=== PATIENT | female | born 1945 | race Caucasian/White ===

== ENCOUNTER 2017-01-10 16:55 | Inpatient (IN) | payer MEDICARE, MEDICAID ==
[2017-01-10 17:34] LABS: #Eosinphils 0.1 thou/uL (0.0-0.7); #Monocytes 1.1 thou/uL (0.11-0.59); #Neutrophils 8.2 thou/uL (1.40-6.50); %Basophils 0.5 % (0.0-1.0); %Eosinophils 0.5 % (0.0-10.0); %Lymphocytes 9.8 % (21.0-51.0); %Monocytes 10.5 % (0.0-10.0); Hematocrit 33.6 % (36.0-47.0); Mean Platelet Volume 6.6 fL (7.4-10.4); Red Blood Cell (RBC) Count 3.62 mill/uL (4.20-5.40); White Blood Cell (WBC) Count 10.4 thou/uL (4.8-10.8)
--- NOTE | 2017-01-10 18:09 | RAD ---
TWO VIEWS OF THE LET HIP: 01/10/17 INDICATION: Fall with left hip pain. FINDINGS: Right total hip prosthesis is unchanged in position when compared to a prior dated 10/05/13. Heteroto pic ossification overlying the left greater trochanter is stable. No acute fracture or subluxation i s evident. IMPRESSION: No acute abnormality. POS: [facility]
--- NOTE | 2017-01-10 18:10 | RAD ---
AP VIEW OF THE CHEST: 01/10/17 INDICATION: History of fall with tenderness in the lumbar spine. COMPARISON: Prior exam dated 06/19/16. FINDINGS: There is stable cardiomegaly. The lungs are clear. No definite acute osseous abnormality is evident. IMPRESSION: No acute cardiopulmonary abnormality. POS: [facility]
--- NOTE | 2017-01-10 18:12 | RAD ---
THREE VIEWS OF THE LUMBAR SPINE: 01/10/17 INDICATION: Fall with back pain. FINDINGS: There are stable laminectomy changes at L5 with pedicle screws at L5-S1 with interconnecting rods. G rade II anterolisthesis with intervertebral cage at L5-S1 stable. Anterolisthesis of L4 on L5 is sim ilar. There is now some slight retrolisthesis of L3 on L4 likely related to supine positioning and d isc degenerative facet osteoarthritic change at this level. There is some slight retrolisthesis also seen at L2 on L3. No acute fracture or subluxation is evident. IMPRESSION: 1. Stable postoperative lumbar spine with degenerative listhesis as above. 2. No acute fracture or subluxation is demonstrated. POS: [facility]
[2017-01-10 18:20] LABS: Troponin I Less than 0.010 ng/mL (< 0.028)
--- NOTE | 2017-01-10 18:27 | CT ---
NONCONTRAST CT CERVICAL SPINE 01/10/17 INDICATION: Fall with neck pain. COMPARISON: None. FINDINGS: There is moderate multilevel spondylosis of the cervical spine. no acute fracture or subluxation is evident. Prevertebral soft tissues appear within normal limits. Lung apices are clear. IMPRESSION: No acute fracture or subluxation. POS: [facility]
--- NOTE | 2017-01-10 18:43 | CT ---
CT OF THE BRAIN WITHOUT CONTRAST: 01/10/17 INDICATION: Fall. COMPARISON: None. FINDINGS: No acute infarct, hemorrhage, or hydrocephalus is present. No midline shift is evident. Skull is int act. IMPRESSION: No acute intracranial abnormality. POS: [facility]
[2017-01-10 18:58] LABS: Bilirubin Negative (Negative); Blood, Urine Trace (Negative); Glucose, Urine (Dipstick) Negative (Negative); Ketone, Urine Negative (Negative); Nitrite Negative (Negative); Protein, Urine (Dipstick) Negative (Neg-Trace)
[2017-01-10 19:00] LABS: Bacteria/HPF 4+ HPF (None Seen); Hyaline Casts/LPF 0-3 HYALINE CAST LPF (0-3 Hyaline); RBC/HPF 0-3 HPF (0-3); Squamous Epithelial 0-3 HPF (0-3); WBC/HPF 21-50 HPF (0-3)
[2017-01-10 19:03] LABS: ALT (SGPT) 19 U/L (8-55); AST (SGOT) 33 U/L (5-34); Alkaline Phosphatase 81 U/L (40-150); Anion Gap 17 mmol/L (10-20); BUN (Urea Nitrogen) 17 mg/dL (9.8-20.1); Bilirubin, Total 0.9 mg/dL (0.2-1.2); Calc. Creatinine Clearance 0 mL/min (70-130); Calcium 9.3 mg/dL (7.8-10.44); Carbon Dioxide 23 mmol/L (23-31); Chloride 89 mmol/L (98-107); Estimated GFR-MDRD 61; Globulin 2.9 g/dL (2.4-3.5); Protein, Total 7.3 g/dL (6.0-8.3)
[2017-01-10] MEDS ORDERED: cefTRIAXone\\ROCEPHIN 1 GM VIAL ONE (19:31)
--- NOTE | 2017-01-10 20:10 | PDOC.EVN ---
Event Note - Event Note Event Note: [id number] H&P Dictated 1. ROXIE 2. Hypotension 3. DM type 2 4. fALL PLAN: See orders
[2017-01-10] MEDS ORDERED: Acetaminophen 325 MG TAB PO PRN (20:12)
[2017-01-10] MEDS ORDERED: Ondansetron HCl/PF 4 MG/2 ML Vial IVP PRN (20:12)
[2017-01-10] MEDS ORDERED: Albuterol Sulfate 2.5 mg/3 ml Neb NEB PRN (20:14)
[2017-01-10] MEDS: Sodium Chloride 0.9% 1,000 ML IV SCH (21:45)
[2017-01-11] MEDS: Famotidine 20 MG TAB PO SCH ×3 (02:37→20:54)
[2017-01-11] MEDS: Gabapentin 300 MG CAP PO SCH ×6 (02:37→20:54)
[2017-01-11 02:42] VITALS: BMI 33.7
[2017-01-11] MEDS: tiZANidine HCl 4 MG TAB PO PRN ×2 (04:13→11:21)
[2017-01-11 05:03] LABS: Anion Gap 13 mmol/L (10-20); BUN (Urea Nitrogen) 13 mg/dL (9.8-20.1); Calc. Creatinine Clearance 100 mL/min (70-130); Calcium 8.9 mg/dL (7.8-10.44); Carbon Dioxide 23 mmol/L (23-31); Chloride 95 mmol/L (98-107); Estimated GFR-MDRD 68
[2017-01-11 05:04] LABS: #Eosinphils 0.1 thou/uL (0.0-0.7); #Lymphocytes 1.1 thou/uL (1.20-3.40); #Monocytes 1.1 thou/uL (0.11-0.59); #Neutrophils 6.4 thou/uL (1.40-6.50); %Basophils 0.5 % (0.0-1.0); %Eosinophils 1.5 % (0.0-10.0); %Lymphocytes 12.8 % (21.0-51.0); %Monocytes 11.9 % (0.0-10.0); Hematocrit 29.9 % (36.0-47.0); Mean Platelet Volume 6.8 fL (7.4-10.4); Red Blood Cell (RBC) Count 3.18 mill/uL (4.20-5.40); White Blood Cell (WBC) Count 8.8 thou/uL (4.8-10.8)
--- NOTE | 2017-01-11 07:13 | HP ---
DATE OF ADMISSION: 01/10/2017 CHIEF COMPLAINT: Fall. HISTORY OF PRESENT ILLNESS: The patient is a 71 years old female with past medical history of hypertension, hyperlipidemia, diabetes mellitus type 2, and _ ____ because of all. Patient states she is having falls intermittently in last few weeks, had a fall yesterday and she was on the floor. She could not able to get up, so paramedics were called today and patient was brought to the ER. The patient said she did fall because of loss of balance, but denies any head injury. She denies any syncopal episode. Denies any nausea. Denies any vomiting. She complains of generalized weakness. The patient denies any dysuria. Denies any increased frequency of micturition. PAST MEDICAL HISTORY: As per HPI. PAST SURGICAL HISTORY: Total knee replacement, hip surgery, back surgery, C- section. SOCIAL HISTORY: Denies smoking, denies alcohol use and drugs. FAMILY HISTORY: Denies any heart problems. MEDICATIONS: Reviewed. REVIEW OF SYSTEMS: Constitutional: Denies any fever, denies any chills. Eyes : Vision problems. Denies any hearing loss. Denies any neck pain. Cardiovascular system: Denies any chest pain. Respiratory system: Denies any palpations. Denies any dyspnea. Cranial nerve system: Denies syncope. Musculoskeletal: Positive for generalized weakness. Integumentary: Denies any rash. All other review of systems are reviewed and are negative PHYSICAL EXAMINATION: VITAL SIGNS: At the time of H and P performed, blood pressure is 196/101, heart rate of 101, respiration rate 18, pulse ox 97% on room air. GENERAL: The patient appears comfortable. HEENT: Pupils are equal, round, and reactive. Anterior naris patent. Nose normal. Ears normal. Teeth intact. Tongue is moist. NECK: Supple, no JVD. CARDIOVASCULAR: S1, S2 present. Regular rate and rhythm, no murmurs, no rubs, no gallops. RESPIRATORY SYSTEM: No wheezing, no rhonchi. Breath sounds bilaterally. GASTROINTESTINAL: Abdomen is soft, distended, no guarding, no organomegaly, no masses felt. MUSCULOSKELETAL: Bilateral knees old scar present. CRANIAL NERVE SYSTEM: Denies syncope. Cranial nerves intact. Follows commands. Speech clear. PSYCHIATRIC: Mood is appropriate at this time. GENITOURINARY: No suprapubic tenderness. INTEGUMENTARY: No obvious rashes seen. LABORATORY DATA: At the time of H and P performed, white count 10.4, hemoglobin 9.5, platelet count is 248. BMP showed sodium 124, potassium 4.7, chloride 89, CO2 23, BUN of 17, creatinine 0.91, CK-MB 10.8, CK 557, troponin is than 0.010. Serum total protein 7.3. ASSESSMENT AND PLAN: The patient is a 71-year-old female: 1. Fall. Plan to consult PT, OT, speech therapy evaluation. Plan to monitor the patient closely. 2. Hyponatremia. appears hypovolemia. Plan to start IV fluids. Repeat BMP in a.m. 3. Abnormal cardiac enzymes and mild rhabdomyolysis we will monitor. EKG, no acute ST changes. We will place patient on telemetry. We will check cardiac enzymes. 4. Urinary tract infection. Plan to start patient on IV Rocephin 1 gram q.24 hours and urine culture and sensitivity. 5. History of hypertension. Continue home blood pressure medications. We will do p.r.n. clonidine and hydralazine. 6. History of diabetes type 2, monitor blood sugars. We will do insulin sliding scale. The case was discussed in detail with the patient. Patient is FULL CODE. MTDD
[2017-01-11] MEDS: Sodium Chloride 0.9% 1,000 ML IV SCH ×2 (08:49→20:53)
[2017-01-11] MEDS: HYDROcodone/Acetaminophen 5/325 mg Tablet PO PRN ×2 (08:50→20:59)
[2017-01-11] MEDS: methylPREDNISolone 4 mg Tablet PO SCH (08:50)
[2017-01-11] MEDS: Aspirin 81 mg Enteric Coated Tablet PO SCH (08:50)
[2017-01-11] MEDS: Carvedilol 6.25 MG TAB PO SCH ×2 (08:51→17:11)
[2017-01-11] MEDS: Enoxaparin Sodium 40 MG/0.4 ML SYRINGE SC SCH (08:51)
--- NOTE | 2017-01-11 11:39 | PDOC.PN ---
- Subjective Encounter Start Date: 01/11/17 Encounter Start Time: 11:37 Patient states that she has significnat low back pain and is asking for pain medications. No other issues or concerns in the last 24 hours. - Objective Vital Signs & Weight: Vital Signs (12 hours) Temp Pulse Resp BP Pulse Ox 01/11/17 08:10 97.9 F 73 16 136/60 94 L Weight Weight 222 lb Result Diagrams: 01/11/17 04:39 01/11/17 04:39 Phys Exam - Physical Examination sitting up in bed, appears to be in mild pain obese HEENT: PERRLA, moist MMs Neck: no nodes, no JVD Respiratory: no wheezing, no rales Cardiovascular: RRR, no significant murmur Gastrointestinal: soft, non-tender, no distention Musculoskeletal: pulses present, edema present (trace) Neurological: normal sensation, moves all 4 limbs Psychiatric: normal affect, A&O x 3 Skin: no rash, normal turgor Dx/Plan (1) Hyponatremia Code(s): E87.1 - HYPO-OSMOLALITY AND HYPONATREMIA Status: Acute (2) Chronic pain Code(s): G89.29 - OTHER CHRONIC PAIN Status: Acute (3) Chest pain Code(s): R07.9 - CHEST PAIN, UNSPECIFIED Status: Acute (4) Chronic low back pain Code(s): M54.5 - LOW BACK PAIN; G89.29 - OTHER CHRONIC PAIN Status: Chronic (5) Hypertension Code(s): I10 - ESSENTIAL (PRIMARY) HYPERTENSION Status: Chronic (6) Obesity (BMI 30-39.9) Code(s): E66.9 - OBESITY, UNSPECIFIED Status: Chronic - Plan * Na levels improving, patient likely has pain induced hyponatremia, patient's volume status is euvolemic * Patient also having significant chronic back pain which she was told would require surgery, will consult spinal surgery at this point in time for further recommendations * 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
[2017-01-11 12:42] LABS: Hemoglobin A1c 5.2 % (4.0-6.0)
[2017-01-11] MEDS ORDERED: cefTRIAXone\\ROCEPHIN 1 GM in Sodium Chloride 0.9% 100 ML IVPB SCH (20:00)
[2017-01-12] MEDS: HYDROcodone/Acetaminophen 5/325 mg Tablet PO PRN ×2 (03:49→09:10)
[2017-01-12] MEDS: Sodium Chloride 0.9% 1,000 ML IV SCH (05:39)
--- NOTE | 2017-01-12 06:18 | CON ---
DATE OF CONSULTATION: 01/11/2017 DATE OF ADMISSION: 01/10/2017 CHIEF COMPLAINT: Fall, low back pain. HISTORY OF PRESENT ILLNESS: Patient is a 71-year-old female who presented with having increasing nu mber of falls. She feels like when she is standing and walking, her legs get weak and give out from under her. She has diffuse tenderness to the low back and midline lumbar spine on palpation. She denies any head injury whenever she fell or any syncopal injuries. Denies any nausea or vomiting, a nd complains of generalized weakness. The patient also denies any bowel or bladder incontinence. S he is a patient of Dr. Rashid as he has seen her in 04/2016. At that time, he offered an extensi on of her L5-S1 fusion, which she had in 12/[address] Rashid to the L4-L5 vertebrae and also laminectomy at L2-L5. She is also being treated for a UTI that is growing E. coli. She has hyponat remia, sodium 127 and rhabdomyolysis. X-ray of the lumbar spine was completed and it shows stable p ostoperative lumbar spine with degenerative listhesis at the L4 and L5 vertebrae. Grade 2 anterolis thesis. There is also some slight retrolisthesis on L3 and L4 likely related to a supine positionin g and disk degenerative facet arthritic changes. There is a small amount of retrolisthesis at L2 an d L3. There is no acute fracture or subluxation is demonstrated. Neurosurgery was consulted for th e findings on x-ray. PAST MEDICAL HISTORY: Hypertension, hyperlipidemia, diabetes mellitus type 2. PAST SURGICAL HISTORY: Total knee replacement, hip surgery, L5-S1 laminectomy and fusion [place] [address] Rashid and a . SOCIAL HISTORY: Denies any smoking. Denies alcohol or drug use. FAMILY HISTORY: Denies any heart problems. MEDICATIONS: Have been reviewed. REVIEW OF SYSTEMS: A 12-point review of systems has been completed and is otherwise negative unless stated in the above HPI. PHYSICAL EXAMINATION: VITAL SIGNS: Reviewed and she is hemodynamically stable. GENERAL: The patient is alert and oriented x4, in no acute distress. HEENT: Head is normocephalic and atraumatic. Hearing is intact. Moist mucous membranes. Eyes, pu pils are equal and reactive to light. Extraocular muscles are intact. Sclerae is white, nonicteric . CARDIOVASCULAR: The patient has regular rate and rhythm, normal S1, S2 heart sounds. No distal cya nosis or clubbing noted. MUSCULOSKELETAL: Lower extremity, 5/5 strength in the lower extremity bilaterally. No dermatomal s ensory loss in the lower extremities bilaterally. Pulses are +2, equal and symmetric in the lower e xtremity. Upper extremity, the patient has 5/5 strength in the upper extremity. No dermatomal sens ory loss in the upper extremities bilaterally, +2 pulses in the brachial and radial pulses bilateral ly in upper extremity. RESPIRATORY: The patient has bilateral symmetric chest rise and appears to be in no shortness of br eath. BACK: The patient has diffuse tenderness to the midline lumbar spine. NEUROLOGIC: Cranial nerves II through XII are grossly intact. Her speech is fluent and she answers my questions appropriately. LABORATORY DATA: Shows CK-MB at 10.8, CK at 557, troponin at 0.01, serum total protein is 7.3, BUN of 17, potassium of 4.7, sodium is 124. Platelet count of 248, hemoglobin is 9.5 and white blood ce ll count is 10.4. ASSESSMENT: Ms. Arroyo is a 71-year-old female who I saw in her room this morning with low back pain , rhabdomyolysis, hyponatremia, is being treated for urinary tract infection. PLAN: From a neurosurgical standpoint, this is not an emergency. We will speak to her tomorrow sanam prince about outpatient imaging and follow up. Dr. Rashid previously offered extension of her L5-S 1 fusion to the L4-L5 vertebrae and a repeat laminectomy of L2 through L5. If there are any further questions, please feel free to contact Neurosurgery.
[2017-01-12 08:32] LABS: Anion Gap 12 mmol/L (10-20); BUN (Urea Nitrogen) 13 mg/dL (9.8-20.1); Calc. Creatinine Clearance 91 mL/min (70-130); Calcium 9.3 mg/dL (7.8-10.44); Carbon Dioxide 25 mmol/L (23-31); Chloride 100 mmol/L (98-107); Estimated GFR-MDRD 61; Magnesium 1.6 mg/dL (1.6-2.6)
--- NOTE | 2017-01-12 08:32 | PRG ---
DATE OF SERVICE: 01/12/2017 I personally interviewed and examined the patient and agree with documentation of Obed Quezada PA-C, dated 01/11/2017. Briefly, Manuelito Arroyo is a patient in our neurosurgery clinic for whom we have offered revision s urgery including extension of fusion and further decompression in the lumbar spine. She comes in wi th rhabdomyolysis, urinary tract infection, hyponatremia and falls at home. On neurological examination Ms. Arroyo is stable from our visit in April. I offered, once again for Ms. Arroyo to undergo spine surgery. Her operation would require about 6-8 hours of operative time. There would be a significant recovery, including inpatient rehabilitation . We will have to clear our schedule in the future to make this happen. However, Ms. Arroyo is not sure she wants surgery right now. Her is in the last stages of ca ncer treatment. She wants to be there for her and does not want to take the time to focus o n herself in her recovery. She does not have hospice care because he continues chemotherapy to figh t his cancer. She does not have a home health aide and she is trying to manage both her degenerativ e spine condition and her 's cancer on her own. When the time comes and Ms. Arroyo is ready to undergo this surgical intervention and the recovery th at is appropriate for it, we will make room on the operative schedule. We will need about 3 weeks' notice to clear our schedule appropriately for her. She will need medical tune-up prior to surgery to ensure that her cardiopulmonary risk is as low as we can make it. We will need her off all blood thinners and antiplatelet agents for a week prior to the surgery. I recommending to her that she visit with our high school social studies teacher to see if she can get any help with the management of her house and care of her .
[2017-01-12] MEDS: Carvedilol 6.25 MG TAB PO SCH ×2 (09:06→16:28)
[2017-01-12] MEDS: Aspirin 81 mg Enteric Coated Tablet PO SCH (09:07)
[2017-01-12] MEDS: Enoxaparin Sodium 40 MG/0.4 ML SYRINGE SC SCH (09:08)
[2017-01-12] MEDS: Gabapentin 300 MG CAP PO SCH ×2 (09:09→14:48)
[2017-01-12] MEDS: Famotidine 20 MG TAB PO SCH (09:09)
[2017-01-12] MEDS: methylPREDNISolone 4 mg Tablet PO SCH (09:09)
[2017-01-12] MEDS ORDERED: HYDROcodone/Acetaminophen 10/325 mg Tablet PO PRN (10:02)
[2017-01-12] MEDS ORDERED: HYDROcodone/Acetaminophen 5/325 mg Tablet PO PRN (10:04)
[2017-01-12] MEDS ORDERED: Ciprofloxacin 500 MG TAB PO SCH ×2 (10:15→20:00)
[2017-01-12] MEDS ORDERED: Cyclobenzaprine 10 MG TAB PO PRN (10:17)
--- NOTE | 2017-01-12 13:02 | DIS ---
PRIMARY CARE PHYSICIAN: Dr. Mckeon DATE OF ADMISSION: 01/10/2017 DATE OF DISCHARGE: 01/12/2017 DISCHARGE DIAGNOSES: 1. Hyponatremia with hypoosmolality. 2. Diabetes mellitus type 2. 3. Hypertension. 4. Hyperlipidemia. 5. Chronic low back pain, acute on chronic, after a fall. CONSULTATIONS: Dr. Rashid on 01/11/2017. HISTORY AND PHYSICAL: Ms. Arroyo is a 71-year-old female with history of chronic back pain who was a dmitted after having intermittent falls in the last few weeks due to intractable back pain. She fel l the day prior to admission and was on the floor and was unable to get up, so paramedics were goodman d. She was brought to the emergency department for evaluation. She had no history of syncope or na usea. She did have intractable back pain and was noted to be hyponatremic. She was admitted to the hospital for further workup and treatment. Over 01/10/2017 she was largely unchanged. She was seen by Neurosurgery for quick evaluation, and felt this was not an acute problem. No plans were made for emergent surgery and focus was on pain medicine and muscle spasm control. On 01/11/2017 and 01/12/2017 she was still having significant discomfort, however, on review she was on less pain medicines and normal, had been unable to tolerate her muscle relaxer. I switched her over to Flexeril and increased back to her regular dose. Her pain was much more tolerable. She was seen by Dr. Rashid in evaluation. He felt that he would see her as an outpatient in 3-4 weeks a nd get her scheduled for outpatient back surgery. Otherwise, she was stable for discharge and was discharged home in stable condition. As a side note, she was very tearful this morning as her was undergoing cancer treatment was not reachable and she was concerned about his safety. The daughter was on the way out there, the p atient was ready to go home and check on him. DISCHARGE CONDITION: Stable. DISPOSITION: To be discharged home via private vehicle. DISCHARGE MEDICATIONS: 1. Cipro 500 mg p.o. b.i.d. for 7 days. 2. Flexeril 10 mg p.o. t.i.d. p.r.n. muscle spasm. 3. Albuterol sulfate 0.63 mg per 3 mL, 3 mL inhaled q.6 h. nebulized p.r.n. shortness of breath or wheezing. 4. Tylenol p.r.n. 5. Aspirin 81 mg daily. 6. Carvedilol 6.25 mg p.o. b.i.d. 7. Gabapentin 600 mg p.o. t.i.d. 8. Metaxalone 800 mg p.o. t.i.d. p.r.n. 9. Protonix 40 mg p.o. daily. 10. Quinapril 20 mg p.o. b.i.d. 11. Methylprednisolone 4 mg daily. 12. Albuterol sulfate HFA 2 puffs b.i.d. p.r.n. shortness of breath or wheezing. 13. Lipitor 10 mg p.o. at bedtime. 14. Buspirone 30 mg p.o. b.i.d. 15. Hydrocodone/acetaminophen 10/325 one p.o. q.6 hours p.r.n. pain. 16. Zoloft 150 mg p.o. daily. 17. Iron polysaccharide, Niferex 108 mg p.o. daily. 18. Metformin 1000 mg p.o. q.a.m. and 500 mg p.o. q.p.m. 19. Tramadol 50 mg p.o. q.6 hours p.r.n. mild pain. FOLLOWUP APPOINTMENTS 1. Dr. Schulte in [address] Rashid in 2-3 weeks. DISCHARGE CONDITION: Good. DISPOSITION: Again being discharged to home via private vehicle.
[2017-01-12] MEDS ORDERED: tiZANidine HCl 4 MG TAB PO SCH (14:00)
[2017-01-12 16:28] VITALS: BP 163/69
[2017-01-12 18:02] VITALS: TEMP 97.6
== END 2017-01-12 17:24 | disposition home health service (06) | DRG 641 ==
LOC: ERS 16:55 → ERHOLD 20:10 → 2NO 21:52
PROVIDERS: ADMIT Internal Medicine; ATTEND Internal Medicine
DX: E87.1 Hypo-osmolality and hyponatremia (principal); M62.82 Rhabdomyolysis; N39.0 Urinary tract infection, site not specified; E11.9 Type 2 diabetes mellitus without complications; G89.29 Other chronic pain; M62.830 Muscle spasm of back; W01.0XXA Fall on same level from slipping, tripping and stumbling without subsequent striking against object, initial encounter; R29.6 Repeated falls; M51.36 Other intervertebral disc degeneration, lumbar region; M43.16 Spondylolisthesis, lumbar region; E78.5 Hyperlipidemia, unspecified; Z98.1 Arthrodesis status; I10 Essential (primary) hypertension; E66.9 Obesity, unspecified; Z68.33 Body mass index [BMI] 33.0-33.9, adult
CPT/HCPCS: 36415; 51701; 70450; 71010; 72100; 72125; 80048; 80053; 81003; 81015; 82550; 82553; 83036; 83735; 84484; 85025; 87077; 87086; 87186; 93005; 96361; 96365; 96375; A4216; A4353; G8978-GP-CK; G8979-GP-CJ; J0360; J0696; J1650; J7050; J7611

== ENCOUNTER 2017-01-27 18:44 | Observation (INO) | payer MEDICARE, MEDICAID ==
[2017-01-27 19:15] LABS: Hematocrit 30.8 % (36.0-47.0); Mean Platelet Volume 6.5 fL (7.4-10.4); Red Blood Cell (RBC) Count 3.24 mill/uL (4.20-5.40)
[2017-01-27 19:28] LABS: Band 8 % (5-11); Neutrophil 73 % (42-75); Polychromasia SLIGHT = 2-3 cells (100X) (0-2/hpf); Reactive Lymphocytes 2 % (0-10)
[2017-01-27 19:29] LABS: Bilirubin Negative (Negative); Blood, Urine Small (Negative); Glucose, Urine (Dipstick) Negative (Negative); Ketone, Urine Negative (Negative); Nitrite Positive (Negative); Protein, Urine (Dipstick) Negative (Neg-Trace)
[2017-01-27 19:31] LABS: Bacteria/HPF 4+ HPF (None Seen); Hyaline Casts/LPF 0-3 HYALINE CAST LPF (0-3 Hyaline); RBC/HPF None Seen HPF (0-3); Squamous Epithelial 0-3 HPF (0-3); WBC/HPF 0-3 HPF (0-3)
[2017-01-27 19:39] LABS: ALT (SGPT) 25 U/L (8-55); AST (SGOT) 42 U/L (5-34); Alkaline Phosphatase 59 U/L (40-150); Anion Gap 14 mmol/L (10-20); BUN (Urea Nitrogen) 29 mg/dL (9.8-20.1); Bilirubin, Total 0.7 mg/dL (0.2-1.2); Calc. Creatinine Clearance 0 mL/min (70-130); Calcium 9.1 mg/dL (7.8-10.44); Carbon Dioxide 26 mmol/L (23-31); Chloride 98 mmol/L (98-107); Estimated GFR-MDRD 37; Globulin 2.8 g/dL (2.4-3.5); Protein, Total 6.8 g/dL (6.0-8.3)
[2017-01-27 19:41] LABS: Troponin I Less than 0.010 ng/mL (< 0.028)
[2017-01-27] MEDS ORDERED: Ondansetron HCl/PF 4 MG/2 ML Vial ONE (21:16)
[2017-01-27] MEDS ORDERED: Morphine Sulfate 2 MG/ML SYRINGE ONE (21:16)
[2017-01-27] MEDS ORDERED: cefTRIAXone\\ROCEPHIN 1 GM VIAL ONE (21:54)
--- NOTE | 2017-01-27 22:20 | CT ---
CT HEAD WITHOUT IV CONTRAST: 01/27/17 HISTORY: Patient found on ground at home three hours ago. Patient has fallen six times in the past few weeks. Patient has loss of bowel control. Back and hip pain. COMPARISON: 01/10/17. FINDINGS: Again noted are mild chronic small vessel ischemic changes and cerebral volume loss. There is no josh dence of an acute cortical infarction, hemorrhage, mass effect or midline shift. There is mild cereb ellar volume loss again present. Ventricular system dilated and out of proportion to the degree of s ulcal atrophy, but this is a stable finding and likely related to greater central cerebral atrophy. There is no calvarial fracture seen. There has been no interval change compared to the prior exam. IMPRESSION: No acute intracranial abnormality is demonstrated. POS: [facility]
--- NOTE | 2017-01-27 22:23 | CT ---
CT CERVICAL SPINE WITHOUT IV CONTRAST: 01/27/17 HISTORY: Patient found on ground at home after a fall. Patient found three hours ago. Back and hip pain. Loss of bowel control. TECHNIQUE: Contiguous axial CT images are obtained through the cervical spine from the skull base to the T2-3 l evel. Sagittal and coronal reformat images are provided. COMPARISON: 01/10/17. Multilevel degenerative changes are again seen stable from the prior exam. There is no evidence of a n acute fracture or subluxation involving the cervical spine. Prevertebral soft tissues are within n ormal limits. There has been no interval change from prior exam. IMPRESSION: Multilevel degenerative changes without evidence of fracture or subluxation involving the cervical s pine. POS: [facility]
[2017-01-27] MEDS ORDERED: Dextrose 50% Abboject 50 ML SYRINGE SLOW IVP PRN (23:45)
[2017-01-27] MEDS ORDERED: Senokot 8.6 MG TAB PO PRN (23:45)
[2017-01-27] MEDS ORDERED: HumaLOG 300 UNITS/3 ML VIAL SC PRN ×2 (23:45)
[2017-01-27] MEDS ORDERED: Dextrose 5% in Water 1,000 ML IV PRN (23:45)
[2017-01-27] MEDS ORDERED: Milk Of Magnesia 30 ML UDCUP PO PRN (23:45)
[2017-01-27] MEDS ORDERED: Sodium Chloride 0.9% 1,000 ML IV SCH (23:45)
--- NOTE | 2017-01-28 00:53 | HP ---
PRIMARY CARE PHYSICIAN: None. CHIEF COMPLAINT: Unable to get up. HISTORY OF PRESENT ILLNESS: Ms. Arroyo is a pleasant 71-year-old female who has a history of hyperte nsion and diabetes as well as severe lumbar spondylolisthesis. She actually was recently discharged from the hospital for similar complaints that she has on this presentation. She had been admitted on 01/10 for a fall where she had difficulty getting up. She was also found to have a urinary tract infection at that time. She was admitted and evaluated by Neurosurgery and a lumbar surgery was of fered; however, the patient wanted to wait on any surgery due to her 's chronic illness. It was felt that there was no neurological emergency at that time and she was discharged home. She say s that since she has been home, she has been having trouble with ambulating. She says that she slee ps in a room with her granddaughter and the 2 beds were very close together and she says that she tony s been falling off and on in the bedroom, so she made the decision to try to sleep in the living brody m and she says she was sleeping in a reclining chair and says that she was watching TV and fell asle ep and then got startled, awoke, and when this happened, she kind of slid to the floor and was unabl e to get up. She was on the floor for about 3-4 hours before her was able to call and get h elp and she was brought to the emergency room for evaluation. In the ER, she is once again found to have a urinary tract infection. She was also found to have acute renal failure as well and she is once again being admitted. REVIEW OF SYSTEMS: Constitutional: There have been no fevers, chills, no night sweats, no weight l oss. HEENT: No headache, no dizziness, no visual changes, no sore throat, no rhinorrhea, no neck p ain, no adenopathy. Pulmonary: No hemoptysis, no cough, no wheezing. Cardiovascular: The patient says she has an occasional chest pain off and on as well as some dyspnea off and on. However, it i s noted that she did have a negative stress test in 06/2016. Gastrointestinal: She has some occasi onal abdominal pain. She says she has had some constipation as well. No nausea, no vomiting, no ch karina in bowels. Genitourinary: No urinary frequency, hematuria, hesitancy. Neurologic: No focal weakness, numbness, no seizures except for the leg weakness. Psychiatric: No symptoms of anxiety o r depression. Skin and Integument: No skin changes. No rash. PAST MEDICAL HISTORY: Significant for spondylolisthesis and spinal stenosis at L4-L5 and severe spi nal stenosis, hypertension, hyperlipidemia, diabetes mellitus type 2. PAST SURGICAL HISTORY: She has had a total knee replacement and L5-S1 fusion and . ALLERGIES: CHLORDIAZEPOXIDE, DIAZEPAM, DICLOFENAC, CELEBREX, VALPROIC ACID, PHENERGAN, MISOPROSTOL, LODINE, DIAZEPAM. SOCIAL HISTORY: She denies any alcohol use. She also denies smoking. She is and lives at home with her family. FAMILY HISTORY: No history of any heritable diseases. MEDICATIONS: Her medications that the patient was discharged home on about 2 weeks ago included Fle xeril 10 mg t.i.d., albuterol nebs, aspirin 81 mg daily, carvedilol 6.25 mg twice a day, gabapentin 600 mg t.i.d., metolazone 800 mg t.i.d. as needed, Protonix 40 mg daily, quinapril 20 mg twice a day , methylprednisolone 4 mg daily, Lipitor 10 mg at bedtime, buspirone 30 mg twice a day, Freeman 10/325 q.6 hours as needed, Zoloft 150 mg daily, iron polysaccharide 108 mg daily, metformin 1000 mg in th e a.m. and 500 mg in the p.m., and Tramadol 50 mg q.6 hours as needed. PHYSICAL EXAMINATION: GENERAL: She is alert and oriented. She appears to be in no acute distress. VITAL SIGNS: Her blood pressure was 149/66, heart rate 75, respiratory rate of 18, temperature is 9 8.7. HEENT: Pupils are equal, round, and reactive. Extraocular muscles are intact. Sclerae are anicter ic. Throat; no erythema, no exudates. NECK: No adenopathy, no bruits. LUNGS: Clear to auscultation. There is no wheezing, no rales. CARDIOVASCULAR: She has a normal S1 and S2. No S3 or S4. No murmurs, clicks or rubs. ABDOMEN: Obese, it is soft. She has got some diffuse tenderness. There is no rebound or guarding. EXTREMITIES: She has got some mild petechial like lesions on the feet, but there is no significant edema. NEUROLOGICALLY: She had difficulty lifting her right leg against gravity and the left leg was weak, but she was able to lift it against gravity, but it was very weak against resistance. She was able to dorsiflex both feet and plantar flex both feet and her upper extremity strength was intact. LABORATORY RESULTS: White blood cell count was 8.0, hemoglobin 10.7, hematocrit is 30.8, platelet c ount is 185. Sodium was 133, potassium 4.6, chloride is 98, CO2 is 26, BUN of 29, creatinine 1.4, a nd glucose is 94. ASSESSMENT AND PLAN: This is a 71-year-old female that has significant lumbar spondylolisthesis and lumbar spinal canal stenosis, who presents with lower extremity weakness. The weakness is likely a s a result of the lumbar disk disease. She also has a urinary tract infection. She is likely at [facility] for recurrent urinary tract infections due to her lumbar disk disease. She may have some degree of urinary retention, which we will observe for while she is in the hospital. In the meantime, the patient will be placed in observation. We will consult Neurosurgery as she may require surgery soon er than anticipated. 1. For the urinary tract infection, we will start her on Cipro once again. Based on urine cultures from her previous admission, cultures will once again be drawn and antibiotics tailored. We will a lso need to check a postvoid residual to see if she has any urinary retention and if she does, mackenzie santana on the degree, she may need either in and out self-catheterization or possibly a urology consul tation. We will also place her on aggressive bowel program for constipation. 2. For diabetes mellitus, we will continue her usual medications for diabetes with the exception of metformin and also place her on a sliding scale insulin.
[2017-01-28] MEDS: Acetaminophen 325 MG TAB PO PRN ×2 (04:14→09:00)
[2017-01-28 04:24] LABS: Anion Gap 12 mmol/L (10-20); BUN (Urea Nitrogen) 21 mg/dL (9.8-20.1); Calc. Creatinine Clearance 79 mL/min (70-130); Calcium 9.3 mg/dL (7.8-10.44); Carbon Dioxide 26 mmol/L (23-31); Chloride 99 mmol/L (98-107); Estimated GFR-MDRD 54
[2017-01-28 05:00] LABS: Band 6 % (5-11); Hematocrit 32.5 % (36.0-47.0); Neutrophil 65 % (42-75); Nucleated RBC 1 % (0); Reactive Lymphocytes 1 % (0-10); Red Blood Cell (RBC) Count 3.38 mill/uL (4.20-5.40); White Blood Cell (WBC) Count 7.8 thou/uL (4.8-10.8)
[2017-01-28] MEDS: Cipro 250 MG TAB PO SCH ×2 (06:55→22:11)
[2017-01-28] MEDS: Enoxaparin Sodium 30 MG/0.3 ML SYRINGE SC SCH (09:01)
[2017-01-28] MEDS: Saccharomyces boulardii 250 MG CAP PO SCH (09:01)
[2017-01-28] MEDS: Docusate 100 MG CAP PO SCH ×2 (09:02→22:10)
[2017-01-28] MEDS ORDERED: Cyclobenzaprine 10 MG TAB PO PRN (09:16)
--- NOTE | 2017-01-28 09:17 | PDOC.PN ---
- Subjective Encounter Start Date: 01/28/17 Encounter Start Time: 09:15 Patient seen at bedside. No overnight events, complains of back pain, anxious about her 's health. - Objective Resuscitation Status: Resuscitation Status FULL:Full Resuscitation Vital Signs & Weight: Vital Signs (12 hours) Temp Pulse Resp BP BP BP Pulse Ox 01/28/17 07:49 98.2 F 73 20 141/62 H 01/28/17 06:00 80 16 133/62 01/28/17 04:14 79 173/73 H 01/28/17 04:00 98.0 F 84 16 198/87 H 193/87 H 98 01/28/17 00:00 98.2 F 79 20 173/73 H 96 01/27/17 23:45 98.2 F 79 20 173/73 H 96 Weight Admit Weight 212 lb Weight 212 lb I&O: 01/27/17 01/28/17 01/29/17 06:59 06:59 06:59 Intake Total 405 Output Total 2 Balance 403 Result Diagrams: 01/28/17 03:44 01/28/17 03:44 Additional Labs: Accuchecks 01/28/17 05:58 POC Glucose 109 Phys Exam - Physical Examination Constitutional: NAD HEENT: moist MMs Neck: no JVD Respiratory: no rales Cardiovascular: no significant murmur Gastrointestinal: no distention Musculoskeletal: pulses present Bilateral LE weakness, R>L sensation intact, able to dorsiflex both feet Psychiatric: normal affect, A&O x 3 Dx/Plan (1) Pyuria Code(s): N39.0 - URINARY TRACT INFECTION, SITE NOT SPECIFIED Status: Acute (2) Chronic low back pain Code(s): M54.5 - LOW BACK PAIN; G89.29 - OTHER CHRONIC PAIN Status: Chronic Qualifiers: Back pain laterality: unspecified Comment: Spondylolisthesis (3) Diabetes type 2, controlled Code(s): E11.9 - TYPE 2 DIABETES MELLITUS WITHOUT COMPLICATIONS Status: Chronic (4) Dyslipidemia Code(s): E78.5 - HYPERLIPIDEMIA, UNSPECIFIED Status: Chronic - Plan cont current plan of care, continue antibiotics, PT/OT, manager social work, DVT proph w/SCDs * Will need evaluation by neurosurgery for decision on whether the patient will require surgery. In the past the patient declined due to extrinsic social factors. * Continue Ciprofloxacin * D/C IV Fluids * PT/OT * Rehab screen * Consult CM for assistance in disposition * Restart select home medications
[2017-01-28] MEDS: HYDROcodone/Acetaminophen 10/325 mg Tablet PO PRN ×2 (16:44→22:10)
[2017-01-28] MEDS: Carvedilol 6.25 MG TAB PO SCH (16:45)
[2017-01-28] MEDS ORDERED: Ketorolac Tromethamine 30 MG/ML VIAL IVP SCH (22:00)
[2017-01-29] MEDS: HYDROcodone/Acetaminophen 10/325 mg Tablet PO PRN ×2 (03:52→12:02)
[2017-01-29] MEDS: Cipro 250 MG TAB PO SCH ×2 (07:31→23:09)
--- NOTE | 2017-01-29 07:32 | PRG ---
DATE OF SERVICE: 01/29/2017 I came to see Ms. Arroyo who is back in the hospital. I saw her quite recently when she was admitted . During her last hospitalization we offered her surgical intervention and asked her to make some a rrangements for care for her (who is undergoing therapy for cancer) so that she could have a dequate time to recover from that surgical intervention. We have an office appointment to talk to [facility] and help make arrangements, but she came back to the hospital. She still has the same symptoms, physical examination and history that she did before. Mrs. Crzu gallegos benefit from a decompression and extension of her fusion in the lumbar spine. I have offered [facility] this surgery in the past. However, she will need to be off antiplatelet agents, she will need a full cardiac evaluation before being put under anesthesia, the surgical intervention will take 6-8 h ours, she require inpatient rehabilitation for 1-2 weeks following surgery, and should be in recover y for 2-3 months during which time she cannot be doing bending and lifting needed to get her in and out of bed. The largest obstacle between now and surgery is a social work intervention so that her family can tony ve the care they need so that she can recover adequately from the surgery. I do not see any reason to martinez to surgery and then be left in a situation where she remains in the hospital during her enti re 2-3 months of recovery or if she is in a rehabilitation facility while no one is caring for her thad hwang. The social issues will need to be worked out. We will need to get her on the schedule for surgical intervention. I will let my office know that this is coming in the future. What I do not know is the date and time in which arrangements will have been made.
[2017-01-29] MEDS: Carvedilol 6.25 MG TAB PO SCH ×2 (07:39→16:45)
[2017-01-29] MEDS: Docusate 100 MG CAP PO SCH ×2 (07:41→23:13)
[2017-01-29] MEDS: Enoxaparin Sodium 30 MG/0.3 ML SYRINGE SC SCH (07:44)
[2017-01-29] MEDS: Saccharomyces boulardii 250 MG CAP PO SCH (07:44)
[2017-01-29] MEDS ORDERED: FLU VACC TS2017-18 (>65YR) 0.5 ML SYRINGE IM ONE ×2 (09:00)
--- NOTE | 2017-01-29 11:36 | PRG ---
DATE OF SERVICE: 01/29/2017 SUBJECTIVE: The patient is seen and examined at bedside. She is crying and worrying about 2 puppie s and her sick . She complains about back pain as before. It gets to the point that it is u nbearable. Her appetite is poor. OBJECTIVE: VITAL SIGNS: Blood pressure is 163/72, pulse is 64, temperature is 97.6, respiratory rate is 20, O2 saturations 97% on room air. HEENT: Head is atraumatic, normocephalic. Eyes; PERRLA. Conjunctivae palish. Oral mucosa is somew hat dry. NECK: Supple, no lymphadenopathy. LUNGS: Clear. HEART: S1, S2 normal, no S3, no S4, no murmur. ABDOMEN: Soft, nontender, slightly distended. Bowel sounds are present. No organomegaly. EXTREMITIES: No clubbing, cyanosis or edema. NEUROLOGIC: She is alert and oriented x4. There is not any sensory deficits. There is some weakne ss in the lower extremities bilaterally which is mild to moderate. SKIN: No rash or erythema. LABORATORY DATA: Showed glucose of 156 and the range is from 136 to 256. Microbiology showed most likely E. coli more than 100,000 colonies growing in urine. Blood cultures are negative x2 so far. IMPRESSION: 1. Low back pain, intractable, recurrent hospitalization, acute on chronic. The patient was seen b mercedes Rashid, neurosurgeon, who knows her case and he offered her surgical intervention during th e previous hospitalization recently, but the patient denied it because of her sick . She fee ls like she needs to take care of him first before she is going to take care of herself. Dr. Silverman int would like to do the surgery, but he is concerned about her social situation and not having good time to recover after surgery. The major case detective is involved in her evaluation and care. At this p oint, I am going to start her on morphine 4 mg IV push x1 and then q.6-8 h. p.r.n. as needed. I am starting her on Solu-Medrol 40 mg IV push q.24 h., also I am going to restart her on her home medica tions except for metformin and Skelaxin. 2. Urinary tract infection, most likely caused by E. coli. The patient is on ciprofloxacin. Will continue that. We should have final report on her urine culture tomorrow. 3. Diabetes mellitus. Her metformin is stopped. She is getting her regular schedule plus a slidi ng scale. 4. Hypertension. Her blood pressure is running slightly on the higher side, but she is in lot of p ain and this is probably the main reason why her systolic is up to 160s. 5. Hyperlipidemia. We will start her on her statin. PLAN: She is going to have MRI done today. Her major case detective is going to work on her social issues and the patient was seen by Dr. Rashid who is willing to operate on her after her social situatio n is improved. We will continue her ciprofloxacin for her UTI and will continue her DVT prophylaxis with Lovenox. I will continue PT.
--- NOTE | 2017-01-29 13:57 | MRI ---
CERVICAL SPINE MRI WITHOUT CONTRAST: Date: 01/29/17 COMPARISON: 10/03/14. HISTORY: Spondylosis, myelopathy. TECHNIQUE: Multiplanar, multisequence MR imaging of cervical spine provided without contrast. FINDINGS: There is mild degenerative change at the atlantoaxial interspace. Craniocervical and cervicothoracic junctions are intact. The sagittal STIR imaging demonstrates no focal area of osseous marrow edema. No significant anterolisthesis or retrolisthesis noted. Straightening of normal cervical lordosis p resent. C2-3: Stable disc desiccation. Mild facet and uncovertebral osteophyte formation noted on the left. No significant central canal or neural foraminal stenosis. C3-4: There is disc space narrowing and disc desiccation with disc bulge and a superimposed left paracentr al disc herniation effacing the ventral thecal sac and abutting the ventral aspect of the cervical c ord with mild cord flattening. The disc herniation with associated ventral thecal sac effacement and mild cord flattening has worsened since the prior exam. There is mild bilateral facet hypertrophy w ith mild bilateral neural foraminal stenosis, grossly unchanged. C4-5: There is disc space narrowing and disc desiccation with mild disc bulge and partial effacement of th e ventral thecal sac, stable. Facet and uncovertebral osteophyte formation noted bilaterally, left g reater than right, with mild right and moderate left neural foraminal stenosis, grossly unchanged. C5-6: Disc space narrowing, disc desiccation, and mild disc bulge with partial effacement of the ventral t hecal sac noted, stable. Bilateral facet and uncovertebral osteophyte formation noted, left greater than right. Moderate bilateral neural foraminal stenosis, left greater than right. C6-7: There is disc space narrowing and disc desiccation with mild disc bulge partially effacing the ventr al thecal sac, stable. Mild associated central canal stenosis. Bilateral facet and uncovertebral ost eophyte formation noted, left greater than right, with mild right and moderate/severe left neural fo raminal stenosis. C7-T1: Bilateral uncovertebral osteophyte formation noted, left greater than right. There is disc space santos rowing, disc desiccation, and mild disc bulge with no significant central canal stenosis. Mild right and moderate/severe left neural foraminal stenosis noted. There is no focal area of abnormal signal intensity identified within the cervical cord. There is no focal area of abnormal signal intensity identified within the osseous structures. Incidental note i s made of volume loss involving the cerebellum. IMPRESSION: Multilevel degenerative change within the cervical spine, including C3-4 through C6-7 levels. Since the prior examination, there has been worsening of central canal stenosis at C3-4 left of midline wi th partial effacement of the ventral thecal sac and mild flattening of the left aspect of the cord a t C3-4. POS: [facility]
--- NOTE | 2017-01-29 14:06 | MRI ---
MRI OF THE LUMBAR SPINE WITHOUT CONTRAST: Date: 01/29/17 COMPARISON: 08/03/15. HISTORY: Lumbar stenosis. TECHNIQUE: Multiplanar, multisequence MR imaging of the lumbar spine is obtained without contrast. FINDINGS: Pedicle screws are present at L5 and S1 bilaterally, not well characterized via MRI. STIR imaging demonstrates prominent edematous change involving the posterior and inferior aspects of the L4 vertebral body, as well as the majority of the L5 vertebral body with slight sparing of the inferior end plate. These edematous changes are new when compared to the 08/03/15 exam. There is no obvious increased T2 signal identified within the intervertebral disc at this level. Assuming five l umbar-type vertebral bodies, the conus medullaris terminates at the T11-L1 level. There is anterolisthesis of L4 on L5 measuring approximately 1.0 cm, new when compared to the examination. There is anterolisthesis of L5 on S1 measuring approximately 1.3 cm, similar when co mpared to the prior exam. T12-L1: There is disc space narrowing and disc desiccation with mild disc bulge and moderate bilateral facet hypertrophy. No significant central canal stenosis or right neural foraminal stenosis. There is mil d left neural foraminal stenosis. Findings are similar when compared to the prior exam. L1-2: There is moderate bilateral facet hypertrophy. There is disc space narrowing and disc desiccation wi th associated disc bulge. There is moderate central canal stenosis, worsened. There is mild bilatera l neural foraminal stenosis, not significantly changed. L2-3: Moderate bilateral facet hypertrophy. There is disc space narrowing and disc desiccation with disc b ulge causing a mild/moderate degree of stable central canal stenosis. Mild bilateral neural foramina l stenosis noted, left greater than right. L3-4: Bilateral laminectomy changes are present. No central canal stenosis is seen. There is disc space na rrowing and disc desiccation with mild disc bulge and no central canal stenosis. There is mild bilat eral neural foraminal stenosis, unchanged. L4-5: There is severe central canal stenosis, worsened since the prior exam. There is severe bilateral fac et hypertrophy with severe bilateral neural foraminal stenosis, worsened since the prior exam. L5-S1: No significant central canal stenosis. Evaluation for neural foraminal stenosis is limited secondary to hardware artifact. At least moderate bilateral neural foraminal stenosis is suspected, stable. The imaged retroperitoneal structures appear grossly unremarkable. IMPRESSION: Multilevel degenerative and postoperative change as detailed above. Severe areas of degenerative hima nge are present at L4-5 and L5-S1. Since the prior examination, there has been interval development of anterolisthesis of L4 on L5 measuring at least 1.0 cm. There is also new marked edematous end aynet te changes centered at the L4-5 level. This probably spares the intervertebral disc. There is no def inite abnormal signal intensity seen ventral to the L4-5 level. Given the new anterolisthesis, the n ew prominent edematous change may be on the basis of abnormal motion and associated degenerative adria ma. However, given the degree of edematous change, diskitis/osteomyelitis cannot be exclude. Clinica l correlation is essential. CODE T. ADDENDUM: Results were called to Dr. Rachid Padilla'S physician assistant controller, at 1340 hours on 01/29/17. CODE CR. POS: [facility]
[2017-01-29] MEDS: Gabapentin 300 MG CAP PO SCH ×2 (15:06→23:07)
[2017-01-29] MEDS ORDERED: Atorvastatin Calcium 10 MG TAB PO SCH (21:00)
[2017-01-29] MEDS: busPIRone HCl 10 MG TAB PO SCH (23:08)
[2017-01-29 23:26] VITALS: BMI 32.5
[2017-01-30] MEDS: Cipro 250 MG TAB PO SCH (05:44)
--- NOTE | 2017-01-30 06:09 | CON ---
DATE OF CONSULTATION: 01/29/2017 HISTORY OF PRESENT ILLNESS: Ms. Arroyo is a 71-year-old female who is admitted on 01/27/2017. She w as recently discharged from the hospital as she was admitted on 01/10 for fall which she had difficu lty getting up and she was found also having urinary tract infection at that time. Neurosurgery had seen her at that time and Dr. Rashid offered a lumbar surgery. However, the patient wanted to w ait on surgery because of her 's chronic illness and inability to care for him if she had the surgery with the amount of recovery that it would take in rehabilitation. She recently had a lumba r spine MRI this afternoon that showed multilevel degenerative and postoperative changes. Severe ar eas of degenerative changes are at L4-L5 and L5-S1. Since prior examination, there has been interva l development of anterior listhesis on L4 and L5, measuring at least 1 cm. There is also new marked edematous and endplate changes at L4-L5 level. This probably spares the intervertebral disk; howev er, there is no definitive abnormal signal intensity seen eventually to the L4-L5 level. Given the new anterior listhesis and the new prominent edematous changes, may be on the basis of abnormal jose angel on associated degenerative edema. Dr. Rashid has seen the patient as well today. Her social sit uation at home is not set up to where surgery would be ideal at this time. She does have an office appointment with our office to follow up to discuss surgery. Dr. Rashid went over the details wi th her about recovery and restrictions after having a lumbar spinal surgery. On exam, she is weak i n the lower extremities and has severe low back pain. Dr. Saunders in Radiology called me this aftern oon about her MRI of the lumbar spine. PAST MEDICAL HISTORY: Significant for spondylolisthesis and spinal stenosis at L4-L5 and severe spi nal stenosis, hypertension, hyperlipidemia, diabetes mellitus, type 2. PAST SURGICAL HISTORY: Include total knee replacement and L5-S1 fusion and . ALLERGIES: CHLORDIAZEPOXIDE, DIAZEPAM, DICLOFENAC, CELEBREX, VALPROIC ACID, PHENERGAN, MISOPROSTOL, LODINE. SOCIAL HISTORY: Denies any alcohol use. She also denies smoking. and lives at home. Husb and has a stage IV cancer. FAMILY HISTORY: There is no history of heritable disease. MEDICATIONS: Medications taken at home are Flexeril 10 mg p.o. t.i.d., albuterol nebs, aspirin 81 m g daily, carvedilol 6.25 mg twice a day, gabapentin 600 mg p.o. t.i.d., Metaxalone 800 mg t.i.d. as needed, Protonix 40 mg daily, quinapril 20 mg twice a day, methylprednisolone 4 mg daily, Lipitor 10 mg at bedtime, buspirone 30 mg twice a day, [place] 10/325 every 6 hours as needed, Zoloft 150 mg talya ly, iron polysaccharide 100 mg daily, metformin 1000 mg in the a.m. and 500 mg in the p.m., and tram adol 50 mg every 6 hours as needed. PHYSICAL EXAMINATION: VITAL SIGNS: Stable. GENERAL: She is alert and oriented x3. GCS of 15. Appears to be in no acute distress. HEENT: Normocephalic, atraumatic. Hearing intact. Moist mucous membranes. Trachea midline. Eyes : Pupils are equal and reactive to light. Extraocular muscles are intact. Sclerae are white, tom cteric. LUNGS: Clear to auscultation, patient has bilateral symmetric chest rise. Appears to be in no shor tness breath. CARDIOVASCULAR: Normal S1 and S2 heart sounds. Regular rate and rhythm, no murmurs, clicks, or rub s. EXTREMITIES: Appears to have no distal cyanosis or clubbing. She has some mild petechial-like lesi ons on the feet. There is no significant edema. NEUROLOGIC: Cranial nerves II through XII are grossly intact. Speech is fluent. She answers my qu estions appropriately. She has difficulty lifting her right leg against gravity, 2/5 strength in th e left leg that is weak, but she is able to lift it against gravity, which gives 3/5 strength. She is weak against resistance when I press against her leg. She is able to dorsiflex both feet and yanet ntarflex both feet. In her upper extremities, strength is intact. LABORATORY DATA: Show hematology: Red blood cell count of 3.38, hemoglobin of 10.8, hematocrit of 32.5, MCH of 32. On chemistry exam: Her glucose is 248. On urine exam 2 days ago showed a small a mount of blood in the urine, positive for nitrites, trace leukocyte esterase, and urine bacteria +4. Microbiology showed Escherichia coli in the urine culture 2 days ago. ASSESSMENT: Ms. Arroyo is a 71-year-old female that has significant lumbar spondylolisthesis and lum bar spinal stenosis. She has been presented with the opportunity for surgery; however, her social s ituation right now is not ideal for the surgery considering the amount of rehab and that it would pe rtain. She also has a urinary tract infection that she is taking Cipro for. She also has diabetes mellitus in which she is taking metformin and her home medications. PLAN: We will have Ms. Arroyo to follow up in the office to discuss further plans of surgery. There is no neurosurgical emergency at this time. Her social issues and caring for her who has s tage IV cancer needs to be worked out before her surgical intervention can take place and she needs to have her family on board with help during recovery. She also needs to be off of any blood thinne rs for at least 10 days before surgery and needs a full cardiac workup before being put under anesth esia as the operation will take anywhere from 6 to 8 hours. If there are any further questions, ple ase feel free to contact Neurosurgery.
[2017-01-30] MEDS: HYDROcodone/Acetaminophen 10/325 mg Tablet PO PRN (07:27)
[2017-01-30] MEDS: Carvedilol 6.25 MG TAB PO SCH (07:28)
[2017-01-30] MEDS ORDERED: Aspirin 81 mg Enteric Coated Tablet PO SCH (09:00)
[2017-01-30] MEDS: busPIRone HCl 10 MG TAB PO SCH (09:45)
[2017-01-30] MEDS: Docusate 100 MG CAP PO SCH (09:45)
[2017-01-30] MEDS: Enoxaparin Sodium 30 MG/0.3 ML SYRINGE SC SCH (09:45)
[2017-01-30] MEDS: Gabapentin 300 MG CAP PO SCH ×2 (09:46→15:34)
[2017-01-30] MEDS: Saccharomyces boulardii 250 MG CAP PO SCH (09:47)
[2017-01-30] MEDS ORDERED: Nitrofurantoin Monohyd/M-Cryst 100 MG CAP PO SCH (10:30)
[2017-01-30 12:51] VITALS: BP 136/62
[2017-01-30 12:53] VITALS: TEMP 98.1
[2017-01-30] MEDS: Acetaminophen 325 MG TAB PO PRN (12:53)
--- NOTE | 2017-01-30 13:50 | PDOC.PN ---
- Subjective Encounter Start Date: 01/30/17 Encounter Start Time: 13:46 Ms. Arroyo says she feels better than she has in several days. - Objective Resuscitation Status: Resuscitation Status FULL:Full Resuscitation MAR Reviewed: Yes Vital Signs & Weight: Vital Signs (12 hours) Temp Pulse Resp BP BP Pulse Ox 01/30/17 12:51 98.1 F 66 18 136/62 97 01/30/17 12:50 136/62 01/30/17 08:00 97.7 F 64 20 98 01/30/17 07:30 97.7 F 64 20 117/60 98 01/30/17 07:28 117/60 01/30/17 03:56 98.4 F 79 16 128/65 97 Weight Admit Weight 212 lb Weight 213 lb 14.4 oz I&O: 01/29/17 01/30/17 01/31/17 06:59 06:59 06:59 Intake Total 2490 1870 Balance 2490 1870 Result Diagrams: 01/28/17 03:44 01/28/17 03:44 Additional Labs: Accuchecks 01/30/17 01/30/17 01/29/17 11:13 05:07 19:30 POC Glucose 108 260 H 202 H 01/29/17 17:10 POC Glucose 248 H Phys Exam - Physical Examination HEENT: PERRLA Respiratory: no wheezing, no rales, no rhonchi, clear to auscultation bilateral Cardiovascular: RRR, no significant murmur Gastrointestinal: soft, non-tender, positive bowel sounds Musculoskeletal: no edema Dx/Plan (1) Pyuria Code(s): N39.0 - URINARY TRACT INFECTION, SITE NOT SPECIFIED Status: Acute (2) Chronic pain Code(s): G89.29 - OTHER CHRONIC PAIN Status: Acute (3) Hyponatremia Code(s): E87.1 - HYPO-OSMOLALITY AND HYPONATREMIA Status: Acute (4) Chronic low back pain Code(s): M54.5 - LOW BACK PAIN; G89.29 - OTHER CHRONIC PAIN Status: Chronic Qualifiers: Back pain laterality: unspecified Comment: Spondylolisthesis (5) Hypertension Code(s): I10 - ESSENTIAL (PRIMARY) HYPERTENSION Status: Chronic (6) Obesity (BMI 30-39.9) Code(s): E66.9 - OBESITY, UNSPECIFIED Status: Chronic - Plan * Lumbar Spondylolithesis, with lower extremity weakness- She is overall improved * She has refused to go to Rehab, due to concerns about her sick * UTI? - Urine finding are most probable due to asymptomatic bactiuria- She did not have signs of invasive infection on admission- willt reat with Nitrofurantoin * Stable for discharge home.
--- NOTE | 2017-01-31 07:57 | DIS ---
DATE OF ADMISSION: 01/27/2017 DATE OF DISCHARGE: 01/30/2017 DISCHARGE DISPOSITION: Home with home health. DISCHARGE DIAGNOSES: 1. Cervical spondylolisthesis and severe spinal stenosis at L4 and L5. 2. Asymptomatic bacteriuria. 3. Hypertension. 4. Hyperlipidemia. 5. Diabetes mellitus, type 2. DISCHARGE MEDICATIONS: Include nitrofurantoin mg twice a day for 5 days, Tramadol 50 mg q.6 h . as needed, methylprednisolone 4 mg daily, metformin 1000 mg in the a.m. and 500 in the evening, Zo loft 150 mg daily, Accupril 20 mg twice a day, Protonix 40 mg daily, Skelaxin 800 mg t.i.d., Niferex 150 mg daily, Motrin 800 mg t.i.d., [place] 10/325 q.6 h. p.r.n. as needed, gabapentin 600 mg t.i.d., Flexeril 10 mg t.i.d. as needed, carvedilol 6.25 mg twice a day, BuSpar 30 mg twice daily, atorvast atin 10 mg at bedtime, aspirin 81 mg daily, and DuoNeb q.6 hours as needed. PROCEDURES DONE DURING ADMISSION: The patient had a CT scan of the cervical spine showing multileve l degenerative changes without any evidence of fracture or subluxation involving the cervical spine. The patient also had MRI for cervical spine showing multilevel degenerative change including C3-C4 through C6-C7 levels. Since the prior exam there had been some worsening of the spinal canal steno sis at the C3, C4 level on the left with partial effacement of the vertebral thecal sac and flatteni ng of the left aspect of the cord. The patient also had an MRI of the lumbar spine and the impressi on was multi-degenerative and postoperative changes. There were some severe areas of degenerative c hange at L4-L5, L5-S1. There was also a new marked edematous endplate changes at the L4-L5 level. CODE STATUS: FULL CODE. ALLERGIES: CHLORDIAZEPOXIDE, DIAZEPAM, DICLOFENAC, CELEBREX, LODINE, VALPROIC ACID, VALIUM, MISOPRO STOL, PROMETHAZINE. HOSPITAL COURSE: Ms. Arroyo is a pleasant 71-year-old female that presented to the emergency room wi th low back pain as well as difficulty with ambulation. She apparently had tried to lift herself fr om a chair, but was unable to and then slipped to the floor and was unable to get up for several ebony rs. The patient has a known history of cervical as well as lumbar spondylolisthesis and had been of fered surgery prior to this admission. The patient has a at home with failing health and tony cristiana refused to have any type of surgical procedure done due to concerns for her . She was eval uated once again on this admission by Neurosurgery and was once again offered surgery, but denise garrett refused. She also refused to stay in inpatient rehabilitation for the same reason as she was co ncerned about the general wellbeing of her , who she says has stage IV lung cancer and she sa ys that he does not have long to live and did not want to be away if something were to happen to him . She also had refused some of the additional assistance such as hospice that was offered to her by case management. Therefore without many other options, we were essentially left with the only opti on of discharging the patient home with the existing home health aide that she has. It was noted th at she had a urinary tract infection; however, it was noted on admission, the patient had essentiall y no urinary symptoms other than having to urinate larger volumes, but this has been chronic for elias e time, but there was no dysuria or burning and a postvoid residual was checked during her hospital stay with only 80 mL postvoid. Therefore, it is suspected that the changes seen on the urine was du e to asymptomatic bacteriuria. She also had no fever, no elevation in the white count and no active sediment and she therefore just will be sent home on a short course of nitrofurantoin. Once the madhav cox's situation stabilizes at home with regards to some of the social issues, then Neurosurgery wi ll consider a surgical intervention at that time.
== END 2017-01-30 15:04 | disposition home or self-care (01) ==
LOC: ERS 18:44 → ONC 21:41
PROVIDERS: ADMIT Internal Medicine; ATTEND Internal Medicine
DX: M48.02 Spinal stenosis, cervical region (principal); M43.12 Spondylolisthesis, cervical region; R82.71 Bacteriuria; I10 Essential (primary) hypertension; E78.5 Hyperlipidemia, unspecified; Z88.5 Allergy status to narcotic agent; Z88.1 Allergy status to other antibiotic agents; Z88.8 Allergy status to other drugs, medicaments and biological substances; Z79.82 Long term (current) use of aspirin; Z79.84 Long term (current) use of oral hypoglycemic drugs; Z79.899 Other long term (current) drug therapy; Z96.659 Presence of unspecified artificial knee joint; Z98.1 Arthrodesis status
CPT/HCPCS: 51701; 70450; 72125; 72141; 72148; 80048; 80053; 82550; 82553; 82962 ×3; 84484; 85025 ×2; 87040; 87077; 87086; 87186; 93005; 96361 ×3; 96365; 96372 ×3; 96374; 96375 ×3; 96376 ×2; 97110 ×2; 97116 ×2; 97139; 97530; 97535; 99285; G0008; G0378 ×2; G8978; G8979; G8987; G8988; Q2036; 36415; 36416; 81003; 81015; 90471; 90682; A4216; J0360; J0696; J1650; J2270; J2405; J2920

== ENCOUNTER 2017-06-07 22:28 | Observation (INO) | payer MEDICARE, MEDICAID, OTHER ==
[2017-06-07] MEDS ORDERED: Adacel (T-DAP) 0.5 ML VIAL ONE (23:12)
[2017-06-07 23:18] LABS: #Eosinphils 0.1 thou/uL (0.0-0.7); #Lymphocytes 0.8 thou/uL (1.20-3.40); #Neutrophils 9.5 thou/uL (1.40-6.50); %Basophils 0.1 % (0.0-1.0); %Lymphocytes 6.9 % (21.0-51.0); %Monocytes 8.9 % (0.0-10.0); %Neutrophils 83.2 % (42.0-75.0); Hemoglobin 9.8 g/dL (12.0-16.0); Mean Corpuscular HGB CONC 32.8 g/dL (32.0-36.0); Mean Corpuscular Volume 91.5 fl (81.0-99.0); Mean Platelet Volume 7.3 fL (7.4-10.4); Platelet Count 221 thou/uL (130-400); RBC Distribution Width 13.6 % (11.5-14.5); Red Blood Cell (RBC) Count 3.27 mill/uL (4.20-5.40); White Blood Cell (WBC) Count 11.4 thou/uL (4.8-10.8)
[2017-06-07 23:30] LABS: ALT (SGPT) 13 U/L (8-55); AST (SGOT) 17 U/L (5-34); Albumin 4.4 g/dL (3.4-4.8); Alkaline Phosphatase 76 U/L (40-150); Anion Gap 16 mmol/L (10-20); BUN (Urea Nitrogen) 29 mg/dL (9.8-20.1); Bilirubin, Total 0.4 mg/dL (0.2-1.2); CK (CPK) 157 U/L (29-168); Calc. Creatinine Clearance 0 mL/min (70-130); Calcium 9.3 mg/dL (7.8-10.44); Carbon Dioxide 26 mmol/L (23-31); Chloride 99 mmol/L (98-107); Estimated GFR-MDRD 33; Globulin 3.3 g/dL (2.4-3.5); Glucose 137 mg/dL (80-115); Potassium 4.1 mmol/L (3.5-5.1); Protein, Total 7.7 g/dL (6.0-8.3); Sodium 137 mmol/L (136-145)
[2017-06-07 23:45] LABS: CKMB 3.5 ng/mL (0-6.6); Troponin I Less than 0.010 ng/mL (< 0.028)
--- NOTE | 2017-06-07 23:54 | RAD ---
FRONTAL VIEW CHEST: Indication: Pain, fall. FINDINGS: Cardiac silhouette is stable to prior exam. No consolidation, effusion, or pneumothorax identified. A dded density along the left heart border favors pericardial fat pad. IMPRESSION: No definite acute process. POS: C
--- NOTE | 2017-06-07 23:55 | RAD ---
RIGHT HUMERUS TWO VIEWS: Indication: Pain. Comparison: None. FINDINGS: Moderate osteoarthrosis of the right AC joint is present. No displaced fracture of the right humerus. IMPRESSION: No acute humeral fracture. POS: C
--- NOTE | 2017-06-07 23:57 | RAD ---
RIGHT FOREARM TWO VIEWS: History: Fall with injury and pain. FINDINGS: Subtle heterotopic density is present at the radial aspect of the radial head. Underlying sclerosis i s seen. This may be related to a chronic process. There is scattered degenerative change. IMPRESSION: Small heterotopic density about the radial aspect of the radial head which may be related to sequella e of prior avulsion injury. Correlate clinically. POS: C
[2017-06-08 00:24] LABS: Prothrombin Time 13.4 SEC (12.0-14.7)
[2017-06-08 00:26] LABS: Magnesium 1.8 mg/dL (1.6-2.6)
[2017-06-08 01:10] LABS: Bilirubin Negative (Negative); Blood, Urine Negative (Negative); Clarity CLEAR (Clear); Glucose, Urine (Dipstick) Negative (Negative); Leukocyte Trace (Negative); Nitrite Negative (Negative); Protein, Urine (Dipstick) Negative (Neg-Trace); Specific Gravity, Urine 1.009 (1.002-1.036); pH, Urine 7.5 (5.0-9.0)
[2017-06-08 01:13] LABS: Bacteria/HPF 4+ HPF (None Seen); Hyaline Casts/LPF 0-3 HYALINE CAST LPF (0-3 Hyaline); Pathc Cast-AUWi Flag 0.13 (0-2.49); RBC/HPF 0-3 HPF (0-3); Squamous Epithelial 0-3 HPF (0-3)
[2017-06-08] MEDS ORDERED: Bacitracin Zinc 1 Packet ONE (01:26)
[2017-06-08] MEDS ORDERED: Fentanyl 100 MCG/2 ML VIAL ONE (01:26)
[2017-06-08] MEDS ORDERED: traMADol HCl 50 MG TAB PO PRN (02:29)
[2017-06-08] MEDS ORDERED: PROVENTIL INHALER 6.7 G (200 INHALATIONS) INH PRN (02:29)
[2017-06-08] MEDS ORDERED: Dextrose 50% Abboject 50 ML SYRINGE SLOW IVP PRN (02:31)
[2017-06-08] MEDS ORDERED: Dextrose 5% in Water 1,000 ML IV PRN (02:31)
[2017-06-08] MEDS ORDERED: HumaLOG 300 UNITS/3 ML VIAL SC PRN (02:31)
[2017-06-08] MEDS ORDERED: Acetaminophen 325 MG TAB PO PRN (02:31)
[2017-06-08] MEDS ORDERED: Acetaminophen 325 MG TAB ONE (03:56)
--- NOTE | 2017-06-08 04:48 | HP ---
CHIEF COMPLAINT: Falls. HISTORY OF PRESENT ILLNESS: The patient is a 71-year-old female, who had several falls today due to weakness. She has had more falls recently. She had been in the hospital and had workup with some sp inal stenosis seen, but everything else was negative. She does relate that she had some chest pain t lizeth as well; however, she told me that her chest pain occurred after her fall. She had no loss of c onsciousness during these fall episodes. PAST MEDICAL HISTORY: Patient is significant for hyperlipidemia, hypertension, type 2 diabetes, anxi ety and depression, coronary artery disease, chronic back pain. PAST SURGICAL HISTORY: The patient has had x3, hysterectomy, both knee surgeries, tubal li gation and a right hip replacement. SOCIAL HISTORY: Negative tobacco or alcohol use. ALLERGIES: The patient allergic to CHLORDIAZEPOXIDE, DIAZEPAM, and DICLOFENAC as well as VALPROIC AC ID, LODINE, and PHENERGAN. REVIEW OF SYSTEMS: A 14-point review of system is negative. FAMILY HISTORY: Reviewed and noncontributory. LABORATORY AND X-RAY DATA: CBC, white count 11.4, H and H 9 and 30 with platelet of 221. PT was 13, INR is 1.0. Sodium is 137, potassium 4.1, chloride 99, bicarbonate 26, BUN 29, creatinine 1.5 with a troponin less than 0.010. Patient's chest x-ray was unremarkable. PHYSICAL EXAMINATION: VITAL SIGNS: Blood pressure 134/54, pulse 85, respirations 24. Patient's T-max 99.1. Patient satti ng 97% on 2 liters. GENERAL: Patient is awake, alert, and oriented x3, in no acute distress. HEENT: Pupils equal, round, react to light and accommodation. Extraocular muscles intact. TMs antionette r. No erythema in throat. NECK: No JVD, no lymphadenopathy. CARDIOVASCULAR: Regular rate and rhythm. Most auscultation bilaterally. Positive bowel sounds. ABDOMEN: Soft, nontender, nondistended. EXTREMITIES: No clubbing, cyanosis, or edema. NEUROLOGIC: Cranial nerves II through XII are grossly intact. PSYCHIATRIC: Patient is cooperative and answering questions appropriately. ASSESSMENT AND PLAN: 1. Frequent falls, most likely multifactorial. Continue to monitor with admission. Patient will be ruled out with serial EKGs and enzymes; however, as stated her chest pain occurred after her fall no t prior, so to this most likely not the cause. If the enzymes are negative, she most likely would be nefit from reviewing her multiple medications, which may be a factoring into her fall. 2. Chest pain. Continuous EKGs and enzymes. 3. Type 2 diabetes. Continue on outpatient regimen and insulin sliding scale. 4. Hypertension. Continue outpatient regimen, monitor blood pressure to ensure that she is not havi ng hypotensive episodes, which may be causing her fall. 5. CODE STATUS: Patient is a FULL CODE.
--- NOTE | 2017-06-08 06:21 | CT ---
ABDOMEN AND PELVIS CT WITH CONTRAST: CLINICAL INDICATIONS: Abdominal pain. History of recent fall. COMPARISON: 02/08/2011 FINDINGS: There is moderate distention of the gallbladder with hyperdensity at the gallbladder neck, indicating cholelithiasis. A borderline sized spleen is present with punctate granulomas and calcification. N o focal hepatic lesion, peripancreatic inflammation or evidence of adrenal mass. No hydronephrosis i nvolving either kidney. The bowel is not reliably assessed without enteric contrast. There is promi nent streak artifact from bilateral hip hardware, which precludes assessment of the pelvis. Scattere d vascular disease is present. The imaged lung bases reveal no evidence of consolidation or effusion . There is scattered degenerative change of the skeletal structures. Postoperative fusion is seen a t the lumbosacral spine. IMPRESSION: Cholelithiasis, with gallbladder distention. POS: C
[2017-06-08] MEDS: Carvedilol 6.25 MG TAB PO SCH ×2 (08:07→16:16)
[2017-06-08] MEDS: busPIRone HCl 10 MG TAB PO SCH ×2 (08:07→20:54)
[2017-06-08] MEDS: Gabapentin 300 MG CAP PO SCH ×3 (08:07→20:54)
[2017-06-08] MEDS: Aspirin 81 mg Enteric Coated Tablet PO SCH (08:08)
[2017-06-08] MEDS: metFORMIN 500 MG TAB PO SCH ×2 (08:08→16:15)
[2017-06-08] MEDS: Enoxaparin Sodium 30 MG/0.3 ML SYRINGE SC SCH (08:08)
[2017-06-08] MEDS: Nitrofurantoin Monohyd/M-Cryst 100 MG CAP PO SCH ×2 (09:28→20:55)
[2017-06-08] MEDS ORDERED: ISOVUE-370 76%-LOCM 1 ML ONE (13:19)
[2017-06-08] MEDS: HYDROcodone/Acetaminophen 5/325 mg Tablet PO PRN (13:56)
[2017-06-08] MEDS ORDERED: metFORMIN 500 MG TAB PO SCH (17:00)
--- NOTE | 2017-06-08 20:21 | PDOC.EVN ---
Event Note - Event Note Event Note: Chart reviewed. Patient seen. Will follow. Await stress test, PT eval.
[2017-06-08] MEDS: HYDROcodone/Acetaminophen 7.5/325 mg Tablet PO PRN (20:53)
[2017-06-08] MEDS: Atorvastatin Calcium 10 MG TAB PO SCH (20:54)
[2017-06-09] MEDS: HYDROcodone/Acetaminophen 7.5/325 mg Tablet PO PRN ×4 (00:59→20:50)
[2017-06-09] MEDS: Nitrofurantoin Monohyd/M-Cryst 100 MG CAP PO SCH ×2 (10:31→20:48)
[2017-06-09] MEDS: Carvedilol 6.25 MG TAB PO SCH ×2 (10:31→17:11)
[2017-06-09] MEDS: Aspirin 81 mg Enteric Coated Tablet PO SCH (10:32)
[2017-06-09] MEDS: Enoxaparin Sodium 30 MG/0.3 ML SYRINGE SC SCH (10:33)
[2017-06-09] MEDS: busPIRone HCl 10 MG TAB PO SCH ×2 (10:37→20:51)
[2017-06-09] MEDS: Gabapentin 300 MG CAP PO SCH ×3 (10:38→20:48)
[2017-06-09] MEDS: metFORMIN 500 MG TAB PO SCH ×2 (10:50→17:12)
[2017-06-09 11:54] LABS: #Eosinphils 0.1 thou/uL (0.0-0.7); #Lymphocytes 0.7 thou/uL (1.20-3.40); #Monocytes 0.7 thou/uL (0.11-0.59); #Neutrophils 4.5 thou/uL (1.40-6.50); %Basophils 0.1 % (0.0-1.0); %Eosinophils 1.2 % (0.0-10.0); %Lymphocytes 11.1 % (21.0-51.0); %Neutrophils 75.7 % (42.0-75.0); Mean Corpuscular HGB CONC 32.1 g/dL (32.0-36.0); Mean Corpuscular Hemoglobin 29.6 pg (27.0-31.0); Mean Corpuscular Volume 92.2 fl (81.0-99.0); Mean Platelet Volume 7.3 fL (7.4-10.4); Platelet Count 172 thou/uL (130-400); RBC Distribution Width 13.5 % (11.5-14.5); Red Blood Cell (RBC) Count 3.04 mill/uL (4.20-5.40)
[2017-06-09 12:05] LABS: Anion Gap 11 mmol/L (10-20); BUN (Urea Nitrogen) 16 mg/dL (9.8-20.1); Calc. Creatinine Clearance 74 mL/min (70-130); Calcium 9.1 mg/dL (7.8-10.44); Carbon Dioxide 24 mmol/L (23-31); Chloride 101 mmol/L (98-107); Estimated GFR-MDRD 51; Glucose 135 mg/dL (80-115); Potassium 4.3 mmol/L (3.5-5.1); Sodium 132 mmol/L (136-145)
--- NOTE | 2017-06-09 12:08 | NM ---
NUCLEAR MEDICINE CARDIAC PERFUSION EXAMINATION WITH EJECTION FRACTION: HISTORY: 71-year-old female with chest pain and history of coronary artery disease. COMPARISON: 06/20/16. TECHNIQUE: A 2 day nuclear medicine cardiac perfusion examination was performed. Rest images were obtained using 33 mCi of technetium-99m sestamibi. Stress images were obtained using 30.5 mCi of technetium-99m ses tamibi and Adenosine. FINDINGS: Tomographic images show no fixed or reversible perfusion defects. Gated images show normal wall motio n with an ejection fraction of 65%. EDV: 118 mL LHR: 0.4 TID: 1.1 IMPRESSION: No evidence of ischemia. POS: MARYSOL
[2017-06-09] MEDS ORDERED: Regadenoson 0.4 MG/5 ML SYRINGE ONE (12:53)
--- NOTE | 2017-06-09 15:58 | PDOC.PN ---
- Subjective Encounter Start Date: 06/09/17 Encounter Start Time: 09:40 Pt seen for followup re: chest pain. Reports chest pain is better. No nausea or vomiting. - Objective Resuscitation Status: Resuscitation Status FULL:Full Resuscitation Vital Signs & Weight: Vital Signs (12 hours) Temp Pulse Pulse Pulse Resp BP BP 06/09/17 12:05 97.4 F L 55 L 16 115/54 L 06/09/17 10:31 131/60 06/09/17 10:25 65 65 131/60 06/09/17 10:17 98.1 F 65 16 131/60 06/09/17 07:31 98.2 F 64 16 132/63 06/09/17 04:00 98.5 F 68 15 BP BP Pulse Ox Pulse Ox 06/09/17 12:05 94 L 06/09/17 10:31 06/09/17 10:25 144/65 H 94 L 06/09/17 10:17 95 06/09/17 07:31 96 06/09/17 04:00 121/57 L 94 L Weight Weight 209 lb I&O: 06/08/17 06/09/17 06/10/17 06:59 06:59 06:59 Intake Total 220 820 Output Total 300 2100 Balance -80 -1280 Result Diagrams: 06/09/17 11:35 06/09/17 11:35 Additional Labs: Accuchecks 06/09/17 06/09/17 06/08/17 12:02 06:09 19:59 POC Glucose 124 H 104 73 06/08/17 16:47 POC Glucose 97 Phys Exam - Physical Examination Constitutional: NAD HEENT: moist MMs Neck: supple Respiratory: clear to auscultation bilateral Cardiovascular: RRR Gastrointestinal: soft Neurological: moves all 4 limbs Psychiatric: normal affect Dx/Plan (1) Chest pain Code(s): R07.9 - CHEST PAIN, UNSPECIFIED Status: Acute (2) Frequent falls Code(s): R29.6 - REPEATED FALLS Status: Acute (3) Anxiety and depression Code(s): F41.9 - ANXIETY DISORDER, UNSPECIFIED; F32.9 - MAJOR DEPRESSIVE DISORDER, SINGLE EPISODE, UNSPECIFIED Status: Chronic (4) Asthma Code(s): J45.909 - UNSPECIFIED ASTHMA, UNCOMPLICATED Status: Chronic (5) Chronic low back pain Code(s): M54.5 - LOW BACK PAIN; G89.29 - OTHER CHRONIC PAIN Status: Chronic Qualifiers: Back pain laterality: unspecified (6) Diabetes type 2, controlled Code(s): E11.9 - TYPE 2 DIABETES MELLITUS WITHOUT COMPLICATIONS Status: Chronic (7) Dyslipidemia Code(s): E78.5 - HYPERLIPIDEMIA, UNSPECIFIED Status: Chronic (8) GERD (gastroesophageal reflux disease) Code(s): K21.9 - GASTRO-ESOPHAGEAL REFLUX DISEASE WITHOUT ESOPHAGITIS Status: Chronic (9) Hypertension Code(s): I10 - ESSENTIAL (PRIMARY) HYPERTENSION Status: Chronic - Plan PT/OT, out of bed/ambulate * . Stress test normal. Pt will likely need Rehab at the time of discharge. Continue accuchecks, insulin sliding scale. Monitor vital signs, titrate antihypertensives as needed. Review of Systems - Review of Systems Cardiovascular: negative: chest pain, palpitations, orthopnea, paroxysmal nocturnal dyspnea, edema, light headedness Gastrointestinal: negative: Nausea, Vomiting, Abdominal Pain, Diarrhea, Constipation, Melena, Hematochezia - Medications/Allergies Allergies/Adverse Reactions: Allergies Allergy/AdvReac Type Severity Reaction Status Date / Time chlordiazepoxide Allergy Verified 06/08/17 05:19 chlordiazepoxide HCl Allergy rash Verified 06/08/17 05:19 [From Librium] ,throat swelling codeine Allergy Verified 06/08/17 05:19 diazepam [From Valium] Allergy rash, Verified 06/08/17 05:19 difficulty breathing diclofenac Allergy Verified 06/08/17 05:19 diclofenac sodium Allergy swelling,ra Verified 06/08/17 05:19 [From Arthrotec] sh etodolac [From Lodine] Allergy heart stops Verified 06/08/17 05:19 misoprostol Allergy Verified 06/08/17 05:19 promethazine HCl Allergy Anaphylaxis Verified 06/08/17 05:19 [From Phenergan] rofecoxib Allergy Verified 06/08/17 05:19 valproic acid Allergy Verified 06/08/17 05:19 Medications: Current Medications Acetaminophen (Tylenol) 650 mg PO Q4H PRN PRN Reason: Headache/Fever or Pain Hydrocodone Bitart/Acetaminophen (Modena 5/325) 1 tab PO Q4H PRN PRN Reason: Moderate Pain (4-5) Last Admin: 06/08/17 13:56 Dose: 1 tab Hydrocodone Bitart/Acetaminophen (Modena 7.5/325) 1 tab PO Q4H PRN PRN Reason: Moderate to Severe Pain (6-10) Last Admin: 06/09/17 10:32 Dose: 1 tab Albuterol Sulfate (Proventil Hfa) 2 puff INH BIDPRN PRN PRN Reason: SOB &/or Wheezing Aspirin (Ecotrin) 81 mg PO DAILY [facility] Last Admin: 06/09/17 10:32 Dose: 81 mg Atorvastatin Calcium (Lipitor) 10 mg PO HS [facility] Last Admin: 06/08/17 20:54 Dose: 10 mg Buspirone HCl (Buspar) 30 mg PO BID [facility] Last Admin: 06/09/17 10:37 Dose: 30 mg Carvedilol (Coreg) 6.25 mg PO BID-[facility] Last Admin: 06/09/17 10:31 Dose: 6.25 mg Dextrose/Water (Dextrose 50%) 25 gm SLOW IVP PRN PRN PRN Reason: Hypoglycemia Enoxaparin Sodium (Lovenox) 30 mg SC 0900 [facility] Last Admin: 06/09/17 10:33 Dose: 30 mg Gabapentin (Neurontin) 600 mg PO TID [facility] Last Admin: 06/09/17 14:42 Dose: 600 mg Glucagon (Glucagon) 1 mg IM PRN PRN PRN Reason: Hypoglycemia Dextrose/Water (D5w) 1,000 mls @ 0 mls/hr IV .Q0M PRN; As Directed PRN Reason: Hypoglycemia Insulin Human Lispro (Humalog) 0 units SC .MILD SLIDING SCALE PRN PRN Reason: Mild Correctional Scale Metformin HCl (Glucophage) 1,000 mg PO QAM-[facility] Last Admin: 06/09/17 10:50 Dose: 1,000 mg Metformin HCl (Glucophage) 500 mg PO QPM-[facility] Last Admin: 06/08/17 16:15 Dose: 500 mg Nitrofurantoin Macrocrystals (Macrobid) 100 mg PO BID [facility] Last Admin: 06/09/17 10:31 Dose: 100 mg Pantoprazole Sodium (Protonix) 40 mg PO DAILY [facility] Last Admin: 06/09/17 10:32 Dose: 40 mg Quinapril HCl (Accupril) 20 mg PO BID [facility] Last Admin: 06/09/17 10:31 Dose: 20 mg Sertraline HCl (Zoloft) 150 mg PO DAILY [facility] Last Admin: 06/09/17 10:36 Dose: 150 mg Tramadol HCl (Ultram) 50 mg PO Q6H PRN PRN Reason: Pain Last Admin: 06/08/17 09:28 Dose: 50 mg
[2017-06-09] MEDS: HYDROcodone/Acetaminophen 5/325 mg Tablet PO PRN (17:12)
[2017-06-09] MEDS: Atorvastatin Calcium 10 MG TAB PO SCH (20:47)
[2017-06-10 04:34] VITALS: BMI 30.7
[2017-06-10 06:15] LABS: Anion Gap 8 mmol/L (10-20); BUN (Urea Nitrogen) 16 mg/dL (9.8-20.1); Calc. Creatinine Clearance 64 mL/min (70-130); Calcium 9.2 mg/dL (7.8-10.44); Carbon Dioxide 30 mmol/L (23-31); Chloride 102 mmol/L (98-107); Estimated GFR-MDRD 45; Glucose 98 mg/dL (80-115); Potassium 4.1 mmol/L (3.5-5.1); Sodium 136 mmol/L (136-145)
[2017-06-10] MEDS: HYDROcodone/Acetaminophen 7.5/325 mg Tablet PO PRN ×2 (06:23→15:52)
[2017-06-10 07:18] LABS: Hemoglobin 8.4 g/dL (12.0-16.0); Mean Corpuscular HGB CONC 31.3 g/dL (32.0-36.0); Mean Corpuscular Volume 92.6 fl (81.0-99.0); Mean Platelet Volume 7.7 fL (7.4-10.4); Platelet Count 157 thou/uL (130-400); RBC Distribution Width 13.5 % (11.5-14.5); Red Blood Cell (RBC) Count 2.89 mill/uL (4.20-5.40); White Blood Cell (WBC) Count 5.2 thou/uL (4.8-10.8)
[2017-06-10 07:27] LABS: Band 5 % (5-11); Eosinophils 5 % (0-10); Hypochromia SLIGHT = 6-15 cells (100X) (0-5/hpf); Lymphocytes 24 % (21-51); MDiff Complete? YES; Monocytes 7 % (0-10); Neutrophil 55 % (42-75); Polychromasia SLIGHT = 2-3 cells (100X) (0-2/hpf); Reactive Lymphocytes 4 % (0-10)
[2017-06-10] MEDS: Aspirin 81 mg Enteric Coated Tablet PO SCH (08:23)
[2017-06-10] MEDS: Gabapentin 300 MG CAP PO SCH ×2 (08:24→14:35)
[2017-06-10] MEDS: busPIRone HCl 10 MG TAB PO SCH (08:24)
[2017-06-10] MEDS: Nitrofurantoin Monohyd/M-Cryst 100 MG CAP PO SCH (08:25)
[2017-06-10] MEDS: metFORMIN 500 MG TAB PO SCH (08:25)
[2017-06-10] MEDS: Enoxaparin Sodium 30 MG/0.3 ML SYRINGE SC SCH (08:25)
[2017-06-10] MEDS: Carvedilol 6.25 MG TAB PO SCH (08:25)
[2017-06-10 12:38] VITALS: TEMP 97.9
[2017-06-10 15:51] VITALS: BP 141/64
--- NOTE | 2017-06-10 20:32 | DIS ---
DISCHARGE DIAGNOSES: 1. Chest pain, non-cardiac. 2. Frequent falls. 3. Anxiety/depression. 4. Chronic low back pain. 5. Diabetes mellitus type 2, controlled. 6. Dyslipidemia. 7. Hypertension. CONSULTATIONS: None. PERTINENT LABORATORY AND X-RAY FINDINGS: Creatinine ranged between 1.06-1.54 with estimated GFR rang ing between 33-51. BNP 42, troponin I negative x3. CBC showed a white blood cell count ranging betw een 5.2-11.4, hemoglobin ranged between 8.4-9.8. Portable chest x-ray dated 06/07/2017 showed no acu te cardiopulmonary process. Two views of the right arm dated 06/07/2017 showed no acute process. CT of the abdomen and pelvis dated 06/08/2017 showed gallbladder distention with cholelithiasis. Adeno sine Cardiolite stress test dated 06/08/2017, showed no evidence for reversible or fixed ischemia wit h calculated ejection fraction of 65%. HOSPITAL COURSE: The patient was placed on observation status on the telemetry unit after initially presenting with multiple falls and associated chest pain. The patient underwent significant workup i ncluding multiple radiographs as well as cardiac rule out including adenosine Cardiolite stress testi ng showing no evidence of reversible or fixed ischemia with overall calculated ejection fraction of 6 5%. The patient was given general supportive measures with telemetry monitoring showing sinus mechan ism with bradycardia. The patient was also noted with multiple falls and deconditioning with current recommendations to pursue inpatient rehabilitation in the hopes of transitioning to home to live ind ependently. Overall, the patient did remain clinically stable throughout the hospital course, tolera ting regular p.o. intake with stable vital signs at the time of discharge. The patient overall stabl e and ready for discharge 06/10/2017. DISCHARGE MEDICATIONS: 1. Albuterol sulfate 3 mL nebulized q.6 hours p.r.n. 2. Enteric coated aspirin 81 mg 1 tab p.o. daily. 3. Lipitor 10 mg p.o. at bedtime. 4. Bupropion XL 150 mg p.o. q.a.m. 5. BuSpar 30 mg p.o. b.i.d. 6. Coreg 6.25 mg p.o. b.i.d. 7. Flexeril 10 mg p.o. t.i.d. p.r.n. 8. Gabapentin 600 mg p.o. t.i.d. 9. [place] 10/325 mg 1 tab p.o. q.6 hours p.r.n. pain. 10. Ibuprofen 800 mg p.o. t.i.d. p.r.n. 11. Niferex 150 mg p.o. daily. 12. Metformin 1000 mg p.o. q.a.m. and 500 mg p.o. at bedtime. 13. Protonix 40 mg 1 tab p.o. daily. 14. Accupril 20 mg p.o. b.i.d. 15. Zoloft 150 mg p.o. daily. 16. Torsemide 10 mg p.o. daily. 17. Tramadol 50 mg p.o. every 6 hours p.r.n. pain. FOLLOWUP: The patient may follow up with her primary care provider, Dr. Mckeon, after discharge [facility] CONDITION ON DISCHARGE: Stable. ACTIVITY: ad deana. Rolling walker with standby/contact guard assistance. DIET: ADA and heart healthy. CODE STATUS: FULL. DISPOSITION: Discharged to [facility] on 06/10/2017.
--- NOTE | 2017-06-13 17:46 | EKG ---
Test Reason : Blood Pressure : / mmHG Vent. Rate : 093 BPM Atrial Rate : 093 BPM P-R Int : 194 ms QRS Dur : 078 ms QT Int : 372 ms P-R-T Axes : 000 -29 019 degrees QTc Int : 462 ms Sinus rhythm with Fusion complexes and Premature atrial complexes Minimal voltage criteria for LVH, may be normal variant Nonspecific ST abnormality Abnormal ECG Confirmed by NICOLE FAROOQ, JUAN ([id number]), mapping editor ADELE CUMMINS ([id number]) on 06/13/2017 5:46:06 PM Referred By: Confirmed By:JUAN RIVERA MD
== END 2017-06-10 16:34 ==
LOC: ERS 22:28 → 2NO 06-08 02:15
PROVIDERS: ADMIT Hospitalist; ATTEND Hospitalist
DX: R07.9 Chest pain, unspecified (principal); G89.29 Other chronic pain; M54.5 Low back pain; E11.9 Type 2 diabetes mellitus without complications; E78.5 Hyperlipidemia, unspecified; I10 Essential (primary) hypertension; F41.8 Other specified anxiety disorders; I25.10 Atherosclerotic heart disease of native coronary artery without angina pectoris; J45.909 Unspecified asthma, uncomplicated; K21.9 Gastro-esophageal reflux disease without esophagitis; K80.20 Calculus of gallbladder without cholecystitis without obstruction; I25.2 Old myocardial infarction; E66.01 Morbid (severe) obesity due to excess calories; E66.9 Obesity, unspecified; Z68.30 Body mass index [BMI] 30.0-30.9, adult; Z91.81 History of falling; Z79.82 Long term (current) use of aspirin; Z79.899 Other long term (current) drug therapy; Z79.84 Long term (current) use of oral hypoglycemic drugs; Z88.6 Allergy status to analgesic agent; Z88.8 Allergy status to other drugs, medicaments and biological substances; Z88.5 Allergy status to narcotic agent; Z98.51 Tubal ligation status; Z98.1 Arthrodesis status; Z96.641 Presence of right artificial hip joint; Z90.710 Acquired absence of both cervix and uterus; Z98.890 Other specified postprocedural states; W19.XXXA Unspecified fall, initial encounter
CPT/HCPCS: 71045; 73060; 73090; 74177; 78452; 80048 ×2; 80053; 82533; 82550; 82553; 82962 ×3; 83605; 83690; 83735; 83880; 84484 ×3; 85025 ×3; 85610; 90471; 90715; 93005; 93017; 96372 ×3; 96374; 96375; 97116; 99285; A9500; G0378 ×2; G8978; G8979; 36415; 36416; 81003; 81015; J1650; J2270; J2785; J3010

== ENCOUNTER 2017-06-17 04:00 | Inpatient (IN) | payer MEDICAID, MEDICARE, OTHER ==
[2017-06-17 05:09] LABS: #Eosinphils 0.1 thou/uL (0.0-0.7); #Lymphocytes 0.7 thou/uL (1.20-3.40); #Monocytes 0.5 thou/uL (0.11-0.59); #Neutrophils 8.4 thou/uL (1.40-6.50); %Basophils 0.2 % (0.0-1.0); %Eosinophils 0.9 % (0.0-10.0); %Lymphocytes 6.7 % (21.0-51.0); %Monocytes 4.9 % (0.0-10.0); %Neutrophils 87.4 % (42.0-75.0); Hemoglobin 9.9 g/dL (12.0-16.0); Mean Corpuscular HGB CONC 33.6 g/dL (32.0-36.0); Mean Corpuscular Hemoglobin 29.4 pg (27.0-31.0); Mean Corpuscular Volume 87.5 fl (81.0-99.0); Mean Platelet Volume 7.5 fL (7.4-10.4); Platelet Count 128 thou/uL (130-400); RBC Distribution Width 13.3 % (11.5-14.5); Red Blood Cell (RBC) Count 3.38 mill/uL (4.20-5.40); White Blood Cell (WBC) Count 9.7 thou/uL (4.8-10.8)
[2017-06-17] MEDS ORDERED: Piperacillin/Tazobactam 3.375 GM in Sodium Chloride 0.9% 100 ML IVPB SCH (05:30)
[2017-06-17 05:31] LABS: ALT (SGPT) 14 U/L (8-55); AST (SGOT) 15 U/L (5-34); Albumin 3.9 g/dL (3.4-4.8); Alkaline Phosphatase 76 U/L (40-150); Anion Gap 13 mmol/L (10-20); BUN (Urea Nitrogen) 37 mg/dL (9.8-20.1); Bilirubin, Total 0.6 mg/dL (0.2-1.2); Calc. Creatinine Clearance 0 mL/min (70-130); Calcium 9.2 mg/dL (7.8-10.44); Carbon Dioxide 24 mmol/L (23-31); Chloride 98 mmol/L (98-107); Estimated GFR-MDRD 39; Globulin 3.1 g/dL (2.4-3.5); Glucose 112 mg/dL (80-115); Potassium 4.7 mmol/L (3.5-5.1); Sodium 130 mmol/L (136-145)
[2017-06-17 06:31] LABS: Bilirubin Negative (Negative); Blood, Urine Negative (Negative); Clarity CLOUDY (Clear); Glucose, Urine (Dipstick) Negative (Negative); Leukocyte Trace (Negative); Nitrite Positive (Negative); Protein, Urine (Dipstick) Negative (Neg-Trace); Specific Gravity, Urine 1.014 (1.002-1.036); Urobilinogen 0.2 mg/dL (0.2-1.0); pH, Urine 5.5 (5.0-9.0)
[2017-06-17 06:34] LABS: Bacteria/HPF 4+ HPF (None Seen); Hyaline Casts/LPF 0-3 HYALINE CAST LPF (0-3 Hyaline); Pathc Cast-AUWi Flag 0.13 (0-2.49); RBC/HPF None Seen HPF (0-3); Squamous Epithelial 0-3 HPF (0-3)
[2017-06-17] MEDS ORDERED: Ondansetron ODT 4 MG TAB SL PRN (08:14)
[2017-06-17] MEDS ORDERED: Ondansetron PF 4 MG/2 ML Vial IVP PRN (08:14)
[2017-06-17] MEDS ORDERED: Acetaminophen 325 MG TAB PO PRN ×2 (08:14→10:12)
[2017-06-17] MEDS ORDERED: Sodium Chloride 0.9% 1,000 ML IV SCH (08:14)
--- NOTE | 2017-06-17 08:43 | ULT ---
PRELIMINARY REPORT/[facility]/EMERGENCY AFTER HOURS PROCEDURE: EXAM: US Duplex Left Lower Extremity Veins EXAM DATE/TIME: Exam ordered 06/17/2017 5:53 AM CLINICAL HISTORY: 71 years old, female; Pain and signs and symptoms; Edema, localized and other: Redness of left lower leg; Lower extremity, left; Leg, upper and leg, lower; Patient HX: Recent fall TECHNIQUE: Real-time ultrasound scan of the veins of the left lower extremity with color Doppler flow, spectral waveform analysis and compression. COMPARISON: No relevant prior studies available. FINDINGS: Deep veins: Normal. No DVT in the visualized common femoral, femoral, proximal deep femoral, poplitea l or calf veins. The veins demonstrate normal color flow, are normally compressible, with normal phas ic flow and/or augmentation response. Superficial veins: Normal. No thrombus in the visualized great saphenous vein. Soft tissues: No acute findings. No popliteal cyst. IMPRESSION: Normal left lower extremity duplex venous ultrasound. Thank you for allowing us to participate in the care of your patient. Dictated and Authenticated by: Ollie Benson MD 06/17/2017 6:24 AM Central Time ([place] & [place]) FINAL REPORT FINDINGSS/IMPRESSION: I agree with the preliminary interpretation provided above. No evidence of DVT on the imaged left lower extremity. POS: [facility]
[2017-06-17] MEDS ORDERED: Meropenem 1 GM in Sodium Chloride 0.9% 100 ML IVPB SCH (09:00)
[2017-06-17 09:15] VITALS: BMI 37.6
--- NOTE | 2017-06-17 09:19 | RAD ---
CHEST ONE VIEW: History: Emergency exam. Comparison: 06-07-17 FINDINGS: Lungs are without focal airspace consolidation, pneumothorax, or effusion. Cardiac silhouette and med iastinal contours are similar. IMPRESSION: No acute intrathoracic abnormality. POS: [facility]
--- NOTE | 2017-06-17 09:46 | CT ---
PRELIMINARY REPORT/[facility]/EMERGENCY AFTER HOURS PROCEDURE: EXAM: CT Abdomen and Pelvis With Intravenous Contrast EXAM DATE/TIME: Exam ordered 06/17/2017 5:26 AM CLINICAL HISTORY: 71 years old, female; Pain; Abdominal pain; Generalized; Patient HX: F70 presented from [facility] by [facility] for AMS and fever. Last seen normal around midnight. Nh reports patient temp of 103. Ems repo rts giving patient 1 g of tylenol. Ems notes no known fever. Room rn notes that patient is a&o x 2 cu rrently. Pt denies chest pain. Pt reports diffuse abdominal pain. Pt also complaining of l lower leg pain. TECHNIQUE: Axial computed tomography images of the abdomen and pelvis with intravenous contrast. Coronal reformatted images were created and reviewed. COMPARISON: No relevant prior studies available. FINDINGS: Lower thorax: There is subpleural atelectasis of the dependent portions of the lungs. ABDOMEN: Liver: There are no focal liver lesions identified. Gallbladder and bile ducts: Multiple calcified gallstones are present. No ductal dilation. Pancreas: The pancreas appears normal. No ductal dilation. Spleen: The spleen demonstrates punctate calcifications, consistent with remote granulomatous organis m exposure. Adrenals: Normal. No mass. Kidneys and ureters: There is mild LEFT hydroureteronephrosis and perinephric stranding. The distal L EFT ureter is not well-visualized and obstructing stone cannot be excluded. The right kidney is chase l. Stomach and bowel: The stomach is normal. The duodenum is unremarkable. The colon is normal. No obst ruction. No mucosal thickening. Appendix: No findings to suggest acute appendicitis. PELVIS: Bladder: Urinary bladder is not well visualized do to artifact. Reproductive: The uterus is not well-visualized due to artifact. ABDOMEN and PELVIS: Intraperitoneal space: Normal. No free air. No significant fluid collection. Bones/joints: There are bilateral hip arthroplasties resulting in beam hardening artifact in the pelv is. There is surgical fusion of L5 and S1. No acute fracture. No dislocation. Soft tissues: Normal. Vasculature: Normal. No abdominal aortic aneurysm. Lymph nodes: Normal. No enlarged lymph nodes. IMPRESSION: There is mild LEFT hydroureteronephrosis and perinephric stranding. The distal LEFT ureter is not wel l-visualized and obstructing stone cannot be excluded. Thank you for allowing us to participate in the care of your patient. Dictated and Authenticated by: Ollie Benson MD 06/17/2017 5:57 AM Central Time ([place] & [place]) FINAL REPORT CT ABDOMEN AND PELVIS WITH CONTRAST: HISTORY: Altered mental status. Fever. COMPARISON: CT abdomen and pelvis 06/08/17. FINDINGS: Findings and impression are concordant with the preliminary report. 1. The findings may be sequelae of left-sided pyelonephritis. 2. Cholelithiasis without evidence of cholecystitis. POS: [facility]
[2017-06-17] MEDS ORDERED: Bisacodyl 5 MG TAB PO PRN (10:12)
[2017-06-17] MEDS ORDERED: Bisacodyl 10 MG SUPP PR PRN (10:12)
[2017-06-17] MEDS ORDERED: Acetaminophen 650 MG Suppository PR PRN (10:12)
[2017-06-17] MEDS ORDERED: Dextrose 5% in Water 1,000 ML IV PRN (10:15)
[2017-06-17] MEDS ORDERED: Dextrose 50% Abboject 50 ML SYRINGE SLOW IVP PRN (10:15)
[2017-06-17] MEDS ORDERED: HumaLOG 300 UNITS/3 ML VIAL SC PRN (10:15)
[2017-06-17] MEDS: Meropenem 1 GM, Admixture Fee 1 EACH in Sterile Water 20 ML SLOW IVP SCH ×2 (11:19→16:57)
[2017-06-17] MEDS: Sodium Chloride 0.9% 1,000 ML IV SCH (11:20)
[2017-06-17] MEDS ORDERED: ISOVUE-370 76%-LOCM 1 ML ONE (13:08)
--- NOTE | 2017-06-17 15:12 | CT ---
HEAD CT WITHOUT CONTRAST: Date: 06-17-17 Comparison: 01-27-17 History: Altered mental status. Technique: Serial axial CT imaging at 5 mm intervals from vertex through the skull base without contr ast. FINDINGS: The imaged paranasal sinuses/mastoid air cells are well aerated. There is no displaced calvarial frac ture. No intracranial hemorrhage, midline shift, or mass effect. Stable prominence of the ventricular system. IMPRESSION: Stable head CT - no acute findings. No intracranial hemorrhage. The ventricular system is mildly prom inent which in the proper clinical setting could signify normal pressure hydrocephalus. Clinical jabari elation required. POS: [facility]
--- NOTE | 2017-06-17 15:24 | HP ---
PRIMARY CARE PHYSICIAN: Dr. Mckeon. CHIEF COMPLAINT: Altered mental status. HISTORY OF PRESENT ILLNESS: Ms. Arroyo is a 71-year-old lady, who was seen at [facility] on 06/17/2017. She was hospitalized at this facility from 06/08/2017-06/10/2017 for chest pain, frequent falls, chronic low back pain, and hypertension. While there, she was found to have m ental status changes, fever, and left lower extremity pain. I assessed Ms. Arroyo various times during the day. She was initially obtunded, unable to provide any history. She was subsequently awake enough to provide some history. She knows that she is in the h ospital. She denies having any chest pain. She denies having any fevers. She denies having any dys uria. She denies any nausea or vomiting. She reports abdominal pain, but is unable to characterize it further. When asked about pain in the back, she reports that she has chronic back pain that has n ot changed recently. She also denies any leg pain. The patient also reports pain in her right shoul karen, but is unable to characterize it further. REVIEW OF SYSTEMS: The following complete review of systems was negative, unless otherwise mentioned in the HPI or below: Constitutional: Weight loss or gain, ability to conduct usual activities. Sk in: Rash, itching. Eyes: Double vision, pain. ENT/Mouth: Nose bleeding, neck stiffness, pain, te nderness. Cardiovascular: Palpitations, dyspnea on exertion, orthopnea. Respiratory: Shortness of breath, wheezing, cough, hemoptysis, fever, or night sweats. Gastrointestinal: Poor appetite, abdo shefali pain, heartburn, nausea, vomiting, constipation, or diarrhea. Genitourinary: Urgency, frequen cy, dysuria, nocturia. Musculoskeletal: Pain, swelling. Neurologic/Psychiatric: Anxiety, depressi on. Allergy/Immunologic: Skin rash, bleeding tendency. PAST MEDICAL HISTORY: Significant for dyslipidemia; coronary artery disease; myocardial infarction; diabetes mellitus, type 2; hypertension; obesity; asthma; chronic back pain; left hip pain and left l eg pain. PAST SURGICAL HISTORY: Significant for section x3, hysterectomy, left knee surgery, right h ip replacement, tubal ligation, and right knee surgery. PSYCHIATRIC HISTORY: Anxiety and depression. SOCIAL HISTORY: Patient stopped alcohol use 4 weeks ago. She denies tobacco use or recreational amy g use. FAMILY HISTORY: She denies any family history of premature coronary artery disease. ALLERGIES: ARTHROTEC 50, CHLORDIAZEPOXIDE, CODEINE, DIAZEPAM, DICLOFENAC, ETODOLAC, LIBRIUM, LODINE, MISOPROSTOL, PHENERGAN, PROMETHAZINE, ROFECOXIB, VALIUM, VALPROIC ACID, and VIOXX. CODE STATUS: I could not discuss her code status due to her altered mental status. During her previ ous admission, she was FULL CODE. CURRENT MEDICATIONS: Include aspirin 81 mg daily, atorvastatin 10 mg daily, buspirone 30 mg 2 times a day, carvedilol 6.25 mg 2 times a day, gabapentin 600 mg 3 times a day, Humulin R insulin, lisinopr il 20 mg daily, metformin 1000 mg daily in the morning and 500 mg at bedtime, pantoprazole 40 mg norris y, sertraline 150 mg daily, torsemide 20 mg daily, Tylenol 500 mg every 4 hours as needed, albuterol as needed, calcium carbonate 1000 mg daily, ibuprofen 800 mg 3 times a day, magnesium hydroxide powde r as needed, simethicone 80 mg 3 times a day, tramadol 50 mg every 6 hours as needed, trazodone 50 mg at bedtime. PHYSICAL EXAMINATION: GENERAL: On examination, Ms. Arroyo is sleepy, but arousable, not in acute distress. VITAL SIGNS: Blood pressure is 140/65 and pulse is 84. She is breathing at a rate of 16 and saturat ing 98% on room air. She is obese, with a BMI of 37. EYES: No scleral icterus. No conjunctival pallor. ENT: Moist mucosal membranes, no oropharyngeal erythema or exudates. NECK: Supple, nontender, normal range of movement. Trachea is midline. RESPIRATORY: Accessory muscles of breathing are not active. Chest wall movements are symmetric bila terally. LUNGS: Clear to auscultation without wheeze, rhonchi, or crepitations. CARDIOVASCULAR: S1 and S2 are heard, regular. LUNGS: Peripheral pulses palpable. No carotid bruit, no pericardial rub. ABDOMEN: Soft, distended, nontender, bowel sounds are heard, no hepatomegaly, no splenomegaly. NEUROLOGIC: Cranial nerves II-XII intact. Deep tendon reflexes 2+. MUSCULOSKELETAL: Normal range of movement at the right shoulder passively. Power is 5/5 in all 4 ex tremities. SKIN: No rashes or subcutaneous nodules. LYMPHATIC: No cervical lymphadenopathy. PSYCHIATRIC: Sleepy, but arousable; normal mood; oriented to person and place, not to time. DATABASE: Ms. Arroyo labs and investigations were reviewed. I reviewed her electrocardiogram, which shows normal sinus rhythm. No ST changes to suggest acute coronary syndrome. I also reviewed her est x-ray, which does not show any pulmonary infiltrates. She had a CT scan of the abdomen and pelvi s, which showed mild left hydroureteronephrosis and perinephric stranding. She had a Doppler examina tion of the left lower extremity, which did not show any DVT. She has a normal white count, normocyt ic anemia with hemoglobin 9.9, decreased platelet count of 128,000, decreased sodium of 130, elevated blood urea nitrogen of 37, elevated creatinine of 1.33, normal liver profile, and urinalysis positiv e for nitrite and leukocyte esterase. ASSESSMENT AND PLAN: Ms. Arroyo is a pleasant 71-year-old lady, who was seen at [facility] on 06/17/2017. Her problem list includes: 1. Acute encephalopathy: Differential diagnosis is wide. We will admit patient to the hospital for further management. We will check troponin to rule out cardiac causes. It appears that she may hav e urinary tract infection. We will treat her for the same. 2. Urinary tract infection: She had infections in the urinary tract with ESBL positive organisms in the past. We will start her on carbapenem. 3. Diabetes mellitus: Start Accu-Cheks, insulin sliding scale. 4. Hypertension: Monitor vital signs, titrate antihypertensives as needed. 5. Dyslipidemia: Continue home medications. 6. Chronic back pain: P.r.n. pain medications, cautiously given that she has acute encephalopathy. Many thanks for allowing me to participate in your patient's care. Please feel free to contact me wi th any questions or concerns. LEVEL OF RISK: High. LEVEL OF COMPLEXITY: High.
[2017-06-17 16:33] LABS: CKMB 1.9 ng/mL (0-6.6)
--- NOTE | 2017-06-17 16:52 | RAD ---
RIGHT SHOULDER THREE VIEW 06/17/17 HISTORY: Shoulder pain. COMPARISON: None. FINDINGS: Moderate to severe degenerative disease acromioclavicular joint. No acute fracture. No malalignment. Mild narrowing of the subacromial space. IMPRESSION: No acute abnormality. Chronic findings POS: [facility]
[2017-06-17 20:36] LABS: CKMB 1.5 ng/mL (0-6.6); Troponin I 0.255 ng/mL (< 0.028)
[2017-06-17] MEDS ORDERED: FLU VACC TS2017-18 (>65YR) 0.5 ML SYRINGE IM ONE (21:00)
[2017-06-18] MEDS: Meropenem 1 GM, Admixture Fee 1 EACH in Sterile Water 20 ML SLOW IVP SCH ×3 (00:59→16:50)
[2017-06-18] MEDS: Sodium Chloride 0.9% 1,000 ML IV SCH ×2 (01:00→16:49)
[2017-06-18 05:16] LABS: #Eosinphils 0.1 thou/uL (0.0-0.7); #Lymphocytes 1.7 thou/uL (1.20-3.40); #Monocytes 1.4 thou/uL (0.11-0.59); #Neutrophils 7.5 thou/uL (1.40-6.50); %Basophils 0.2 % (0.0-1.0); %Eosinophils 0.6 % (0.0-10.0); %Monocytes 13.1 % (0.0-10.0); %Neutrophils 70.1 % (42.0-75.0); Mean Corpuscular HGB CONC 32.7 g/dL (32.0-36.0); Mean Corpuscular Hemoglobin 29.4 pg (27.0-31.0); Mean Corpuscular Volume 89.9 fl (81.0-99.0); Mean Platelet Volume 7.3 fL (7.4-10.4); Platelet Count 154 thou/uL (130-400); RBC Distribution Width 13.4 % (11.5-14.5); Red Blood Cell (RBC) Count 2.74 mill/uL (4.20-5.40); White Blood Cell (WBC) Count 10.7 thou/uL (4.8-10.8)
[2017-06-18 05:40] LABS: Anion Gap 9 mmol/L (10-20); BUN (Urea Nitrogen) 21 mg/dL (9.8-20.1); Calc. Creatinine Clearance 101 mL/min (70-130); Calcium 8.7 mg/dL (7.8-10.44); Carbon Dioxide 24 mmol/L (23-31); Chloride 106 mmol/L (98-107); Estimated GFR-MDRD 63; Glucose 107 mg/dL (80-115); Potassium 4.1 mmol/L (3.5-5.1); Sodium 135 mmol/L (136-145)
[2017-06-18] MEDS ORDERED: PROVENTIL INHALER 6.7 G (200 INHALATIONS) INH PRN (08:53)
[2017-06-18] MEDS ORDERED: Cyclobenzaprine 10 MG TAB PO PRN (08:53)
[2017-06-18] MEDS ORDERED: Ibuprofen 800 MG TAB PO PRN (08:53)
[2017-06-18] MEDS ORDERED: Aspirin 81 mg Enteric Coated Tablet PO SCH (09:00)
[2017-06-18] MEDS ORDERED: busPIRone HCl 10 MG TAB PO SCH (09:00)
[2017-06-18] MEDS ORDERED: Enoxaparin Sodium 40 MG/0.4 ML SYRINGE SC SCH (09:00)
[2017-06-18] MEDS ORDERED: Iron Polysaccharides Complex 150 MG CAP PO SCH (09:00)
[2017-06-18] MEDS ORDERED: Torsemide 10 MG TAB PO SCH (09:00)
[2017-06-18] MEDS ORDERED: Albuterol Sulfate 1.25 MG/3 ML NEB INH PRN (09:45)
[2017-06-18] MEDS: Gabapentin 300 MG CAP PO SCH ×2 (10:35→15:23)
[2017-06-18 15:46] VITALS: BP 150/80; TEMP 98.1
[2017-06-18] MEDS ORDERED: Carvedilol 6.25 MG TAB PO SCH (17:00)
[2017-06-18] MEDS ORDERED: metFORMIN 500 MG TAB PO SCH (17:00)
[2017-06-18] MEDS ORDERED: Atorvastatin Calcium 10 MG TAB PO SCH (21:00)
--- NOTE | 2017-06-18 22:03 | DIS ---
DATE OF ADMISSION: 06/17/2017 DATE OF DISCHARGE: 06/18/2017 PRIMARY CARE PHYSICIAN: Dinh Schulte M.D. DISCHARGE DIAGNOSES: 1. Acute encephalopathy. 2. Urinary tract infection, suspect extended-spectrum dryj-rtyvtetdmf-dcamudlm organisms. CONDITION OF PATIENT AT THE TIME OF DISCHARGE: Stable. I assessed Ms. Arroyo on the day of discharge . She denies any chest pain or shortness of breath. She is awake, alert, oriented x3, not in acute distress. Vital signs are stable. S1 and S2 are heard, regular. Lungs are clear to auscultation bi laterally. HOSPITAL COURSE: Ms. Arroyo is a pleasant 71-year-old lady who was admitted to [facility] on 06/17/2017 for acute encephalopathy, most likely secondary to urinary tract infection. She has a history of ESBL positive Escherichia coli urinary tract infection in the past. She was t herefore started on meropenem. She improved significantly. At the time of this dictation, urine and blood cultures are pending, although preliminary result danii cates that urine culture is growing a gram negative organism. [facility] Rehabilitation physician is requested to foll ow up on the cultures and modify the antibiotic as needed. DISCHARGE MEDICATIONS: Include albuterol sulfate p.r.n., aspirin 81 mg daily, atorvastatin 10 mg at bedtime, buspirone 30 mg 2 times a day, Coreg 6.25 mg 2 times a day, Flexeril 10 mg 3 times a day, ga bapentin 600 mg 3 times a day, Motrin 800 mg 3 times a day, iron polysaccharide complex 150 mg daily, meropenem 1 gram intravenously every 8 hours for 6 more days, and then to be reassessed, metformin 5 00 mg every evening and 1000 mg in the morning, Protonix 40 mg daily, Accupril 20 mg 2 times a day, Z oloft 150 mg daily, Torsemide 10 mg daily. [place] and tramadol were discontinued during this hospital ization due to acute encephalopathy. Their use will need to be reassessed. On the day of discharge, she has a normal white count, normocytic anemia with hemoglobin of 8.0, norm al platelet count, decreased sodium of 135, normal potassium, normal creatinine and elevated blood ur ea nitrogen of 21. Many thanks for allowing me to participate in your patient's care. Please feel free to contact me wi th any questions or concerns. DISCHARGE DESTINATION: [facility], from where she was admitted. TOTAL AMOUNT OF TIME SPENT COORDINATING THIS DISCHARGE: 33 minutes.
[2017-06-19] MEDS ORDERED: metFORMIN 500 MG TAB PO SCH (08:00)
--- NOTE | 2017-06-20 15:45 | EKG ---
Test Reason : Blood Pressure : / mmHG Vent. Rate : 085 BPM Atrial Rate : 085 BPM P-R Int : 156 ms QRS Dur : 076 ms QT Int : 356 ms P-R-T Axes : -14 -31 042 degrees QTc Int : 423 ms Normal sinus rhythm Left axis deviation Minimal voltage criteria for LVH, may be normal variant Nonspecific ST abnormality Abnormal ECG Confirmed by KATH PETERS D.O. ([id number]), offline editor GEM COLLAZO ([id number]) on 06/20/2017 3:45:35 PM Referred By: Confirmed By:KATH PETERS D.O.
== END 2017-06-18 20:05 | disposition home or self-care (01) | DRG 71 ==
LOC: ERS 04:00 → T4-B 07:18
PROVIDERS: ADMIT Family Medicine; ATTEND Family Medicine
DX: G93.40 Encephalopathy, unspecified (principal); N39.0 Urinary tract infection, site not specified; E11.9 Type 2 diabetes mellitus without complications; E78.5 Hyperlipidemia, unspecified; I10 Essential (primary) hypertension; M54.9 Dorsalgia, unspecified; I25.10 Atherosclerotic heart disease of native coronary artery without angina pectoris; I25.2 Old myocardial infarction; F41.9 Anxiety disorder, unspecified; F32.9 Major depressive disorder, single episode, unspecified; Z16.12 Extended spectrum beta lactamase (ESBL) resistance; Z79.82 Long term (current) use of aspirin; Z79.84 Long term (current) use of oral hypoglycemic drugs
CPT/HCPCS: 36415; 36416; 51701; 70450; 71045; 74177; 80048; 80053; 81003; 81015; 82553; 83605; 84484; 85025; 87040; 87077; 87086; 87149; 87186; 87804; 90471; 90682; 93005; 96361; 96365; A4216; A4353; G0008; J1650; J2185; J2543; J3370; J7050; Q2036

== ENCOUNTER 2019-02-08 12:46 | Observation (INO) | payer MEDICAID, MEDICARE ==
[2019-02-08 13:22] LABS: #Eosinphils 0.2 thou/uL (0.0-0.7); #Monocytes 0.5 thou/uL (0.11-0.59); #Neutrophils 4.1 thou/uL (1.40-6.50); %Basophils 0.7 % (0.0-1.0); %Eosinophils 2.6 % (0.0-10.0); %Lymphocytes 29.4 % (21.0-51.0); %Monocytes 6.9 % (0.0-10.0); %Neutrophils 60.3 % (42.0-75.0); Hemoglobin 10.4 g/dL (12.0-16.0); Mean Corpuscular Hemoglobin 30.4 pg (27.0-31.0); Mean Corpuscular Volume 89.5 fL (78.0-98.0); Mean Platelet Volume 7.1 fL (7.4-10.4); Platelet Count 221 thou/uL (130-400); RBC Distribution Width 13.6 % (11.5-14.5); Red Blood Cell (RBC) Count 3.43 mill/uL (4.20-5.40); White Blood Cell (WBC) Count 6.8 thou/uL (4.8-10.8)
--- NOTE | 2019-02-08 13:29 | RAD ---
EXAM: Single view of the chest HISTORY: Chest pain COMPARISON: 06/17/2017 FINDINGS: Single view of the chest shows a normal sized cardiomediastinal silhouette. There is no josh dence of consolidation, mass, or pleural effusion. Degenerative changes are seen in the spine. IMPRESSION: No evidence of acute cardiopulmonary disease
[2019-02-08 13:48] LABS: ALT (SGPT) 12 U/L (8-55); AST (SGOT) 16 U/L (5-34); Alkaline Phosphatase 98 U/L (40-110); Anion Gap 11 mmol/L (10-20); BUN (Urea Nitrogen) 22 mg/dL (9.8-20.1); Bilirubin, Total 0.5 mg/dL (0.2-1.2); CK (CPK) 91 U/L (29-168); Calc. Creatinine Clearance 0 mL/min (70-130); Calcium 8.9 mg/dL (7.8-10.44); Carbon Dioxide 28 mmol/L (23-31); Chloride 101 mmol/L (98-107); Estimated GFR-MDRD 37; Globulin 2.8 g/dL (2.4-3.5); Glucose 201 mg/dL (83-110); Lipase 58 U/L (8-78); Potassium 3.3 mmol/L (3.5-5.1); Protein, Total 6.8 g/dL (6.0-8.3); Sodium 137 mmol/L (136-145)
[2019-02-08] MEDS ORDERED: Aspirin Chewable 81 MG TAB ONE ×2 (14:31→14:38)
[2019-02-08 16:54] LABS: Troponin I 0.014 ng/mL (< 0.028)
[2019-02-08 17:06] VITALS: BMI 35.7
[2019-02-08] MEDS ORDERED: HYDROcodone/Acetaminophen 7.5/325 mg Tablet PO PRN ×2 (17:13)
[2019-02-08] MEDS ORDERED: Acetaminophen 325 MG TAB PO PRN (17:13)
[2019-02-08] MEDS ORDERED: Senokot S 8.6-50 MG TAB PO PRN (17:13)
[2019-02-08] MEDS ORDERED: HYDROcodone/Acetaminophen 5/325 mg Tablet PO PRN (17:27)
[2019-02-08] MEDS ORDERED: Sodium Chloride 0.9% 500 ML IV SCH (17:45)
[2019-02-08] MEDS: HYDROcodone/Acetaminophen 5/325 mg Tablet PO PRN (18:42)
--- NOTE | 2019-02-08 18:43 | HP ---
PRIMARY CARE PHYSICIAN: Dr. Schulte. CHIEF COMPLAINT: Chest pain and hypertension. HISTORY OF PRESENT ILLNESS: Cruz is a 73-year-old female, who presented to the emergency room today after her home health nurse noted that she was hypertensive, home health nurse noted that she had an irregular heartbeat and sent her to [facility] for further evaluation. The patient complaining of chest pain, substernal, which she reports that she has had intermittently for about a month. Reports that she has some right shoulder thoracic spinal pain, which she reports also that is chronic. She denied any nausea, diaphoresis. The patient's condition exacerbated by movement. The patient's past medical history pertinent for hyperlipidemia, coronary artery disease, myocardial infarction, diabetes type 2, hypertension, obesity, asthma, chronic back pain, chronic joint pain. Troponin in the emergency room was undetectable. EKG shows sinus bradycardia, beats per minute 56, nonspecific ST abnormality, axis left, the patient's heart score of five and subsequently admitted to the observation unit for further management and risk stratification. REVIEW OF SYSTEMS: The patient reports chest pain. Reports her blood pressure was elevated. Reports acute on chronic right shoulder, back pain. Denies any nausea, diaphoresis, abdominal pain, dysuria, syncope. All other systems are reviewed and are negative unless mentioned in the HPI. PAST MEDICAL HISTORY: Pertinent for dyslipidemia, coronary artery disease, myocardial infarction, diabetes type 2, hypertension, obesity, asthma, chronic back pain, chronic joint pain. PAST SURGICAL HISTORY: section x3, hysterectomy, tubal ligation, bilateral knee and hip replacement. PSYCHIATRIC HISTORY: Anxiety and depression. SOCIAL HISTORY: Lives at home with her brother. She is a former alcohol drinker. Denies any tobacco use or recreational drug use. FAMILY HISTORY: She denies any family history of coronary artery disease. ALLERGIES: LIBRIUM, DIAZEPAM, DICLOFENAC, LODINE, MISOPROSTOL, PHENERGAN, ROFECOXIB, VALPROIC ACID. HOME MEDICATIONS: 1. Aspirin 81 mg p.o. daily. 2. Atorvastatin 10 mg p.o. at bedtime. 3. Wellbutrin XL 150 mg p.o. daily. 4. BuSpar 30 mg p.o. b.i.d. 5. Coreg 3.125 mg p.o. b.i.d. 6. Gabapentin 300 mg p.o. t.i.d. 7. Hydrocodone 5/325 p.o. q.6 hours as needed for pain. 8. Multivitamin one tablet p.o. daily. 9. Isosorbide 30 mg p.o. daily. 10. Protonix 40 mg p.o. daily. 11. Zoloft 100 mg p.o. daily. 12. Torsemide 20 mg p.o. b.i.d. p.r.n.. PHYSICAL EXAMINATION: VITAL SIGNS: Temperature 97.5, pulse is 85, respiratory rate is 15, pO2 sats are 98% on room air, blood pressure is 141/65. CONSTITUTIONAL: The patient appears nontoxic. She is alert and oriented to person, place, and time. HEENT: Head is atraumatic and normocephalic. Eyes; eyelids are normal to inspection. Pupils are equal, round, and reactive to light. ENT: Mouth exam is normal. Mucous membranes are moist. NECK: Trachea is midline. RESPIRATORY: Breath sounds are clear. Chest expansion is equal. CARDIOVASCULAR: Regular rate and rhythm. Heart sounds are normal. ABDOMEN: Nontender, bowel sounds are heard. BACK: Surgical scar to lumbar area. Tender to the thoracic midline. EXTREMITIES: Upper extremity normal inspection. Normal range of motion. Motor strength is normal. Radial pulses are normal. Lower extremity normal inspection. Motor strength is normal. No pedal edema is noted. Pedal pulses are normal. NEURO: Patient is alert and oriented to person, place, and time. Speech is normal. SKIN: Warm, dry, normal in color. PSYCH: Normal affect. LABS: Potassium is 3.3, BUN is 22, creatinine is 1.39, glucose is 201. Liver enzyme unremarkable. Troponin x2 are undetectable. BNP is 187, hemoglobin 10.4, hematocrit 30.7, and platelet count is 221. PLAN/ASSESSMENT: 1. Chest pain. We will trend troponin. Order a stress test for the morning. Aspirin daily. Check lipids, TSH. 2. Acute on chronic kidney disease, gently hydrate. Recheck lab values in the morning. 3. Diabetes. Start Accu-Chek insulin sliding scale for coverage. 4. Hypertension. Monitor vital signs. Restart home medications. We will trend. 5. Dyslipidemia. Continue home medications. We will check lipids in the morning. 6. Chronic back pain, p.r.n. pain medications. The patient states that she has an appointment upcoming with her pain specialist. She has been out of her home pain medications for several weeks. 7. Deep venous thrombosis and gastrointestinal prophylaxis have been started. 8. Hypokalemia, potassium supplement has been ordered. 9. Hospital course dependant on clinical findings. Job ID: [id number]
[2019-02-08 20:05] LABS: Troponin I Less than 0.010 ng/mL (< 0.028)
[2019-02-08] MEDS: busPIRone HCl 10 MG TAB PO SCH (20:05)
[2019-02-08] MEDS: Gabapentin 300 MG CAP PO SCH (20:06)
[2019-02-08] MEDS: Atorvastatin Calcium 10 MG TAB PO SCH (20:06)
[2019-02-08] MEDS ORDERED: Famotidine 20 MG TAB PO SCH (21:00)
[2019-02-09] MEDS ORDERED: Carvedilol 3.125 MG TAB PO SCH (08:00)
[2019-02-09] MEDS: HYDROcodone/Acetaminophen 5/325 mg Tablet PO PRN (08:12)
[2019-02-09 08:51] LABS: #Basophils 0.1 thou/uL (0.0-0.2); #Eosinphils 0.2 thou/uL (0.0-0.7); #Lymphocytes 1.8 thou/uL (1.20-3.40); #Monocytes 0.6 thou/uL (0.11-0.59); #Neutrophils 4.1 thou/uL (1.40-6.50); %Basophils 0.9 % (0.0-1.0); %Eosinophils 3.2 % (0.0-10.0); %Monocytes 9.2 % (0.0-10.0); %Neutrophils 59.7 % (42.0-75.0); Hemoglobin 10.8 g/dL (12.0-16.0); Mean Corpuscular HGB CONC 32.8 g/dL (32.0-36.0); Mean Corpuscular Hemoglobin 29.8 pg (27.0-31.0); Mean Platelet Volume 7.3 fL (7.4-10.4); Platelet Count 255 thou/uL (130-400); RBC Distribution Width 13.6 % (11.5-14.5); Red Blood Cell (RBC) Count 3.62 mill/uL (4.20-5.40); White Blood Cell (WBC) Count 6.8 thou/uL (4.8-10.8)
[2019-02-09 09:12] LABS: ALT (SGPT) 11 U/L (8-55); AST (SGOT) 16 U/L (5-34); Albumin 3.9 g/dL (3.4-4.8); Alkaline Phosphatase 99 U/L (40-110); Anion Gap 13 mmol/L (10-20); BUN (Urea Nitrogen) 21 mg/dL (9.8-20.1); Bilirubin, Total 0.4 mg/dL (0.2-1.2); Calc. Creatinine Clearance 57 mL/min (70-130); Calcium 9.3 mg/dL (7.8-10.44); Carbon Dioxide 28 mmol/L (23-31); Cardiac Risk 2.6 (Less than 4.5); Chloride 105 mmol/L (98-107); Cholesterol 187 mg/dl (< 200 Desired); Estimated GFR-MDRD 40; Glucose 120 mg/dL (83-110); HDL Cholesterol 71 mg/dL (>60 Neg Risk); LDL Cholesterol, Calculated 86 mg/dL; Potassium 3.9 mmol/L (3.5-5.1); Protein, Total 6.9 g/dL (6.0-8.3); Sodium 142 mmol/L (136-145); Triglycerides 152 mg/dL (Less than 150)
[2019-02-09] MEDS: Isosorbide Mononitrate (ER) 30 MG TAB PO SCH (11:25)
[2019-02-09] MEDS: Bupropion 150 MG XL TAB PO SCH (11:31)
[2019-02-09] MEDS: Gabapentin 300 MG CAP PO SCH ×3 (11:32→21:05)
[2019-02-09] MEDS: busPIRone HCl 10 MG TAB PO SCH ×2 (11:32→21:04)
[2019-02-09] MEDS: Aspirin 81 mg Enteric Coated Tablet PO SCH (11:32)
--- NOTE | 2019-02-09 17:16 | CON ---
DATE OF CONSULTATION: REASON FOR CONSULTATION: Atypical chest pain and dizziness. PRIMARY BUSINESS RULES DEVELOPER: None. HISTORY OF PRESENT ILLNESS: Ms. Manuelito Arroyo is a very pleasant 73-year-old woman, who has not been seen by Cardiology in the past. She re-presented with dizziness and atypical chest pain. She states she had her home health nurse come by as a welfare check. She complained of chest pain and was given nitroglycerin without relief. She was instructed by the nurse to proceed to the emergency room. She states she has 1 to 2 episodes of chest pain lasting less than 2 minutes per week. They are short-lived. They have been occurring for several years with no changes in duration or severity. She was scheduled by Madeleine for a noninvasive stress study and was felt to be significantly bradycardic with heart rate in the 40s. This was discontinued due to adenosine Lexiscan causing further bradycardia. PAST MEDICAL HISTORY: Hyperlipidemia, hypertension, diabetes mellitus, asthma, chronic back pain. HOME MEDICATIONS: 1. Aspirin. 2. Atorvastatin. 3. Wellbutrin. 4. BuSpar. 5. Coreg. 6. Gabapentin. 7. Hydrocodone. 8. Multivitamin. 9. Isosorbide. 10. Protonix. 11. Zoloft. REVIEW OF SYSTEMS: A 10-point review of systems is reviewed as above, otherwise negative. PHYSICAL EXAMINATION: GENERAL: Patient is a pleasant 73-year-old who is in no acute distress. The patient appears their stated age. VITAL SIGNS: Blood pressure 130/61, pulse 44, respirations 20. NEUROLOGIC: The patient is alert and oriented x3 with no focal neurologic deficits. HEENT: Sclerae without icterus. Mouth has moist mucous membranes with normal pallor. NECK: No JVD. Carotid upstroke brisk. No bruits bilaterally. LUNGS: Clear to auscultation with unlabored respirations. BACK: No scoliosis or kyphosis. CARDIAC: Regular rate and rhythm with normal S1 and S2. No S3 or S4 noted. No significant rubs, murmurs, thrills, or gallops noted throughout the precordium. PMI is not displaced. There is no parasternal heave. ABDOMEN: Soft, nontender, nondistended. No peritoneal signs present. No hepatosplenomegaly. No abnormal striae. EXTREMITIES: 2+ femoral and 2+ dorsalis pedis pulses. No cyanosis, clubbing, or edema. SKIN: No gross abnormalities. PERTINENT LABORATORY DATA: Hemoglobin 10.8. Creatinine 1.3. BNP of 187. IMPRESSION: 1. Dizziness and lightheadedness. 2. Atypical chest pain. RECOMMENDATIONS: 1. Discontinue Coreg. 2. Symptoms likely related to bradycardia. 3. Chest pain, not felt to be consistent with angina. Her EKG is normal. Her enzymes are within normal limits. Her chest pain has been unchanged in duration, frequency, and intensity over the last several years. 4. Would recommend 24-hour observation on telemetry monitoring. If stable, we will recommend 3-week event recorder to assess for any further dysrhythmias. Job ID: [id number]
--- NOTE | 2019-02-09 17:58 | PDOC.HOSPP ---
- Subjective Encounter Date: 02/09/19 Encounter Time: 17:56 Subjective: Pt seen for followup re: symptomatic bradycardia. Says she feels slightly better. - Objective Vital Signs & Weight: Vital Signs (12 hours) Temp Pulse Resp BP Pulse Ox 02/09/19 16:06 98.3 F 68 16 164/71 H 95 02/09/19 11:32 97.6 F 44 L 12 131/61 96 02/09/19 07:45 97.6 F 60 18 135/65 96 Weight Weight 202 lb I&O: 02/08/19 02/09/19 02/10/19 06:59 06:59 06:59 Intake Total 1100 Output Total 600 1000 Balance 500 -1000 Result Diagrams: 02/09/19 08:31 02/09/19 08:31 Additional Labs: Labs and MARs reviewed by me EKG Reviewed by me: Yes (Tele: sinus bradycardia with PACs) Hospitalist ROS - Review of Systems Respiratory: denies: cough, shortness of breath, SOB with excertion, pleuritic pain, wheezing Cardiovascular: reports: chest pain, light headedness. denies: palpitations, orthopnea, paroxysmal noc. dyspnea, edema Musculoskeletal: reports: back pain - Medication Medications: Active Medications Generic Name Dose Route Start Last Admin Trade Name Freq PRN Reason Stop Dose Admin Hydrocodone Bitart/Acetaminophen 2 tab 02/08/19 17:27 02/09/19 08:12 Roper 5/325 PO 2 tab Q4H PRN Administration Severe Pain (7-10) Aspirin 81 mg 02/09/19 09:00 02/09/19 11:32 Ecotrin PO 81 mg DAILY VAUGHN Administration Atorvastatin Calcium 10 mg 02/08/19 21:00 02/08/19 20:06 Lipitor PO 10 mg HS VAUGHN Administration Bupropion HCl 150 mg 02/09/19 09:00 02/09/19 11:31 Wellbutrin Xl PO 150 mg DAILY VAUGHN Administration Buspirone HCl 30 mg 02/08/19 21:00 02/09/19 11:32 Buspar PO 30 mg BID VAUGHN Administration Gabapentin 300 mg 02/08/19 21:00 02/09/19 15:45 Neurontin PO 300 mg TID VAUGHN Administration Isosorbide Mononitrate 30 mg 02/09/19 09:00 02/09/19 11:25 Imdur Er PO Not Given DAILY VAUGHN Potassium Chloride 20 meq 02/09/19 08:00 02/09/19 17:44 Klor-Con PO 20 meq BID-WM VAUGHN Administration Sertraline HCl 100 mg 02/09/19 09:00 02/09/19 11:31 Zoloft PO 100 mg DAILY VAUGHN Administration - Exam General - other findings: Obese Eye: anicteric sclera ENT: no oropharyngeal lesions Neck: supple Heart - other findings: S1, S2, irreg, nakia Respiratory: CTAB Gastrointestinal: soft, non-tender Extremities: no clubbing Musculoskeletal: normal strength Psychiatric: normal affect, normal behavior Hosp A/P (1) Symptomatic bradycardia Code(s): R00.1 - BRADYCARDIA, UNSPECIFIED Status: Acute (2) Chronic low back pain Code(s): M54.5 - LOW BACK PAIN; G89.29 - OTHER CHRONIC PAIN Status: Chronic Qualifiers: Back pain laterality: unspecified (3) Dyslipidemia Code(s): E78.5 - HYPERLIPIDEMIA, UNSPECIFIED Status: Chronic (4) GERD (gastroesophageal reflux disease) Code(s): K21.9 - GASTRO-ESOPHAGEAL REFLUX DISEASE WITHOUT ESOPHAGITIS Status: Chronic (5) Hypertension Code(s): I10 - ESSENTIAL (PRIMARY) HYPERTENSION Status: Chronic (6) Obesity (BMI 30-39.9) Code(s): E66.9 - OBESITY, UNSPECIFIED Status: Chronic - Plan DVT proph w/SCDs Coreg stopped. Chest pain noncardiac, appreciate cardiology service input. Continue atorvastatin. Monitor vital signs, titrate antihypertensives as needed.
[2019-02-09] MEDS ORDERED: Famotidine 20 MG TAB PO SCH (21:00)
[2019-02-09] MEDS: Atorvastatin Calcium 10 MG TAB PO SCH (21:04)
[2019-02-09] MEDS: traMADol HCl 50 MG TAB PO PRN (22:34)
[2019-02-10 05:38] LABS: #Eosinphils 0.2 thou/uL (0.0-0.7); #Lymphocytes 2.2 thou/uL (1.20-3.40); #Monocytes 0.7 thou/uL (0.11-0.59); #Neutrophils 4.4 thou/uL (1.40-6.50); %Basophils 0.6 % (0.0-1.0); %Eosinophils 3.1 % (0.0-10.0); %Lymphocytes 29.1 % (21.0-51.0); %Monocytes 9.1 % (0.0-10.0); %Neutrophils 58.1 % (42.0-75.0); Hemoglobin 10.7 g/dL (12.0-16.0); Mean Corpuscular HGB CONC 32.4 g/dL (32.0-36.0); Mean Corpuscular Hemoglobin 29.6 pg (27.0-31.0); Mean Corpuscular Volume 91.3 fL (78.0-98.0); Mean Platelet Volume 7.2 fL (7.4-10.4); Platelet Count 238 thou/uL (130-400); RBC Distribution Width 13.6 % (11.5-14.5); Red Blood Cell (RBC) Count 3.62 mill/uL (4.20-5.40); White Blood Cell (WBC) Count 7.5 thou/uL (4.8-10.8)
[2019-02-10 05:57] LABS: Anion Gap 12 mmol/L (10-20); BUN (Urea Nitrogen) 21 mg/dL (9.8-20.1); Calc. Creatinine Clearance 58 mL/min (70-130); Calcium 9.6 mg/dL (7.8-10.44); Carbon Dioxide 28 mmol/L (23-31); Chloride 106 mmol/L (98-107); Estimated GFR-MDRD 41; Glucose 111 mg/dL (83-110); Potassium 4.5 mmol/L (3.5-5.1); Sodium 141 mmol/L (136-145)
[2019-02-10] MEDS: traMADol HCl 50 MG TAB PO PRN (08:54)
[2019-02-10] MEDS: busPIRone HCl 10 MG TAB PO SCH (08:55)
[2019-02-10] MEDS: Gabapentin 300 MG CAP PO SCH (08:55)
[2019-02-10] MEDS: Isosorbide Mononitrate (ER) 30 MG TAB PO SCH (08:55)
[2019-02-10] MEDS: Aspirin 81 mg Enteric Coated Tablet PO SCH (08:55)
[2019-02-10] MEDS: Bupropion 150 MG XL TAB PO SCH (08:55)
--- NOTE | 2019-02-10 09:38 | CON ---
DATE OF CONSULTATION: 02/09/2019 SUBJECTIVE: Ms. Arroyo is doing well. No current complaints. Blood pressure 160/69, pulse 64, temperature is afebrile. LABORATORY DATA: CK troponin negative. BNP 187. IMPRESSION: 1. Dizziness, lightheadedness. 2. Atypical chest pain. RECOMMENDATIONS: After stopping her Coreg, her heart rate appears to have improved. Heart rate is now in the 50s. During my arrival, she is eating breakfast including coffee. At this point, we would recommend a 3-week event recorder to assess for any significant dysrhythmias. My suspicion is her dizziness is related to Coreg. Her chest pain has been ongoing over the last several years without significant changes. May need an outpatient stress study. Otherwise, from my standpoint would be okay for discharge once she has an event recorder. We will follow up in 2-3 weeks. Job ID: [id number]
[2019-02-10 12:04] VITALS: BP 119/64; TEMP 97.8
--- NOTE | 2019-02-10 13:08 | DIS ---
DATE OF ADMISSION: 02/08/2019 DATE OF DISCHARGE: 02/10/2019 PRIMARY CARE PROVIDER: Dr. Mckeon. DISCHARGE DIAGNOSES: 1. Symptomatic bradycardia. 2. Chronic kidney disease, stage 3. 3. Dyslipidemia. CONDITION OF PATIENT ON THE DAY OF DISCHARGE: Stable. I assessed Ms. Arroyo on the day of discharge. She denies any chest pain or shortness of breath. Vital signs are stable. S1 and S2 are heard, regular. Lungs are clear to auscultation bilaterally. DISCHARGE MEDICATIONS: Carvedilol has been discontinued during this hospitalization. Otherwise, no change was made to her pre-admission home medications as dictated by Ms. Hope in her history and physical note dated February 08, 2019. CONSULTATIONS DURING THIS HOSPITALIZATION: Cardiology, Dr. Parekh. POST DISCHARGE FOLLOWUPS: The patient is advised to follow up with her primary care provider in 3 to [address] Parekh in 3 to 4 weeks time. HOSPITAL COURSE: Ms. Arroyo is a pleasant 73-year-old lady, who was admitted to [facility] for atypical chest pain. She was admitted on observation status. When she went for the stress test, she was found to have symptomatic bradycardia. She was seen by Cardiology Service. Carvedilol has been discontinued, with improvement in her heart rate. She has been fitted with an event recorder and is being discharged home in a stable condition. On February 10, she has sodium 141, potassium 4.5, blood urea nitrogen 21, and creatinine 1.28. White count 7500, hemoglobin 10.7, and platelet count 238,000. Many thanks for allowing me to participate in your patient's care. Please feel free to contact me with any questions or concerns. DISCHARGE DESTINATION: Home. Job ID: [id number]
== END 2019-02-10 15:40 | disposition home or self-care (01) ==
LOC: ERS 12:46 → 2SW 16:55
PROVIDERS: ADMIT Family Medicine; ATTEND Family Medicine
DX: R07.89 Other chest pain (principal); R42 Dizziness and giddiness; I12.9 Hypertensive chronic kidney disease with stage 1 through stage 4 chronic kidney disease, or unspecified chronic kidney disease; E11.22 Type 2 diabetes mellitus with diabetic chronic kidney disease; N18.3 Chronic kidney disease, stage 3 (moderate); N17.9 Acute kidney failure, unspecified; E78.5 Hyperlipidemia, unspecified; I25.10 Atherosclerotic heart disease of native coronary artery without angina pectoris; I25.2 Old myocardial infarction; J45.909 Unspecified asthma, uncomplicated; G89.29 Other chronic pain; M54.5 Low back pain; F41.9 Anxiety disorder, unspecified; F32.9 Major depressive disorder, single episode, unspecified; E87.6 Hypokalemia; K21.9 Gastro-esophageal reflux disease without esophagitis; E66.9 Obesity, unspecified; Z68.36 Body mass index [BMI] 36.0-36.9, adult; Z79.82 Long term (current) use of aspirin; Z79.899 Other long term (current) drug therapy; Z88.6 Allergy status to analgesic agent; Z88.8 Allergy status to other drugs, medicaments and biological substances
CPT/HCPCS: 71045; 80048; 80053; 80061; 82550; 83690; 83880; 84484 ×2; 85025 ×2; 93005; 94760; 96360; 99285; G0378 ×4; 36415; 84443; 93017

== ENCOUNTER 2019-02-18 15:12 | Emergency (ER) | payer MEDICARE | END 2019-02-18 16:10 | disposition home or self-care (01) | LOC: ERS 15:12 | DX: G89.29 Other chronic pain (principal); M54.6 Pain in thoracic spine; M25.511 Pain in right shoulder; E78.5 Hyperlipidemia, unspecified; I25.10 Atherosclerotic heart disease of native coronary artery without angina pectoris; I25.2 Old myocardial infarction; E11.9 Type 2 diabetes mellitus without complications; I10 Essential (primary) hypertension; E66.9 Obesity, unspecified; F41.9 Anxiety disorder, unspecified; F32.9 Major depressive disorder, single episode, unspecified; Z79.82 Long term (current) use of aspirin; Z79.899 Other long term (current) drug therapy | CPT/HCPCS: 99281 ==

== ENCOUNTER 2019-03-14 18:27 | Emergency (ER) | payer MEDICARE | END 2019-03-14 20:43 | disposition home or self-care (01) | LOC: ERS 18:27 | DX: G89.4 Chronic pain syndrome (principal); M54.5 Low back pain; M25.511 Pain in right shoulder; M25.561 Pain in right knee; E78.5 Hyperlipidemia, unspecified; I25.2 Old myocardial infarction; E11.9 Type 2 diabetes mellitus without complications; I10 Essential (primary) hypertension; Z79.899 Other long term (current) drug therapy | CPT/HCPCS: 99281 ==

== ENCOUNTER 2019-03-31 17:43 | Inpatient (IN) | payer MEDICARE ==
[2019-03-31 18:33] LABS: #Monocytes 1.3 thou/uL (0.11-0.59); #Neutrophils 9.2 thou/uL (1.40-6.50); %Basophils 0.4 % (0.0-1.0); %Eosinophils 0.4 % (0.0-10.0); %Lymphocytes 8.9 % (21.0-51.0); %Monocytes 11.1 % (0.0-10.0); %Neutrophils 79.3 % (42.0-75.0); Hemoglobin 11.6 g/dL (12.0-16.0); Mean Corpuscular HGB CONC 34.2 g/dL (32.0-36.0); Mean Corpuscular Hemoglobin 30.5 pg (27.0-31.0); Mean Corpuscular Volume 89.3 fL (78.0-98.0); Mean Platelet Volume 7.5 fL (7.4-10.4); Platelet Count 242 thou/uL (130-400); RBC Distribution Width 13.2 % (11.5-14.5); White Blood Cell (WBC) Count 11.5 thou/uL (4.8-10.8)
[2019-03-31 18:56] LABS: ALT (SGPT) 19 U/L (8-55); AST (SGOT) 31 U/L (5-34); Albumin 4.4 g/dL (3.4-4.8); Alkaline Phosphatase 106 U/L (40-110); Anion Gap 16 mmol/L (10-20); BUN (Urea Nitrogen) 32 mg/dL (9.8-20.1); Bilirubin, Total 0.8 mg/dL (0.2-1.2); CK (CPK) 469 U/L (29-168); Calc. Creatinine Clearance 0 mL/min (70-130); Calcium 9.5 mg/dL (7.8-10.44); Carbon Dioxide 25 mmol/L (23-31); Chloride 103 mmol/L (98-107); Estimated GFR-MDRD 32; Globulin 3.3 g/dL (2.4-3.5); Glucose 133 mg/dL (83-110); Magnesium 1.9 mg/dL (1.6-2.6); Protein, Total 7.7 g/dL (6.0-8.3); Sodium 141 mmol/L (136-145)
[2019-03-31 18:59] LABS: Potassium 2.6 mmol/L (3.5-5.1)
[2019-03-31] MEDS ORDERED: Morphine 4 MG/ML VIAL ONE (19:05)
[2019-03-31] MEDS ORDERED: Potassium Chloride 20 MEQ/100 ML PREMIX BAG ONE ×2 (19:05→19:07)
[2019-03-31] MEDS ORDERED: Magnesium 2 GM/50 ML BAG (IN WATER) ONE (19:05)
--- NOTE | 2019-03-31 19:11 | RAD ---
EXAM: Portable chest PROVIDED CLINICAL HISTORY: Chest pain COMPARISON: 02/08/2019 FINDINGS: Cardiac and mediastinal silhouette is within normal limits. No focal consolidation evident. No pleura l fluid or pneumothorax evident with limitations due to the supine nature of the study. Metallic density overlying the left neck is presumably external to the patient. IMPRESSION: No evidence for an acute cardiopulmonary process with limitations as above.
--- NOTE | 2019-03-31 19:45 | RAD ---
EXAM: XR Shoulder Rt 3 View STANDARD PROVIDED CLINICAL HISTORY: Pain FINDINGS: There is no evidence for fracture or other acute osseous abnormality. Alignment appears anatomic. Allyn nt spaces appear preserved. Metallic density noted overlying the left neck, presumably external to the patient. IMPRESSION: No evidence for an acute osseous abnormality. If there is persistent clinical concern, conservative m anagement and follow-up imaging advised.
--- NOTE | 2019-03-31 20:06 | RAD ---
EXAM: XR Knee Rt 4 View STANDARD PROVIDED CLINICAL HISTORY: Pain FINDINGS: There is no evidence for fracture or other acute osseous abnormality. Alignment appears anatomic. Pos toperative changes of right total knee arthroplasty demonstrated without evidence for hardware complication. IMPRESSION: No evidence for an acute osseous abnormality. If there is persistent clinical concern, conservative m anagement and follow-up imaging advised.
--- NOTE | 2019-03-31 20:06 | RAD ---
EXAM: XR Knee Lt 4 View STANDARD PROVIDED CLINICAL HISTORY: Pain FINDINGS: There is no evidence for fracture or other acute osseous abnormality. Alignment appears anatomic. Pos toperative changes of left total knee arthroplasty are noted without evidence for hardware complication. IMPRESSION: No evidence for an acute osseous abnormality. If there is persistent clinical concern, conservative m anagement and follow-up imaging advised.
--- NOTE | 2019-03-31 20:08 | RAD ---
EXAM: XR Hip Rt 2-3 View PROVIDED CLINICAL HISTORY: Pain FINDINGS: There is no evidence for fracture or other acute osseous abnormality. Alignment appears anatomic. Allyn nt postoperative changes of right total hip arthroplasty are noted without evidence for hardware complication. IMPRESSION: No evidence for an acute osseous abnormality. If there is persistent clinical concern, conservative m anagement and follow-up imaging advised.
[2019-03-31 20:48] LABS: Bacteria/HPF 4+ HPF (None Seen); Bilirubin Negative (Negative); Blood, Urine Negative (Negative); Clarity Turbid (Clear); Glucose, Urine (Dipstick) Normal (Negative); Leukocyte 250 Leu/uL (Negative); Nitrite Negative (Negative); Protein, Urine (Dipstick) Negative (Neg-Trace); RBC/HPF 0-3 HPF (0-3); Squamous Epithelial 0-3 HPF (0-3); Urobilinogen Normal mg/dL (Less than 2); WBC/HPF 0-3 HPF (0-3)
[2019-03-31] MEDS ORDERED: Potassium Chloride 20 MEQ TAB ONE (20:50)
[2019-03-31] MEDS ORDERED: Ondansetron ODT 4 MG TAB PO PRN (21:21)
--- NOTE | 2019-03-31 22:05 | PDOC.EVN ---
Event Note - Event Note Event Note: [id number]
[2019-03-31] MEDS ORDERED: Potassium Chloride 10 MEQ in Premix Bag 1 BAG IVPB SCH (22:15)
[2019-03-31 23:06] VITALS: BMI 30.7
--- NOTE | 2019-04-01 01:58 | HP ---
CHIEF COMPLAINT: Weakness and fall. HISTORY OF PRESENT ILLNESS: Ms. Arroyo is a 73-year-old female who lives alone, presented to the emergency room by EMS post fall. No loss of consciousness with the fall. The patient has been feeling weak lately. Able to get up on her own. The patient neighbors found her today and then called 911. The patient has been complaining of generalized body aches, bilateral low back pain, neck pain, bilateral hip pain, laceration to the right upper extremity. IMAGING STUDIES: No acute findings. LABORATORY DATA: The patient was found to be hypokalemic with a potassium of 2.6, elevated BUN and creatinine, appeared dehydrated. BUN is 32, creatinine 1.5. Urinalysis is still pending at the time of this dictation. The patient is being admitted to hospital for further management. PAST MEDICAL HISTORY: 1. Hyperlipidemia. 2. Coronary artery disease. 3. Myocardial infarction. 4. Diabetes mellitus type 2. 5. Hypertension. 6. Obesity. 7. Asthma. 8. Chronic back pain. 9. Left hip, right shoulder, and left leg pain. PAST SURGICAL HISTORY: 1. section x3. 2. Hysterectomy. 3. Left knee surgery x2. 4. Right hip replacement. 5. Tubal ligation. 6. Right knee surgery. PAST PSYCHIATRIC HISTORY: Anxiety and depression. SOCIAL HISTORY: The patient drinks socially. Lives at home. No smoking history. FAMILY HISTORY: Reviewed and noncontributory. HOME MEDICATIONS: Please see home medication reconciliation form for updated medication. ALLERGIES: ALLERGIC TO ARTHROTEC, CHLORDIAZEPOXIDE, DIAZEPAM, DICLOFENAC, ETODOLAC, LIBRIUM, LODINE, MISOPROSTOL, PHENERGAN, ROFECOXIB, VALIUM, VALPROIC ACID. REVIEW OF SYSTEMS: Review of 14 systems negative except what is mentioned in history of present illness. PHYSICAL EXAMINATION: GENERAL: The patient is awake, alert, does not appear to be in acute distress. VITAL SIGNS: Blood pressure is 145/65, pulse is 68, respiratory rate is 18, temperature is 97.8, oxygen saturation 100% on room air. HEAD: Normocephalic, atraumatic. NECK: Supple. No JVD. CHEST: Fair bilateral air entry. HEART: S1, S2. Regular. ABDOMEN: Soft, nontender. Bowel sounds present. NEUROLOGIC: Awake, alert, and oriented x3. No focal deficits. PSYCHIATRIC: Normal mood. EXTREMITIES: No clubbing or cyanosis. LABORATORY DATA: X-ray of the hip, no acute finding. X-ray of the knee, no acute findings. Shoulder x-ray showed no acute finding. Potassium is low at 2.6, BUN is 1.59, creatinine is 32, magnesium 1.9. Urinalysis is pending. ASSESSMENT: 1. Fall, initial encounter. 2. Weakness. 3. Hypokalemia. 4. Coronary artery disease, history of myocardial infarction. 5. Diabetes mellitus type 2. 6. Hypertension. PLAN: 1. Admit. 2. Telemetry monitoring. 3. Replace potassium. 4. IV fluid hydration. 5. PT/OT eval and treat. 6. Reconcile home medications. 7. DVT prophylaxis as appropriate. 8. Expected length of stay, 2 midnights. Job ID: [id number]
[2019-04-01 04:50] LABS: Eosinophils 2 % (0-10); Hemoglobin 10.3 g/dL (12.0-16.0); Lymphocytes 22 % (21-51); MDiff Complete? YES; Mean Corpuscular HGB CONC 33.3 g/dL (32.0-36.0); Mean Corpuscular Hemoglobin 30.1 pg (27.0-31.0); Mean Corpuscular Volume 90.2 fL (78.0-98.0); Mean Platelet Volume 6.8 fL (7.4-10.4); Monocytes 4 % (0-10); Neutrophil 72 % (42-75); Platelet Count 227 thou/uL (130-400); Platelet Morphology Comment Appears Adequate; RBC Distribution Width 13.4 % (11.5-14.5); Red Blood Cell (RBC) Count 3.41 mill/uL (4.20-5.40); White Blood Cell (WBC) Count 9.1 thou/uL (4.8-10.8)
[2019-04-01] MEDS ORDERED: Carvedilol 3.125 MG TAB PO SCH (09:00)
[2019-04-01] MEDS: Aspirin 81 mg Enteric Coated Tablet PO SCH (09:49)
[2019-04-01] MEDS: busPIRone HCl 10 MG TAB PO SCH ×2 (09:49→20:03)
[2019-04-01] MEDS: Bupropion 150 MG XL TAB PO SCH (09:49)
[2019-04-01 11:03] LABS: Troponin I Less than 0.010 ng/mL (< 0.028)
[2019-04-01 11:11] LABS: Vitamin D, 25 Hydroxy 15.8 ng/ml (> 30.0)
[2019-04-01 11:24] LABS: Anion Gap 12 mmol/L (10-20); BUN (Urea Nitrogen) 28 mg/dL (9.8-20.1); CK (CPK) 453 U/L (29-168); Calc. Creatinine Clearance 56 mL/min (70-130); Calcium 8.9 mg/dL (7.8-10.44); Carbon Dioxide 24 mmol/L (23-31); Chloride 110 mmol/L (98-107); Estimated GFR-MDRD 40; Glucose 99 mg/dL (83-110); Magnesium 2.5 mg/dL (1.6-2.6); Sodium 143 mmol/L (136-145)
[2019-04-01 11:33] LABS: Potassium 2.8 mmol/L (3.5-5.1)
[2019-04-01] MEDS ORDERED: Potassium Chloride 20 MEQ TAB PO SCH (12:00)
[2019-04-01] MEDS ORDERED: Potassium Chloride 10 MEQ in Premix Bag 1 BAG IVPB SCH (12:00)
[2019-04-01] MEDS ORDERED: Ergocalciferol 1.25 MG(50,000 UNITS) CAP PO SCH (12:15)
[2019-04-01 13:36] LABS: Troponin I 0.014 ng/mL (< 0.028)
[2019-04-01] MEDS: Gabapentin 300 MG CAP PO SCH ×2 (15:44→20:02)
--- NOTE | 2019-04-01 16:09 | PDOC.HOSPP ---
- Subjective Encounter Date: 04/01/19 Encounter Time: 10:30 Subjective: pt up in bed drowsy but able to answer questions. - Objective Vital Signs & Weight: Vital Signs (12 hours) Temp Pulse Resp BP BP Pulse Ox 04/01/19 14:10 124/58 L 04/01/19 11:53 98.2 F 62 20 163/68 H 97 04/01/19 08:17 97.7 F 87 18 142/63 H 96 Weight Weight 202 lb 8 oz I&O: 03/31/19 04/01/19 04/02/19 06:59 06:59 06:59 Intake Total 880 Output Total 700 Balance 180 Result Diagrams: 04/01/19 04:31 04/01/19 09:37 Additional Labs: Accuchecks 03/31/19 22:58 POC Glucose 131 H Hospitalist ROS - Review of Systems Cardiovascular: denies: chest pain, palpitations, orthopnea, paroxysmal noc. dyspnea, edema, light headedness, other Gastrointestinal: denies: nausea, vomiting, abdominal pain, diarrhea, constipation, melena, hematochezia, other Genitourinary: denies: dysuria, frequency, incontinence, hematuria, retention, other - Medication Medications: Active Medications Generic Name Dose Route Start Last Admin Trade Name Freq PRN Reason Stop Dose Admin Aspirin 81 mg 04/01/19 09:00 04/01/19 09:49 Ecotrin PO 81 mg DAILY VAUGHN Administration Bupropion HCl 150 mg 04/01/19 09:00 04/01/19 09:49 Wellbutrin Xl PO 150 mg DAILY VAUGHN Administration Buspirone HCl 30 mg 04/01/19 09:00 04/01/19 09:49 Buspar PO 30 mg BID VAUGHN Administration Gabapentin 300 mg 04/01/19 15:00 04/01/19 15:44 Neurontin PO 300 mg TID VAUGHN Administration Pantoprazole Sodium 40 mg 04/01/19 09:00 04/01/19 09:49 Protonix PO 40 mg DAILY VAUGHN Administration Sertraline HCl 100 mg 04/01/19 09:00 04/01/19 09:49 Zoloft PO 100 mg DAILY VAUGHN Administration - Exam Heart: negative: RRR, no murmur, no gallops, no rubs, normal peripheral pulses, irregular, diminshed peripheral pulses, murmur present, II/IV, III/IV Respiratory: negative: CTAB, no wheezes, no rales, no ronchi, normal chest expansion, no tachypnea, normal percussion, rales, rhonchi, tachypneic, wheezes Gastrointestinal: negative: soft, non-tender, non-distended, normal bowel sounds , no palpable masses, no hepatomegaly, no splenomegaly, no bruit, no guarding, no rigidity, tender to palpation, distended, diminished bowl sounds, voluntary guarding Hosp A/P (1) Acute metabolic encephalopathy Code(s): G93.41 - METABOLIC ENCEPHALOPATHY Status: Acute (2) Diabetes type 2, controlled Code(s): E11.9 - TYPE 2 DIABETES MELLITUS WITHOUT COMPLICATIONS Status: Chronic (3) Dyslipidemia Code(s): E78.5 - HYPERLIPIDEMIA, UNSPECIFIED Status: Chronic (4) Hypertension Code(s): I10 - ESSENTIAL (PRIMARY) HYPERTENSION Status: Chronic (5) Obesity (BMI 30-39.9) Code(s): E66.9 - OBESITY, UNSPECIFIED Status: Chronic (6) UTI (urinary tract infection) Status: Acute (7) Hypokalemia Code(s): E87.6 - HYPOKALEMIA Status: Acute - Plan will start pt on abx for uti, PT consulted. will replace K.
[2019-04-01 18:05] LABS: Troponin I Less than 0.010 ng/mL (< 0.028)
[2019-04-01] MEDS: cefTRIAXone\\ROCEPHIN 1 GM in Sodium Chloride 0.9% 100 ML IVPB SCH (20:03)
[2019-04-01] MEDS: Atorvastatin Calcium 10 MG TAB PO SCH (20:03)
[2019-04-01] MEDS: Timolol 0.5% Ophth Soln 5 ml Bottle L EYE SCH (20:05)
[2019-04-01] MEDS: Brimonidine Tartrate 0.2% Ophth Soln 5 ml Bottle L EYE SCH (20:05)
[2019-04-01] MEDS: Acetaminophen 325 MG TAB PO PRN (21:08)
[2019-04-02] MEDS: traMADol HCl 50 MG TAB PO PRN ×3 (06:47→19:47)
[2019-04-02 08:42] LABS: Anion Gap 11 mmol/L (10-20); BUN (Urea Nitrogen) 19 mg/dL (9.8-20.1); Calc. Creatinine Clearance 65 mL/min (70-130); Calcium 8.6 mg/dL (7.8-10.44); Carbon Dioxide 23 mmol/L (23-31); Chloride 109 mmol/L (98-107); Estimated GFR-MDRD 47; Glucose 128 mg/dL (83-110); Potassium 3.6 mmol/L (3.5-5.1); Sodium 139 mmol/L (136-145)
[2019-04-02] MEDS: Aspirin 81 mg Enteric Coated Tablet PO SCH (08:45)
[2019-04-02] MEDS: Gabapentin 300 MG CAP PO SCH ×3 (08:46→19:47)
[2019-04-02] MEDS: busPIRone HCl 10 MG TAB PO SCH ×2 (08:46→19:46)
[2019-04-02] MEDS: Bupropion 150 MG XL TAB PO SCH (08:47)
[2019-04-02] MEDS: Timolol 0.5% Ophth Soln 5 ml Bottle L EYE SCH ×2 (08:47→19:49)
[2019-04-02] MEDS: Cholecalciferol (Vitamin D3) 400 UNITS TAB PO SCH (08:47)
[2019-04-02] MEDS: Brimonidine Tartrate 0.2% Ophth Soln 5 ml Bottle L EYE SCH ×2 (08:48→19:50)
[2019-04-02] MEDS: Acetaminophen 325 MG TAB PO PRN ×2 (13:56→23:19)
--- NOTE | 2019-04-02 15:31 | PDOC.HOSPP ---
- Subjective Encounter Date: 04/02/19 Encounter Time: 11:30 Subjective: pt up in bed feels better and states that she has been falling at home. - Objective Vital Signs & Weight: Vital Signs (12 hours) Temp Pulse Resp BP Pulse Ox 04/02/19 12:08 97.5 F L 51 L 18 119/57 L 97 04/02/19 08:54 97.9 F 100 20 139/63 98 04/02/19 08:47 78 04/02/19 08:00 98 04/02/19 04:00 98.2 F 78 20 116/86 93 L Weight Weight 202 lb 8 oz I&O: 04/01/19 04/02/19 04/03/19 06:59 06:59 06:59 Intake Total 880 1970 Output Total 700 2650 Balance 180 -680 Result Diagrams: 04/01/19 04:31 04/02/19 08:08 Hospitalist ROS - Review of Systems Cardiovascular: denies: chest pain, palpitations, orthopnea, paroxysmal noc. dyspnea, edema, light headedness, other Gastrointestinal: denies: nausea, vomiting, abdominal pain, diarrhea, constipation, melena, hematochezia, other Genitourinary: denies: dysuria, frequency, incontinence, hematuria, retention, other - Medication Medications: Active Medications Generic Name Dose Route Start Last Admin Trade Name Freq PRN Reason Stop Dose Admin Acetaminophen 650 mg 03/31/19 21:21 04/02/19 13:56 Tylenol PO 650 mg Q4H PRN Administration Headache/Fever/Mild Pain (1-3) Aspirin 81 mg 04/01/19 09:00 04/02/19 08:45 Ecotrin PO 81 mg DAILY VAUGHN Administration Atorvastatin Calcium 10 mg 04/01/19 21:00 04/01/19 20:03 Lipitor PO 10 mg HS VAUGHN Administration Brimonidine Tartrate 0 drop 04/01/19 21:00 04/02/19 08:48 Alphagan 0.2% Ophth Soln L EYE 1 drp BID VAUGHN Administration Bupropion HCl 150 mg 04/01/19 09:00 04/02/19 08:47 Wellbutrin Xl PO 150 mg DAILY VAUGHN Administration Buspirone HCl 30 mg 04/01/19 09:00 04/02/19 08:46 Buspar PO 30 mg BID VAUGHN Administration Cholecalciferol 400 units 04/02/19 09:00 04/02/19 08:47 Vitamin D PO 400 units DAILY VAUGHN Administration Gabapentin 300 mg 04/01/19 15:00 04/02/19 13:55 Neurontin PO 300 mg TID VAUGHN Administration Ceftriaxone Sodium 1 gm/ 100 mls @ 200 mls/hr 04/01/19 17:00 04/01/19 20:03 Sodium Chloride IVPB 100 mls 1700 VAUGHN Administration Pantoprazole Sodium 40 mg 04/01/19 09:00 04/02/19 08:46 Protonix PO 40 mg DAILY VAUGHN Administration Sertraline HCl 100 mg 04/01/19 09:00 04/02/19 08:45 Zoloft PO 100 mg DAILY VAUGHN Administration Timolol Maleate 1 drop 04/01/19 21:00 04/02/19 08:47 Timoptic 0.5% Ophth Soln L EYE 1 drp BID VAUGHN Administration Tramadol HCl 50 mg 04/01/19 08:55 04/02/19 13:55 Ultram PO 50 mg Q8H PRN Administration Pain - Exam Heart: negative: RRR, no murmur, no gallops, no rubs, normal peripheral pulses, irregular, diminshed peripheral pulses, murmur present, II/IV, III/IV Respiratory: negative: CTAB, no wheezes, no rales, no ronchi, normal chest expansion, no tachypnea, normal percussion, rales, rhonchi, tachypneic, wheezes Gastrointestinal: negative: soft, non-tender, non-distended, normal bowel sounds , no palpable masses, no hepatomegaly, no splenomegaly, no bruit, no guarding, no rigidity, tender to palpation, distended, diminished bowl sounds, voluntary guarding Hosp A/P (1) Acute metabolic encephalopathy Code(s): G93.41 - METABOLIC ENCEPHALOPATHY Status: Acute (2) Diabetes type 2, controlled Code(s): E11.9 - TYPE 2 DIABETES MELLITUS WITHOUT COMPLICATIONS Status: Chronic (3) Dyslipidemia Code(s): E78.5 - HYPERLIPIDEMIA, UNSPECIFIED Status: Chronic (4) Hypertension Code(s): I10 - ESSENTIAL (PRIMARY) HYPERTENSION Status: Chronic (5) Obesity (BMI 30-39.9) Code(s): E66.9 - OBESITY, UNSPECIFIED Status: Chronic (6) UTI (urinary tract infection) Status: Acute (7) Hypokalemia Code(s): E87.6 - HYPOKALEMIA Status: Acute - Plan will start pt on abx for uti, PT consulted. will replace K. 04/02 will continue current abx, pt stable will monitor. PT to get pt up. may need to go home with PT or rehab.
[2019-04-02] MEDS: cefTRIAXone\\ROCEPHIN 1 GM in Sodium Chloride 0.9% 100 ML IVPB SCH (16:32)
[2019-04-02] MEDS: Atorvastatin Calcium 10 MG TAB PO SCH (19:47)
[2019-04-02] MEDS ORDERED: Lidocaine Patch Removal 1 EACH TOP SCH (22:00)
[2019-04-03] MEDS: traMADol HCl 50 MG TAB PO PRN ×2 (04:29→12:15)
[2019-04-03] MEDS: Gabapentin 300 MG CAP PO SCH ×2 (08:43→14:27)
[2019-04-03] MEDS: busPIRone HCl 10 MG TAB PO SCH (08:43)
[2019-04-03] MEDS: Bupropion 150 MG XL TAB PO SCH (08:43)
[2019-04-03] MEDS: Aspirin 81 mg Enteric Coated Tablet PO SCH (08:43)
[2019-04-03] MEDS: Cholecalciferol (Vitamin D3) 400 UNITS TAB PO SCH (08:44)
[2019-04-03] MEDS: Timolol 0.5% Ophth Soln 5 ml Bottle L EYE SCH (08:44)
[2019-04-03] MEDS: Brimonidine Tartrate 0.2% Ophth Soln 5 ml Bottle L EYE SCH (08:45)
[2019-04-03] MEDS ORDERED: Lidocaine 5% Patch TD SCH (10:00)
[2019-04-03 13:15] LABS: Anion Gap 12 mmol/L (10-20); BUN (Urea Nitrogen) 16 mg/dL (9.8-20.1); Calc. Creatinine Clearance 64 mL/min (70-130); Calcium 9.1 mg/dL (7.8-10.44); Carbon Dioxide 23 mmol/L (23-31); Chloride 110 mmol/L (98-107); Estimated GFR-MDRD 46; Glucose 100 mg/dL (83-110); Potassium 3.7 mmol/L (3.5-5.1); Sodium 141 mmol/L (136-145)
[2019-04-03] MEDS: cefTRIAXone\\ROCEPHIN 1 GM in Sodium Chloride 0.9% 100 ML IVPB SCH (16:14)
[2019-04-03] MEDS ORDERED: Cefdinir 300 MG CAP PO SCH (16:45)
[2019-04-03 17:09] VITALS: BP 170/72; TEMP 97.9
--- NOTE | 2019-04-03 18:04 | DIS ---
DATE OF ADMISSION: 03/31/2019 DATE OF DISCHARGE: 04/03/2019 DISCHARGE DIAGNOSES: 1. Acute metabolic encephalopathy. 2. Fall. 3. Urinary tract infection. 4. Diabetes. 5. Obesity. 6. Hypokalemia. HOSPITAL COURSE: The patient is a very pleasant 73-year-old female, who initially presented to the hospital after sustaining a mechanical fall. She does have a right shoulder rotator issue which has been going on since past and is supposed to be scheduling surgeries sometime soon. The patient at this time had multiple x-rays and x-rays of the hip, knee, and shoulder did not show any acute abnormalities. The patient at this time was found to have an E coli UTI. The patient continued to improve. She was walked with therapy who recommended home with home PT. I did offer her inpatient rehab, however, she refused. The patient now will be discharged home today. She will follow up with her primary care doctor and I have asked her to eat a banana every day. Her potassium on discharge was stable. MEDICATIONS: Will be: 1. Cefdinir 300 mg every 12 hours. 2. Bupropion 150 mg daily. 3. Atorvastatin 10 mg daily. 4. Sertraline 100 mg daily. 5. Tramadol 50 mg q.8 hours p.r.n. 6. Pantoprazole 40 mg daily. 7. Torsemide 20 mg daily p.r.n. 8. Gabapentin 300 mg t.i.d. 9. Isosorbide 30 mg daily. 10. Aspirin 81 mg daily. 11. Carvedilol 6.25 b.i.d. PHYSICAL EXAMINATION: VITAL SIGNS: Temperature of 97.8, pulse 75, blood pressure 129/63, respirations 18, 96% on room air. GENERAL: She is awake, alert, and oriented x3. Does not appear in any distress. CV: S1 and S2 present. No murmurs, rubs, or gallops. Again, she will be discharged home. She will follow up with her primary and also with Cardiology as needed. Job ID: [id number]
--- NOTE | 2019-04-05 00:58 | PQF ---
SAP Assistant Editor Crystal Reports Winform Viewer PAU YEUNGTHERESA COSBY [id number] [facility]262 [id number] CLINICAL DOCUMENTATION CLARIFICATION FORM: POST DISCHARGE Addendum to original discharge summary date: ____ Late entry note date: __ DATE: 04/05/19 ATTN: Theresa Sun Please exercise your independent, professional judgment in responding to the clarification form. Clinical indicators are provided on the bottom of this form for your review Can you please further clarify the diagnosis of the patient based on the clinical indicators below? Please check appropriate box(es): [ ] Sepsis due to: (Pna, UTI, gangrenous gall bladder, etc.) [ ] Severe sepsis with acute organ dysfunction of: (Examples: respiratory failure, encephalopathy, acute kidney failure, other) [ ] Localized infection without sepsis [ ] Other diagnosis [ ] Unable to determine In addition, please specify: Present on Admission (POA): [ ] Yes [ ] No [ ] Unable to determine For continuity of documentation, please document condition throughout progress notes and discharge summary. Thank You. CLINICAL INDICATORS - SIGNS / SYMPTOMS / LABS ED Notes 04/02 "report weakness" DS 04/03 "Acute metabolic encephalopathy" DS 04/03 "found to have E.coli UTI" Labs WBC: 03/31=11.5 Vital Signs Pulse :04/0171=274 Vital Signs BP : 04/0293=118/57 RISK FACTORS ED Notes 04/02-73 years old female ED Notes 04/02-HLD ED Notes 04/02-CAD ED Notes 04/02-HTN ED Notes 04/02-Obesity HP 03/31-Hypokalemia DS 04/03-UTI TREATMENTS: HP 03/31-IVF HP 03/31-Electrolyte replacement Collected 03/31-Laboratory Monitoring DS 04/03-Urine culture MAR 04/01-Rocephin 1gm IV (This form is maintained as a part of the permanent medical record) 2014 [employer], [email or web address]. All Rights Reserved [email or web address] [not provided] MTDD
--- NOTE | 2019-04-05 01:01 | PQF ---
SAP Linesperson Crystal Reports Winform Viewer AURY YEUNG THERESA WEISS [id number] [facility]262 [id number] CLINICAL DOCUMENTATION CLARIFICATION FORM: POST DISCHARGE Addendum to original discharge summary date: ____ Late entry note date: __ DATE: 04/05/19 ATTN: Theresa Sun Please note I am not Dr.Bhimji Cardenas, please send it to appropriate physician. Thank you Please exercise your independent, professional judgment in responding to the clarification form. Clinical indicators are provided on the bottom of this form for your review Can you please further clarify the diagnosis of the patient based on the clinical indicators below? Please check appropriate box(s): [ ] Acute Renal Failure (ARF) / Acute Kidney Injury (ROXIE) [ ] Acute on Chronic Renal Failure please specify Stage of CKD (see below) [ ] CKD without ARF/ROXIE please specify Stage of CKD [ ] Other diagnosis [ ] Unable to determine In addition, please specify: Present on Admission (POA): [ ] Yes [ ] No [ ] Unable to determine National Kidney Foundation Guidelines for CKD Staging Stage I Kidney damage with normal or increased GFRGFR > 90 Stage IIKidney damage with mildly decreased GFRGFR 60-89 Stage III Kidney damage with moderately decreased GFRGFR 30-59 Stage IVKidney damage with severely decreased GFRGFR 16-29 Stage VKidney failureGFR<15 ESRDEnd Stage Renal DiseaseOn dialysis Acute Renal Failure/Acute Kidney Failure defined as: Increases in SCr by (>) 0.3 mg/dl within 48 hours OR- Increases in SCr by (>) 1.5 times baseline, known or presumed to have occurred within the prior 7 days OR- Urine volume < 0.5 ml/kg/hour for 6 hours (KDIGO supplement 2012 for RIFLE/PHAN criteria) For continuity of documentation, please document condition throughout progress notes and discharge summary. Thank You. CLINICAL INDICATORS - SIGNS / SYMPTOMS / LABS ED Notes 04/02 "report weakness" HP 03/31 "patient was found to be hypokalemic with a potassium of 2.6" HP 03/31 "elevated BUN and creatine" HP 03/31 "appeared dehydrated" Labs BUN: 03/31=32 04/01= 28 04/02=19 12=16 Labs Creatinine: 03/31=1.59 04/01=1.32 04/02=1.14 04/03=1.15 Labs GFR: 03/31=32 12=40 04/01=47 04/03=46 RISK FACTORS ED Notes 04/02-73 years old female ED Notes 04/02-HLD ED Notes 04/02-CAD ED Notes 04/02-HTN ED Notes 04/02-Obesity HP 03/31-Hypokalemia TREATMENTS: HP 03/31-IVF HP 03/31-Electrolyte replacement Collected 03/31-Laboratory Monitoring (This form is maintained as a part of the permanent medical record) 2014 [employer], [employer]. All Rights Reserved [email or web address] [not provided] MTDD
[2019-04-08] MEDS ORDERED: Ergocalciferol 1.25 MG(50,000 UNITS) CAP PO SCH (09:00)
== END 2019-04-03 18:20 | disposition home health service (06) | DRG 640 ==
LOC: ERS 17:43 → 2NO 21:00
PROVIDERS: ADMIT Internal Medicine; ATTEND Internal Medicine
DX: E87.6 Hypokalemia (principal); G93.41 Metabolic encephalopathy; N39.0 Urinary tract infection, site not specified; E78.5 Hyperlipidemia, unspecified; I25.10 Atherosclerotic heart disease of native coronary artery without angina pectoris; E11.9 Type 2 diabetes mellitus without complications; I10 Essential (primary) hypertension; E66.9 Obesity, unspecified; J45.909 Unspecified asthma, uncomplicated; G89.29 Other chronic pain; Z96.641 Presence of right artificial hip joint; F41.9 Anxiety disorder, unspecified; F32.9 Major depressive disorder, single episode, unspecified; E86.0 Dehydration; B96.20 Unspecified Escherichia coli [E. coli] as the cause of diseases classified elsewhere; Z91.81 History of falling; I25.2 Old myocardial infarction; Z68.30 Body mass index [BMI] 30.0-30.9, adult; Z98.51 Tubal ligation status; Z88.8 Allergy status to other drugs, medicaments and biological substances; Z79.82 Long term (current) use of aspirin; Z79.899 Other long term (current) drug therapy
CPT/HCPCS: 36415; 36416; 71045; 80048; 80053; 81003; 81015; 82306; 82550; 82607; 83605; 83735; 83880; 84443; 84484; 85007; 85025; 85027; 87040; 87077; 87086; 87186; 93005; 96361; 96365; 96375; J0696; J2270; J3475; J3480; J3490

== ENCOUNTER 2019-10-17 13:43 | Observation (INO) | payer MEDICARE, MEDICAID ==
[2019-10-17 14:43] LABS: #Basophils 0.1 thou/uL (0.0-0.2); #Eosinphils 0.1 thou/uL (0.0-0.7); #Lymphocytes 1.7 thou/uL (1.20-3.40); #Monocytes 0.5 thou/uL (0.11-0.59); #Neutrophils 3.9 thou/uL (1.40-6.50); %Basophils 0.9 % (0.0-1.0); %Eosinophils 2.3 % (0.0-10.0); %Lymphocytes 26.5 % (21.0-51.0); %Monocytes 8.5 % (0.0-10.0); %Neutrophils 61.7 % (42.0-75.0); Hemoglobin 10.9 g/dL (12.0-16.0); Mean Corpuscular HGB CONC 33.7 g/dL (32.0-36.0); Mean Corpuscular Hemoglobin 31.2 pg (27.0-31.0); Mean Corpuscular Volume 92.5 fL (78.0-98.0); Mean Platelet Volume 7.9 fL (7.4-10.4); Platelet Count 202 thou/uL (130-400); RBC Distribution Width 12.9 % (11.5-14.5); Red Blood Cell (RBC) Count 3.49 mill/uL (4.20-5.40); White Blood Cell (WBC) Count 6.2 thou/uL (4.8-10.8)
--- NOTE | 2019-10-17 14:50 | RAD ---
EXAM: Single view of the chest HISTORY: Chest pain COMPARISON: 03/31/2019 FINDINGS: Single view of the chest shows an enlarged but stable cardiomediastinal silhouette. There i s no evidence of consolidation, mass, or pleural effusion. Degenerative changes are seen in the spine. IMPRESSION: No evidence of acute cardiopulmonary disease
[2019-10-17 15:06] LABS: Digoxin Less than 0.15 ng/mL (0.8-2.0)
[2019-10-17 15:09] LABS: ALT (SGPT) 15 U/L (8-55); AST (SGOT) 18 U/L (5-34); Albumin 4.2 g/dL (3.4-4.8); Alkaline Phosphatase 78 U/L (40-110); Anion Gap 14 mmol/L (10-20); BUN (Urea Nitrogen) 36 mg/dL (9.8-20.1); Bilirubin, Total 0.4 mg/dL (0.2-1.2); CK (CPK) 62 U/L (29-168); Calc. Creatinine Clearance 0 mL/min (70-130); Carbon Dioxide 28 mmol/L (23-31); Chloride 101 mmol/L (98-107); Estimated GFR-MDRD 30; Globulin 2.9 g/dL (2.4-3.5); Glucose 98 mg/dL (83-110); Lipase 39 U/L (8-78); Potassium 3.7 mmol/L (3.5-5.1); Protein, Total 7.1 g/dL (6.0-8.3); Sodium 139 mmol/L (136-145)
[2019-10-17 15:17] LABS: Bacteria/HPF 4+ HPF (None Seen); Bilirubin Negative (Negative); Blood, Urine Negative (Negative); Clarity Clear (Clear); Glucose, Urine (Dipstick) Normal (Negative); Leukocyte 500 Leu/uL (Negative); Nitrite Negative (Negative); Protein, Urine (Dipstick) Negative (Neg-Trace); RBC/HPF 0-3 HPF (0-3); Squamous Epithelial 0-3 HPF (0-3); Urobilinogen Normal mg/dL (Less than 2)
[2019-10-17] MEDS ORDERED: Aspirin 325 MG TAB ONE (15:41)
--- NOTE | 2019-10-17 17:59 | HP ---
PRIMARY CARE PHYSICIAN: Dr. Schulte at [facility]. CHIEF COMPLAINT: Chest pain. 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 She reports that she has intermittently had some chest pains in the past, but not very frequent, and for the last 2 days, she has had repeated chest pains, left-sided, sharp, alternating with pressure sensation. This will usually get better if she takes nitroglycerin and sits down to rest, gets worse if she moves around. She had an hour long episode last night and a short episode this morning and so eventually came into the emergency room. She denies any other symptoms with this except for a little bit of upset stomach since she has not had any food yet today and is asking to eat. The patient does report that she had a negative stress test about a year ago and had an echocardiogram done at her doctor's office, but she does not have the results. REVIEW OF SYSTEMS: CONSTITUTIONAL: No fevers. No chills. EYES: She has chronic vision problems, but nothing acute. ENT: She reports some recurrent nasal congestion from allergies from whenever the grass is cut around her house. She had a little minimal sore throat sometime earlier this week, but none now. CARDIOVASCULAR: See HPI. No palpitations or racing heart. PULMONARY: No coughing, wheezing, or shortness of breath. GASTROINTESTINAL: A little bit of nausea right now and asking to eat. No vomiting. No abdominal pain. No diarrhea or constipation. GENITOURINARY: No dysuria or hematuria. MUSCULOSKELETAL: She has chronic joint pains and chronic significant back pain, but nothing that is worse than normal. SKIN: No rashes or lesions. NEUROLOGIC: She had a little bit of right arm numbness and tingling yesterday that spontaneously resolved. No other neurologic complaints. PAST MEDICAL HISTORY: 1. Diabetes mellitus type 2. 2. Hypertension. 3. Possible previous OR seen on an EKG back in the . 4. Chronic low back pain. 5. Mild intermittent asthma. 6. Hyperlipidemia. PAST PSYCHIATRIC HISTORY: Anxiety and depression. PAST SURGICAL HISTORY: 1. Hysterectomy. 2. x3. 3. Left knee surgery. 4. Right knee surgery. 5. Bilateral hip replacements. 6. Tubal ligation. SOCIAL HISTORY: The patient lives at [facility]. She has never smoked, used to drink alcohol, but has not drunk alcohol in quite some time. No illicit drug use. She is . One of her sons lives in [place] and then her other son and daughter live out of [facility]. She is a full code. She was not able to identify who would be her medical decision maker. She did not want to burden her children with this decision. FAMILY HISTORY: Negative for early heart disease. ALLERGIES: 1. CHLORDIAZEPOXIDE. 2. VALIUM. 3. DICLOFENAC. 4. ETODOLAC. 5. MISOPROSTOL. 6. PHENERGAN. 7. ROFECOXIB. 8. VALPROIC ACID. SHE IS ABLE TO TAKE ASPIRIN. CURRENT MEDICATIONS: 1. Aspirin 81 mg daily. 2. Atorvastatin 10 mg at night. 3. Buspirone 30 mg twice a day. 4. Bupropion extended release 150 mg daily. 5. Ferrex 150 Forte Plus one capsule daily. 6. Gabapentin 300 mg 3 times a day. 7. Isosorbide mononitrate 30 mg daily. 8. Torsemide 20 mg twice a day. 9. Sertraline 100 mg daily. 10. Protonix 40 mg daily. PHYSICAL EXAMINATION: VITAL SIGNS: Blood pressure 133/73, pulse 52, respirations 18, temperature 98.2, O2 saturation 99% on room air. GENERAL: This is a well-developed obese white female, in no acute distress. HEENT: Her right pupil is slightly larger than her left. They are both reactive to light. She thinks this may be chronic for her. Oropharynx is clear without lesions, erythema, or exudate. NECK: Supple. No lymphadenopathy. No thyroid nodules or enlargement. No JVD. She did have a little bit of mild tenderness to palpation in the left lower neck and throat around the area of the thyroid, though no masses or thyromegaly was palpated. HEART: Irregularly irregular rhythm with a mildly bradycardic rate in the 50s during my exam. No murmurs, rubs, or gallops. LUNGS: Clear to auscultation bilaterally. No wheezes, crackles, or rhonchi. She did have minimal tenderness to palpation of the left anterior chest wall at the site of her previous chest pain, but this did not reproduce the actual pain. ABDOMEN: Soft, nontender to palpation. Normoactive bowel sounds. No hepatosplenomegaly or other masses. EXTREMITIES: No clubbing, cyanosis, or edema. SKIN: No rashes or lesions noted. NEUROLOGIC: She is able to move all extremities equally. No facial droop. PSYCHIATRIC: Alert and oriented x3. Normal mood and affect. LABORATORY DATA: CBC with a hemoglobin of 10.9, hematocrit of 32.3. These are chronic. The rest of the CBC is normal. Complete metabolic panel is notable for a BUN of 36 and a creatinine of 1.69, which is on the upper limit of normal for her. Urinalysis shows 500 leukocyte esterase, 7 to 10 white blood cells, and 4+ bacteria. Digoxin was negative. DIAGNOSTIC DATA: EKG; I did evaluate it in the emergency room. It shows atrial fibrillation with a slow ventricular rate of 47 beats per minute with some left axis deviation and left ventricular hypertrophy and some nonspecific ST changes including some T-wave flattening in the anterior lateral leads. No ST depression or ST-segment elevation, though. Chest x-ray; I did review the chest x-ray done in the emergency room along with the radiologist's report. It does show an enlarged but stable cardiomediastinal silhouette without any evidence of acute cardiopulmonary disease. ASSESSMENT: 1. Chest pain in the setting of a history of possible coronary artery disease. We will trend the patient's troponins. The first was negative. We will get two more, and we will watch the patient on telemetry monitoring overnight. Should the troponins bump, we will get cardiology consult. Otherwise, we will do a stress test in the morning. 2. Bradycardia, likely secondary to her carvedilol, not currently symptomatic. We will hold carvedilol for now. 3. Atrial fibrillation with control, now actually slightly bradycardic rate. 4. Diabetes mellitus type 2. We will put the patient on fingerstick blood sugars q.a.c. and at bedtime with a low insulin to sliding scale. 5. Depression and anxiety. Resume the patient's buspirone and Wellbutrin. 6. Deep venous thrombosis prophylaxis. Put the patient on subcu Lovenox. 7. Gastrointestinal prophylaxis. We will continue the patient's PPI. 8. Code status: The patient is a full code. We will have Palliative Care discuss with her who her medical decision maker would be. Job ID: [id number]
[2019-10-17] MEDS ORDERED: Dextrose 5% in Water 1,000 ML IV PRN (19:31)
[2019-10-17] MEDS ORDERED: HumaLOG 300 UNITS/3 ML VIAL SC PRN ×2 (19:31)
[2019-10-17] MEDS ORDERED: Dextrose 50% Abboject 50 ML SYRINGE SLOW IVP PRN (19:31)
[2019-10-17] MEDS ORDERED: Atorvastatin Calcium 10 MG TAB PO SCH (21:00)
[2019-10-17] MEDS: busPIRone HCl 10 MG TAB PO SCH (21:21)
[2019-10-17] MEDS: Gabapentin 300 MG CAP PO SCH (21:21)
[2019-10-17] MEDS: Nitroglycerin 0.4 MG TAB (25 Tab Bottle) PO PRN ×2 (23:41→23:48)
--- NOTE | 2019-10-18 00:25 | PDOC.EVN ---
Event Note - Event Note Event Note: Notified by RN, patient with chest pain 08/27. Will repeat EKG and obtain trop x 2. BP 140s systolic. Patient will get nitro as ordered by Dr. Garcia.
[2019-10-18] MEDS: Acetaminophen 325 MG TAB PO PRN ×2 (00:34→12:48)
[2019-10-18 04:44] LABS: Cardiac Risk 2.1 (Less than 4.5)
--- NOTE | 2019-10-18 08:12 | PDOC.HOSPP ---
- Subjective Encounter Date: 10/18/19 Encounter Time: 11:30 Subjective: Patient without further chest pain. Couldn't complete the stress test due to bradycardia down to the 40s, asymptomatic. - Objective Vital Signs & Weight: Vital Signs (12 hours) Temp Pulse Resp BP BP Pulse Ox 10/18/19 07:42 97.6 F 54 L 12 150/67 H 96 10/18/19 03:03 98.1 F 84 18 124/58 L 98 10/18/19 00:30 52 L 16 123/54 L Weight Weight 197 lb 14.4 oz I&O: 10/17/19 10/18/19 10/19/19 06:59 06:59 06:59 Intake Total 400 Output Total 600 Balance -200 Result Diagrams: 10/17/19 14:22 10/17/19 14:22 Additional Labs: Accuchecks 10/18/19 10/17/19 05:50 20:22 POC Glucose 90 185 H Hospitalist ROS - Review of Systems Constitutional: denies: fever, chills Respiratory: denies: cough, shortness of breath Cardiovascular: denies: chest pain, palpitations Gastrointestinal: denies: nausea, vomiting, abdominal pain - Medication Medications: Active Medications Generic Name Dose Route Start Last Admin Trade Name Freq PRN Reason Stop Dose Admin Acetaminophen 650 mg 10/18/19 00:23 10/18/19 00:34 Tylenol PO 650 mg Q4H PRN Administration Headache/Fever or Pain Atorvastatin Calcium 10 mg 10/17/19 21:00 10/17/19 21:21 Lipitor PO 10 mg HS VAUGHN Administration Buspirone HCl 30 mg 10/17/19 21:00 10/17/19 21:21 Buspar PO 30 mg BID VAUGHN Administration Gabapentin 300 mg 10/17/19 21:00 10/17/19 21:21 Neurontin PO 300 mg TID VAUGHN Administration Nitroglycerin 0.4 mg 10/17/19 19:31 10/17/19 23:48 Nitrostat PO 1 tab Q5MIN PRN Administration Chest Pain - Exam General Appearance: NAD, awake alert ENT: moist mucosa Heart: RRR, no murmur, no gallops, no rubs Respiratory: CTAB, no wheezes, no rales, no ronchi Gastrointestinal: soft, non-tender, non-distended, normal bowel sounds Psychiatric: normal affect, normal behavior, A&O x 3 Hosp A/P (1) Chest pain, rule out acute myocardial infarction Code(s): R07.9 - CHEST PAIN, UNSPECIFIED Status: Resolved (2) Bradycardia Code(s): R00.1 - BRADYCARDIA, UNSPECIFIED Status: Acute (3) Diabetes type 2, controlled Code(s): E11.9 - TYPE 2 DIABETES MELLITUS WITHOUT COMPLICATIONS Status: Chronic (4) Dyslipidemia Code(s): E78.5 - HYPERLIPIDEMIA, UNSPECIFIED Status: Chronic (5) GERD (gastroesophageal reflux disease) Code(s): K21.9 - GASTRO-ESOPHAGEAL REFLUX DISEASE WITHOUT ESOPHAGITIS Status: Chronic (6) Hypertension Code(s): I10 - ESSENTIAL (PRIMARY) HYPERTENSION Status: Chronic (7) Atrial fibrillation Code(s): I48.91 - UNSPECIFIED ATRIAL FIBRILLATION Status: Chronic (8) Anxiety and depression Code(s): F41.9 - ANXIETY DISORDER, UNSPECIFIED; F32.9 - MAJOR DEPRESSIVE DISORDER, SINGLE EPISODE, UNSPECIFIED Status: Chronic (9) Asthma Code(s): J45.909 - UNSPECIFIED ASTHMA, UNCOMPLICATED Status: Chronic Qualifiers: Asthma severity: mild Asthma persistence: intermittent (10) Chronic low back pain Code(s): M54.5 - LOW BACK PAIN; G89.29 - OTHER CHRONIC PAIN Status: Chronic Qualifiers: Back pain laterality: unspecified - Plan Patient with recurrent chest pain overnight. Repeat troponins negative. Treated with nitroglycerin. Now asymptomatic. Stress test this morning stopped due to bradycardia. 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 Last stress test one year ago was negative. Patient with chronic chest pain. Seen in January here for chest pain and had to cancel stress test at that time due to bradycardia. Patient was instructed to stop carvedilol at that time. She reports she is still taking it however. All cardiac markers negative. No evidence acute coronary syndrome. Will d/c carvedilol. Patient stable for discharge. Needs to followup with her pile driving nozzleman in 1 week. DVT Proph: Lovenox GI Proph: Protonix
[2019-10-18] MEDS: busPIRone HCl 10 MG TAB PO SCH (08:43)
[2019-10-18] MEDS: Gabapentin 300 MG CAP PO SCH ×2 (08:43→15:31)
[2019-10-18] MEDS ORDERED: Bupropion 150 MG XL TAB PO SCH (09:00)
[2019-10-18] MEDS ORDERED: Aspirin 81 mg Enteric Coated Tablet PO SCH (09:00)
[2019-10-18] MEDS ORDERED: Enoxaparin Sodium 40 MG/0.4 ML SYRINGE SC SCH (09:00)
--- NOTE | 2019-10-18 15:06 | NM ---
Radionucleotide rest only myocardial perfusion scan HISTORY: Chest pain. FINDINGS: Exam was not performed to completion. Rest only images were acquired, not stress images. Br adycardia prevented completion of the test. There is very heterogeneous uptake of radiotracer throughout the left ventricular myocardium. A small to moderate sized area of decreased uptake involves the mid to distal portion of the anteroseptal wall. This suggests the possibility of scar in the LAD distribution. Wall motion not performed. IMPRESSION : Incomplete exam. Probable scar at the anteroseptal wall.
[2019-10-18 15:36] VITALS: BP 112/55; TEMP 97.7
--- NOTE | 2019-10-18 21:15 | DIS ---
DATE OF ADMISSION: 10/17/2019 DATE OF DISCHARGE: 10/18/2019 PRIMARY CARE PHYSICIAN: Dr. Schulte at [facility]. REASON FOR ADMISSION: Chest pain. DIAGNOSES AT DISCHARGE: 1. Chest pain, resolved. 2. Bradycardia secondary to carvedilol. 3. Diabetes mellitus type 2. 4. Dyslipidemia. 5. Atrial fibrillation, rate controlled. 6. Gastroesophageal reflux disease. 7. Hypertension. 8. Anxiety and depression. PROCEDURES: Nuclear medicine stress test showing small to moderate sized area of decreased uptake involving the mid to distal portion of the anterior septal wall, likely a scar in the LAD distribution, but no stress portion was able to be performed secondary to the patient's bradycardia. CONSULTATIONS: None. SUMMARY OF HOSPITAL COURSE: This is a 73-year-old white female with a history of possible previous myocardial infarction in the , but she does not know if she has actual coronary artery disease or congestive heart failure. She is followed by word processor at [facility] and is on daily carvedilol and fluid pills. She reports that she has intermittent chest pains, does not think they are very frequent. In the last 2 days, she has had some repeated chest pains, usually resolves on her nitroglycerin from her word processor. However, last night, she did have one that lasted for about an hour. She had another short episode this morning that resolved after she took nitroglycerin and sat down to rest and she came into the hospital. The patient was observed in the hospital. She had negative cardiac markers x3. She did have another short episode of chest pain, it was similar to her previous pain that resolved with nitroglycerin. She had no further after that. She was noted to be bradycardic on admission. It was reported she was still taking carvedilol. I did request records from her doctor's office. It appears that she actually had a catheterization done a couple of years ago with 60% stenosis of one of her vessels, this being medically managed. She also had a stress test done exactly one year ago that was negative. I did try and do a stress test on the patient; however, she had a bradycardic episodes into the 40s during that test and so they abandoned the stress portion. She has not had any symptoms with bradycardia. I did review her visit from January of this past year when she came in for chest pain. At that time, they were unable to do a stress test also due to bradycardia. Cardiology was consulted and they recommended stopping her carvedilol. However, at some point, the patient started taking a carvedilol again and now is having bradycardia again as well. She was asymptomatic from the bradycardia during hospitalization, I did hold her carvedilol and she was running in the 50 beats per minute range at the time of discharge. The patient was doing well and asymptomatic at the time of discharge and she is being discharged home to follow up with her word processor next week. DISCHARGE MANAGEMENT: Discharged home. FOLLOWUP: Follow up with her word processor in one week. ACTIVITY: As tolerated. DIET: Diabetic healthy heart diet. MEDICATIONS: The patient is to stop her carvedilol. She is to continue, 1. Acetaminophen with codeine as needed. 2. Aspirin 81 mg daily. 3. Atorvastatin 10 mg at night. 4. Buspirone 30 mg twice a day. 5. Isosorbide mononitrate 30 mg daily. 6. Nitroglycerin as needed. 7. Protonix 40 mg daily. 8. Sertraline 100 mg daily. 9. Torsemide 20 mg twice daily for swelling. Job ID: [id number]
--- NOTE | 2019-10-19 18:09 | EKG ---
Test Reason : STAT Blood Pressure : / mmHG Vent. Rate : 052 BPM Atrial Rate : 052 BPM P-R Int : 000 ms QRS Dur : 084 ms QT Int : 496 ms P-R-T Axes : 002 -32 -09 degrees QTc Int : 461 ms Sinus bradycardia with 1st degree A-V block with Premature atrial complexes Left axis deviation Minimal voltage criteria for LVH, may be normal variant Nonspecific T wave abnormality Abnormal ECG When compared with ECG of 31-MAR-2019 19:37, Previous ECG has undetermined rhythm, needs review T wave inversion no longer evident in Lateral leads Confirmed by GIDEON HAYS (2) on 10/19/2019 6:09:25 PM Referred By: JUAN M WEBER Confirmed By:GIDEON HAYS
== END 2019-10-18 17:35 | disposition home or self-care (01) ==
LOC: ERS 13:43 → 2NO 15:30
PROVIDERS: ADMIT Emergency Medicine; ATTEND Emergency Medicine
DX: R07.9 Chest pain, unspecified (principal); R00.1 Bradycardia, unspecified; T44.7X5A Adverse effect of beta-adrenoreceptor antagonists, initial encounter; E11.9 Type 2 diabetes mellitus without complications; E78.5 Hyperlipidemia, unspecified; I48.20 Chronic atrial fibrillation, unspecified; K21.9 Gastro-esophageal reflux disease without esophagitis; I10 Essential (primary) hypertension; F41.9 Anxiety disorder, unspecified; F32.9 Major depressive disorder, single episode, unspecified; J45.20 Mild intermittent asthma, uncomplicated; G89.29 Other chronic pain; M54.5 Low back pain; Z79.82 Long term (current) use of aspirin; Z79.899 Other long term (current) drug therapy; Z88.6 Allergy status to analgesic agent; Z88.8 Allergy status to other drugs, medicaments and biological substances
CPT/HCPCS: 71045; 78451; 80053; 80061; 80162; 82550; 82962 ×2; 83690; 84484 ×4; 85025; 93005 ×2; 94760 ×3; 99285; A9500; 36415; 36416; 81003; 81015; 93010; 96372; G0378; J1650

== ENCOUNTER 2020-01-02 16:33 | Inpatient (IN) | payer MEDICARE, OTHER ==
--- NOTE | 2020-01-02 17:09 | RAD ---
Portable frontal chest radiograph: 01/02/2020 COMPARISON: 10/17/2019 HISTORY: Neck pain and low back pain FINDINGS: Lungs are clear. Heart and mediastinal contours appear within normal limits. There is mild atherosclerotic calcification of the aortic arch. IMPRESSION: No acute findings.
[2020-01-02 17:19] LABS: #Basophils 0.1 thou/uL (0.0-0.2); #Lymphocytes 1.3 thou/uL (1.20-3.40); #Monocytes 1.5 thou/uL (0.11-0.59); #Neutrophils 10.8 thou/uL (1.40-6.50); %Basophils 0.4 % (0.0-1.0); %Eosinophils 0.3 % (0.0-10.0); %Lymphocytes 9.8 % (21.0-51.0); %Monocytes 10.8 % (0.0-10.0); %Neutrophils 78.7 % (42.0-75.0); Hemoglobin 12.6 g/dL (12.0-16.0); Mean Corpuscular Hemoglobin 30.1 pg (27.0-31.0); Mean Corpuscular Volume 91.4 fL (78.0-98.0); Mean Platelet Volume 6.9 fL (7.4-10.4); Platelet Count 223 thou/uL (130-400); RBC Distribution Width 13.1 % (11.5-14.5); Red Blood Cell (RBC) Count 4.19 mill/uL (4.20-5.40); White Blood Cell (WBC) Count 13.7 thou/uL (4.8-10.8)
[2020-01-02 17:38] LABS: ALT (SGPT) 17 U/L (8-55); AST (SGOT) 32 U/L (5-34); Albumin 4.1 g/dL (3.4-4.8); Alkaline Phosphatase 84 U/L (40-110); Anion Gap 15 mmol/L (10-20); BUN (Urea Nitrogen) 17 mg/dL (9.8-20.1); Bilirubin, Total 0.8 mg/dL (0.2-1.2); CK (CPK) 572 U/L (29-168); Calc. Creatinine Clearance 0 mL/min (70-130); Calcium 8.7 mg/dL (7.8-10.44); Carbon Dioxide 20 mmol/L (23-31); Chloride 105 mmol/L (98-107); Estimated GFR-MDRD 54; Glucose 106 mg/dL (83-110); Potassium 3.8 mmol/L (3.5-5.1); Protein, Total 7.1 g/dL (6.0-8.3); Sodium 136 mmol/L (136-145)
--- NOTE | 2020-01-02 18:11 | CT ---
CT of thelumbar spine: 01/02/2020 COMPARISON:09/18/2010 HISTORY:Recent fall TECHNIQUE: Serial axial CT imaging at2.5 mm intervals from thelower thoracic spine through the lower sacrum without contrast. Coronal and sagittal reformatted imaging obtained Findings:Evaluation for central canal and/or neural foraminal stenosis is limited on routine CT. Ther e is multifocal atherosclerotic calcification of the abdominal aorta. Postoperative posterior fusion hardware is noted at the L5-S1 level with bilateral pedicle screws and vertically oriented int erlocking rods. Intervertebral disc device noted as well. There is anterolisthesis at L5-S1 measuring approximately 1.3 cm, increased from 8 mm on the prior exam. There is anterolisthesis at L4 -5 measuring approximately 1.1 cm, new when compared to the prior examination. T12-L1: There is disc space narrowing with posterior osteophyte causing significant central canal vicki nosis/right lateral recess stenosis. Anterior osteophyte formation noted. Bilateral facet hypertrophy with probable mild/moderate bilateral neural foraminal stenosis. L1-2: Disc space narrowing with posterior disc osteophyte complex present causing significant central canal stenosis. There is bilateral facet hypertrophy with probable moderate bilateral neural foraminal stenosis. L2-3: Vacuum disc formation noted with disc space narrowing. Bilateral facet hypertrophy. Probable mo derate/severe central canal stenosis on the basis of facet disease and a disc osteophyte complex. Moderate bilateral neural foraminal stenosis. L3-4: There is disc space narrowing and vacuum disc formation. Bilateral facet hypertrophy. Moderate bilateral neural foraminal stenosis, right greater than left. Probable mild central canal stenosis. L4-5: There is disc space narrowing and degenerative endplate change with vacuum disc formation. Bila teral facet hypertrophy present with probable bilateral L4 pars defects. Severe bilateral neural foraminal stenosis and moderate central canal stenosis suspected. L5-S1: There is disc space narrowing and vacuum disc formation with bilateral facet hypertrophy causi ng at least mild bilateral neural foraminal stenosis and mild central canal stenosis. No displaced fracture or evidence of dislocation. Impression:Prominent multilevel degenerative change within the lumbar spine as detailed above. No josh dence for an acute fracture is seen.
--- NOTE | 2020-01-02 18:12 | CT ---
CT BRAIN WITHOUT CONTRAST: History: Fall, head injury Comparison: 04-14-19 FINDINGS: Changes of cortical atrophy are seen. The ventricular size is stable but prominent. The ventricular s ize is greater in size for degree of atrophy. No evidence of acute infarct, hemorrhage, midline shift or abnormal extraaxial fluid collections are seen. The bony calvarium is intact. The visualized Paranasal sinuses and mastoid air cells are well a erated. IMPRESSION: 1. Stable exam. No CT evidence of acute intracranial process. 2. 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 POS: CORRINAA
--- NOTE | 2020-01-02 18:13 | CT ---
CT CERVICAL SPINE WITHOUT CONTRAST: History: Fall, injury, neck pain. Comparison: 04-14-19 FINDINGS: Degenerative changes are again seen. No fracture, subluxation, or facet malalignment is identified. IMPRESSION: As above. POS: ELSIE
--- NOTE | 2020-01-02 18:16 | CT ---
CT of thethoracic spine: 01/02/2020 COMPARISON:None available HISTORY:Recent fall TECHNIQUE: Serial axial CT imaging at3.75 mm intervals from thelower cervical spine through upper lum bar spine without contrast. Coronal and sagittal reformatted imaging obtained Findings:The visualized lung parenchyma demonstrates no acute findings. Prominent degenerative endplate sclerotic changes are noted at the T1-2 level. There is multilevel an terior right-sided osteophyte formation seen throughout the thoracic spine, most prominent at the T8-9 and T9-10 levels. No thoracic spine anterolisthesis or retrolisthesis is noted. No worrisome lytic or blastic bone lesion is seen. There is no osseous cause of significant central canal stenosis within the thoracic spine. No acute fracture or evidence of dislocation. Impression:Thoracic spine degenerative change. No acute fracture or dislocation is seen within the th oracic spine.
[2020-01-02 18:27] LABS: Bacteria/HPF 4+ HPF (None Seen); Bilirubin Negative (Negative); Blood, Urine 1+ (Negative); Clarity Turbid (Clear); Glucose, Urine (Dipstick) Normal (Negative); Ketone, Urine Negative (Negative); Leukocyte 75 Leu/uL (Negative); Nitrite 2+ (Negative); Protein, Urine (Dipstick) 10 mg/dL (Neg-Trace); RBC/HPF 0-3 HPF (0-3); Specific Gravity, Urine 1.008 (1.002-1.036); Squamous Epithelial 0-3 HPF (0-3); Urobilinogen Normal mg/dL (Less than 2)
[2020-01-02] MEDS ORDERED: cefTRIAXone\\ROCEPHIN 2 GM VIAL ONE (19:01)
[2020-01-02] MEDS ORDERED: Morphine 4 MG/ML VIAL ONE (19:01)
[2020-01-02] MEDS ORDERED: Ondansetron PF 4 MG/2 ML Vial ONE (19:06)
[2020-01-02] MEDS ORDERED: Ondansetron PF 4 MG/2 ML Vial IVP PRN (22:14)
[2020-01-02] MEDS ORDERED: Dextrose 5% in Water 1,000 ML IV PRN (22:20)
[2020-01-02] MEDS ORDERED: HumaLOG 300 UNITS/3 ML VIAL SC PRN (22:20)
[2020-01-02] MEDS ORDERED: Dextrose 50% Abboject 50 ML SYRINGE SLOW IVP PRN (22:20)
[2020-01-03] MEDS: Sodium Chloride 0.9% 1,000 ML IV SCH ×2 (00:10→12:16)
[2020-01-03 00:12] VITALS: BMI 31.2
[2020-01-03] MEDS: HYDROcodone/Acetaminophen 5/325 mg Tablet PO PRN ×3 (00:19→18:24)
[2020-01-03 03:34] LABS: #Eosinphils 0.1 thou/uL (0.0-0.7); #Lymphocytes 1.7 thou/uL (1.20-3.40); #Monocytes 1.2 thou/uL (0.11-0.59); #Neutrophils 7.6 thou/uL (1.40-6.50); %Basophils 0.3 % (0.0-1.0); %Eosinophils 0.8 % (0.0-10.0); %Lymphocytes 15.6 % (21.0-51.0); %Monocytes 11.3 % (0.0-10.0); Mean Corpuscular HGB CONC 33.4 g/dL (32.0-36.0); Mean Corpuscular Hemoglobin 31.1 pg (27.0-31.0); Mean Corpuscular Volume 93.2 fL (78.0-98.0); Mean Platelet Volume 7.1 fL (7.4-10.4); Platelet Count 189 thou/uL (130-400); RBC Distribution Width 13.2 % (11.5-14.5); Red Blood Cell (RBC) Count 3.54 mill/uL (4.20-5.40); White Blood Cell (WBC) Count 10.6 thou/uL (4.8-10.8)
[2020-01-03 03:53] LABS: Anion Gap 14 mmol/L (10-20); BUN (Urea Nitrogen) 15 mg/dL (9.8-20.1); Calc. Creatinine Clearance 80 mL/min (70-130); Calcium 7.9 mg/dL (7.8-10.44); Carbon Dioxide 18 mmol/L (23-31); Chloride 109 mmol/L (98-107); Estimated GFR-MDRD 60; Glucose 100 mg/dL (83-110); Potassium 3.8 mmol/L (3.5-5.1); Sodium 137 mmol/L (136-145)
--- NOTE | 2020-01-03 04:05 | HP ---
REASON FOR ADMISSION: Post fall. HISTORY OF PRESENT ILLNESS: This is a 74-year-old female patient, who yesterday was backing up and fell, but could not get up, stayed on the ground for approximately 20 hours. The next day, she was found by her neighbor, who called her nurse and subsequently the patient was transferred to our emergency room. The patient is complaining of back pain and does report three days' history of diarrhea without any fever and without any chills, also nausea, but with no vomiting, but she did have poor oral intake and felt generally weak, and today also, she did complain of burning upon urination. Reviewing her records, the patient was admitted to the hospital approximately three months ago for chest pain and did develop bradycardia. Her cardiac enzymes were negative. Cardiology was consulted and carvedilol was stopped. PAST MEDICAL HISTORY: 1. Coronary artery disease. 2. High cholesterol. 3. Diabetes, type 2. 4. High blood pressure. 5. GERD. 6. Atrial fibrillation, rate controlled. 7. Anxiety. 8. Depression. 9. Intermittent asthma. 10. Chronic back pain. 11. Hysterectomy. 12. . 13. Left knee surgery. 14. Right knee surgery. 15. Bilateral hip replacement. 16. Tubal ligation. ALLERGIES: 1. VALIUM. 2. ETODOLAC. 3. DICLOFENAC. 4. PHENERGAN. 5. MISOPROSTOL. 6. VALPROIC ACID. 7. CHLORDIAZEPOXIDE. SOCIAL HISTORY: She does not smoke. She drinks alcohol occasionally. FAMILY HISTORY: Negative for premature coronary artery disease. REVIEW OF SYSTEMS: All systems reviewed, except for the above mentioned, found to be negative. PHYSICAL EXAMINATION: GENERAL: Awake, alert, oriented, does not appear in distress. VITAL SIGNS: Blood pressure 159/94, heart rate of 94, and saturating 98% on room air. HEENT: Head is nontraumatic and normocephalic. Pupils are equal and reactive. Extraocular movements are intact. Nonicteric sclerae. Well injected conjunctivae. Oral mucosa normal. Mucosa normal. NECK: Supple. No adenopathy. No murmur. Thyroid is not palpable. Trachea is midline. No supraclavicular adenopathy. CARDIOVASCULAR: S1 and S2 regular. Systolic murmur is heard. No displacement of PMI. LUNGS: Clear to auscultation bilaterally. No wheezes, rhonchi, or crackles. ABDOMEN: Bowel sounds are positive. Slightly tender abdomen, but overall soft. 1+ pitting edema in bilateral extremities. NEUROLOGIC: Cranial nerves 2 through 12 within normal limits. Slight weakness in bilateral lower extremity. Weakness is symmetrical. Tenderness on palpation of the lower back area. LABORATORY DATA: Blood work shows WBC of 13.7, hemoglobin 12.6, platelets of 223. Sodium 136, potassium 3.8, bicarb of 20, creatinine of 1, CK of 572. Urinalysis shows 7-10 wbc's and leukocyte esterase. CT of the thoracic spine shows degenerative changes. CT of the lumbar spine shows degenerative changes. Chest x-ray shows no acute finding. CT of the brain shows no acute findings except for suggestion of normal pressure hydrocephalus. EKG did show initially atrial fibrillation, but then converted to sinus rhythm. ASSESSMENT AND PLAN: This is a 74-year-old female patient, who is presenting after a fall followed by inability to stand up, found to have mild rhabdomyolysis, suspected normal pressure hydrocephalus on the CT of the head. The patient is denying loss of consciousness. The patient does report diarrhea for the past three days with poor oral intake. Her urinalysis does show possible evidence of urinary tract infection. Neurology: The patient possibly has normal pressure hydrocephalus. We will ask Neurology to see her and give us their input. Cardiac: The patient will be monitored on telemetry. She did develop a paroxysmal atrial fibrillation in the ER, but then converted to sinus. She does have history of atrial fibrillation. I am awaiting her med rec to be done, so I could reconcile her medication. GI: The patient does have diarrhea. We will obtain stool cultures. Renal system and electrolytes: The patient does have elevated CK. We will hydrate and recheck her CK in the morning. For her urinary tract infection, she will be on IV Rocephin. Awaiting results of urine culture and sensitivity. For her back pain, we will provide her pain control. I will ask PT to evaluate her. For her diabetes, she will be on insulin sliding scale. For her gastroesophageal reflux disease, she will be on Protonix. I did discuss with her code status, she wishes to be full code. Job ID: [id number]
[2020-01-03] MEDS: Enoxaparin Sodium 40 MG/0.4 ML SYRINGE SC SCH (08:59)
[2020-01-03 13:05] LABS: SARS-CoV-2 MS2 Positive; SARS-CoV-2 N Gene Negative; SARS-CoV-2 S Gene Negative; SARS-CoV-2 by NAA Not Detected (NotDetected); SARS-CoV-2 orf1ab Negative
--- NOTE | 2020-01-03 15:58 | PDOC.HOSPP ---
- Subjective Encounter Date: 01/03/20 Subjective: Patient is doing well. She is tearful during exam this morning. States she does not remember what happened, just found herself on the floor. Denies chest pain, shortness of breath, abdominal pain - Objective Vital Signs & Weight: Vital Signs (12 hours) Temp Pulse Pulse Pulse Resp BP BP 01/03/20 12:33 92 76 115/72 141/65 H 01/03/20 11:33 98.2 F 72 18 01/03/20 07:58 98.3 F 82 18 BP Pulse Ox 01/03/20 12:33 01/03/20 11:33 143/75 H 98 01/03/20 07:58 172/79 H 97 Weight Weight 205 lb 6 oz I&O: 01/02/20 01/03/20 01/04/20 06:59 06:59 06:59 Intake Total 411 1218 Balance 411 1218 Result Diagrams: 01/03/20 03:18 01/03/20 03:18 Additional Labs: Accuchecks 01/03/20 01/03/20 11:01 05:50 POC Glucose 152 H 94 Hospitalist ROS - Review of Systems Constitutional: denies: fever, chills Respiratory: denies: cough, shortness of breath Cardiovascular: denies: chest pain, palpitations Gastrointestinal: denies: nausea, vomiting Genitourinary: denies: dysuria Neurological: reports: weakness - Medication Medications: Active Medications Generic Name Dose Route Start Last Admin Trade Name Freq PRN Reason Stop Dose Admin Hydrocodone Bitart/Acetaminophen 1 tab 01/02/20 22:14 01/03/20 08:58 [place] 5/325 PO 1 tab Q4H PRN Administration Moderate Pain (4-6) Enoxaparin Sodium 40 mg 01/03/20 09:00 01/03/20 08:59 Lovenox SC 40 mg 0900 VAUGHN Administration Sodium Chloride 1,000 mls @ 75 mls/hr 01/02/20 22:30 01/03/20 12:16 Normal Saline 0.9% IV 1,000 mls .[id number] VAUGHN Administration - Exam General Appearance: NAD, awake alert Eye: PERRL ENT: normocephalic atraumatic Heart: RRR, no murmur Respiratory: CTAB, no wheezes Gastrointestinal: soft, non-tender Extremities: no cyanosis Neurological: cranial nerve grossly intact Musculoskeletal: normal tone Psychiatric: normal affect, normal behavior, A&O x 3 Hosp A/P (1) UTI (urinary tract infection) Status: Acute (2) Anxiety and depression Code(s): F41.9 - ANXIETY DISORDER, UNSPECIFIED; F32.9 - MAJOR DEPRESSIVE DISORDER, SINGLE EPISODE, UNSPECIFIED Status: Chronic (3) Atrial fibrillation Code(s): I48.91 - UNSPECIFIED ATRIAL FIBRILLATION Status: Chronic (4) Diabetes type 2, controlled Code(s): E11.9 - TYPE 2 DIABETES MELLITUS WITHOUT COMPLICATIONS Status: Chronic (5) GERD (gastroesophageal reflux disease) Code(s): K21.9 - GASTRO-ESOPHAGEAL REFLUX DISEASE WITHOUT ESOPHAGITIS Status: Chronic (6) Hypertension Code(s): I10 - ESSENTIAL (PRIMARY) HYPERTENSION Status: Chronic (7) Normal pressure hydrocephalus Code(s): G91.2 - (IDIOPATHIC) NORMAL PRESSURE HYDROCEPHALUS Status: Suspected - Plan 74 yo female presenting after a fall and found to have mild rhabdo CT of head with suspected normal pressure hydrocephalus Neurology consulted Rocanatoliyhin for UTI Episode of paroxysmal atrial fibrillation in the ER and converted to sinus without intervention Telemetry monitoring CPK elevated, continue fluids
[2020-01-03] MEDS: cefTRIAXone\\ROCEPHIN 1 GM in Sodium Chloride 0.9% 100 ML IVPB SCH (17:33)
[2020-01-03] MEDS ORDERED: Bupropion 150 MG XL TAB PO SCH (21:00)
[2020-01-03] MEDS: busPIRone HCl 10 MG TAB PO SCH (21:31)
[2020-01-04] MEDS: Sodium Chloride 0.9% 1,000 ML IV SCH ×2 (01:32→16:36)
--- NOTE | 2020-01-04 08:37 | CON ---
NEUROLOGY CONSULTATION DATE OF CONSULTATION: 01/03/2020 REASON FOR CONSULTATION: Rule out normal-pressure hydrocephalus. HISTORY OF PRESENT ILLNESS: Ms. Arroyo is a 74-year-old female, who was admitted on 01/02/2020 because of fall. Per the patient, she fell and was on the ground for about 20 hours. She was found by her neighbor, who called her nurse, and then subsequently, the patient was transferred to the emergency room. Per the patient, she has complained of back pain and a 3-day history of diarrhea without fevers, chills, nausea, vomiting, headache, focal weakness, focal paresthesias, dizziness, loss of vision, or loss of consciousness. She does complain of burning in the urination. The patient was admitted for further evaluation. Head CT was done, which showed findings suggestive of normal-pressure hydrocephalus. Neurology was consulted. The patient's detailed history is provided by the patient. She does have history of urinary incontinence, but was scheduled for some sort of bladder surgery, and this has been ongoing for the last few years. Per the patient, this is only her 2nd fall in the last several months because of back pain, and her MRI of the lumbar spine is suggestive of prominent degenerative changes. The patient denies any progressive decline in memory. REVIEW OF SYSTEMS: All 14 systems were reviewed and were negative except the pertinent positives and negatives mentioned in the HPI. PAST MEDICAL HISTORY: Coronary artery disease, hypercholesterolemia, diabetes mellitus type 2, hypertension, GERD, rate-controlled atrial fibrillation, anxiety, depression, intermittent asthma, and chronic back pain. PAST SURGICAL HISTORY: Hysterectomy, section, left knee surgery, right knee surgery, bilateral hip replacement, and tubal ligation. ALLERGIES: 1. VALIUM. 2. ETODOLAC. 3. DICLOFENAC. 4. PHENERGAN. 5. MISOPROSTOL. 6. VALPROIC ACID. 7. CHLORDIAZEPOXIDE. SOCIAL HISTORY: The patient denies smoking. Drinks alcohol occasionally. FAMILY HISTORY: Negative for premature coronary artery disease or stroke. Vital Signs & Weight: Vital Signs (12 hours) Temp Pulse Pulse Pulse Resp BP BP 01/03/20 12:33 92 76 115/72 141/65 H 01/03/20 11:33 98.2 F 72 18 01/03/20 07:58 98.3 F 82 18 BP Pulse Ox 01/03/20 12:33 01/03/20 11:33 143/75 H 98 01/03/20 07:58 172/79 H 97 Weight Weight 205 lb 6 oz I&O: 01/02/20 01/03/20 01/04/20 06:59 06:59 06:59 Intake Total 411 1218 Balance 411 1218 Additional Labs: Accuchecks 01/03/20 01/03/20 11:01 05:50 POC Glucose 152 H 94 Active Medications Generic Name Dose Route Start Last Admin Trade Name Freq PRN Reason Stop Dose Admin Hydrocodone Bitart/Acetaminophen 1 tab 01/02/20 22:14 01/03/20 08:58 [place] 5/325 PO 1 tab Q4H PRN Administration Moderate Pain (4-6) Enoxaparin Sodium 40 mg 01/03/20 09:00 01/03/20 08:59 Lovenox SC 40 mg 0900 VAUGHN Administration Sodium Chloride 1,000 mls @ 75 mls/hr 01/02/20 22:30 01/03/20 12:16 Normal Saline 0.9% IV 1,000 mls .[id number] VAUGHN Administration PHYSICAL EXAMINATION: CVS: Regular rate and rhythm. CHEST: Clear. NECK: Supple. ABDOMEN: Soft. NEUROLOGICAL: Mental status, the patient is alert and oriented to person, place, and time. Recent and remote memory is intact. Fund of knowledge is appropriate. Speech is clear. Cranial nerves 2 through 12 intact. Motor; muscle tone and bulk are normal. The patient has generalized weakness. Sensory, intact. Cerebellar, finger-nose testing intact. Gait deferred due to the patient's safety reason. DATA REVIEWED: I reviewed the labs and the imaging. CT of the lumbar spine showed prominent degenerative changes, and a CT of the brain then did not reveal any acute intracranial pathology. However, there is some suggestion of normal-pressure hydrocephalus. ASSESSMENT AND PLAN: Ms. Arroyo is a 74-year-old female, who presented after a fall and inability to stand up and was found to be in mild rhabdomyolysis. The head CT has some suggestion of normal-pressure hydrocephalus. The patient's clinical history is not impressive for of normal-pressure hydrocephalus, which requires multiple falls, and she has only two falls in the last several months, which she attributes to her back pain, and she does have bladder issues and was scheduled for some bladder surgery, and she denies any recent progressive decline in memory. We will not pursue any workup as an inpatient for normal-pressure hydrocephalus. This can be followed up by the outpatient neurology if there is any worsening of symptoms. Neuro checks every 4 hours. Continue home medications. EEG to rule out critical irritability. Continue medical management per primary team. Plan discussed in detail with the patient. Thank you for the consult. Job ID: [id number] MTDD
[2020-01-04] MEDS ORDERED: busPIRone HCl 10 MG TAB PO SCH ×2 (09:00→10:00)
[2020-01-04] MEDS ORDERED: busPIRone HCl 5 MG TAB ONE (09:33)
[2020-01-04] MEDS: Bupropion 150 MG XL TAB PO SCH (09:37)
[2020-01-04] MEDS: Enoxaparin Sodium 40 MG/0.4 ML SYRINGE SC SCH (09:38)
[2020-01-04] MEDS: busPIRone HCl 10 MG TAB PO SCH ×2 (10:02→20:19)
[2020-01-04] MEDS: HYDROcodone/Acetaminophen 5/325 mg Tablet PO PRN ×2 (12:03→20:18)
--- NOTE | 2020-01-04 13:07 | PDOC.NEUPN ---
- Subjective Encounter Date: 01/04/20 Subjective: Patient alert and awake. EEG reviewed and was negative for seizure activity. - Objective Vital Signs & Weight: Vital Signs (12 hours) Temp Pulse Resp BP Pulse Ox 01/04/20 11:33 98 F 72 22 H 156/93 H 98 01/04/20 07:34 98.1 F 76 20 154/101 H 97 Weight Weight 205 lb 6 oz I&O: 01/03/20 01/04/20 01/05/20 06:59 06:59 06:59 Intake Total 411 3981 Output Total 2600 Balance 411 1381 Result Diagrams: 01/03/20 03:18 01/03/20 03:18 Additional Labs: Accuchecks 01/04/20 01/04/20 01/03/20 10:29 06:22 21:28 POC Glucose 177 H 97 178 H 01/03/20 17:17 POC Glucose 91 Radiology Reviewed by me: Yes EKG Reviewed by me: Yes ROS - Review of Systems Constitutional: denies: fever, chills, sweats, weakness, malaise, other Eyes: denies: pain, vision change, conjunctivae inflammation, eyelid inflammation, redness, other ENT: denies: ear pain, ear discharge, nose pain, nose discharge, nose congestion, mouth pain, mouth swelling, throat pain, throat swelling, other Respiratory: denies: cough, dry, shortness of breath, hemoptysis, SOB with excertion, pleuritic pain, sputum, wheezing, other Gastrointestinal: denies: nausea, vomiting, abdominal pain, diarrhea, constipation, melena, hematochezia, other Genitourinary: denies: dysuria, frequency, incontinence, hematuria, retention, other Musculoskeletal: reports: neck pain, back pain. denies: shoulder pain, arm pain, hand pain, leg pain, foot pain, other Skin: denies: rash, lesions, milena, bruising, other Neurological: denies: weakness, numbness, incoordination, change in speech, confusion, seizures, other - Medication Medications: Active Medications Generic Name Dose Route Start Last Admin Trade Name Freq PRN Reason Stop Dose Admin Hydrocodone Bitart/Acetaminophen 1 tab 01/02/20 22:14 01/04/20 12:03 [place] 5/325 PO 1 tab Q4H PRN Administration Moderate Pain (4-6) Bupropion HCl 150 mg 01/04/20 09:00 01/04/20 09:37 Wellbutrin Xl PO 150 mg DAILY VAUGHN Administration Enoxaparin Sodium 40 mg 01/03/20 09:00 01/04/20 09:38 Lovenox SC 40 mg 0900 VAUGHN Administration Sodium Chloride 1,000 mls @ 75 mls/hr 01/02/20 22:30 01/04/20 01:32 Normal Saline 0.9% IV 1,000 mls .[id number] VAUGHN Administration Ceftriaxone Sodium 1 gm/ 100 mls @ 200 mls/hr 01/03/20 18:00 01/03/20 17:33 Sodium Chloride IVPB 100 mls 1800 VAUGHN Administration Insulin Human Lispro 0 units 01/02/20 22:20 01/04/20 12:06 Humalog SC 2 unit .MODERATE SLIDING SC PRN Administration Moderate Correctional Scale Sertraline HCl 100 mg 01/04/20 09:00 01/04/20 09:37 Zoloft PO 100 mg DAILY VAUGHN Administration - Exam General Appearance: awake alert Eye: PERRL ENT: normocephalic atraumatic Neck: supple Respiratory: CTAB Cardiovascular: RRR Gastrointestinal: soft Extremities: no cyanosis Skin: normal turgor Neurological: CN's grossly intact, no new deficit Musculoskeletal: normal tone, normal strength, no muscle wasting PSYCH: normal affect, normal behavior, A&O x 3 Results - Labs Result Diagrams: 01/03/20 03:18 01/03/20 03:18 Lab results: WBC 10.6 thou/uL (4.8-10.8) 01/03/20 03:18 Hgb 11.0 g/dL (12.0-16.0) L 01/03/20 03:18 Hct 33.0 % (36.0-47.0) L 01/03/20 03:18 MCV 93.2 fL (78.0-98.0) 01/03/20 03:18 Plt Count 189 thou/uL (130-400) 01/03/20 03:18 Neutrophils % 72.0 % (42.0-75.0) 01/03/20 03:18 Sodium 137 mmol/L (136-145) 01/03/20 03:18 Potassium 3.8 mmol/L (3.5-5.1) 01/03/20 03:18 Chloride 109 mmol/L (98-107) H 01/03/20 03:18 Carbon Dioxide 18 mmol/L (23-31) L 01/03/20 03:18 BUN 15 mg/dL (9.8-20.1) 01/03/20 03:18 Creatinine 0.92 mg/dL (0.6-1.1) 01/03/20 03:18 Glucose 100 mg/dL (83-110) 01/03/20 03:18 Lactic Acid 0.8 mmol/L (0.5-2.2) 01/02/20 18:59 Calcium 7.9 mg/dL (7.8-10.44) 01/03/20 03:18 Total Bilirubin 0.8 mg/dL (0.2-1.2) 01/02/20 17:09 AST 32 U/L (5-34) 01/02/20 17:09 ALT 17 U/L (8-55) 01/02/20 17:09 Alkaline Phosphatase 84 U/L (40-110) 01/02/20 17:09 Creatine Kinase 317 U/L (29-168) H 01/03/20 03:18 Troponin I Less than 0.010 ng/mL (< 0.028) 01/02/20 17:09 Serum Total Protein 7.1 g/dL (6.0-8.3) 01/02/20 17:09 Albumin 4.1 g/dL (3.4-4.8) 01/02/20 17:09 Urine Ketones Negative mg/dL (Negative) 01/02/20 18:05 Urine Blood 1+ (Negative) A 01/02/20 18:05 Urine Nitrite 2+ (Negative) A 01/02/20 18:05 Ur Leukocyte Esterase 75 Jacob/uL (Negative) A 01/02/20 18:05 Urine RBC 0-3 HPF (0-3) 01/02/20 18:05 Urine WBC 7-10 HPF (0-3) A 01/02/20 18:05 Ur Squamous Epith Cells 0-3 HPF (0-3) 01/02/20 18:05 Urine Bacteria 4+ HPF (None Seen) A 01/02/20 18:05 - Radiology Interpretation CT scan - head Additional Comment: Negative for acute process. PN A/P (1) AMS (altered mental status) Code(s): R41.82 - ALTERED MENTAL STATUS, UNSPECIFIED Status: Acute (2) Normal pressure hydrocephalus Code(s): G91.2 - (IDIOPATHIC) NORMAL PRESSURE HYDROCEPHALUS Status: Suspected (3) Acute metabolic encephalopathy Code(s): G93.41 - METABOLIC ENCEPHALOPATHY Status: Acute (4) Chronic low back pain Code(s): M54.5 - LOW BACK PAIN; G89.29 - OTHER CHRONIC PAIN Status: Chronic Qualifiers: Back pain laterality: unspecified (5) Diabetes type 2, controlled Code(s): E11.9 - TYPE 2 DIABETES MELLITUS WITHOUT COMPLICATIONS Status: Chronic (6) Dyslipidemia Code(s): E78.5 - HYPERLIPIDEMIA, UNSPECIFIED Status: Chronic (7) GERD (gastroesophageal reflux disease) Code(s): K21.9 - GASTRO-ESOPHAGEAL REFLUX DISEASE WITHOUT ESOPHAGITIS Status: Chronic (8) Hypertension Code(s): I10 - ESSENTIAL (PRIMARY) HYPERTENSION Status: Chronic (9) Obesity (BMI 30-39.9) Code(s): E66.9 - OBESITY, UNSPECIFIED Status: Chronic - Plan Daily Plan: PT/OT, DVT proph w/SCDs 74 year old consulted for NPH suggestive on head CT. Detailed history is not impressive for immediate intervention. EEG is normal without any evidence of cerbral dysfunction. HCT is negative for acute process. Continue home medications. Continue medical management per primary team. PT/OT CM consult for discharge planning Patient should follow up with neurologist as outpatient once stable for evalua tion of NPH. Plan discussed with the patient and the nursing staff
[2020-01-04 13:23] LABS: Anion Gap 13 mmol/L (10-20); BUN (Urea Nitrogen) 14 mg/dL (9.8-20.1); Calc. Creatinine Clearance 84 mL/min (70-130); Calcium 8.4 mg/dL (7.8-10.44); Carbon Dioxide 20 mmol/L (23-31); Chloride 108 mmol/L (98-107); Estimated GFR-MDRD 63; Glucose 108 mg/dL (83-110); Potassium 4.3 mmol/L (3.5-5.1); Sodium 137 mmol/L (136-145)
--- NOTE | 2020-01-04 13:37 | PDOC.HOSPP ---
- Subjective Encounter Date: 01/04/20 Subjective: Patient reports feeling better this morning. Still feeling weak. She denies chest pain, difficulty breathing, abdominal pain. Reports chronic back pain. Is tearful and has many concerns regarding her daughter. - Objective Vital Signs & Weight: Vital Signs (12 hours) Temp Pulse Resp BP Pulse Ox 01/04/20 11:33 98 F 72 22 H 156/93 H 98 01/04/20 09:38 97 01/04/20 07:34 98.1 F 76 20 154/101 H 97 Weight Weight 205 lb 6 oz I&O: 01/03/20 01/04/20 01/05/20 06:59 06:59 06:59 Intake Total 411 3981 Output Total 2600 Balance 411 1381 Result Diagrams: 01/03/20 03:18 01/04/20 12:32 Additional Labs: Accuchecks 01/04/20 01/04/20 01/03/20 10:29 06:22 21:28 POC Glucose 177 H 97 178 H 01/03/20 17:17 POC Glucose 91 Hospitalist ROS - Review of Systems Constitutional: denies: fever, chills Respiratory: denies: cough, shortness of breath Cardiovascular: denies: chest pain, palpitations Gastrointestinal: denies: nausea, vomiting, abdominal pain Genitourinary: reports: dysuria Neurological: reports: weakness - Medication Medications: Active Medications Generic Name Dose Route Start Last Admin Trade Name Freq PRN Reason Stop Dose Admin Hydrocodone Bitart/Acetaminophen 1 tab 01/02/20 22:14 01/04/20 12:03 [place] 5/325 PO 1 tab Q4H PRN Administration Moderate Pain (4-6) Bupropion HCl 150 mg 01/04/20 09:00 01/04/20 09:37 Wellbutrin Xl PO 150 mg DAILY VAUGHN Administration Enoxaparin Sodium 40 mg 01/03/20 09:00 01/04/20 09:38 Lovenox SC 40 mg 0900 VAUGHN Administration Sodium Chloride 1,000 mls @ 75 mls/hr 01/02/20 22:30 01/04/20 01:32 Normal Saline 0.9% IV 1,000 mls .[id number] VAUGHN Administration Ceftriaxone Sodium 1 gm/ 100 mls @ 200 mls/hr 01/03/20 18:00 01/03/20 17:33 Sodium Chloride IVPB 100 mls 1800 VAUGHN Administration Insulin Human Lispro 0 units 01/02/20 22:20 01/04/20 12:06 Humalog SC 2 unit .MODERATE SLIDING SC PRN Administration Moderate Correctional Scale Sertraline HCl 100 mg 01/04/20 09:00 01/04/20 09:37 Zoloft PO 100 mg DAILY VAUGHN Administration - Exam General Appearance: NAD, awake alert ENT: normocephalic atraumatic Heart: RRR, no murmur Respiratory: CTAB, no wheezes Gastrointestinal: soft, non-tender, non-distended Extremities: no cyanosis Neurological: cranial nerve grossly intact Musculoskeletal: normal tone Psychiatric: A&O x 3 Hosp A/P (1) UTI (urinary tract infection) Status: Acute (2) Anxiety and depression Code(s): F41.9 - ANXIETY DISORDER, UNSPECIFIED; F32.9 - MAJOR DEPRESSIVE D ISORDER, SINGLE EPISODE, UNSPECIFIED Status: Chronic (3) Atrial fibrillation Code(s): I48.91 - UNSPECIFIED ATRIAL FIBRILLATION Status: Chronic (4) Diabetes type 2, controlled Code(s): E11.9 - TYPE 2 DIABETES MELLITUS WITHOUT COMPLICATIONS Status: Chronic (5) GERD (gastroesophageal reflux disease) Code(s): K21.9 - GASTRO-ESOPHAGEAL REFLUX DISEASE WITHOUT ESOPHAGITIS Status: Chronic (6) Hypertension Code(s): I10 - ESSENTIAL (PRIMARY) HYPERTENSION Status: Chronic (7) Normal pressure hydrocephalus Code(s): G91.2 - (IDIOPATHIC) NORMAL PRESSURE HYDROCEPHALUS Status: Ruled-out - Plan 74 yo female presenting after a fall and found to have mild rhabdo and UTI CT of head with suspected normal pressure hydrocephalus Neurology consulted- patient's hx not consistent with NPH. Will need further evaluation as an outpatient. EEG negative for seizures Rocephin day 2 for UTI Episode of paroxysmal atrial fibrillation in the ER and converted to sinus without intervention. No further episodes Restarted home buspar, buproprion, and sertraline Telemetry monitoring continued Discussed with patient concerns of able to care for herself at home. She admits to feeling weaker than her baseline and feels unable to properly care for herself. We discussed placement in rehab vs snf. She is agreeable to placement Will consult case management
[2020-01-04] MEDS: cefTRIAXone\\ROCEPHIN 1 GM in Sodium Chloride 0.9% 100 ML IVPB SCH (17:59)
[2020-01-04] MEDS: Carvedilol 6.25 MG TAB PO SCH (20:19)
[2020-01-05] MEDS: Sodium Chloride 0.9% 1,000 ML IV SCH ×3 (05:48→17:13)
[2020-01-05] MEDS: Bupropion 150 MG XL TAB PO SCH (07:41)
[2020-01-05] MEDS: Carvedilol 6.25 MG TAB PO SCH ×2 (07:41→17:14)
[2020-01-05] MEDS: busPIRone HCl 10 MG TAB PO SCH (07:42)
[2020-01-05] MEDS: HYDROcodone/Acetaminophen 5/325 mg Tablet PO PRN ×2 (07:42→17:24)
[2020-01-05] MEDS: Enoxaparin Sodium 40 MG/0.4 ML SYRINGE SC SCH (07:51)
--- NOTE | 2020-01-05 08:54 | EEG ---
DATE OF SERVICE: 01/04/2020 ATTENDING PHYSICIAN: Radha Shaw MD. This EEG was performed using 24-channel [employer] video digital EEG machine with 24-disk electrodes. This was an extended 2 hours 5 minutes of inpatient video EEG recording. Digital analysis of the EEG was done for spike and seizure detection, which revealed no abnormalities. BACKGROUND: The posterior background rhythm is 9 to 10 hertz. The background rhythm attenuates with eye opening and enhances with eye closure. HYPERVENTILATION: Not performed. PHOTIC STIMULATION: Bioccipital symmetric driving responses observed. SLEEP: Drowsiness and sleep are observed. EEG DIAGNOSIS: Normal awake, drowsy, and sleep EEG. Job ID: [id number]
[2020-01-05 16:40] VITALS: TEMP 97.7
[2020-01-05] MEDS ORDERED: Carvedilol 6.25 MG TAB PO SCH (17:00)
[2020-01-05] MEDS: cefTRIAXone\\ROCEPHIN 1 GM in Sodium Chloride 0.9% 100 ML IVPB SCH (17:07)
[2020-01-05 17:11] VITALS: BP 135/63
--- NOTE | 2020-01-06 17:56 | DIS ---
DATE OF ADMISSION: 01/03/2020 DATE OF DISCHARGE: 01/05/2020 DISCHARGE DIAGNOSES: Include urinary tract infection, type 2 diabetes, hypertension, atrial fibrillation, and rhabdomyolysis. HOSPITAL COURSE: The patient is a 74-year-old female, who presented after sustaining a fall the previous day and was found down for over 20 hours. The patient was found by her neighbor, who called her home health nurse and was subsequently transferred to our emergency department. The patient was reporting back pain and has reported having 3-day history of diarrhea without any fever or chills. Some mild nausea, but no vomiting. She did note decreased oral intake during this time and feeling generally weak. Also notes that she was having some dysuria. Head CT obtained in the emergency department showed concerns of normal-pressure hydrocephalus, and Neurology was consulted. The patient was admitted to telemetry. She also developed paroxysmal atrial fibrillation in the ER, but then converted to sinus. Stool cultures were obtained, which were negative. CPK was elevated, and the patient was started on fluids. She was also started on Rocephin for her UTI. Neurology obtained an EEG, which was normal. The patient also showed signs of physical debility, weakness. She worked with Physical Therapy. The patient usually ambulates with a walker, but has been having difficulty sustaining that. After discussion with the patient, she was open to being placed in a SNF for rehab services. PHYSICAL EXAMINATION: GENERAL: On exam, the patient was resting comfortably in bed. HEART: Regular rate and rhythm. CHEST: Clear to auscultation bilaterally. ABDOMEN: Soft, nontender, and nondistended. EXTREMITIES: No edema of bilateral lower extremities. DISCHARGE ACTIVITY: As tolerated. DIET: Diabetic, low-sodium heart-healthy diet. MEDICATIONS: The patient also received Keflex 500 mg p.o. q.12 hours to complete a 3-day course. All home medications were continued including, 1. Aspirin 81 mg daily. 2. Atorvastatin 10 mg daily. 3. Brinzolamide eye drops. 4. Bupropion 150 mg daily. 5. BuSpar 10 mg p.o. b.i.d. 6. Carvedilol 3.125 mg p.o. b.i.d. 7. Gabapentin 300 mg p.o. daily. 8. Imdur ER 30 mg p.o. daily. 9. Nitroglycerin 0.4 mg p.r.n. 10. Sertraline 100 mg daily. 11. Torsemide 20 mg daily. DISCHARGE INSTRUCTIONS: The patient was instructed to follow up with her PCP within the week and Neurology as an outpatient for evaluation of normal-pressure hydrocephalus. The patient was stable for discharge and discharged to [facility]. Return precautions were given. Time spent in discharge of this patient was greater than 30 minutes. Job ID: [id number] MTDD
--- NOTE | 2020-01-07 11:31 | EKG ---
Test Reason : Blood Pressure : / mmHG Vent. Rate : 097 BPM Atrial Rate : 097 BPM P-R Int : 194 ms QRS Dur : 080 ms QT Int : 366 ms P-R-T Axes : 107 -38 -09 degrees QTc Int : 464 ms Normal sinus rhythm Left axis deviation Abnormal ECG #2 Confirmed by BRAD FAROOQ, LULÚ Huber ([id number]), newspaper editor managing GEM COLLAZO ([id number]) on 01/07/2020 11:31:29 AM Referred By: Confirmed By:LULÚ SALINAS MD
--- NOTE | 2020-01-07 11:31 | EKG ---
Test Reason : Blood Pressure : / mmHG Vent. Rate : 099 BPM Atrial Rate : 097 BPM P-R Int : 000 ms QRS Dur : 068 ms QT Int : 348 ms P-R-T Axes : 000 -44 039 degrees QTc Int : 446 ms Atrial fibrillation with premature ventricular or aberrantly conducted complexes Left axis deviation Possible Lateral infarct , age undetermined Abnormal ECG Confirmed by BRAD FAROOQ, LULÚ Huber ([id number]), editorial project manager GEM COLLAZO ([id number]) on 01/07/2020 11:31:09 AM Referred By: Confirmed By:LULÚ SALINAS MD
--- NOTE | 2020-01-07 13:09 | PQF ---
CLINICAL DOCUMENTATION CLARIFICATION FORM: Dear : Avelina Montalvo Date / Time: 01/07/2020 Please exercise your independent, professional judgment in responding to the clarification form. Clinical indicators are provided on the bottom of this form for your review Please check appropriate box(es): [ ] Traumatic rhabdomyolysis [ x ] Nontraumatic rhabdomyolysis [ ] Other diagnosis [ ] Unable to determine In addition, please specify: Present on Admission (POA): [ x ] Yes [ ] No [ ] Unable to determine To be completed by CDI/Coding staff for physician review: Present Clinical Indicators - Signs / Symptoms / Labs Results and Location in Medical Record [ x ] Patient is presenting after a fall followed by inability to stand up and found to have mild rhabdomyolysis. Patient does have elevated CK and will hydration recheck CK in the morning H&P [ x ] CK is 572 on 01/01 and 317 on 01/02 Laboratory [ x ] Patient showed signs of physical debility and weakness and worked with physical therapy Discharge summary Present Risk Factors Results and Location in Medical Record [ x ] Patient's fall, poor oral intake, generalized weakness H&P Present Treatments Results and Location in Medical Record [ x ] IV fluids 01/02-01/04 Medications CDS/Tax Manager Signature: SJ1 Phone #: Date/Time: 01/07/2020 This is a permanent part of the Medical Record [facility]
--- NOTE | 2020-01-07 13:23 | PQF ---
CLINICAL DOCUMENTATION CLARIFICATION FORM: Dear : Avelina Montalvo Date / Time: 01/07/2020 Please exercise your independent, professional judgment in responding to the clarification form. Clinical indicators are provided on the bottom of this form for your review Please check appropriate box(es) to clarify if the following diagnosis has been ruled in our ruled out: Metabolic encephalopathy [ ] Ruled in diagnosis [ ] Continue to treat [ ] Resolved [ x] Ruled out diagnosis [ ] Improving [ ] Cannot rule out diagnosis [ ] Other diagnosis [ ] Unable to determine In addition, please specify: Present on Admission (POA): [ ] Yes [ x ] No [ ] Unable to determine To be completed by CDI/Coding staff for physician review: Present Clinical Indicators - Signs / Symptoms / Labs Results and Location in Medical Record [ x ] Assessment: Altered mental status and acute metabolic encephalopathy. Patient consulted for NPH suggestive on CT. Progress 01/03 by Radha Shaw MD [ x ] Head CT in the ED showed concerns of normal pressure hydrocephalus and neurology was consulted. Discharge diagnoses include UTI and diabetes mellitus Discharge summary Present Risk Factors Results and Location in Medical Record [ x ] Normal pressure hydrocephalus, UTI and diabetes mellitus Discharge summary Present Treatments Results and Location in Medical Record [ x ] Brain CT 914, EEG 01/02 Reports [ x ] Neurology consultation 01/03 by Radha Shaw Reports CDS/Fender Mechanic Apprentice Signature: SJ1 Phone #: Date/Time: 01/07/2020 This is a permanent part of the Medical Record [facility]
== END 2020-01-05 19:30 | DRG 558 ==
LOC: ERS 16:33 → 2SW 20:06 → OBSVTOIN 01-03 17:22
PROVIDERS: ADMIT Internal Medicine; ATTEND Internal Medicine
DX: M62.82 Rhabdomyolysis (principal); N39.0 Urinary tract infection, site not specified; Z20.828 Contact with and (suspected) exposure to other viral communicable diseases; E11.9 Type 2 diabetes mellitus without complications; I10 Essential (primary) hypertension; I25.10 Atherosclerotic heart disease of native coronary artery without angina pectoris; K21.9 Gastro-esophageal reflux disease without esophagitis; F41.9 Anxiety disorder, unspecified; F32.9 Major depressive disorder, single episode, unspecified; R19.7 Diarrhea, unspecified; E86.0 Dehydration; J45.909 Unspecified asthma, uncomplicated; E78.5 Hyperlipidemia, unspecified; I48.0 Paroxysmal atrial fibrillation; M54.5 Low back pain; G89.29 Other chronic pain; E66.9 Obesity, unspecified; Z96.643 Presence of artificial hip joint, bilateral; Z90.710 Acquired absence of both cervix and uterus; Z98.51 Tubal ligation status; Z88.8 Allergy status to other drugs, medicaments and biological substances; Z79.82 Long term (current) use of aspirin; Z79.899 Other long term (current) drug therapy
CPT/HCPCS: 36415; 36416; 70450; 71045; 72125; 72128; 72131; 80048; 80053; 81003; 81015; 82550; 83605; 84484; 85025; 87045; 87046; 87427; 87449; 87635; 93005; 95712; 95816; 95819; 95957; 96361; 96372; G0378; J0696; J1650; J2270; J2405; J3490; U0003

== ENCOUNTER 2020-03-23 18:30 | Inpatient (IN) | payer MEDICARE ==
[2020-03-23 19:09] LABS: Hemoglobin 11.4 g/dL (12.0-16.0); Mean Corpuscular HGB CONC 32.6 g/dL (32.0-36.0); Mean Corpuscular Hemoglobin 29.6 pg (27.0-31.0); Mean Corpuscular Volume 90.9 fL (78.0-98.0); Mean Platelet Volume 7.3 fL (7.4-10.4); Platelet Count 234 thou/uL (130-400); RBC Distribution Width 12.5 % (11.5-14.5); Red Blood Cell (RBC) Count 3.86 mill/uL (4.20-5.40); White Blood Cell (WBC) Count 7.3 thou/uL (4.8-10.8)
[2020-03-23 19:24] LABS: Band 1 % (5-11); Eosinophils 5 % (0-10); Lymphocytes 12 % (21-51); MDiff Complete? YES; Monocytes 12 % (0-10); Neutrophil 63 % (42-75); Platelet Morphology Comment Appears Adequate; RBC Morphology Normal; Reactive Lymphocytes 7 % (0-10)
[2020-03-23 19:27] LABS: ALT (SGPT) 15 U/L (8-55); AST (SGOT) 18 U/L (5-34); Albumin 4.3 g/dL (3.4-4.8); Alkaline Phosphatase 69 U/L (40-110); Anion Gap 14 mmol/L (10-20); BUN (Urea Nitrogen) 18 mg/dL (9.8-20.1); Bilirubin, Total 0.4 mg/dL (0.2-1.2); Calc. Creatinine Clearance 0 mL/min (70-130); Carbon Dioxide 25 mmol/L (23-31); Chloride 105 mmol/L (98-107); Globulin 2.7 g/dL (2.4-3.5); Glucose 94 mg/dL (83-110); Potassium 4.4 mmol/L (3.5-5.1); Sodium 140 mmol/L (136-145)
--- NOTE | 2020-03-23 19:34 | RAD ---
EXAM: CHEST ONE VIEW: 03/23/20 HISTORY: Dyspnea. Mid sternal chest pain. COMPARISON: 01/02/20. FINDINGS: Heart size is within normal limits. The lungs are clear. No confluent pneumonia, overt edema, or pleu ral effusion. IMPRESSION: No significant acute intrathoracic disease. Stable from prior study. POS: RRE
[2020-03-23] MEDS ORDERED: Nitroglycerin 0.4 MG TAB 1 EACH ONE (19:49)
[2020-03-23] MEDS ORDERED: Aspirin Chewable 81 MG TAB ONE (20:02)
[2020-03-23] MEDS ORDERED: Nitroglycerin 2% Ointment 1 INCH/1 GM Packet ONE (20:02)
[2020-03-23 22:52] LABS: Troponin I Less than 0.010 ng/mL (< 0.028)
[2020-03-23 23:33] LABS: SARS-CoV-2 NAA Rapid Test Not Detected (NotDetected)
[2020-03-24] MEDS ORDERED: Acetaminophen 500 MG TAB ONE ×2 (00:21→05:55)
--- NOTE | 2020-03-24 00:57 | PDOC.HHP ---
Hospitalist HPI - History of Present Illness History of Present Illness: ADMISSION DATE: 03/24/2020 TIME OF ASSESSMENT:0030 PRIMARY CARE PHYSICIAN: Dr. Arun Esquivel CHIEF COMPLAINT: Chest pain HPI: This is a 74-year-old woman who presents to the emergency department today with complaints of acute chest pain that started while she was grocery shopping at [facility]. Patient states that the pain was in the center of her chest radiating slightly to the left side of her chest but no pain radiating to her jaw or arm. No pain in her back. States it was a 10 out of 10 in severity and she describes it as a constant aching. She tried taking nitro x2 without any relief. She then noted some slight improvement after Nitropaste was applied in the emergency department. Currently she states the pain is there but is a 5 out of 10 in severity and she complains of a headache since she was given the nitro. She denies any associated diaphoresis, nausea, vomiting or shortness of breath. Patient states she has had chest pain intermittently for the last 2 days and reports delayed response to nitro. Usually the pain occurs with exertion. Denies any chest pain while at rest. She has had an FL in the past but does not recall if her symptoms that are similar to what she experienced before as this occurred in the s. States she normally follows at [facility] and was supposed to have had a stress test in the last year but this was not done. ED COURSE: EKG showed rate controlled A. fib with a heart rate of 58. No ST changes. White cell count 7.3, hemoglobin 11.4, hematocrit 35.1, platelets 234, bands 1. Sodium 140, potassium 4.4, BUN 18, creatinine 1.39, GFR 37. LFTs unremarkable troponin negative x2. BNP 74.9. Chest x-ray showed no significant acute intrathoracic disease. Patient given nitro sublingual 0.5 mg x 1 then Nitro-Bid 1 inch. Given 243 mg of aspirin. For her headache she received 1 g of Tylenol p.o. PAST MEDICAL HISTORY: 1. Hyperlipidemia 2. CAD 3. FL 4. Diabetes mellitus type 2 5. Hypertension 6. Obesity 7. Asthma 8. Chronic back pain 9. Anxiety 10. Depression PAST SURGICAL HISTORY: 1. x3 2. Hysterectomy 3. Left knee surgery x2 4. Right hip replacement 5. Tubal ligation SOCIAL HISTORY: Patient is a resident at [facility]. She normally uses a rolling walker to mobilize at home and outside. She is indepen dent with self-care. Denies any tobacco use alcohol consumption or drug use. FAMILY HISTORY: CAD, diabetes and hypertension ALLERGIES: Arthrotec Chlordiazepoxide Diazepam Diclofenac Librium Lodine Misoprostol Promethazine Valproic acid CURRENT MEDICATIONS: 1. Aspirin 81 mg p.o. daily 2. Atorvastatin 10 mg p.o. daily 3. Buspirone 30 mg p.o. twice daily 4. Bupropion 150 mg p.o. daily 5. Ferrex 150 forte 1 tablet daily 6. Gabapentin 300 mg p.o. 3 times daily 7. Isosorbide mononitrate ER 30 mg p.o. daily 8. Torsemide 10 mg p.o. twice daily 9. Sertraline 100 mg p.o. daily 10. Pantoprazole 40 mg p.o. daily - Exam General Appearance: NAD (Complaining of a headache), awake alert General - other findings: VS: Temp 98.3, HR 59, BP 126/60, RR 19, O2 sat 97% on room air Eye: PERRL, anicteric sclera ENT: normocephalic atraumatic, no oropharyngeal lesions Neck: supple, no lymphadenopathy Heart: RRR, no murmur, no gallops, normal peripheral pulses Respiratory: CTAB, no wheezes, no rales, no ronchi, normal chest expansion Gastrointestinal: soft, non-tender, non-distended, normal bowel sounds Extremities: no edema Skin: normal turgor, no lesions, no rashes Neurological: cranial nerve grossly intact, normal sensation to touch, no weakness Musculoskeletal: normal tone, normal strength, no muscle wasting Psychiatric: normal affect, normal behavior, A&O x 3 Hospitalist Results - Labs Result Diagrams: 03/23/20 18:52 03/23/20 18:52 Lab results: WBC 7.3 thou/uL (4.8-10.8) 03/23/20 18:52 Hgb 11.4 g/dL (12.0-16.0) L 03/23/20 18:52 Hct 35.1 % (36.0-47.0) L 03/23/20 18:52 MCV 90.9 fL (78.0-98.0) 03/23/20 18:52 Plt Count 234 thou/uL (130-400) 03/23/20 18:52 Band Neuts % (Manual) 1 % (5-11) L 03/23/20 18:52 Sodium 140 mmol/L (136-145) 03/23/20 18:52 Potassium 4.4 mmol/L (3.5-5.1) 03/23/20 18:52 Chloride 105 mmol/L (98-107) 03/23/20 18:52 Carbon Dioxide 25 mmol/L (23-31) 03/23/20 18:52 BUN 18 mg/dL (9.8-20.1) 03/23/20 18:52 Creatinine 1.39 mg/dL (0.6-1.1) H 03/23/20 18:52 Glucose 94 mg/dL (83-110) 03/23/20 18:52 Calcium 9.0 mg/dL (7.8-10.44) 03/23/20 18:52 Total Bilirubin 0.4 mg/dL (0.2-1.2) 03/23/20 18:52 AST 18 U/L (5-34) 03/23/20 18:52 ALT 15 U/L (8-55) 03/23/20 18:52 Alkaline Phosphatase 69 U/L (40-110) 03/23/20 18:52 Troponin I Less than 0.010 ng/mL (< 0.028) 03/23/20 22:18 B-Natriuretic Peptide 74.9 pg/mL (0-100) 03/23/20 18:52 Serum Total Protein 7.0 g/dL (6.0-8.3) 03/23/20 18:52 Albumin 4.3 g/dL (3.4-4.8) 03/23/20 18:52 - Radiology Interpretation Chest x-ray Status: report reviewed by me Hospitalist H&P A/P - Problem (1) Chest pain Code(s): R07.9 - CHEST PAIN, UNSPECIFIED Status: Acute (2) CAD (coronary artery disease) Code(s): I25.10 - ATHSCL HEART DISEASE OF [place] CORONARY ARTERY W/O ANG PCTRS Status: Chronic (3) Diabetes type 2, controlled Code(s): E11.9 - TYPE 2 DIABETES MELLITUS WITHOUT COMPLICATIONS Status: Technical Support Manager filemon (4) Hypertension Code(s): I10 - ESSENTIAL (PRIMARY) HYPERTENSION Status: Chronic (5) GERD (gastroesophageal reflux disease) Code(s): K21.9 - GASTRO-ESOPHAGEAL REFLUX DISEASE WITHOUT ESOPHAGITIS Status: Chronic (6) Asthma Code(s): J45.909 - UNSPECIFIED ASTHMA, UNCOMPLICATED Status: Chronic Qualifiers: Asthma severity: mild Asthma persistence: intermittent (7) Obesity (BMI 30-39.9) Code(s): E66.9 - OBESITY, UNSPECIFIED Status: Chronic (8) Anxiety and depression Code(s): F41.9 - ANXIETY DISORDER, UNSPECIFIED; F32.9 - MAJOR DEPRESSIVE DISORDER, SINGLE EPISODE, UNSPECIFIED Status: Chronic (9) Chronic low back pain Code(s): M54.5 - LOW BACK PAIN; G89.29 - OTHER CHRONIC PAIN Status: Chronic Qualifiers: Back pain laterality: unspecified - Plan Plan: Cardiac monitoring Continue to trend troponins Keep NPO. Stress test in the AM. Check lipid panel with AM labs. Continue aspirin and statin. Check Mg+, BNP, and d-dimer. If D-dimer elevated, will obtain venous dopplers. No CTA given underlying CKD. Monitor BP. Resume home medications once verified. Monitor glucose (Accuchecks ACHS) Initiate sliding scale. GI prophylaxis with Protonix. CODE STATUS FULL Case discussed with Dr. Alcazar who agrees with plan of care as described above.
[2020-03-24 01:20] LABS: Troponin I 0.012 ng/mL (< 0.028)
[2020-03-24] MEDS ORDERED: Dextrose 5% in Water 1,000 ML IV PRN (04:50)
[2020-03-24] MEDS ORDERED: Dextrose 50% Abboject 50 ML SYRINGE SLOW IVP PRN (04:50)
[2020-03-24] MEDS ORDERED: HumaLOG 300 UNITS/3 ML VIAL SC PRN ×2 (04:50)
[2020-03-24] MEDS ORDERED: Nitroglycerin 2% Ointment 1 INCH/1 GM Packet ONE ×2 (05:08→14:07)
[2020-03-24 05:32] LABS: Anion Gap 14 mmol/L (10-20); BUN (Urea Nitrogen) 17 mg/dL (9.8-20.1); Calc. Creatinine Clearance 0 mL/min (70-130); Calcium 8.7 mg/dL (7.8-10.44); Carbon Dioxide 21 mmol/L (23-31); Chloride 107 mmol/L (98-107); Cholesterol 163 mg/dl (< 200 Desired); Glucose 101 mg/dL (83-110); HDL Cholesterol 81 mg/dL (>60 Neg Risk); LDL Cholesterol, Calculated 55 mg/dL; Potassium 3.9 mmol/L (3.5-5.1); Sodium 138 mmol/L (136-145); Triglycerides 135 mg/dL (Less than 150)
[2020-03-24] MEDS ORDERED: Acetaminophen 500 MG TAB PO PRN (06:03)
[2020-03-24] MEDS: Nitroglycerin 2% Ointment 1 INCH/1 GM Packet TOP SCH ×3 (06:13→20:59)
[2020-03-24 06:25] LABS: Band 4 % (5-11); Eosinophils 4 % (0-10); Hemoglobin 10.4 g/dL (12.0-16.0); Lymphocytes 18 % (21-51); MDiff Complete? YES; Mean Corpuscular HGB CONC 32.9 g/dL (32.0-36.0); Mean Corpuscular Hemoglobin 30.7 pg (27.0-31.0); Mean Corpuscular Volume 93.2 fL (78.0-98.0); Mean Platelet Volume 7.5 fL (7.4-10.4); Monocytes 10 % (0-10); Neutrophil 63 % (42-75); Platelet Count 164 thou/uL (130-400); RBC Distribution Width 12.5 % (11.5-14.5); Red Blood Cell (RBC) Count 3.39 mill/uL (4.20-5.40); White Blood Cell (WBC) Count 6.4 thou/uL (4.8-10.8)
--- NOTE | 2020-03-24 07:22 | ULT ---
EXAM: Bilateral lower extremity venous duplex ultrasound with color and spectral Doppler imaging: HISTORY: Chest pain, minimal leg edema COMPARISON: None FINDINGS: Exam performed from the groin to the ankle including the visualized greater saphenous, common femoral , superficial femoral, profunda femoral, popliteal, trifurcation, and posterior tibial veins. There is phasic flow with normal compressibility and normal augmentation at all examined levels. No evidence for intraluminal thrombus. IMPRESSION: No evidence for deep venous thrombosis.
[2020-03-24] MEDS ORDERED: Aspirin 325 MG TAB ONE (08:57)
[2020-03-24] MEDS: Aspirin 325 mg Enteric Coated Tablet PO SCH (09:06)
[2020-03-24] MEDS ORDERED: traMADol HCl 50 MG TAB PO PRN (09:27)
--- NOTE | 2020-03-24 10:21 | PDOC.HOSPP ---
- Subjective Subjective: c/o chest pain. new afib. ekg showed afib with diffuse twave inversion. trop neg. will rpt start BB/Lovenox. Cardiology consult. Pt supposedly scheduled for stress test today. - Objective Result Diagrams: 03/24/20 04:42 03/24/20 04:41 Additional Labs: Accuchecks 03/24/20 09:02 POC Glucose 109 H Hospitalist ROS - Medication Medications: Active Medications Generic Name Dose Route Start Last Admin Trade Name Antwan PRN Reason Stop Dose Admin Acetaminophen 1,000 mg 03/24/20 06:03 03/24/20 06:13 Acetaminophen 500 Mg Tab PO 1,000 mg Q4H PRN Administration Headache/Fever or Pain Aspirin 325 mg 03/24/20 09:00 03/24/20 09:06 Aspirin 325 Mg Enteric Coated Tablet PO 325 mg DAILY VAUGHN Administration Nitroglycerin 0.5 inch 03/24/20 06:00 03/24/20 06:13 Nitroglycerin 2% Ointment 1 Inch/1 Gm Packet TOP 0.5 inch Q8HR VAUGHN Administration Pantoprazole Sodium 40 mg 03/24/20 09:00 03/24/20 09:06 Pantoprazole 40 Mg Tab PO 40 mg DAILY VAUGHN Administration Sodium Chloride 10 ml 03/24/20 09:00 03/24/20 09:06 Flush - Normal Saline 10 Ml Syringe IVF 10 ml Q12HR VAUGHN Administration - Exam General Appearance: NAD Eye: PERRL ENT: normocephalic atraumatic Neck: supple Heart: irregular Respiratory: CTAB, no wheezes Gastrointestinal: soft, non-tender Extremities: no cyanosis Skin: normal turgor Neurological: cranial nerve grossly intact Musculoskeletal: normal tone, normal strength Psychiatric: normal affect, normal behavior, A&O x 3 Hosp A/P - Plan Chest pain --trop negative, but still has ongoing chest pain with EKG changes - diffuse Twave inversion --check Echo, cardiology consult --Follow stress test New onset of Afib - rate controlled; unknown chronicity/duration --restart her Coreg. Start Lovenox BID, transition to oral AC when discharge given elevated [id number] score --TSH OK, follow Echo as above HTN - BP elevated --restart Coreg Chronic back pain --restart pain regimen GERD --cont PPI
[2020-03-24] MEDS ORDERED: Regadenoson 0.4 MG/5 ML SYRINGE ONE (13:37)
[2020-03-24] MEDS ORDERED: traMADol HCl 50 MG TAB ONE (14:07)
[2020-03-24] MEDS ORDERED: HYDROcodone/Acetaminophen 5/325 mg Tablet ONE (14:07)
[2020-03-24] MEDS: HYDROcodone/Acetaminophen 5/325 mg Tablet PO PRN ×2 (14:14→21:42)
[2020-03-24 15:33] VITALS: BMI 31.0
[2020-03-24] MEDS ORDERED: Carvedilol 3.125 MG TAB PO SCH ×3 (17:00→19:44)
--- NOTE | 2020-03-24 18:14 | CON ---
DATE OF CONSULTATION: HISTORY OF PRESENT ILLNESS: The patient is a very pleasant 74-year-old woman who presents for evaluation of chest discomfort. The patient was seen in 2017 and underwent a Cardiolite stress revealed no evidence of ischemia with ejection fraction of 65%. She had a second cardiac evaluation for chest pain in 2018 and once again, was found to have normal left ventricular ejection fraction with no evidence of ischemia. The patient was in her usual state of health when she states that she has been under a great deal of stress and developed once again midsternal chest discomfort. She states this was a severe discomfort that lasted for several hours. She took several nitroglycerin tablets without relief of her pain. She has had intermittent pain for the past several days. The patient also has a history of bradycardia and has previously undergone an evaluation. The patient reports that her chest pain eventually resolved. The discomfort was still present this morning, but it eventually resolved. PAST MEDICAL HISTORY: 1. Diabetes mellitus. 2. Hypertension. 3. Dyslipidemia. PAST SURGICAL HISTORY: , tubal ligation, hysterectomy, knee surgery, and hip surgery. SOCIAL HISTORY: Nonsmoker. MEDICATIONS: 1. BuSpar 15 b.i.d. 2. Wellbutrin 150 daily. 3. Protonix 40 daily. 4. Gabapentin 300 daily. 5. Coreg 6.25 b.i.d. 6. Imdur 30 q.a.m. 7. Aspirin 81 daily. FAMILY HISTORY: Strong family history of heart disease. ALLERGIES: LIBRIUM, VALIUM, ARTHROTEC, LODINE, AND VALPROIC ACID. REVIEW OF SYSTEMS: Ten-point system otherwise unremarkable. PHYSICAL EXAMINATION: GENERAL: Anxious woman. VITAL SIGNS: Blood pressure 128/66. NECK: No jugular venous distention. LUNGS: Clear to auscultation. HEART: Regular rate and rhythm. Normal S1, S2 with no murmurs. ABDOMEN: Nondistended. EXTREMITIES: Showed trace edema. VASCULAR: Radial pulses 2+. LABORATORY DATA: Sodium 138, potassium 3.9, chloride 107, bicarbonate 21, BUN 17, and creatinine 1.24. Troponin was less than 0.01. BNP was 48. White blood cell count 6.4, hemoglobin 10.4, hematocrit 31.6, and platelet count of 164. EKG normal sinus rhythm with premature atrial contractions. IMPRESSION: 1. Chest pain with primarily atypical features. 2. Hypertension. 3. Dyslipidemia. 4. Diabetes mellitus. 5. Anxiety. PLAN: This patient presents with chest pain. This was a persistent and prolonged discomfort. There are no acute changes on her electrocardiogram. She had persistent pain. There is no elevation in her cardiac enzymes. We will await the results of her stress test. If there is any evidence of ischemia, we would recommend an invasive evaluation. We will follow this patient with you through her hospitalization. Job ID: [id number] MTDD
[2020-03-24] MEDS: Atorvastatin Calcium 10 MG TAB PO SCH (20:18)
[2020-03-24] MEDS ORDERED: Enoxaparin Sodium 60 MG/0.6 ML SYRINGE SC SCH (21:00)
[2020-03-24] MEDS ORDERED: busPIRone HCl 10 MG TAB PO SCH (21:30)
[2020-03-24] MEDS ORDERED: Brimonidine Tartrate 0.2% Ophth Soln 5 ml Bottle EA EYE SCH (21:30)
[2020-03-24] MEDS ORDERED: Latanoprost 0.005% Ophth Soln 2.5 ml Bottle EA EYE SCH (21:30)
[2020-03-24] MEDS ORDERED: Timolol 0.5% Ophth Soln 5 ml Bottle EA EYE SCH (21:30)
[2020-03-24] MEDS ORDERED: Brinzolamide 1% Ophth SUSP 10 ml Bottle EA EYE SCH (21:30)
[2020-03-24] MEDS ORDERED: Bupropion 150 MG XL TAB PO SCH (21:30)
[2020-03-25 04:57] LABS: #Eosinphils 0.2 thou/uL (0.0-0.7); #Lymphocytes 1.8 thou/uL (1.20-3.40); #Neutrophils 4.5 thou/uL (1.40-6.50); %Basophils 0.2 % (0.0-1.0); %Eosinophils 2.3 % (0.0-10.0); %Lymphocytes 23.6 % (21.0-51.0); %Monocytes 13.3 % (0.0-10.0); %Neutrophils 60.6 % (42.0-75.0); Hemoglobin 11.2 g/dL (12.0-16.0); Mean Corpuscular HGB CONC 31.5 g/dL (32.0-36.0); Mean Corpuscular Hemoglobin 29.2 pg (27.0-31.0); Mean Corpuscular Volume 92.7 fL (78.0-98.0); Mean Platelet Volume 7.7 fL (7.4-10.4); Platelet Count 200 thou/uL (130-400); RBC Distribution Width 12.5 % (11.5-14.5); Red Blood Cell (RBC) Count 3.84 mill/uL (4.20-5.40); White Blood Cell (WBC) Count 7.4 thou/uL (4.8-10.8)
[2020-03-25] MEDS: Nitroglycerin 2% Ointment 1 INCH/1 GM Packet TOP SCH ×2 (04:59→14:33)
[2020-03-25 05:19] LABS: Anion Gap 16 mmol/L (10-20); BUN (Urea Nitrogen) 19 mg/dL (9.8-20.1); Calc. Creatinine Clearance 63 mL/min (70-130); Calcium 8.8 mg/dL (7.8-10.44); Carbon Dioxide 19 mmol/L (23-31); Chloride 108 mmol/L (98-107); Glucose 101 mg/dL (83-110); Magnesium 1.9 mg/dL (1.6-2.6); Potassium 4.2 mmol/L (3.5-5.1); Sodium 139 mmol/L (136-145)
[2020-03-25] MEDS: Carvedilol 3.125 MG TAB PO SCH ×2 (07:09→16:27)
[2020-03-25] MEDS: busPIRone HCl 10 MG TAB PO SCH ×2 (07:48→20:34)
[2020-03-25] MEDS: Aspirin 325 mg Enteric Coated Tablet PO SCH (07:48)
[2020-03-25] MEDS ORDERED: ALPRAZolam 0.25 MG TAB PO PRN (07:54)
[2020-03-25] MEDS ORDERED: Morphine 2 MG/ML VIAL SLOW IVP PRN (07:57)
[2020-03-25] MEDS: HYDROcodone/Acetaminophen 5/325 mg Tablet PO PRN ×2 (08:00→18:59)
[2020-03-25] MEDS: Brimonidine Tartrate 0.2% Ophth Soln 5 ml Bottle EA EYE SCH ×2 (08:01→20:38)
[2020-03-25] MEDS: Brinzolamide 1% Ophth SUSP 10 ml Bottle EA EYE SCH ×3 (08:06→20:36)
[2020-03-25] MEDS ORDERED: Bupropion 150 MG XL TAB PO SCH (09:00)
[2020-03-25] MEDS: Timolol 0.5% Ophth Soln 5 ml Bottle EA EYE SCH ×2 (09:31→20:35)
--- NOTE | 2020-03-25 13:42 | NM ---
MYOCARDIAL PERFUSION SCAN: The patient was given 29 mCi of technetium sestamibi for rest imaging and 28 mCi for stress imaging. Patient was stressed according to Lexiscan protocol. Left ventricle was imaged with SPECT imaging. At tenuation correction images obtained. INDICATION: Chest pain. FINDINGS: Decreased activity in the inferolateral wall corrects with attenuation correction. There are borderli ne changes of reversible ischemia in the apex. Wall motion is normal. The ejection fraction is recorded at 71%. IMPRESSION: Borderline changes of reversible ischemia in the apex. Exam otherwise unremarkable. POS: AGW
--- NOTE | 2020-03-25 13:52 | PDOC.HOSPP ---
- Subjective Subjective: she has been remains in normal sinus rhythm on telemetry. She had an episode of chest pain this morning. She just came back from her stress test, currently chest pain-free - Objective Vital Signs & Weight: Vital Signs (12 hours) Temp Pulse Resp BP BP Pulse Ox 03/25/20 12:17 97.5 F L 58 L 16 133/86 97 03/25/20 07:35 97.8 F 60 18 124/75 97 03/25/20 04:00 97.8 F 61 16 121/60 98 Weight Weight 204 lb I&O: 03/24/20 03/25/20 03/26/20 06:59 06:59 06:59 Intake Total 1100 Balance 1100 Result Diagrams: 03/25/20 04:44 03/25/20 04:44 Additional Labs: Accuchecks 03/25/20 03/25/20 03/24/20 12:00 05:43 20:20 POC Glucose 119 H 100 141 H 03/24/20 16:35 POC Glucose 118 H Radiology Reviewed by me: Yes EKG Reviewed by me: Yes Hospitalist ROS - Medication Medications: Active Medications Generic Name Dose Route Start Last Admin Trade Name Freq PRN Reason Stop Dose Admin Acetaminophen 1,000 mg 03/24/20 06:03 03/24/20 06:13 Acetaminophen 500 Mg Tab PO 1,000 mg Q4H PRN Administration Headache/Fever or Pain Hydrocodone Bitart/Acetaminophen 1 tab 03/24/20 09:28 03/25/20 08:00 Hydrocodone/Acetaminophen 5/325 Mg Tablet PO 1 tab Q4H PRN Administration Pain Aspirin 325 mg 03/24/20 09:00 03/25/20 07:48 Aspirin 325 Mg Enteric Coated Tablet PO 325 mg DAILY VAUGHN Administration Atorvastatin Calcium 10 mg 03/24/20 21:00 03/24/20 20:18 Atorvastatin Calcium 10 Mg Tab PO 10 mg HS VAUGHN Administration Brimonidine Tartrate 1 drop 03/25/20 09:00 03/25/20 08:01 Brimonidine Tartrate 0.2% Ophth Soln 5 Ml Bottle EA EYE 1 drop BID VUAGHN Administration Brinzolamide 1 drop 03/25/20 09:00 03/25/20 08:06 Brinzolamide 1% Ophth Susp 10 Ml Bottle EA EYE 1 drop TID VAUGHN Administration Buspirone HCl 15 mg 03/25/20 09:00 03/25/20 07:48 Buspirone Hcl 10 Mg Tab PO 15 mg BID [facility] Administration Carvedilol 3.125 mg 03/25/20 08:00 03/25/20 07:09 Carvedilol 3.125 Mg Tab PO Not Given BID- VAUGHN Isosorbide Mononitrate 30 mg 03/25/20 09:00 03/25/20 07:47 Isosorbide Mononitrate Er 60 Mg Tab PO 30 mg DAILY VAUGHN Administration Morphine Sulfate 2 mg 03/25/20 07:57 03/25/20 08:11 Morphine 2 Mg/Ml Vial SLOW IVP 2 mg Q4H PRN Administration Moderate to Severe Pain (6-10) Nitroglycerin 0.5 inch 03/24/20 06:00 03/25/20 04:59 Nitroglycerin 2% Ointment 1 Inch/1 Gm Packet TOP Not Given Q8HR [facility] Pantoprazole Sodium 40 mg 03/24/20 09:00 03/25/20 07:48 Pantoprazole 40 Mg Tab PO 40 mg DAILY VAUGHN Administration Sodium Chloride 10 ml 03/24/20 09:00 03/25/20 08:03 Flush - Normal Saline 10 Ml Syringe IVF 10 ml Q12HR VAUGHN Administration Timolol Maleate 1 drop 03/25/20 09:00 03/25/20 09:31 Timolol 0.5% Ophth Soln 5 Ml Bottle EA EYE Not Given BID [facility] Tramadol HCl 50 mg 03/24/20 09:27 03/24/20 14:13 Tramadol Hcl 50 Mg Tab PO 50 mg Q6H PRN Administration Pain - Exam General Appearance: NAD Eye: PERRL ENT: normocephalic atraumatic Neck: supple Heart: RRR Respiratory: CTAB Gastrointestinal: soft, non-tender Skin: normal turgor Neurological: cranial nerve grossly intact Hosp A/P - Plan Chest pain --still having intermittent chest pain. --serial enzyme negative. Echo pending --NM Stress test showed borderline reversible at the apex. Pending further cardiology recommendations. New onset of Afib - rate controlled; unknown chronicity/duration, brief episode --she converted back into NSR. Cont BB/Lovenox. HTN - BP stable --restart Coreg Chronic back pain --restarted pain regimen GERD --cont PPI Anxiety/Depression --pt reports under a lot of stress recently with multiple deaths in family. --start Anxiolytic
[2020-03-25] MEDS: ALPRAZolam 0.25 MG TAB PO SCH ×2 (15:24→20:34)
[2020-03-25] MEDS: Atorvastatin Calcium 10 MG TAB PO SCH (20:34)
[2020-03-25] MEDS: Bupropion 150 MG XL TAB PO SCH (20:34)
[2020-03-25] MEDS: Latanoprost 0.005% Ophth Soln 2.5 ml Bottle EA EYE SCH (20:36)
[2020-03-25] MEDS: Enoxaparin Sodium 60 MG/0.6 ML SYRINGE SC SCH (20:37)
[2020-03-26] MEDS: Brimonidine Tartrate 0.2% Ophth Soln 5 ml Bottle EA EYE SCH ×2 (09:02→22:27)
[2020-03-26] MEDS: Brinzolamide 1% Ophth SUSP 10 ml Bottle EA EYE SCH ×3 (09:03→22:40)
[2020-03-26] MEDS: Timolol 0.5% Ophth Soln 5 ml Bottle EA EYE SCH ×2 (09:03→22:44)
[2020-03-26] MEDS: busPIRone HCl 10 MG TAB PO SCH ×2 (09:04→22:22)
[2020-03-26] MEDS: Carvedilol 3.125 MG TAB PO SCH ×2 (09:04→16:18)
[2020-03-26] MEDS: Aspirin 325 mg Enteric Coated Tablet PO SCH (09:04)
[2020-03-26] MEDS: ALPRAZolam 0.25 MG TAB PO SCH (09:04)
[2020-03-26] MEDS ORDERED: Iopamidol 370 76% 100 ML VIAL ONE (11:36)
[2020-03-26] MEDS: HYDROcodone/Acetaminophen 5/325 mg Tablet PO PRN ×2 (12:20→16:22)
[2020-03-26] MEDS ORDERED: Midazolam HCl 2 mg/2 ml Vial ONE (12:54)
[2020-03-26] MEDS ORDERED: Fentanyl 100 MCG/2 ML VIAL ONE (12:54)
--- NOTE | 2020-03-26 12:55 | PRG ---
DATE OF SERVICE: 03/26/2020 SUBJECTIVE: Ms. Arroyo is doing well. She states she continues to have intermittent chest pain despite a recent stress test with a small area of ischemia noted at the apex. PHYSICAL EXAMINATION: GENERAL: Patient is a pleasant female, who is in no acute distress. The patient appears their stated age. VITAL SIGNS: Blood pressure 143/79, pulse 61, temperature 97.9. NEUROLOGIC: The patient is alert and oriented x3 with no focal neurologic deficits. HEENT: Sclerae without icterus. Mouth has moist mucous membranes with normal pallor. NECK: No JVD. Carotid upstroke brisk. No bruits bilaterally. LUNGS: Clear to auscultation with unlabored respirations. BACK: No scoliosis or kyphosis. CARDIAC: Regular rate and rhythm with normal S1 and S2. No S3 or S4 noted. No significant rubs, murmurs, thrills, or gallops noted throughout the precordium. PMI is not displaced. There is no parasternal heave. ABDOMEN: Soft, nontender, nondistended. No peritoneal signs present. No hepatosplenomegaly. No abnormal striae. EXTREMITIES: 2+ femoral and 2+ dorsalis pedis pulses. No cyanosis, clubbing, or edema. SKIN: No gross abnormalities. LABORATORY DATA: CK, troponin negative. Hemoglobin 11.2, platelet count 200. Creatinine 1.17. IMPRESSION: 1. Recurrent chest pain. 2. Low risk stress test for ischemia. RECOMMENDATIONS: I am concerned about Ms. Arroyo continued to have pain. We discussed continued medical therapy versus coronary angiography. She liked to proceed with coronary angiography. I discussed the procedure in full detail with Ms. Arroyo. Risks include not limited to the following: , stroke, [place], need for emergency surgery, loss of limb, bleeding, and infection, as well as a reaction to the dye causing kidney failure and needing long-term dialysis. I also discussed the risks of PCI to include all of the above including coronary dissection and perforation in addition to acute stent thrombosis and restenosis. All questions about the procedure were answered. Given the above, the patient agreed to proceed with coronary angiography and possible PCI. All questions were answered. Given the above, the patient agreed to proceed with above procedure. Also, discussed drug coated versus non-drug coated stent placement. There were no contraindications. We will proceed if needed. She states she does have intermittent back injections, but wait at least 6 months if needed. Job ID: [id number]
[2020-03-26] MEDS ORDERED: Nitroglycerin 0.4 MG TAB (25 Tab Bottle) SL PRN (13:25)
[2020-03-26] MEDS ORDERED: Sodium Chloride 0.9% 200 ML IV PRN (13:25)
[2020-03-26] MEDS ORDERED: Acetaminophen/Codeine 30-300mg Tablet PO PRN ×2 (13:25)
[2020-03-26] MEDS ORDERED: Sodium Chloride 0.9% 1,000 ML IV SCH (13:30)
[2020-03-26] MEDS: Enoxaparin Sodium 60 MG/0.6 ML SYRINGE SC SCH ×2 (14:14→22:26)
[2020-03-26] MEDS ORDERED: ALPRAZolam 0.25 MG TAB PO PRN (14:43)
--- NOTE | 2020-03-26 14:45 | PDOC.HOSPP ---
- Subjective Subjective: Patient was seen examined at bedside. Patient underwent heart cath, show moderate small vessel disease. Medical management was recommended. Imdur was added. From cardiac standpoint, patient is cleared to discharge, however, she is concerned about going home today, as she lives by herself. - Objective Vital Signs & Weight: Vital Signs (12 hours) Temp Pulse Resp BP BP Pulse Ox 03/26/20 13:26 98.3 F 70 18 91/66 91/66 98 03/26/20 11:27 97.7 F 61 19 143/79 H 97 03/26/20 09:03 64 03/26/20 07:24 97.8 F 64 18 142/83 H 95 03/26/20 03:54 97.7 F 57 L 16 129/60 97 Weight Weight 204 lb I&O: 03/25/20 03/26/20 03/27/20 06:59 06:59 06:59 Intake Total 1100 1870 Balance 1100 1870 Result Diagrams: 03/25/20 04:44 03/25/20 04:44 Additional Labs: Accuchecks 03/26/20 03/26/20 03/25/20 10:43 05:09 20:59 POC Glucose 107 H 108 H 145 H 03/25/20 17:00 POC Glucose 113 H Radiology Reviewed by me: Yes EKG Reviewed by me: Yes Hospitalist ROS - Medication Medications: Active Medications Generic Name Dose Route Start Last Admin Trade Name Freq PRN Reason Stop Dose Admin Acetaminophen 1,000 mg 03/24/20 06:03 03/24/20 06:13 Acetaminophen 500 Mg Tab PO 1,000 mg Q4H PRN Administration Headache/Fever or Pain Hydrocodone Bitart/Acetaminophen 1 tab 03/24/20 09:28 03/26/20 12:20 Hydrocodone/Acetaminophen 5/325 Mg Tablet PO 1 tab Q4H PRN Administration Pain Aspirin 325 mg 03/24/20 09:00 03/26/20 09:04 Aspirin 325 Mg Enteric Coated Tablet PO 325 mg DAILY VAUGHN Administration Atorvastatin Calcium 10 mg 03/24/20 21:00 03/25/20 20:34 Atorvastatin Calcium 10 Mg Tab PO 10 mg HS VAUGHN Administration Brimonidine Tartrate 1 drop 03/25/20 09:00 03/26/20 09:02 Brimonidine Tartrate 0.2% Ophth Soln 5 Ml Bottle EA EYE 1 drop BID VAUGHN Administration Brinzolamide 1 drop 03/25/20 09:00 03/26/20 09:03 Brinzolamide 1% Ophth Susp 10 Ml Bottle EA EYE 1 drop TID VAUGHN Administration Bupropion HCl 150 mg 03/25/20 21:00 03/25/20 20:34 Bupropion 150 Mg Xl Tab PO 150 mg HS VAUGHN Administration Buspirone HCl 15 mg 03/25/20 09:00 03/26/20 09:04 Buspirone Hcl 10 Mg Tab PO 15 mg BID VAUGHN Administration Carvedilol 3.125 mg 03/25/20 08:00 03/26/20 09:04 Carvedilol 3.125 Mg Tab PO 3.125 mg BID-WM VAUGHN Administration Enoxaparin Sodium 30 mg 03/25/20 21:00 03/26/20 14:14 Enoxaparin Sodium 60 Mg/0.6 Ml Syringe SC 30 mg 0900,2100 VAUGHN Administration Sodium Chloride 1,000 mls @ 125 mls/hr 03/26/20 13:30 03/26/20 14:13 Normal Saline 0.9% IV 03/26/20 17:31 1,000 mls .Q8H VAUGHN Administration Isosorbide Mononitrate 30 mg 03/25/20 09:00 03/26/20 09:05 Isosorbide Mononitrate Er 60 Mg Tab PO 30 mg DAILY VAUGHN Administration Latanoprost 1 drop 03/25/20 21:00 03/25/20 20:36 Latanoprost 0.005% Ophth Soln 2.5 Ml Bottle EA EYE 1 drop HS VAUGHN Administration Morphine Sulfate 2 mg 03/25/20 07:57 03/25/20 08:11 Morphine 2 Mg/Ml Vial SLOW IVP 2 mg Q4H PRN Administration Moderate to Severe Pain (6-10) Pantoprazole Sodium 40 mg 03/24/20 09:00 03/26/20 09:05 Pantoprazole 40 Mg Tab PO 40 mg DAILY VAUGHN Administration Timolol Maleate 1 drop 03/25/20 09:00 03/26/20 09:03 Timolol 0.5% Ophth Soln 5 Ml Bottle EA EYE 1 drop BID VAUGHN Administration Tramadol HCl 50 mg 03/24/20 09:27 03/24/20 14:13 Tramadol Hcl 50 Mg Tab PO 50 mg Q6H PRN Administration Pain - Exam General Appearance: NAD Eye: PERRL ENT: normocephalic atraumatic Neck: supple Heart: RRR Respiratory: CTAB Gastrointestinal: soft Extremities: no cyanosis Skin: normal turgor Neurological: cranial nerve grossly intact Psychiatric: normal affect, normal behavior Hosp A/P - Plan Chest pain --still having intermittent chest pain. --serial enzyme negative. Echo pending --NM Stress test showed borderline reversible at the apex. Pending further cardiology recommendations. --Status post left heart cath today, showed moderate small vessel disease. Imdur was added. --If stable, will DC in a.m. Patient is concerning about going home tonight. New onset of Afib - rate controlled; unknown chronicity/duration, brief episode --she converted back into NSR. Cont BB/Lovenox. HTN - BP stable --restart Coreg Chronic back pain --restarted pain regimen GERD --cont PPI Anxiety/Depression --pt reports under a lot of stress recently with multiple deaths in family. --cont prn Anxiolytic
--- NOTE | 2020-03-26 16:36 | EKG ---
Test Reason : Blood Pressure : / mmHG Vent. Rate : 052 BPM Atrial Rate : 052 BPM P-R Int : 188 ms QRS Dur : 082 ms QT Int : 444 ms P-R-T Axes : 003 -34 -16 degrees QTc Int : 412 ms Sinus bradycardia with Premature atrial complexes Left axis deviation Minimal voltage criteria for LVH, may be normal variant Inferior infarct , age undetermined Nonspecific ST-T changes Poor anterior R wave progression Abnormal ECG When compared with ECG of 24-MAR-2020 10:01, (Unconfirmed) Sinus rhythm has replaced Electronic atrial pacemaker Inferior infarct is now Present T wave inversion less evident in Anterior leads Confirmed by DR. Vignesh REDDING ([id number]) on 03/26/2020 4:36:27 PM Referred By: GUS Confirmed By:DR. Vignesh REDDING
[2020-03-26] MEDS: Latanoprost 0.005% Ophth Soln 2.5 ml Bottle EA EYE SCH (22:19)
[2020-03-26] MEDS: Atorvastatin Calcium 10 MG TAB PO SCH (22:22)
[2020-03-26] MEDS: Bupropion 150 MG XL TAB PO SCH (22:23)
[2020-03-27] MEDS: Aspirin 325 mg Enteric Coated Tablet PO SCH (08:39)
[2020-03-27] MEDS: busPIRone HCl 10 MG TAB PO SCH (08:39)
[2020-03-27] MEDS: Enoxaparin Sodium 60 MG/0.6 ML SYRINGE SC SCH (08:39)
[2020-03-27] MEDS: Carvedilol 3.125 MG TAB PO SCH (08:39)
[2020-03-27] MEDS: HYDROcodone/Acetaminophen 5/325 mg Tablet PO PRN (08:40)
[2020-03-27] MEDS: Timolol 0.5% Ophth Soln 5 ml Bottle EA EYE SCH (08:43)
[2020-03-27] MEDS: Brinzolamide 1% Ophth SUSP 10 ml Bottle EA EYE SCH (08:43)
[2020-03-27] MEDS: Brimonidine Tartrate 0.2% Ophth Soln 5 ml Bottle EA EYE SCH (08:43)
--- NOTE | 2020-03-27 09:02 | PRG ---
DATE OF SERVICE: 03/27/2020 SUBJECTIVE: Ms. Arroyo is doing well. She had two brief episodes of chest pain. No other issues present. OBJECTIVE: VITAL SIGNS: Blood pressure 146/69, pulse 68, and temperature 97.5. LUNGS: Clear to auscultation. HEART: Regular rate and rhythm. ABDOMEN: Soft, nontender, nondistended. EXTREMITIES: No edema. IMPRESSION: 1. Chest pain. 2. Coronary artery disease. RECOMMENDATIONS: I did not symptoms are suggestive of angina. Her stress study showed a small area of ischemia noted at the apex, which corresponds with small vessel disease noted in the distal LAD. I would recommend continued medical therapy. She is currently on beta-kam therapy in addition to Imdur and we will continue. From my standpoint, will be okay to discharge home with outpatient followup. Plan is to follow up in 1 week. Job ID: [id number]
--- NOTE | 2020-03-27 09:47 | PDOC.DS.DS ---
Provider - Provider Date of Admission: 03/25/20 11:52 Date of Discharge: 03/27/20 Admitting Provider: Milan Alcazar DO Consultations: Cardiology Primary Care Physician: Arun Esquivel MD Course - Hospital Course Hospital Course: DISCHARGE DIAGNOSES: 1. Chest pain with abnormal stress test 2. Brief episode of A. fib-spontaneously converted 3. Hypertension, essential 4. Chronic back pain 5. GERD 6. Anxiety/depression PERTINENT IMAGING STUDIES: Chest x-ray show no significant acute cardiopulmonary process Nuclear stress test: Borderline changes of reversible ischemia in the apex Venous Doppler of lower extremity: No evidence of DVT 2D echo: EF 65-70%. Impaired relaxation compatible with diastolic dysfunction. HISTORY OF PRESENT ILLNESS AND BRIEF HOSPITAL COURSE: Patient is a pleasant 74 years old female who has significant past medical history of hypertension tension, CAD, dyslipidemia, anxiety/depression, chronic back pain, who presented to the ED with complaint of chest discomfort while doing grocery shopping at [facility]. Patient reported that her symptoms started intermittently for the past few weeks. She was subsequently present to ED for further evaluation. Her initial enzymes were negative. Given her sym ptomatology, hospitalist was asked to admit the patient for further evaluation. Patient was monitored on telemetry. She had a brief episode of atrial fib, but spontaneously converted into normal sinus rhythm. She underwent nuclear stress test, the results as noted above. Patient was seen by cardiology, subsequently did recommend left heart cath, so moderate to severe small vessel disease. Med ical management was recommended. Majority of her symptoms likely related to anxiety disorder. Patient report that see experience multiple deaths in the family, the recent one with her daughter 2-3 months ago. Patient denies any HISI. Recommend to follow-up with her PCP, patient was started on anxiolytic, Xanax as needed for anxiety. Follow up with PCP in 1-2 weeks PROCEDURE PERFORMED: Left heart cath:Moderate to severe diffuse disease of the mid to distal LAD, medical management was recommended DISCHARGE CONDITION: STABLE DISPOSITION: HOME PHYSICAL EXAM: General Appearance: Alert, oriented, resting comfortably, no apparent distress, well developed/nourished. HEENT: Normocephalic/atraumatic, moist mucous membrane, normal ENT inspection, normal tones. PERRLA, no scleral icterus, normal conjunctiva Neck: Supple, normal inspection, no JVD Respiratory: Lungs are clear bilaterally, normal breath sounds, no accessory muscle use Cardiovascular: Regular rate, regular rhythm, no murmur, no rubs Abdomen: Soft, nontender, nondistended, normal bowel sounds, no organomegaly, no guarding no rebound Back: Normal inspection, no CVA tenderness Extremities: No clubbing, no cyanosis, no edema Psych/Mental Status: Normal affect, speech, non-pressured, AAO x 3 Neurologic: CN II-XII are intact. Skin: Warm/Dry, Normal Color, no rashes DISCHARGE TIME SPENT: >30 MINUTES - Labs Lab Results: 03/25/20 04:44 03/25/20 04:44 - Physical Exam Vitals: Vital Signs (12 hours) Temp Pulse Resp BP BP Pulse Ox 03/27/20 08:43 68 03/27/20 07:23 97.5 F L 68 18 146/69 H 98 03/27/20 04:00 97.7 F 62 15 120/72 96 03/26/20 23:56 98.3 F 63 15 142/66 H 96 03/26/20 22:44 55 L 150/78 H Weight Weight 204 lb Physical Exam: The patient was seen and examined on the day of discharge. Plan - Discharge Medications Prescriptions: ALPRAZolam [Xanax] 0.25 mg PO BID PRN #30 tab PRN Reason: Anxiety Home Medications: Medication Instructions Recorded Confirmed Type Atorvastatin Calcium 10 mg PO HS 12/29/14 03/24/20 History Pantoprazole [Protonix] 40 mg PO DAILY 12/29/14 03/24/20 History Aspirin [Ecotrin Low Strength] 81 mg PO DAILY 06/19/16 03/24/20 History Isosorbide Mononitrate [Isosorbide 30 mg PO DAILY 02/08/19 03/24/20 History Mononitrate ER] Nitroglycerin [Nitrostat] 0.4 mg SL Q5MIN PRN 04/14/19 03/24/20 History Acetaminophen With Codeine 1 tablet PO Q8HR PRN 10/18/19 03/24/20 History [Acetaminophen/Codeine #4] busPIRone HCl [Buspirone HCl] 15 mg PO BID 10/18/19 03/24/20 History Brimonidine Tartrate/Timolol 1 drop EA EYE BID 01/03/20 03/24/20 History [Combigan 0.2%-0.5% Eye Drops] Brinzolamide [Azopt 1% Ophth SUSP] 1 drop EA EYE TID 01/03/20 03/24/20 History Gabapentin 300 mg PO DAILY 01/03/20 03/24/20 History Potassium Chloride 20 meq PO BID 01/03/20 03/24/20 History BuPROPion XL [Wellbutrin XL] 150 mg PO DAILY tab 01/05/20 03/24/20 Rx Carvedilol [Coreg] 6.25 mg PO BID-WM tab 01/05/20 03/24/20 Rx Latanoprost [Xalatan 0.005% Ophth 1 drop EA EYE HS 03/24/20 03/24/20 History Soln] traMADol HCl [Tramadol HCl] 50 mg PO 03/24/20 History ALPRAZolam [Xanax] 0.25 mg PO BID PRN #30 tab 03/27/20 Rx Allergies: chlordiazepoxide Allergy (Verified 10/17/19 23:29) chlordiazepoxide HCl [From Librium] Allergy (Verified 10/17/19 23:29) rash ,throat swelling diazepam [From Valium] Allergy (Verified 10/17/19 23:29) rash, difficulty breathing diclofenac Allergy (Verified 10/17/19 23:29) diclofenac sodium [From Arthrotec] Allergy (Verified 10/17/19 23:29) swelling,rash etodolac [From Lodine] Allergy (Verified 10/17/19 23:29) heart stops misoprostol Allergy (Verified 10/17/19 23:29) promethazine HCl [From Phenergan] Allergy (Verified 10/17/19 23:29) Anaphylaxis rofecoxib Allergy (Verified 10/17/19 23:29) valproic acid Allergy (Verified 10/17/19 23:29) - Discharge Instructions Discharge Instructions:: Resume care with [facility] No change in your home medications. I have added Xanax as needed for anxiety Follow up with Dr. Keen in 1 week Nourishment:: Heart Healthy Diet - Follow up Plan Referrals: Jose Maria Deal [Other] - 10 Days ([facility]IMARY [facility] DOCTOR AT [facility]) Edmar Parekh MD [Active] - 7 Days Disposition: HOME Quality - Care Measures CORE MEASURES:: N/A
[2020-03-27 11:44] VITALS: BP 114/58; TEMP 98.4
--- NOTE | 2020-03-30 03:41 | PQF ---
Dear : Dmearco Bravo Date 03/30/2020 Please exercise your independent, professional judgment in responding to the / clarification form. Clinical indicators are provided on the bottom of this form for your review Can you please further clarify the etiology of Chest pain? Please check appropriate box(es): [ X ] Anxiety disorder [ ] Atrial fibrillation [ ] Atypical chest pain [ X ] CAD with Angina [ ] Other diagnosis, please specify [ ] Unable to determine Physician Signature: Date/Time: For continuity of documentation, please document condition throughout progress notes and discharge summary. Thank You. To be completed by CDI/Coding staff for physician review: Present Clinical Indicators - Signs / Symptoms / Labs Results and Location in Medical Record [ x ] Complaints of acute chest pain H and P pg.1 [ x ] EKG showed rate controlled A.fib with HR of 58, no ST changes H and P pg.1 [ x ] Chest pain with primarily atypical features Consult pg.2 [ x ] Recurrent chest pain PN 03/26 pg.1 [ x ] Symptoms are suggestive of angina PN 03/27 pg.1 [ x ] Chest pain with abnormal stress test DS pg.1 [ x ] Majority of her symptoms likely related to anxiety disorder DS pg.2 Present Risk Factors Results and Location in Medical Record [ x ] HLD H and P pg.1 [ x ] CAD H and P pg.1 [ x ] Hx of SC H and P pg.1 [ x ] DM H and P pg.2 [ x ] HTN H and P pg.2 [ x ] Obesity H and P pg.2 [ x ] Anxiety H and P pg.2 [ x ] Depression H and P pg.2 [ x ] 74 years old H and P pg.1 [ x ] Afib PN 12 Present Treatments Results and Location in Medical Record [ x ] Stress Test Stress test Nuclear MED 03/24 [ x ] Cardiac Monitoring H and P pg.5 [ x ] Cardiology Consult Dr. Posey 03/24 [ x ] ECG Electrocardiogram 03/25 [ x ] [facility] [employer] Report 03/25 [ x ] Aspirin 81 mg PO MAR [ x ] Nitroglycerin 0.4 SL MAR [ x ] IV Fluids MAR CDS/Broker In Charge Signature: Darshan Rashid Phone #: [facility] [id number] Date 03/30/2020 This is a permanent part of the Medical Record [facility]
== END 2020-03-27 13:47 | disposition home health service (06) | DRG 287 ==
LOC: ERS 18:30 → ERHOLD 20:45 → 2SE 21:19 → OBSVTOIN 03-25 11:52
PROVIDERS: ADMIT Family Medicine; ATTEND Family Medicine
PROC: 4A023N7 Measurement of Cardiac Sampling and Pressure, Left Heart, Percutaneous Approach (ICD-10-PCS; principal; 2020-03-26)
PROC: B2151ZZ Fluoroscopy of Left Heart using Low Osmolar Contrast (ICD-10-PCS; 2020-03-26)
PROC: B2111ZZ Fluoroscopy of Multiple Coronary Arteries using Low Osmolar Contrast (ICD-10-PCS; 2020-03-26)
DX: I25.110 Atherosclerotic heart disease of native coronary artery with unstable angina pectoris (principal); F41.9 Anxiety disorder, unspecified; I48.91 Unspecified atrial fibrillation; Z20.828 Contact with and (suspected) exposure to other viral communicable diseases; E78.5 Hyperlipidemia, unspecified; E11.9 Type 2 diabetes mellitus without complications; I10 Essential (primary) hypertension; E66.9 Obesity, unspecified; M54.5 Low back pain; G89.29 Other chronic pain; F32.9 Major depressive disorder, single episode, unspecified; K21.9 Gastro-esophageal reflux disease without esophagitis; Z96.641 Presence of right artificial hip joint; J45.20 Mild intermittent asthma, uncomplicated; Z98.51 Tubal ligation status; I25.2 Old myocardial infarction; Z90.710 Acquired absence of both cervix and uterus; Z88.8 Allergy status to other drugs, medicaments and biological substances; Z79.82 Long term (current) use of aspirin; Z68.31 Body mass index [BMI] 31.0-31.9, adult
CPT/HCPCS: 36415; 36416; 71045; 76942; 78452; 80048; 80053; 80061; 83735; 83880; 84443; 84484; 85025; 85379; 93005; 93010; 93017; 93306; 93458; 93970; 94760; 96374; 99152; 99153; A9500; G0378; J1644; J1650; J2250; J2270; J2785; J3010; Q9967; U0002

== ENCOUNTER 2021-03-23 16:01 | Emergency (ER) | payer MEDICARE | END 2021-03-23 17:22 | disposition home or self-care (01) | LOC: ERS 16:01 | DX: S93.402A Sprain of unspecified ligament of left ankle, initial encounter (principal); X50.9XXA Other and unspecified overexertion or strenuous movements or postures, initial encounter ==

== ENCOUNTER 2021-04-26 18:07 | Inpatient (IN) | payer MEDICARE ==
[2021-04-26 18:53] LABS: #Basophils 0.1 thou/uL (0.0-0.2); #Eosinphils 0.1 thou/uL (0.0-0.7); #Lymphocytes 1.3 thou/uL (1.20-3.40); #Monocytes 1.1 thou/uL (0.11-0.59); %Basophils 0.7 % (0.0-1.0); %Eosinophils 0.7 % (0.0-10.0); %Lymphocytes 15.5 % (21.0-51.0); %Monocytes 12.6 % (0.0-10.0); %Neutrophils 70.6 % (42.0-75.0); Mean Corpuscular HGB CONC 34.1 g/dL (32.0-36.0); Mean Platelet Volume 6.7 fL (7.4-10.4); Platelet Count 224 thou/uL (130-400); RBC Distribution Width 12.9 % (11.5-14.5); Red Blood Cell (RBC) Count 3.67 mill/uL (4.20-5.40); White Blood Cell (WBC) Count 8.6 thou/uL (4.8-10.8)
[2021-04-26 19:17] LABS: ALT (SGPT) 18 U/L (8-55); AST (SGOT) 38 U/L (5-34); Albumin 3.9 g/dL (3.4-4.8); Alkaline Phosphatase 57 U/L (40-110); Anion Gap 15 mmol/L (10-20); BUN (Urea Nitrogen) 17 mg/dL (9.8-20.1); Bilirubin, Total 0.6 mg/dL (0.2-1.2); Calc. Creatinine Clearance 0 mL/min (70-130); Calcium 9.7 mg/dL (7.8-10.44); Carbon Dioxide 24 mmol/L (23-31); Chloride 100 mmol/L (98-107); Globulin 3.2 g/dL (2.4-3.5); Glucose 106 mg/dL (83-110); Lipase 20 U/L (8-78); Potassium 3.8 mmol/L (3.5-5.1); Protein, Total 7.1 g/dL (5.8-8.1); Sodium 135 mmol/L (136-145)
[2021-04-26 19:18] LABS: Digoxin Less than 0.15 ng/mL (0.8-2.0)
[2021-04-26] MEDS ORDERED: Morphine 4 MG/ML VIAL ONE (20:14)
[2021-04-26] MEDS ORDERED: Boostrix 0.5 ML (Tdap) VIAL ONE (20:14)
[2021-04-26] MEDS ORDERED: Ondansetron PF 4 MG/2 ML Vial IVP PRN (22:00)
[2021-04-26] MEDS ORDERED: Ondansetron ODT 4 MG TAB SL PRN (22:00)
[2021-04-26] MEDS ORDERED: Acetaminophen 325 MG TAB PO PRN (22:00)
[2021-04-26 22:54] VITALS: BMI 31.1
[2021-04-27] MEDS ORDERED: traMADol HCl 50 MG TAB PO SCH (06:15)
[2021-04-27] MEDS ORDERED: Dextrose 5% in Water 1,000 ML IV PRN (09:11)
[2021-04-27] MEDS ORDERED: Ondansetron PF 4 MG/2 ML Vial IVP PRN (09:11)
[2021-04-27] MEDS ORDERED: HumaLOG 300 UNITS/3 ML VIAL SC PRN ×2 (09:11)
[2021-04-27] MEDS ORDERED: hydrALAZINE 20 MG/ML VIAL SLOW IVP PRN (09:11)
[2021-04-27] MEDS ORDERED: Ondansetron ODT 4 MG TAB PO PRN (09:11)
[2021-04-27] MEDS ORDERED: Dextrose 50% Abboject 50 ML SYRINGE SLOW IVP PRN (09:11)
[2021-04-27] MEDS: Acetaminophen 500 MG TAB PO PRN ×2 (10:04→16:48)
[2021-04-27] MEDS: Cholecalciferol 1,000 UNITS (25 MCG) TAB PO SCH (10:05)
[2021-04-27] MEDS: busPIRone HCl 5 MG TAB PO SCH ×2 (10:05→20:17)
[2021-04-27] MEDS: Potassium Chloride 20 MEQ TAB PO SCH ×3 (10:05→20:25)
[2021-04-27] MEDS ORDERED: Metoprolol Tartrate 25 MG TAB PO SCH (14:45)
[2021-04-27 17:13] LABS: SARS-CoV-2 PCR by NAA Not Detected (NotDetected)
[2021-04-27] MEDS: Gabapentin 300 MG CAP PO SCH (20:17)
[2021-04-27] MEDS: Metoprolol Tartrate 25 MG TAB PO SCH (20:17)
[2021-04-27] MEDS: Famotidine 20 MG TAB PO SCH (20:17)
[2021-04-27] MEDS: Brimonidine Tartrate 0.2% Ophth Soln 5 ml Bottle EA EYE SCH (20:18)
[2021-04-27] MEDS: Timolol 0.5% Ophth Soln 5 ml Bottle EA EYE SCH (20:22)
[2021-04-27] MEDS ORDERED: Non-Formulary Item 1 EACH (Buspirone Hcl [Buspirone Hcl] 15 MG Tablet) PO SCH (21:00)
[2021-04-27] MEDS ORDERED: Atorvastatin Calcium 10 MG TAB PO SCH (21:00)
[2021-04-27] MEDS ORDERED: Non-Formulary Item 1 EACH (Potassium Chloride [Potassium Chloride] 20 MEQ Tablet.Er) PO SCH (21:00)
[2021-04-27] MEDS ORDERED: Non-Formulary Item 1 EACH (Buspirone Hcl [Buspirone Hcl] 30 MG Tablet) PO SCH (21:00)
[2021-04-28 05:41] LABS: Hemoglobin A1c 6.1 % (4.0-6.0)
[2021-04-28 05:57] LABS: Band 2 % (5-11); Eosinophils 6 % (0-10); Hemoglobin 11.4 g/dL (12.0-16.0); Lymphocytes 33 % (21-51); MDiff Complete? YES; Mean Corpuscular Hemoglobin 29.4 pg (27.0-31.0); Mean Corpuscular Volume 91.9 fL (78.0-98.0); Mean Platelet Volume 7.3 fL (7.4-10.4); Monocytes 11 % (0-10); Neutrophil 46 % (42-75); Platelet Count 226 thou/uL (130-400); Platelet Morphology Comment Appears Adequate; RBC Distribution Width 13.4 % (11.5-14.5); RBC Morphology Normal; Red Blood Cell (RBC) Count 3.89 mill/uL (4.20-5.40); White Blood Cell (WBC) Count 5.7 thou/uL (4.8-10.8)
[2021-04-28 05:58] LABS: Anion Gap 15 mmol/L (10-20); BUN (Urea Nitrogen) 18 mg/dL (9.8-20.1); Calc. Creatinine Clearance 72 mL/min (70-130); Calcium 9.6 mg/dL (7.8-10.44); Carbon Dioxide 24 mmol/L (23-31); Cardiac Risk 2.2 (Less than 4.5); Chloride 105 mmol/L (98-107); Cholesterol 213 mg/dl (< 200 Desired); Glucose 113 mg/dL (83-110); HDL Cholesterol 96 mg/dL (>60 Neg Risk); LDL Cholesterol, Calculated 90 mg/dL; Magnesium 1.8 mg/dL (1.6-2.6); Potassium 4.5 mmol/L (3.5-5.1); Sodium 139 mmol/L (136-145); Triglycerides 136 mg/dL (Less than 150)
[2021-04-28] MEDS ORDERED: Non-Formulary Item 1 EACH (Cholecalciferol (Vitamin D3) [Vitamin D3] 1,000 UNIT Capsule) PO SCH (09:00)
[2021-04-28] MEDS: Acetaminophen 500 MG TAB PO PRN ×2 (09:54→21:04)
[2021-04-28] MEDS: Gabapentin 300 MG CAP PO SCH ×2 (09:55→21:03)
[2021-04-28] MEDS: busPIRone HCl 5 MG TAB PO SCH ×2 (09:55→21:03)
[2021-04-28] MEDS: Clopidogrel Bisulfate 75 MG TAB PO SCH (09:55)
[2021-04-28] MEDS: Famotidine 20 MG TAB PO SCH ×2 (09:55→21:04)
[2021-04-28] MEDS: Aspirin 81 mg Enteric Coated Tablet PO SCH (09:56)
[2021-04-28] MEDS: Cholecalciferol 1,000 UNITS (25 MCG) TAB PO SCH (09:56)
[2021-04-28] MEDS: Brimonidine Tartrate 0.2% Ophth Soln 5 ml Bottle EA EYE SCH ×2 (09:56→22:24)
[2021-04-28] MEDS: Metoprolol Tartrate 25 MG TAB PO SCH ×2 (09:57→21:04)
[2021-04-28] MEDS: Potassium Chloride 20 MEQ TAB PO SCH ×2 (09:57→21:02)
[2021-04-28] MEDS: Timolol 0.5% Ophth Soln 5 ml Bottle EA EYE SCH ×2 (09:58→22:23)
[2021-04-28] MEDS: Atorvastatin Calcium 40 MG TAB PO SCH (21:03)
[2021-04-29] MEDS ORDERED: FLU VACC QS2021-22(65YR UP)/PF 240 MCG/0.7 ML SYRINGE IM ONE (09:00)
[2021-04-29] MEDS: Cholecalciferol 1,000 UNITS (25 MCG) TAB PO SCH (10:19)
[2021-04-29] MEDS: Clopidogrel Bisulfate 75 MG TAB PO SCH (10:19)
[2021-04-29] MEDS: Potassium Chloride 20 MEQ TAB PO SCH ×2 (10:20→21:03)
[2021-04-29] MEDS: busPIRone HCl 5 MG TAB PO SCH ×2 (10:20→21:03)
[2021-04-29] MEDS: Gabapentin 300 MG CAP PO SCH ×2 (10:20→21:04)
[2021-04-29] MEDS: Famotidine 20 MG TAB PO SCH ×2 (10:22→21:03)
[2021-04-29] MEDS: Metoprolol Tartrate 25 MG TAB PO SCH ×2 (10:23→21:03)
[2021-04-29] MEDS: Aspirin 81 mg Enteric Coated Tablet PO SCH (10:23)
[2021-04-29] MEDS: Brimonidine Tartrate 0.2% Ophth Soln 5 ml Bottle EA EYE SCH ×2 (10:34→21:19)
[2021-04-29] MEDS: Timolol 0.5% Ophth Soln 5 ml Bottle EA EYE SCH ×2 (10:35→21:19)
[2021-04-29] MEDS ORDERED: traMADol HCl 50 MG TAB PO PRN (14:18)
[2021-04-29] MEDS ORDERED: Lidocaine 5% Patch TD SCH (15:00)
[2021-04-29] MEDS: Acetaminophen 500 MG TAB PO PRN ×2 (15:38→21:11)
[2021-04-29] MEDS: Atorvastatin Calcium 40 MG TAB PO SCH (21:04)
[2021-04-30] MEDS: Clopidogrel Bisulfate 75 MG TAB PO SCH (08:28)
[2021-04-30] MEDS: Metoprolol Tartrate 25 MG TAB PO SCH (08:28)
[2021-04-30] MEDS: Cholecalciferol 1,000 UNITS (25 MCG) TAB PO SCH (08:28)
[2021-04-30] MEDS: Famotidine 20 MG TAB PO SCH (08:28)
[2021-04-30] MEDS: busPIRone HCl 5 MG TAB PO SCH (08:28)
[2021-04-30] MEDS: Potassium Chloride 20 MEQ TAB PO SCH (08:28)
[2021-04-30] MEDS: Gabapentin 300 MG CAP PO SCH (08:28)
[2021-04-30] MEDS: Aspirin 81 mg Enteric Coated Tablet PO SCH (08:28)
[2021-04-30] MEDS: Brimonidine Tartrate 0.2% Ophth Soln 5 ml Bottle EA EYE SCH (08:29)
[2021-04-30] MEDS: Timolol 0.5% Ophth Soln 5 ml Bottle EA EYE SCH (08:29)
[2021-04-30] MEDS ORDERED: Lidocaine 5% Patch TD SCH (09:00)
[2021-04-30 16:16] VITALS: BP 145/71; TEMP 98.3
[2021-04-30] MEDS ORDERED: Transdermal Patch Removal TOP SCH (21:00)
== END 2021-04-30 16:40 | DRG 308 ==
LOC: ERS 18:07 → 2NO 20:49 → OBSVTOIN 04-27 09:02
PROVIDERS: ADMIT Student in an Organized Health Care Education/Training Program; ATTEND Family Medicine
PROC: 4B02XSZ Measurement of Cardiac Pacemaker, External Approach (ICD-10-PCS; principal; 2021-04-27)
DX: I47.2 Ventricular tachycardia (principal); Z20.822 Contact with and (suspected) exposure to COVID-19; Z23 Encounter for immunization; G93.41 Metabolic encephalopathy; M62.82 Rhabdomyolysis; F43.9 Reaction to severe stress, unspecified; R55 Syncope and collapse; I25.10 Atherosclerotic heart disease of native coronary artery without angina pectoris; E78.5 Hyperlipidemia, unspecified; G89.29 Other chronic pain; M54.9 Dorsalgia, unspecified; E66.9 Obesity, unspecified; J45.909 Unspecified asthma, uncomplicated; Z96.643 Presence of artificial hip joint, bilateral; F41.9 Anxiety disorder, unspecified; F32.A Depression, unspecified; N18.2 Chronic kidney disease, stage 2 (mild); I12.9 Hypertensive chronic kidney disease with stage 1 through stage 4 chronic kidney disease, or unspecified chronic kidney disease; E11.22 Type 2 diabetes mellitus with diabetic chronic kidney disease; I08.3 Combined rheumatic disorders of mitral, aortic and tricuspid valves; I48.0 Paroxysmal atrial fibrillation; E78.00 Pure hypercholesterolemia, unspecified; Z98.890 Other specified postprocedural states; Z68.31 Body mass index [BMI] 31.0-31.9, adult; Z90.710 Acquired absence of both cervix and uterus; Z98.51 Tubal ligation status; Z95.0 Presence of cardiac pacemaker; Z79.899 Other long term (current) drug therapy; Z79.02 Long term (current) use of antithrombotics/antiplatelets; Z79.01 Long term (current) use of anticoagulants; Z88.6 Allergy status to analgesic agent; Z88.8 Allergy status to other drugs, medicaments and biological substances; Z82.49 Family history of ischemic heart disease and other diseases of the circulatory system
CPT/HCPCS: 36415; 36416; 70450; 71045; 72125; 72128; 72131; 80048; 80053; 80061; 80162; 82550; 83036; 83690; 83735; 84443; 84484; 85025; 90471; 90715; 93005; 93306; 94760; 96374; G0378; J2270; U0003; U0005

== ENCOUNTER 2021-06-03 13:07 | Outpatient (CLI) | payer MEDICARE ==
[2021-06-04 07:55] LABS: SARS-CoV-2 PCR by NAA Not Detected (NotDetected)
== END 2021-06-03 13:08 | disposition home or self-care (01) ==
LOC: LABBT 13:07
PROVIDERS: ATTEND Ophthalmology Retina Specialist
DX: Z01.812 Encounter for preprocedural laboratory examination (principal); T85.22XA Displacement of intraocular lens, initial encounter; H54.7 Unspecified visual loss; Z20.822 Contact with and (suspected) exposure to COVID-19
CPT/HCPCS: U0003; U0005

== ENCOUNTER 2021-06-06 07:01 | Day surgery (SDC) | payer MEDICARE ==
[2021-06-03 15:24] VITALS: BMI 31.4
[~2021-06-06 07:01] MED LIST: EPINEPHrine 0.3 MG in Ophthalmic Irrigation Solution 500 ML IRR SCH
[2021-06-06] MEDS ORDERED: Phenylephrine 2.5% Ophth Soln 5 ML BOT ONE (07:24)
[2021-06-06] MEDS ORDERED: Cyclopentolate 1% Opth Drop 2 ML BOT ONE (07:24)
[2021-06-06] MEDS ORDERED: Famotidine/PF 20 mg/2ml Vial ONE (08:03)
[2021-06-06] MEDS ORDERED: Famotidine 20 MG TAB ONE (08:03)
[2021-06-06] MEDS ORDERED: Fentanyl 250 MCG/5 ML VIAL ONE (08:03)
[2021-06-06] MEDS ORDERED: Ondansetron PF 4 MG/2 ML Vial ONE (08:13)
[2021-06-06] MEDS ORDERED: PROPOFOL 200 MG/20 ML VIAL ONE (08:13)
[2021-06-06] MEDS ORDERED: Lidocaine 1% PF 5 ML VIAL ONE ×2 (08:13→08:38)
[2021-06-06] MEDS ORDERED: Metoclopramide HCl 10 MG/2 ML VIAL ONE (08:13)
[2021-06-06] MEDS ORDERED: PHENYLEPHRINE-NS 100 MCG/ML 10 ML SYRINGE ONE (08:13)
[2021-06-06] MEDS ORDERED: Triamcinolone 40 MG/ML VIAL ONE (08:38)
[2021-06-06] MEDS ORDERED: Maxitrol 0.1% Opth Oint 3.5 GM TUBE ONE (08:38)
[2021-06-06] MEDS ORDERED: CEFAZOLIN 1 GM VIAL ONE (08:38)
[2021-06-06] MEDS ORDERED: Lidocaine 4% PF 5 ML AMP ONE (08:38)
[2021-06-06] MEDS ORDERED: Bupivacaine PF 0.75% SDV 10 ML ONE (08:38)
== END 2021-06-06 12:43 | disposition home or self-care (01) ==
LOC: SDC 07:01
PROVIDERS: ATTEND Ophthalmology Retina Specialist
PROC: 08T53ZZ Resection of Left Vitreous, Percutaneous Approach (ICD-10-PCS; principal; 2021-06-06)
PROC: 08PK3JZ Removal of Synthetic Substitute from Left Lens, Percutaneous Approach (ICD-10-PCS; 2021-06-06)
PROC: 08RK3JZ Replacement of Left Lens with Synthetic Substitute, Percutaneous Approach (ICD-10-PCS; 2021-06-06)
DX: T85.22XA Displacement of intraocular lens, initial encounter (principal); I10 Essential (primary) hypertension; E78.5 Hyperlipidemia, unspecified; I25.2 Old myocardial infarction; E11.9 Type 2 diabetes mellitus without complications; K21.9 Gastro-esophageal reflux disease without esophagitis; M19.90 Unspecified osteoarthritis, unspecified site; Z88.6 Allergy status to analgesic agent; Z88.8 Allergy status to other drugs, medicaments and biological substances
CPT/HCPCS: 66986; 67036; V2632; J0171; J0690; J2405; J2704; J2765; J3010; J3301; J3490; S0028

== ENCOUNTER 2021-06-21 18:29 | Emergency (ER) | payer MEDICARE ==
[2021-06-21] MEDS ORDERED: Morphine 4 MG/ML VIAL ONE (18:56)
[2021-06-21] MEDS ORDERED: Ondansetron PF 4 MG/2 ML Vial ONE (18:56)
[2021-06-21 18:58] LABS: #Eosinphils 0.1 thou/uL (0.0-0.7); #Lymphocytes 1.7 thou/uL (1.20-3.40); #Monocytes 0.6 thou/uL (0.11-0.59); #Neutrophils 3.3 thou/uL (1.40-6.50); %Basophils 0.6 % (0.0-1.0); %Eosinophils 2.5 % (0.0-10.0); %Lymphocytes 28.7 % (21.0-51.0); %Monocytes 10.9 % (0.0-10.0); %Neutrophils 57.3 % (42.0-75.0); Hemoglobin 11.5 g/dL (12.0-16.0); Mean Corpuscular HGB CONC 33.4 g/dL (32.0-36.0); Mean Corpuscular Hemoglobin 29.4 pg (27.0-31.0); Mean Corpuscular Volume 87.9 fL (78.0-98.0); Mean Platelet Volume 6.8 fL (7.4-10.4); Platelet Count 219 thou/uL (130-400); RBC Distribution Width 14.3 % (11.5-14.5); Red Blood Cell (RBC) Count 3.93 mill/uL (4.20-5.40); White Blood Cell (WBC) Count 5.8 thou/uL (4.8-10.8)
[2021-06-21 19:05] LABS: Actual Bicarbonate (HCO3v) 18 mEq/L (22-28); Analyzer IN Cardio ER; Base Excess -2.4 mEq/L (-2.0 to +3.0); Calcium, Ionized (venous) 0.93 mmol/L (1.16-1.32); Chloride (VBG) 102 mmol/L (98-106); Hemoglobin (Hb) 12.2 g/dL (11.7-16.1); Potassium (VBG) 3.99 mmol/L (3.70-5.30); Sodium 132.2 mmol/L (133-146); pH (venous) 7.54 (7.32-7.43)
[2021-06-21 19:17] LABS: ALT (SGPT) 11 U/L (8-55); AST (SGOT) 15 U/L (5-34); Alkaline Phosphatase 71 U/L (40-110); Anion Gap 14 mmol/L (10-20); BUN (Urea Nitrogen) 13 mg/dL (9.8-20.1); Bilirubin, Total 0.4 mg/dL (0.2-1.2); Calc. Creatinine Clearance 0 mL/min (70-130); Calcium 9.2 mg/dL (7.8-10.44); Carbon Dioxide 22 mmol/L (23-31); Chloride 102 mmol/L (98-107); Globulin 3.2 g/dL (2.4-3.5); Glucose 125 mg/dL (83-110); Lipase 68 U/L (8-78); Potassium 4.1 mmol/L (3.5-5.1); Protein, Total 7.2 g/dL (5.8-8.1); Sodium 134 mmol/L (136-145)
== END 2021-06-21 22:32 | disposition home or self-care (01) ==
LOC: ERS 18:29
DX: R11.2 Nausea with vomiting, unspecified (principal); E11.9 Type 2 diabetes mellitus without complications; I10 Essential (primary) hypertension; I25.10 Atherosclerotic heart disease of native coronary artery without angina pectoris; I25.2 Old myocardial infarction; E66.9 Obesity, unspecified; E78.5 Hyperlipidemia, unspecified; J45.909 Unspecified asthma, uncomplicated
CPT/HCPCS: 71045; 74176; 80053; 82805; 83690; 84484; 85025; 93005; 94760; 96374; 96375; J2270; J2405

== ENCOUNTER 2021-08-25 20:50 | Emergency (ER) | payer MEDICARE ==
[2021-08-25] MEDS ORDERED: Nitroglycerin 0.4 MG TAB 1 EACH ONE (20:59)
[2021-08-25] MEDS ORDERED: Aspirin 325 MG TAB ONE (20:59)
[2021-08-25 21:22] LABS: #Eosinphils 0.2 thou/uL (0.0-0.7); #Lymphocytes 2.5 thou/uL (1.20-3.40); #Monocytes 0.6 thou/uL (0.11-0.59); #Neutrophils 3.6 thou/uL (1.40-6.50); %Basophils 0.4 % (0.0-1.0); %Eosinophils 2.9 % (0.0-10.0); %Lymphocytes 36.6 % (21.0-51.0); %Monocytes 8.4 % (0.0-10.0); %Neutrophils 51.7 % (42.0-75.0); Hemoglobin 9.8 g/dL (12.0-16.0); Mean Corpuscular HGB CONC 33.1 g/dL (32.0-36.0); Mean Corpuscular Hemoglobin 30.7 pg (27.0-31.0); Mean Corpuscular Volume 92.9 fL (78.0-98.0); Mean Platelet Volume 6.3 fL (7.4-10.4); Platelet Count 243 thou/uL (130-400); RBC Distribution Width 13.9 % (11.5-14.5); Red Blood Cell (RBC) Count 3.18 mill/uL (4.20-5.40); White Blood Cell (WBC) Count 6.9 thou/uL (4.8-10.8)
[2021-08-25 21:30] LABS: INR-International Normal Ratio 1.1; PTT 30.9 sec (22.9-36.1)
[2021-08-25 21:43] LABS: ALT (SGPT) 8 U/L (8-55); AST (SGOT) 15 U/L (5-34); Acetaminophen Less than 10.0 mcg/mL (10.0-30.0); Albumin 3.9 g/dL (3.4-4.8); Alcohol 230 mg/dL (Less than 10); Alkaline Phosphatase 52 U/L (40-110); Anion Gap 17 mmol/L (10-20); BUN (Urea Nitrogen) 16 mg/dL (9.8-20.1); Bilirubin, Total 0.3 mg/dL (0.2-1.2); Calc. Creatinine Clearance 0 mL/min (70-130); Calcium 8.7 mg/dL (7.8-10.44); Carbon Dioxide 16 mmol/L (23-31); Chloride 100 mmol/L (98-107); Globulin 2.8 g/dL (2.4-3.5); Glucose 110 mg/dL (83-110); Magnesium 1.5 mg/dL (1.6-2.6); Potassium 3.8 mmol/L (3.5-5.1); Protein, Total 6.7 g/dL (5.8-8.1); Salicylate Less than 8.0 mg/dL (15.0-30.0); Sodium 129 mmol/L (136-145)
[2021-08-25] MEDS ORDERED: Magnesium 2 GM/50 ML BAG (IN WATER) ONE (22:45)
[2021-08-25 23:19] LABS: Bilirubin Negative (Negative); Blood, Urine Negative (Negative); Clarity Clear (Clear); Glucose, Urine (Dipstick) Normal (Negative); Ketone, Urine Negative (Negative); Leukocyte Negative Leu/uL (Negative); Nitrite Negative (Negative); Protein, Urine (Dipstick) Negative (Neg-Trace); Specific Gravity, Urine 1.007 (1.002-1.036); Urobilinogen Normal mg/dL (Less than 2)
[2021-08-25 23:51] LABS: Troponin I Less than 0.010 ng/mL (< 0.028)
== END 2021-08-26 03:55 | disposition home or self-care (01) ==
LOC: ERS 20:50
DX: S00.11XA Contusion of right eyelid and periocular area, initial encounter (principal); S40.022A Contusion of left upper arm, initial encounter; S40.021A Contusion of right upper arm, initial encounter; R07.9 Chest pain, unspecified; F10.129 Alcohol abuse with intoxication, unspecified; I10 Essential (primary) hypertension; E11.9 Type 2 diabetes mellitus without complications; I25.10 Atherosclerotic heart disease of native coronary artery without angina pectoris; I25.2 Old myocardial infarction; E78.5 Hyperlipidemia, unspecified; E66.9 Obesity, unspecified; J45.909 Unspecified asthma, uncomplicated; W10.0XXA Fall (on)(from) escalator, initial encounter; Y90.7 Blood alcohol level of 200-239 mg/100 ml; Z68.45 Body mass index [BMI] 70 or greater, adult; Z79.82 Long term (current) use of aspirin; Z79.899 Other long term (current) drug therapy; Z95.0 Presence of cardiac pacemaker
CPT/HCPCS: 36415; 70450; 71045; 72125; 80053; 80307; 81003; 83690; 83735; 84484; 85025; 85610; 85730; 93005; 96365; J3475; J3490

== ENCOUNTER 2021-10-26 11:53 | Emergency (ER) | payer MEDICARE ==
[2021-10-26 12:53] LABS: #Eosinphils 0.1 thou/uL (0.0-0.7); #Lymphocytes 1.1 thou/uL (1.20-3.40); #Monocytes 0.7 thou/uL (0.11-0.59); #Neutrophils 6.4 thou/uL (1.40-6.50); %Basophils 0.4 % (0.0-1.0); %Eosinophils 1.1 % (0.0-10.0); %Lymphocytes 13.4 % (21.0-51.0); %Monocytes 8.6 % (0.0-10.0); %Neutrophils 76.5 % (42.0-75.0); Hemoglobin 10.7 g/dL (12.0-16.0); Mean Corpuscular HGB CONC 33.7 g/dL (32.0-36.0); Mean Corpuscular Hemoglobin 29.8 pg (27.0-31.0); Mean Corpuscular Volume 88.4 fL (78.0-98.0); Mean Platelet Volume 6.8 fL (7.4-10.4); Platelet Count 265 thou/uL (130-400); RBC Distribution Width 13.1 % (11.5-14.5); White Blood Cell (WBC) Count 8.3 thou/uL (4.8-10.8)
[2021-10-26 13:06] LABS: ALT (SGPT) 9 U/L (8-55); AST (SGOT) 16 U/L (5-34); Acetaminophen Less than 10.0 mcg/mL (10.0-30.0); Albumin 4.2 g/dL (3.4-4.8); Alcohol Less than 10 mg/dL (Less than 10); Alkaline Phosphatase 68 U/L (40-110); Anion Gap 16 mmol/L (10-20); BUN (Urea Nitrogen) 15 mg/dL (9.8-20.1); Bilirubin, Total 0.5 mg/dL (0.2-1.2); CK (CPK) 124 U/L (29-168); Calc. Creatinine Clearance 0 mL/min (70-130); Calcium 9.2 mg/dL (7.8-10.44); Carbon Dioxide 23 mmol/L (23-31); Chloride 99 mmol/L (98-107); Estimated GFR 58; Globulin 2.8 g/dL (2.4-3.5); Glucose 135 mg/dL (83-110); Potassium 4.3 mmol/L (3.5-5.1); Salicylate Less than 8.0 mg/dL (15.0-30.0); Sodium 134 mmol/L (136-145)
[2021-10-26] MEDS ORDERED: Acetaminophen 500 MG TAB ONE (14:02)
[2021-10-26 14:28] LABS: Bacteria/HPF 4+ HPF (None Seen); Bilirubin Negative (Negative); Blood, Urine 1+ (Negative); Clarity Turbid (Clear); Glucose, Urine (Dipstick) Normal (Negative); Ketone, Urine Negative (Negative); Leukocyte 500 Leu/uL (Negative); Nitrite Negative (Negative); Protein, Urine (Dipstick) 20 mg/dL (Neg-Trace); Specific Gravity, Urine 1.011 (1.002-1.036); Squamous Epithelial 0-3 HPF (0-3); Urobilinogen Normal mg/dL (Less than 2); WBC/HPF Greater than 50 HPF (0-3); pH, Urine 5.5 (5.0-9.0)
[2021-10-26] MEDS ORDERED: cefTRIAXone\\ROCEPHIN 2 GM VIAL ONE (14:45)
== END 2021-10-26 16:15 | disposition home or self-care (01) ==
LOC: ERS 11:53
DX: N39.0 Urinary tract infection, site not specified (principal); E78.5 Hyperlipidemia, unspecified; I25.10 Atherosclerotic heart disease of native coronary artery without angina pectoris; I25.2 Old myocardial infarction; E11.9 Type 2 diabetes mellitus without complications; I10 Essential (primary) hypertension; J45.909 Unspecified asthma, uncomplicated; Z79.82 Long term (current) use of aspirin; Z79.899 Other long term (current) drug therapy
CPT/HCPCS: 36415; 71045; 80053; 80307; 81003; 81015; 82550; 84484; 85025; 87077; 87086; 87186; 93005; 96365; J0696

== ENCOUNTER 2021-12-03 12:12 | Inpatient (IN) | payer MEDICARE ==
[2021-12-03 12:53] LABS: #Eosinphils 0.2 thou/uL (0.0-0.7); #Lymphocytes 1.6 thou/uL (1.20-3.40); #Monocytes 0.6 thou/uL (0.11-0.59); #Neutrophils 4.8 thou/uL (1.40-6.50); %Basophils 0.5 % (0.0-1.0); %Eosinophils 2.6 % (0.0-10.0); %Lymphocytes 22.1 % (21.0-51.0); %Monocytes 8.5 % (0.0-10.0); %Neutrophils 66.3 % (42.0-75.0); Hemoglobin 10.1 g/dL (12.0-16.0); Mean Corpuscular HGB CONC 32.2 g/dL (32.0-36.0); Mean Corpuscular Hemoglobin 27.7 pg (27.0-31.0); Mean Corpuscular Volume 85.8 fL (78.0-98.0); Mean Platelet Volume 6.9 fL (7.4-10.4); Platelet Count 274 thou/uL (130-400); RBC Distribution Width 14.4 % (11.5-14.5); Red Blood Cell (RBC) Count 3.64 mill/uL (4.20-5.40); White Blood Cell (WBC) Count 7.2 thou/uL (4.8-10.8)
[2021-12-03 13:16] LABS: ALT (SGPT) 10 U/L (8-55); AST (SGOT) 20 U/L (5-34); Albumin 4.4 g/dL (3.4-4.8); Alkaline Phosphatase 63 U/L (40-110); Anion Gap 16 mmol/L (10-20); BUN (Urea Nitrogen) 14 mg/dL (9.8-20.1); Bilirubin, Total 0.5 mg/dL (0.2-1.2); Calc. Creatinine Clearance 0 mL/min (70-130); Calcium 9.4 mg/dL (7.8-10.44); Carbon Dioxide 22 mmol/L (23-31); Chloride 101 mmol/L (98-107); Estimated GFR 52; Glucose 139 mg/dL (83-110); Potassium 4.2 mmol/L (3.5-5.1); Protein, Total 7.4 g/dL (5.8-8.1); Sodium 135 mmol/L (136-145)
[2021-12-03] MEDS ORDERED: Iopamidol-370 76% 500 ML 1 ML ONE (14:37)
[2021-12-03 15:25] LABS: Bilirubin Negative (Negative); Blood, Urine Negative (Negative); Clarity Clear (Clear); Glucose, Urine (Dipstick) Normal (Negative); Ketone, Urine Negative (Negative); Leukocyte 250 Leu/uL (Negative); Nitrite Negative (Negative); Protein, Urine (Dipstick) Negative (Neg-Trace); RBC/HPF 0-3 HPF (0-3); Specific Gravity, Urine 1.009 (1.002-1.036); Squamous Epithelial 0-3 HPF (0-3); Urobilinogen Normal mg/dL (Less than 2); pH, Urine 5.5 (5.0-9.0)
[2021-12-03 15:40] LABS: Bacteria/HPF 1+ HPF (None Seen)
[2021-12-03] MEDS ORDERED: Acetaminophen 500 MG TAB ONE (16:29)
[2021-12-03] MEDS ORDERED: cefTRIAXone\\ROCEPHIN 1 GM VIAL ONE (16:29)
[2021-12-03] MEDS ORDERED: Acetaminophen 325 MG TAB PO PRN (17:34)
[2021-12-03] MEDS ORDERED: Ondansetron PF 4 MG/2 ML Vial IVP PRN (17:34)
[2021-12-03] MEDS ORDERED: HumaLOG 300 UNITS/3 ML VIAL SC PRN (17:48)
[2021-12-03] MEDS ORDERED: Dextrose 5% in Water 1,000 ML IV PRN (17:48)
[2021-12-03] MEDS ORDERED: Polyethylene Glycol 3350 17 GM Packet PO PRN (17:48)
[2021-12-03] MEDS ORDERED: Dextrose 50% Abboject 50 ML SYRINGE SLOW IVP PRN (17:48)
[2021-12-03] MEDS ORDERED: Docusate 100 MG CAP PO PRN (17:48)
[2021-12-03] MEDS: Sodium Chloride 0.9% 1,000 ML IV SCH (20:55)
[2021-12-03] MEDS: Atorvastatin Calcium 40 MG TAB PO SCH (20:57)
[2021-12-03] MEDS: Apixaban 5 MG TAB PO SCH (20:57)
[2021-12-03] MEDS: Metoprolol Tartrate 25 MG TAB PO SCH (20:58)
[2021-12-03] MEDS: busPIRone HCl 10 MG TAB PO SCH (20:58)
[2021-12-03] MEDS: Gabapentin 300 MG CAP PO SCH (20:58)
[2021-12-04] MEDS: Sodium Chloride 0.9% 1,000 ML IV SCH (05:39)
[2021-12-04 06:59] LABS: #Eosinphils 0.2 thou/uL (0.0-0.7); #Lymphocytes 1.2 thou/uL (1.20-3.40); #Monocytes 0.7 thou/uL (0.11-0.59); #Neutrophils 2.6 thou/uL (1.40-6.50); %Basophils 0.6 % (0.0-1.0); %Lymphocytes 25.9 % (21.0-51.0); %Monocytes 13.6 % (0.0-10.0); %Neutrophils 55.8 % (42.0-75.0); Hemoglobin 9.3 g/dL (12.0-16.0); Mean Corpuscular HGB CONC 32.1 g/dL (32.0-36.0); Mean Corpuscular Hemoglobin 28.2 pg (27.0-31.0); Mean Corpuscular Volume 87.9 fL (78.0-98.0); Mean Platelet Volume 6.7 fL (7.4-10.4); Platelet Count 214 thou/uL (130-400); RBC Distribution Width 14.6 % (11.5-14.5); White Blood Cell (WBC) Count 4.7 thou/uL (4.8-10.8)
[2021-12-04 07:23] LABS: Anion Gap 13 mmol/L (10-20); BUN (Urea Nitrogen) 14 mg/dL (9.8-20.1); Calc. Creatinine Clearance 97 mL/min (70-130); Calcium 8.5 mg/dL (7.8-10.44); Carbon Dioxide 23 mmol/L (23-31); Chloride 107 mmol/L (98-107); Estimated GFR 64; Glucose 93 mg/dL (83-110); Potassium 3.9 mmol/L (3.5-5.1); Sodium 139 mmol/L (136-145)
[2021-12-04] MEDS: busPIRone HCl 10 MG TAB PO SCH ×3 (09:18→21:06)
[2021-12-04] MEDS: Aspirin 81 mg Enteric Coated Tablet PO SCH (09:19)
[2021-12-04] MEDS: Metoprolol Tartrate 25 MG TAB PO SCH ×2 (09:19→21:06)
[2021-12-04] MEDS: PARoxetine 20 MG TAB PO SCH (09:20)
[2021-12-04] MEDS: Clopidogrel Bisulfate 75 MG TAB PO SCH (09:21)
[2021-12-04] MEDS: Apixaban 5 MG TAB PO SCH ×2 (09:21→21:06)
[2021-12-04] MEDS: Gabapentin 300 MG CAP PO SCH ×2 (09:22→21:07)
[2021-12-04] MEDS: cefTRIAXone\\ROCEPHIN 1 GM in Sodium Chloride 0.9% 100 ML IVPB SCH (17:54)
[2021-12-04] MEDS: HYDROcodone/Acetaminophen 5/325 mg Tablet PO PRN (18:04)
[2021-12-04] MEDS: Atorvastatin Calcium 40 MG TAB PO SCH (21:06)
[2021-12-05] MEDS: HYDROcodone/Acetaminophen 5/325 mg Tablet PO PRN ×2 (05:23→20:26)
[2021-12-05 06:03] LABS: #Eosinphils 0.2 thou/uL (0.0-0.7); #Lymphocytes 1.9 thou/uL (1.20-3.40); #Monocytes 0.7 thou/uL (0.11-0.59); #Neutrophils 3.5 thou/uL (1.40-6.50); %Basophils 0.8 % (0.0-1.0); %Eosinophils 3.7 % (0.0-10.0); %Lymphocytes 29.2 % (21.0-51.0); %Monocytes 11.1 % (0.0-10.0); %Neutrophils 55.3 % (42.0-75.0); Hemoglobin 9.3 g/dL (12.0-16.0); Mean Corpuscular HGB CONC 31.6 g/dL (32.0-36.0); Mean Corpuscular Hemoglobin 28.1 pg (27.0-31.0); Mean Corpuscular Volume 89.1 fL (78.0-98.0); Mean Platelet Volume 6.6 fL (7.4-10.4); Platelet Count 226 thou/uL (130-400); RBC Distribution Width 14.5 % (11.5-14.5); Red Blood Cell (RBC) Count 3.29 mill/uL (4.20-5.40); White Blood Cell (WBC) Count 6.4 thou/uL (4.8-10.8)
[2021-12-05 06:31] LABS: ALT (SGPT) Less than 7 U/L (8-55); AST (SGOT) 14 U/L (5-34); Albumin 3.5 g/dL (3.4-4.8); Alkaline Phosphatase 50 U/L (40-110); Anion Gap 13 mmol/L (10-20); BUN (Urea Nitrogen) 10 mg/dL (9.8-20.1); Bilirubin, Direct 0.2 mg/dL (0.1-0.3); Bilirubin, Total 0.3 mg/dL (0.2-1.2); Calc. Creatinine Clearance 89 mL/min (70-130); Calcium 8.7 mg/dL (7.8-10.44); Carbon Dioxide 25 mmol/L (23-31); Chloride 105 mmol/L (98-107); Estimated GFR 57; Glucose 101 mg/dL (83-110); Magnesium 1.6 mg/dL (1.6-2.6); Potassium 4.1 mmol/L (3.5-5.1); Protein, Total 6.1 g/dL (5.8-8.1); Sodium 139 mmol/L (136-145)
[2021-12-05] MEDS: Clopidogrel Bisulfate 75 MG TAB PO SCH (09:00)
[2021-12-05] MEDS: busPIRone HCl 10 MG TAB PO SCH ×2 (09:15→20:23)
[2021-12-05] MEDS: PARoxetine 20 MG TAB PO SCH (09:16)
[2021-12-05] MEDS: Apixaban 5 MG TAB PO SCH ×2 (09:16→20:23)
[2021-12-05] MEDS: Gabapentin 300 MG CAP PO SCH ×2 (09:17→20:25)
[2021-12-05] MEDS: Metoprolol Tartrate 25 MG TAB PO SCH ×2 (09:18→20:30)
[2021-12-05] MEDS: Aspirin 81 mg Enteric Coated Tablet PO SCH (09:18)
[2021-12-05 13:59] VITALS: BMI 32.6
[2021-12-05] MEDS: cefTRIAXone\\ROCEPHIN 1 GM in Sodium Chloride 0.9% 100 ML IVPB SCH (17:20)
[2021-12-05] MEDS: Atorvastatin Calcium 40 MG TAB PO SCH (20:23)
[2021-12-05] MEDS ORDERED: Clotrimazole 2% 3 Day Vag Cr 22.2 GM TUBE VAG SCH (21:00)
[2021-12-06 04:52] VITALS: TEMP 97.4
[2021-12-06 06:32] LABS: #Eosinphils 0.3 thou/uL (0.0-0.7); #Lymphocytes 1.7 thou/uL (1.20-3.40); #Monocytes 0.8 thou/uL (0.11-0.59); #Neutrophils 4.1 thou/uL (1.40-6.50); %Basophils 0.3 % (0.0-1.0); %Eosinophils 4.5 % (0.0-10.0); %Lymphocytes 24.9 % (21.0-51.0); %Monocytes 11.2 % (0.0-10.0); %Neutrophils 59.2 % (42.0-75.0); Hemoglobin 9.5 g/dL (12.0-16.0); Mean Corpuscular HGB CONC 30.9 g/dL (32.0-36.0); Mean Corpuscular Hemoglobin 27.5 pg (27.0-31.0); Mean Corpuscular Volume 88.9 fL (78.0-98.0); Mean Platelet Volume 6.7 fL (7.4-10.4); Platelet Count 221 thou/uL (130-400); RBC Distribution Width 14.5 % (11.5-14.5); Red Blood Cell (RBC) Count 3.44 mill/uL (4.20-5.40)
[2021-12-06 06:55] LABS: Anion Gap 13 mmol/L (10-20); BUN (Urea Nitrogen) 16 mg/dL (9.8-20.1); Calc. Creatinine Clearance 70 mL/min (70-130); Calcium 9.1 mg/dL (7.8-10.44); Carbon Dioxide 26 mmol/L (23-31); Chloride 103 mmol/L (98-107); Estimated GFR 54; Glucose 139 mg/dL (83-110); Magnesium 1.5 mg/dL (1.6-2.6); Sodium 138 mmol/L (136-145)
[2021-12-06] MEDS ORDERED: Magnesium Sulfate In Water 4 GM in Premix Bag 1 BAG IVPB SCH (07:30)
[2021-12-06] MEDS: Aspirin 81 mg Enteric Coated Tablet PO SCH (09:14)
[2021-12-06] MEDS: PARoxetine 20 MG TAB PO SCH (09:14)
[2021-12-06] MEDS: busPIRone HCl 10 MG TAB PO SCH (09:15)
[2021-12-06] MEDS: Metoprolol Tartrate 25 MG TAB PO SCH (09:16)
[2021-12-06] MEDS: Gabapentin 300 MG CAP PO SCH (09:17)
[2021-12-06] MEDS: Clopidogrel Bisulfate 75 MG TAB PO SCH (09:17)
[2021-12-06] MEDS: Apixaban 5 MG TAB PO SCH (09:17)
[2021-12-06] MEDS: HYDROcodone/Acetaminophen 5/325 mg Tablet PO PRN (09:49)
[2021-12-06] MEDS ORDERED: Cefdinir 300 MG CAP PO SCH ×2 (11:30→21:00)
[2021-12-06 13:12] VITALS: BP 131/75
== END 2021-12-06 14:47 | DRG 690 ==
LOC: ERS 12:12 → T4-B 16:28
PROVIDERS: ADMIT Internal Medicine; ATTEND Family Medicine
DX: N39.0 Urinary tract infection, site not specified (principal); I10 Essential (primary) hypertension; I25.10 Atherosclerotic heart disease of native coronary artery without angina pectoris; Z20.822 Contact with and (suspected) exposure to COVID-19; E11.9 Type 2 diabetes mellitus without complications; B96.20 Unspecified Escherichia coli [E. coli] as the cause of diseases classified elsewhere; F41.9 Anxiety disorder, unspecified; E66.9 Obesity, unspecified; M54.50 Low back pain, unspecified; E78.5 Hyperlipidemia, unspecified; G89.29 Other chronic pain; Z96.653 Presence of artificial knee joint, bilateral; F32.A Depression, unspecified; D64.9 Anemia, unspecified; Z96.643 Presence of artificial hip joint, bilateral; Z88.8 Allergy status to other drugs, medicaments and biological substances; Z79.899 Other long term (current) drug therapy; Z79.82 Long term (current) use of aspirin; Z79.02 Long term (current) use of antithrombotics/antiplatelets; Z95.5 Presence of coronary angioplasty implant and graft; Z95.0 Presence of cardiac pacemaker; Z98.51 Tubal ligation status; Z90.710 Acquired absence of both cervix and uterus; Z82.49 Family history of ischemic heart disease and other diseases of the circulatory system; Z68.32 Body mass index [BMI] 32.0-32.9, adult; I25.2 Old myocardial infarction; Z83.3 Family history of diabetes mellitus
CPT/HCPCS: 36415; 36416; 70450; 74177; 80048; 80053; 80076; 81003; 81015; 83036; 83605; 83735; 84443; 85025; 87040; 87077; 87086; 87149; 87186; 90471; 90732; 93005; 94760; 96361; 96365; G0009; J0696; J1815; J3475; J3490; J7050; Q9967; U0003; U0005

== ENCOUNTER 2022-01-01 08:41 | Emergency (ER) | payer MEDICARE ==
[2022-01-01 10:09] LABS: #Lymphocytes 1.2 thou/uL (1.20-3.40); #Monocytes 0.7 thou/uL (0.11-0.59); #Neutrophils 8.3 thou/uL (1.40-6.50); %Basophils 0.1 % (0.0-1.0); %Eosinophils 0.3 % (0.0-10.0); %Monocytes 6.9 % (0.0-10.0); %Neutrophils 80.7 % (42.0-75.0); Hemoglobin 9.9 g/dL (12.0-16.0); Mean Corpuscular HGB CONC 32.1 g/dL (32.0-36.0); Mean Corpuscular Hemoglobin 27.3 pg (27.0-31.0); Mean Corpuscular Volume 84.9 fL (78.0-98.0); Platelet Count 246 thou/uL (130-400); RBC Distribution Width 14.2 % (11.5-14.5); Red Blood Cell (RBC) Count 3.62 mill/uL (4.20-5.40); White Blood Cell (WBC) Count 10.3 thou/uL (4.8-10.8)
[2022-01-01 10:35] LABS: ALT (SGPT) 41 U/L (8-55); AST (SGOT) 49 U/L (5-34); Albumin 4.2 g/dL (3.4-4.8); Alkaline Phosphatase 63 U/L (40-110); Anion Gap 16 mmol/L (10-20); BUN (Urea Nitrogen) 16 mg/dL (9.8-20.1); Bilirubin, Total 0.3 mg/dL (0.2-1.2); CK (CPK) 77 U/L (29-168); Calc. Creatinine Clearance 0 mL/min (70-130); Carbon Dioxide 22 mmol/L (23-31); Chloride 100 mmol/L (98-107); Estimated GFR 72; Glucose 126 mg/dL (83-110); Protein, Total 7.2 g/dL (5.8-8.1); Sodium 134 mmol/L (136-145)
[2022-01-01 10:42] LABS: Bacteria/HPF 1+ HPF (None Seen); Bilirubin Negative (Negative); Blood, Urine Trace (Negative); Clarity Clear (Clear); Glucose, Urine (Dipstick) Normal (Negative); Ketone, Urine Negative (Negative); Leukocyte Negative Leu/uL (Negative); Nitrite Negative (Negative); Protein, Urine (Dipstick) 20 mg/dL (Neg-Trace); RBC/HPF None Seen HPF (0-3); Specific Gravity, Urine 1.005 (1.002-1.036); Squamous Epithelial 0-3 HPF (0-3); Urobilinogen Normal mg/dL (Less than 2); WBC/HPF 0-3 HPF (0-3)
[2022-01-01] MEDS ORDERED: Acetaminophen 500 MG TAB ONE (11:59)
[2022-01-01] MEDS ORDERED: Morphine 2 MG/ML VIAL ONE (13:14)
== END 2022-01-01 19:10 ==
LOC: ERS 08:41
DX: S02.2XXA Fracture of nasal bones, initial encounter for closed fracture (principal); I51.7 Cardiomegaly; I10 Essential (primary) hypertension; E11.9 Type 2 diabetes mellitus without complications; I25.10 Atherosclerotic heart disease of native coronary artery without angina pectoris; E78.5 Hyperlipidemia, unspecified; I25.2 Old myocardial infarction; J45.909 Unspecified asthma, uncomplicated; E66.9 Obesity, unspecified; W06.XXXA Fall from bed, initial encounter; Y92.129 Unspecified place in nursing home as the place of occurrence of the external cause; Z68.45 Body mass index [BMI] 70 or greater, adult; Z79.82 Long term (current) use of aspirin; Z79.899 Other long term (current) drug therapy
CPT/HCPCS: 70450; 70486; 71045; 72125; 72128; 72131; 73502; 80053; 82550; 84484; 85025; 93005; 96374; 99285; J2270; 36415; 81003; 81015

== ENCOUNTER 2022-02-28 08:55 | Observation (INO) | payer MEDICARE ==
[2022-02-28 09:25] LABS: #Eosinphils 0.1 thou/uL (0.0-0.7); #Lymphocytes 1.4 thou/uL (1.20-3.40); #Monocytes 0.9 thou/uL (0.11-0.59); #Neutrophils 5.6 thou/uL (1.40-6.50); %Basophils 0.4 % (0.0-1.0); %Eosinophils 1.4 % (0.0-10.0); %Lymphocytes 17.1 % (21.0-51.0); %Monocytes 11.1 % (0.0-10.0); Mean Corpuscular HGB CONC 31.8 g/dL (32.0-36.0); Mean Corpuscular Volume 88.2 fl (78.0-98.0); Mean Platelet Volume 6.8 fL (7.4-10.4); Platelet Count 299 10x3/uL (130-400); RBC Distribution Width 16.1 % (11.5-14.5); Red Blood Cell (RBC) Count 2.85 mill/uL (4.20-5.40)
[2022-02-28] MEDS ORDERED: FENTANYL 50 MCG/ML 1 ML VIAL ONE (09:31)
[2022-02-28 09:40] LABS: ALT (SGPT) 7 U/L (8-55); AST (SGOT) 14 U/L (5-34); Albumin 3.7 g/dL (3.4-4.8); Alkaline Phosphatase 59 U/L (40-110); Anion Gap 13 mmol/L (10-20); BUN (Urea Nitrogen) 14 mg/dL (9.8-20.1); Bilirubin, Total 1.1 mg/dL (0.2-1.2); Calc. Creatinine Clearance 0 mL/min (70-130); Calcium 9.1 mg/dL (7.8-10.44); Carbon Dioxide 25 mmol/L (23-31); Chloride 103 mmol/L (98-107); Estimated GFR 59; Globulin 2.9 g/dL (2.4-3.5); Glucose 187 mg/dL (83-110); Lipase 32 U/L (8-78); Potassium 4.3 mmol/L (3.5-5.1); Protein, Total 6.6 g/dL (5.8-8.1); Sodium 137 mmol/L (136-145)
[2022-02-28] MEDS ORDERED: HumaLOG 300 UNITS/3 ML VIAL SC PRN (11:19)
[2022-02-28] MEDS ORDERED: Dextrose 5% in Water 1,000 ML IV PRN (11:19)
[2022-02-28] MEDS ORDERED: Dextrose 50% Abboject 50 ML SYRINGE SLOW IVP PRN (11:19)
[2022-02-28 14:08] VITALS: BMI 33.0
[2022-02-28] MEDS ORDERED: HYDROcodone/Acetaminophen 5/325 mg Tablet PO SCH ×2 (16:00→21:15)
[2022-02-28] MEDS ORDERED: Ondansetron PF 4 MG/2 ML Vial IVP PRN (17:40)
[2022-02-28] MEDS ORDERED: Nitroglycerin 0.4 MG TAB (25 Tab Bottle) SL PRN (17:40)
[2022-02-28] MEDS ORDERED: Bisacodyl 5 MG TAB PO PRN (17:40)
[2022-02-28] MEDS ORDERED: Acetaminophen 325 MG TAB PO PRN (17:40)
[2022-02-28] MEDS: Gabapentin 300 MG CAP PO SCH (20:23)
[2022-02-28] MEDS: Metoprolol Tartrate 25 MG TAB PO SCH (20:23)
[2022-02-28] MEDS: busPIRone HCl 5 MG TAB PO SCH (20:23)
[2022-02-28] MEDS: Apixaban 5 MG TAB PO SCH (20:23)
[2022-02-28] MEDS: Atorvastatin Calcium 40 MG TAB PO SCH (20:23)
[2022-02-28] MEDS: Timolol 0.5% Ophth Soln 5 ml Bottle EA EYE SCH (21:13)
[2022-02-28] MEDS: Brimonidine Tartrate 0.2% Ophth Soln 5 ml Bottle EA EYE SCH (21:13)
[2022-03-01 05:12] LABS: ALT (SGPT) 7 U/L (8-55); AST (SGOT) 11 U/L (5-34); Albumin 3.6 g/dL (3.4-4.8); Alkaline Phosphatase 61 U/L (40-110); Anion Gap 12 mmol/L (10-20); BUN (Urea Nitrogen) 14 mg/dL (9.8-20.1); Calc. Creatinine Clearance 83 mL/min (70-130); Carbon Dioxide 27 mmol/L (23-31); Chloride 103 mmol/L (98-107); Estimated GFR 66; Globulin 2.7 g/dL (2.4-3.5); Glucose 127 mg/dL (83-110); Potassium 3.7 mmol/L (3.5-5.1); Protein, Total 6.3 g/dL (5.8-8.1); Sodium 138 mmol/L (136-145)
[2022-03-01 05:42] LABS: Anisocytosis SLIGHT = 6-15 cells (100X) (0-5/hpf); Hemoglobin 8.7 g/dL (12.0-16.0); Lymphocytes 34 % (21-51); MDiff Complete? YES; Mean Corpuscular Volume 90.4 fl (78.0-98.0); Mean Platelet Volume 6.8 fL (7.4-10.4); Monocytes 10 % (0-10); Neutrophil 55 % (42-75); Platelet Count 265 10x3/uL (130-400); Platelet Morphology Comment Appears Adequate; RBC Distribution Width 16.6 % (11.5-14.5); Reactive Lymphocytes 1 % (0-10); Stomatocytes SLIGHT = 2-5 cells (100X) (0-1/hpf); White Blood Cell (WBC) Count 6.5 10x3/uL (4.8-10.8)
[2022-03-01] MEDS: Aspirin 81 mg Enteric Coated Tablet PO SCH (09:08)
[2022-03-01] MEDS: HYDROcodone/Acetaminophen 5/325 mg Tablet PO SCH (09:08)
[2022-03-01] MEDS: PARoxetine 20 MG TAB PO SCH (09:08)
[2022-03-01] MEDS: Gabapentin 300 MG CAP PO SCH ×2 (09:09→20:27)
[2022-03-01] MEDS: Timolol 0.5% Ophth Soln 5 ml Bottle EA EYE SCH ×2 (09:10→20:27)
[2022-03-01] MEDS: busPIRone HCl 5 MG TAB PO SCH ×2 (09:10→20:27)
[2022-03-01] MEDS: Clopidogrel Bisulfate 75 MG TAB PO SCH (09:10)
[2022-03-01] MEDS: Apixaban 5 MG TAB PO SCH ×2 (09:10→20:26)
[2022-03-01] MEDS: Metoprolol Tartrate 25 MG TAB PO SCH ×2 (09:10→20:27)
[2022-03-01] MEDS: Brimonidine Tartrate 0.2% Ophth Soln 5 ml Bottle EA EYE SCH ×2 (09:10→20:27)
[2022-03-01] MEDS: Atorvastatin Calcium 40 MG TAB PO SCH (20:26)
[2022-03-02] MEDS: Clopidogrel Bisulfate 75 MG TAB PO SCH (08:04)
[2022-03-02] MEDS: HYDROcodone/Acetaminophen 5/325 mg Tablet PO SCH (08:04)
[2022-03-02] MEDS: PARoxetine 20 MG TAB PO SCH (08:05)
[2022-03-02] MEDS: busPIRone HCl 5 MG TAB PO SCH (08:05)
[2022-03-02] MEDS: Metoprolol Tartrate 25 MG TAB PO SCH (08:05)
[2022-03-02] MEDS: Aspirin 81 mg Enteric Coated Tablet PO SCH (08:05)
[2022-03-02] MEDS: Gabapentin 300 MG CAP PO SCH (08:06)
[2022-03-02] MEDS: Apixaban 5 MG TAB PO SCH (08:06)
[2022-03-02] MEDS: Timolol 0.5% Ophth Soln 5 ml Bottle EA EYE SCH (08:06)
[2022-03-02] MEDS: Brimonidine Tartrate 0.2% Ophth Soln 5 ml Bottle EA EYE SCH (08:06)
[2022-03-02 13:29] VITALS: BP 117/60; TEMP 97.2
== END 2022-03-02 17:36 | disposition home or self-care (01) ==
LOC: ERS 08:55 → ERHOLD 10:32 → 2NO 15:02
PROVIDERS: ADMIT Internal Medicine; ATTEND Internal Medicine
DX: R07.89 Other chest pain (principal); I25.10 Atherosclerotic heart disease of native coronary artery without angina pectoris; E11.9 Type 2 diabetes mellitus without complications; I10 Essential (primary) hypertension; E78.5 Hyperlipidemia, unspecified; G89.29 Other chronic pain; M54.9 Dorsalgia, unspecified; M19.90 Unspecified osteoarthritis, unspecified site; I25.2 Old myocardial infarction; J45.909 Unspecified asthma, uncomplicated; K80.20 Calculus of gallbladder without cholecystitis without obstruction; I08.1 Rheumatic disorders of both mitral and tricuspid valves; I48.0 Paroxysmal atrial fibrillation; I49.5 Sick sinus syndrome; R29.6 Repeated falls; D64.9 Anemia, unspecified; E66.9 Obesity, unspecified; Z68.33 Body mass index [BMI] 33.0-33.9, adult; Z79.01 Long term (current) use of anticoagulants; Z79.02 Long term (current) use of antithrombotics/antiplatelets; Z79.82 Long term (current) use of aspirin; Z79.84 Long term (current) use of oral hypoglycemic drugs; Z79.899 Other long term (current) drug therapy; Z88.6 Allergy status to analgesic agent; Z88.8 Allergy status to other drugs, medicaments and biological substances; Z95.0 Presence of cardiac pacemaker; Z95.5 Presence of coronary angioplasty implant and graft; Z20.822 Contact with and (suspected) exposure to COVID-19
CPT/HCPCS: 71045; 76705; 80053 ×2; 82962 ×3; 83690; 84484 ×2; 85025 ×2; 93005; 93306; 94760 ×3; 96374; 97116; 99285; J3010; U0003; U0005; 36415; 36416; G0378; J1815

== ENCOUNTER 2022-05-10 16:31 | Emergency (ER) | payer MEDICARE ==
[~2022-05-10 16:31] MED LIST changes: -EPINEPHrine 0.3 MG in Ophthalmic Irrigation Solution 500 ML IRR SCH; +Iopamidol-370 76% 500 ML 1 ML ONE
[2022-05-10 17:10] LABS: #Eosinphils 0.1 thou/uL (0.0-0.7); #Lymphocytes 1.2 thou/uL (1.20-3.40); #Monocytes 0.8 thou/uL (0.11-0.59); #Neutrophils 6.9 thou/uL (1.40-6.50); %Basophils 0.3 % (0.0-1.0); %Eosinophils 0.6 % (0.0-10.0); %Lymphocytes 13.1 % (21.0-51.0); %Monocytes 9.2 % (0.0-10.0); %Neutrophils 76.9 % (42.0-75.0); Hemoglobin 10.5 g/dL (12.0-16.0); Mean Corpuscular HGB CONC 33.9 g/dL (32.0-36.0); Mean Corpuscular Hemoglobin 28.3 pg (27.0-31.0); Mean Corpuscular Volume 83.3 fl (78.0-98.0); Mean Platelet Volume 6.9 fL (7.4-10.4); Platelet Count 326 10x3/uL (130-400); RBC Distribution Width 14.1 % (11.5-14.5); Red Blood Cell (RBC) Count 3.72 mill/uL (4.20-5.40)
[2022-05-10] MEDS ORDERED: Acetaminophen 500 MG TAB ONE (17:28)
[2022-05-10 17:32] LABS: ALT (SGPT) 11 U/L (8-55); AST (SGOT) 17 U/L (5-34); Alkaline Phosphatase 58 U/L (40-110); Anion Gap 16 mmol/L (10-20); BUN (Urea Nitrogen) 15 mg/dL (9.8-20.1); Bilirubin, Total 0.5 mg/dL (0.2-1.2); CK (CPK) 146 U/L (29-168); Calc. Creatinine Clearance 0 mL/min (70-130); Calcium 9.2 mg/dL (7.8-10.44); Carbon Dioxide 24 mmol/L (23-31); Chloride 105 mmol/L (98-107); Estimated GFR 66; Globulin 3.2 g/dL (2.4-3.5); Glucose 148 mg/dL (83-110); Lipase 26 U/L (8-78); Potassium 4.1 mmol/L (3.5-5.1); Protein, Total 7.2 g/dL (5.8-8.1); Sodium 141 mmol/L (136-145)
== END 2022-05-10 20:05 | disposition home or self-care (01) ==
LOC: ERS 16:31
DX: M54.9 Dorsalgia, unspecified (principal); G89.29 Other chronic pain; W06.XXXA Fall from bed, initial encounter; E78.5 Hyperlipidemia, unspecified; E11.9 Type 2 diabetes mellitus without complications; I10 Essential (primary) hypertension; E66.9 Obesity, unspecified
CPT/HCPCS: 70450; 71260; 72125; 74177; 80053; 82550; 83690; 84484; 85025; 93005; Q9967

== ENCOUNTER 2022-06-10 13:19 | Inpatient (IN) | payer MEDICARE ==
[2022-06-10 14:14] LABS: Hemoglobin 9.3 g/dL (12.0-16.0); Mean Corpuscular HGB CONC 33.6 g/dL (32.0-36.0); Mean Corpuscular Hemoglobin 27.6 pg (27.0-31.0); Mean Corpuscular Volume 81.9 fl (78.0-98.0); Mean Platelet Volume 7.4 fL (7.4-10.4); Platelet Count 266 10x3/uL (130-400); RBC Distribution Width 14.8 % (11.5-14.5); Red Blood Cell (RBC) Count 3.38 mill/uL (4.20-5.40); White Blood Cell (WBC) Count 5.2 10x3/uL (4.8-10.8)
[2022-06-10 14:32] LABS: Band 1 % (5-11); Eosinophils 1 % (0-10); Lymphocytes 20 % (21-51); MDiff Complete? YES; Monocytes 10 % (0-10); Neutrophil 65 % (42-75); Platelet Morphology Comment Appears Adequate; Polychromasia SLIGHT = 2-3 cells (100X) (0-2/hpf); Reactive Lymphocytes 2 % (0-10)
[2022-06-10 14:33] LABS: ALT (SGPT) 9 U/L (8-55); AST (SGOT) 16 U/L (5-34); Albumin 3.9 g/dL (3.4-4.8); Alkaline Phosphatase 59 U/L (40-110); Anion Gap 14 mmol/L (10-20); BUN (Urea Nitrogen) 8 mg/dL (9.8-20.1); Bilirubin, Total 0.4 mg/dL (0.2-1.2); Calc. Creatinine Clearance 0 mL/min (70-130); Carbon Dioxide 22 mmol/L (23-31); Chloride 106 mmol/L (98-107); Estimated GFR 78; Globulin 2.7 g/dL (2.4-3.5); Glucose 105 mg/dL (83-110); Lipase 41 U/L (8-78); Potassium 4.6 mmol/L (3.5-5.1); Protein, Total 6.6 g/dL (5.8-8.1); Sodium 137 mmol/L (136-145)
[2022-06-10] MEDS ORDERED: Ondansetron PF 4 MG/2 ML Vial ONE (14:34)
[2022-06-10] MEDS ORDERED: Acetaminophen 500 MG TAB ONE (14:34)
[2022-06-10 15:13] LABS: Bilirubin Negative (Negative); Blood, Urine Negative (Negative); Clarity Clear (Clear); Glucose, Urine (Dipstick) Normal (Negative); Ketone, Urine Negative (Negative); Leukocyte 75 Leu/uL (Negative); Nitrite Negative (Negative); Protein, Urine (Dipstick) Negative (Neg-Trace); RBC/HPF 0-3 HPF (0-3); Specific Gravity, Urine 1.006 (1.002-1.036); Squamous Epithelial 0-3 HPF (0-3); Urobilinogen Normal mg/dL (Less than 2)
[2022-06-10 15:14] LABS: Bacteria/HPF 1+ HPF (None Seen)
[2022-06-10] MEDS ORDERED: Morphine 4 MG/ML VIAL ONE (15:25)
[2022-06-10] MEDS ORDERED: cefTRIAXone\\ROCEPHIN 2 GM VIAL ONE (15:28)
[2022-06-10 16:12] LABS: SARS-CoV-2 NAA Rapid Test DETECTED (NotDetected)
[2022-06-10 18:21] LABS: Troponin I Less than 0.010 ng/mL (< 0.028)
[2022-06-10] MEDS ORDERED: Ondansetron PF 4 MG/2 ML Vial IVP PRN (20:00)
[2022-06-10] MEDS ORDERED: Acetaminophen 325 MG TAB PO PRN (20:00)
[2022-06-10] MEDS ORDERED: Ondansetron ODT 4 MG TAB SL PRN (20:00)
[2022-06-10] MEDS ORDERED: Senokot S 8.6-50 MG TAB PO PRN (20:37)
[2022-06-10 22:05] LABS: Troponin I Less than 0.010 ng/mL (< 0.028)
[2022-06-10] MEDS: Sodium Chloride 0.9% 1,000 ML IV SCH (22:28)
[2022-06-10] MEDS: Amlodipine 10 MG TAB PO SCH (22:29)
[2022-06-10] MEDS: busPIRone HCl 10 MG TAB PO SCH (22:30)
[2022-06-10] MEDS: Metoprolol Tartrate 25 MG TAB PO SCH (22:31)
[2022-06-10] MEDS: Apixaban 5 MG TAB PO SCH (22:31)
[2022-06-10] MEDS: Atorvastatin Calcium 40 MG TAB PO SCH (22:32)
[2022-06-10] MEDS: Gabapentin 300 MG CAP PO SCH (22:32)
[2022-06-10] MEDS: Famotidine 20 MG TAB PO SCH (22:33)
[2022-06-11] MEDS: Sodium Chloride 0.9% 1,000 ML IV SCH (04:33)
[2022-06-11 05:33] LABS: Anion Gap 9 mmol/L (10-20); BUN (Urea Nitrogen) 9 mg/dL (9.8-20.1); Calc. Creatinine Clearance 0 mL/min (70-130); Calcium 8.2 mg/dL (7.8-10.44); Carbon Dioxide 25 mmol/L (23-31); Chloride 109 mmol/L (98-107); Estimated GFR 80; Glucose 91 mg/dL (83-110); Potassium 4.1 mmol/L (3.5-5.1); Sodium 139 mmol/L (136-145)
[2022-06-11] MEDS: Famotidine 20 MG TAB PO SCH ×2 (10:17→21:27)
[2022-06-11] MEDS: Gabapentin 300 MG CAP PO SCH ×2 (10:18→21:28)
[2022-06-11] MEDS: metFORMIN 500 MG TAB PO SCH (10:18)
[2022-06-11] MEDS: HYDROcodone/Acetaminophen 5/325 mg Tablet PO SCH (10:19)
[2022-06-11] MEDS: Aspirin 81 mg Enteric Coated Tablet PO SCH (10:19)
[2022-06-11] MEDS: busPIRone HCl 10 MG TAB PO SCH ×2 (10:20→21:28)
[2022-06-11] MEDS: Metoprolol Tartrate 25 MG TAB PO SCH ×2 (10:21→21:29)
[2022-06-11] MEDS: PARoxetine 20 MG TAB PO SCH (10:22)
[2022-06-11] MEDS: Cholecalciferol 1,000 UNITS (25 MCG) TAB PO SCH (10:22)
[2022-06-11] MEDS: Apixaban 5 MG TAB PO SCH ×2 (10:22→21:29)
[2022-06-11] MEDS: Amlodipine 10 MG TAB PO SCH (21:26)
[2022-06-11] MEDS: Atorvastatin Calcium 40 MG TAB PO SCH (21:29)
[2022-06-12 04:33] LABS: #Eosinphils 0.1 thou/uL (0.0-0.7); #Lymphocytes 1.7 thou/uL (1.20-3.40); #Monocytes 0.8 thou/uL (0.11-0.59); #Neutrophils 3.4 thou/uL (1.40-6.50); %Basophils 0.4 % (0.0-1.0); %Eosinophils 2.4 % (0.0-10.0); %Lymphocytes 27.8 % (21.0-51.0); %Monocytes 13.5 % (0.0-10.0); %Neutrophils 55.9 % (42.0-75.0); Hemoglobin 8.5 g/dL (12.0-16.0); Mean Corpuscular HGB CONC 32.3 g/dL (32.0-36.0); Mean Corpuscular Hemoglobin 27.2 pg (27.0-31.0); Mean Corpuscular Volume 84.2 fl (78.0-98.0); Mean Platelet Volume 7.4 fL (7.4-10.4); Platelet Count 253 10x3/uL (130-400); RBC Distribution Width 15.1 % (11.5-14.5); Red Blood Cell (RBC) Count 3.14 mill/uL (4.20-5.40)
[2022-06-12 04:49] LABS: Anion Gap 9 mmol/L (10-20); BUN (Urea Nitrogen) 17 mg/dL (9.8-20.1); Calc. Creatinine Clearance 0 mL/min (70-130); Calcium 8.9 mg/dL (7.8-10.44); Carbon Dioxide 26 mmol/L (23-31); Chloride 106 mmol/L (98-107); Estimated GFR 60; Glucose 116 mg/dL (83-110); Potassium 4.4 mmol/L (3.5-5.1); Sodium 137 mmol/L (136-145)
[2022-06-12] MEDS ORDERED: Lidocaine 5% Patch TD SCH (09:00)
[2022-06-12] MEDS: busPIRone HCl 10 MG TAB PO SCH (10:11)
[2022-06-12] MEDS: Aspirin 81 mg Enteric Coated Tablet PO SCH (10:11)
[2022-06-12] MEDS: PARoxetine 20 MG TAB PO SCH (10:11)
[2022-06-12] MEDS: Metoprolol Tartrate 25 MG TAB PO SCH (10:11)
[2022-06-12] MEDS: Apixaban 5 MG TAB PO SCH (10:12)
[2022-06-12] MEDS: HYDROcodone/Acetaminophen 5/325 mg Tablet PO SCH (10:12)
[2022-06-12] MEDS: Gabapentin 300 MG CAP PO SCH (10:12)
[2022-06-12] MEDS: Famotidine 20 MG TAB PO SCH (10:12)
[2022-06-12] MEDS: Cholecalciferol 1,000 UNITS (25 MCG) TAB PO SCH (10:12)
[2022-06-12] MEDS: metFORMIN 500 MG TAB PO SCH (10:12)
[2022-06-12] MEDS ORDERED: Cefdinir 300 MG CAP PO SCH ×2 (12:00→21:00)
[2022-06-12 15:41] VITALS: BP 126/63; TEMP 98.1
[2022-06-12] MEDS ORDERED: Transdermal Patch Removal TOP SCH (21:00)
== END 2022-06-12 17:10 | disposition home health service (06) | DRG 689 ==
LOC: ERS 13:19 → ERHOLD 17:22 → 2NO 20:04
PROVIDERS: ADMIT Family Medicine; ATTEND Internal Medicine
PROC: 8E0ZXY6 Isolation (ICD-10-PCS; principal; 2022-06-10)
DX: N39.0 Urinary tract infection, site not specified (principal); U07.1 COVID-19; R53.81 Other malaise; E11.9 Type 2 diabetes mellitus without complications; I10 Essential (primary) hypertension; E78.5 Hyperlipidemia, unspecified; I25.10 Atherosclerotic heart disease of native coronary artery without angina pectoris; M19.90 Unspecified osteoarthritis, unspecified site; G89.29 Other chronic pain; M54.9 Dorsalgia, unspecified; Z96.653 Presence of artificial knee joint, bilateral; Z96.643 Presence of artificial hip joint, bilateral; E86.0 Dehydration; E66.9 Obesity, unspecified; J45.909 Unspecified asthma, uncomplicated; F41.9 Anxiety disorder, unspecified; F32.A Depression, unspecified; I49.5 Sick sinus syndrome; I48.0 Paroxysmal atrial fibrillation; Z79.899 Other long term (current) drug therapy; Z95.0 Presence of cardiac pacemaker; Z95.5 Presence of coronary angioplasty implant and graft; Z90.710 Acquired absence of both cervix and uterus; Z98.890 Other specified postprocedural states; Z79.01 Long term (current) use of anticoagulants; Z79.82 Long term (current) use of aspirin; Z88.8 Allergy status to other drugs, medicaments and biological substances; Z79.84 Long term (current) use of oral hypoglycemic drugs; I25.2 Old myocardial infarction; Z79.02 Long term (current) use of antithrombotics/antiplatelets
CPT/HCPCS: 36415; 36416; 51701; 71045; 71275; 80048; 80053; 81003; 81015; 83605; 83690; 83880; 84484; 85025; 93005; 96374; 96375; J0696; J2270; J2405; J7050; Q9967

== ENCOUNTER 2022-07-11 21:17 | Emergency (ER) | payer MEDICARE ==
[~2022-07-11 21:17] MED LIST changes: -Iopamidol-370 76% 500 ML 1 ML ONE; +Iopamidol-370 76% 500 ML MDV (1 ML CHARGE) ONE
[2022-07-11] MEDS ORDERED: HYDROcodone/Acetaminophen 5/325 mg Tablet ONE (22:26)
[2022-07-11 22:53] LABS: #Eosinphils 0.3 thou/uL (0.0-0.7); #Lymphocytes 1.6 thou/uL (1.20-3.40); %Basophils 0.3 % (0.0-1.0); %Eosinophils 3.1 % (0.0-10.0); %Lymphocytes 18.4 % (21.0-51.0); %Monocytes 10.9 % (0.0-10.0); %Neutrophils 67.4 % (42.0-75.0); Mean Corpuscular HGB CONC 32.8 g/dL (32.0-36.0); Mean Corpuscular Hemoglobin 31.5 pg (27.0-31.0); Mean Corpuscular Volume 95.8 fl (78.0-98.0); Platelet Count 253 10x3/uL (130-400); RBC Distribution Width 18.5 % (11.5-14.5); Red Blood Cell (RBC) Count 3.48 mill/uL (4.20-5.40); White Blood Cell (WBC) Count 8.9 10x3/uL (4.8-10.8)
[2022-07-11 23:06] LABS: ALT (SGPT) 12 U/L (8-55); AST (SGOT) 17 U/L (5-34); Albumin 3.4 g/dL (3.4-4.8); Alkaline Phosphatase 88 U/L (40-110); Anion Gap 13 mmol/L (10-20); BUN (Urea Nitrogen) 18 mg/dL (9.8-20.1); Bilirubin, Total 0.4 mg/dL (0.2-1.2); Calc. Creatinine Clearance 0 mL/min (70-130); Carbon Dioxide 24 mmol/L (23-31); Chloride 103 mmol/L (98-107); Estimated GFR 82; Globulin 2.8 g/dL (2.4-3.5); Glucose 169 mg/dL (83-110); Potassium 3.7 mmol/L (3.5-5.1); Protein, Total 6.2 g/dL (5.8-8.1); Sodium 136 mmol/L (136-145)
== END 2022-07-12 01:39 ==
LOC: ERS 21:17
DX: M50.30 Other cervical disc degeneration, unspecified cervical region (principal); R07.9 Chest pain, unspecified; E78.5 Hyperlipidemia, unspecified; I25.10 Atherosclerotic heart disease of native coronary artery without angina pectoris; E11.9 Type 2 diabetes mellitus without complications; I10 Essential (primary) hypertension; E66.9 Obesity, unspecified
CPT/HCPCS: 36415; 71045; 71275; 72125; 80053; 84484; 85025; 93005; Q9967

== ENCOUNTER 2023-01-25 10:32 | Emergency (ER) | payer MEDICARE ==
[2023-01-25 11:35] LABS: #Eosinphils 0.1 thou/uL (0.0-0.7); #Neutrophils 7.5 thou/uL (1.40-6.50); %Basophils 0.4 % (0.0-1.0); %Eosinophils 0.9 % (0.0-10.0); %Lymphocytes 12.1 % (21.0-51.0); %Monocytes 10.5 % (0.0-10.0); %Neutrophils 75.7 % (42.0-75.0); Hematocrit 33.6 % (36.0-47.0); Hemoglobin 11.7 g/dL (12.0-16.0); Mean Corpuscular HGB CONC 34.8 g/dL (32.0-36.0); Mean Corpuscular Hemoglobin 33.1 pg (27.0-31.0); Mean Corpuscular Volume 95.2 fl (78.0-98.0); Mean Platelet Volume 9.1 fL (7.4-10.4); Platelet Count 220 10x3/uL (130-400); Red Blood Cell (RBC) Count 3.53 mill/uL (4.20-5.40); White Blood Cell (WBC) Count 9.9 10x3/uL (4.8-10.8)
[2023-01-25] MEDS ORDERED: Ondansetron PF 4 MG/2 ML Vial ONE (11:48)
[2023-01-25] MEDS ORDERED: Morphine 4 MG/ML VIAL ONE ×2 (11:48→14:33)
[2023-01-25 11:57] LABS: ALT (SGPT) 13 U/L (8-55); AST (SGOT) 19 U/L (5-34); Albumin 4.1 g/dL (3.4-4.8); Alkaline Phosphatase 73 U/L (40-110); Anion Gap 18 mmol/L (10-20); BUN (Urea Nitrogen) 7 mg/dL (9.8-20.1); Bilirubin, Total 0.3 mg/dL (0.2-1.2); Calc. Creatinine Clearance 0 mL/min (70-130); Calcium 9.5 mg/dL (7.8-10.44); Carbon Dioxide 23 mmol/L (23-31); Chloride 98 mmol/L (98-107); Estimated GFR 76; Globulin 2.9 g/dL (2.4-3.5); Glucose 125 mg/dL (83-110); Potassium 3.8 mmol/L (3.5-5.1); Sodium 135 mmol/L (136-145)
[2023-01-25 12:02] LABS: Troponin I Less than 0.010 ng/mL (< 0.028)
[2023-01-25 12:54] LABS: Bacteria/HPF 1+ HPF (None Seen); Bilirubin Negative (Negative); Blood, Urine Negative (Negative); CAUTI Indications for Culture < 2yrs of age; Clarity Clear (Clear); Glucose, Urine (Dipstick) Normal (Negative); Ketone, Urine Negative (Negative); Leukocyte 25 Leu/uL (Negative); Nitrite Negative (Negative); Protein, Urine (Dipstick) Negative (Neg-Trace); RBC/HPF 0-3 HPF (0-3); Specific Gravity, Urine 1.005 (1.002-1.036); Squamous Epithelial 0-3 HPF (0-3); Urobilinogen Normal mg/dL (Less than 2); WBC/HPF 0-3 HPF (0-3); pH, Urine 6.5 (5.0-9.0)
[2023-01-25 12:55] LABS: Urine Culture Reflex Yes Yes
== END 2023-01-25 17:29 | disposition home or self-care (01) ==
LOC: ERS 10:32
DX: M54.9 Dorsalgia, unspecified (principal); G89.29 Other chronic pain; M54.2 Cervicalgia; E11.9 Type 2 diabetes mellitus without complications; I10 Essential (primary) hypertension; K21.9 Gastro-esophageal reflux disease without esophagitis
CPT/HCPCS: 36415; 70450; 72125; 80053; 81001; 84484; 85025; 87077; 87086; 87186; 93005; 96374; 96375; 96376; J2270; J2405

== ENCOUNTER 2023-01-27 14:14 | Outpatient (CLI) | payer MEDICARE | END 2023-01-27 14:15 | disposition home or self-care (01) | LOC: RAD 14:14 | PROVIDERS: ATTEND Neurological Surgery | DX: M47.12 Other spondylosis with myelopathy, cervical region (principal) | CPT/HCPCS: 71045 ==

== ENCOUNTER 2023-01-29 10:04 | Emergency (ER) | payer MEDICARE ==
[2023-01-29] MEDS ORDERED: Methocarbamol 500 MG TAB PO SCH (12:45)
[2023-01-29] MEDS ORDERED: HYDROcodone/Acetaminophen 5/325 mg Tablet ONE ×2 (12:58→13:29)
== END 2023-01-29 15:05 | disposition home or self-care (01) ==
LOC: ERS 10:04
DX: G89.29 Other chronic pain (principal); M54.9 Dorsalgia, unspecified; E11.9 Type 2 diabetes mellitus without complications; K21.9 Gastro-esophageal reflux disease without esophagitis; I10 Essential (primary) hypertension
CPT/HCPCS: 99283

== ENCOUNTER 2023-02-28 03:48 | Emergency (ER) | payer MEDICARE ==
[2023-02-28] MEDS ORDERED: Ondansetron PF 4 MG/2 ML Vial ONE (04:34)
[2023-02-28] MEDS ORDERED: Morphine 4 MG/ML VIAL ONE (04:34)
[2023-02-28 05:20] LABS: #Eosinphils 0.1 thou/uL (0.0-0.7); #Monocytes 0.4 thou/uL (0.11-0.59); #Neutrophils 8.7 thou/uL (1.40-6.50); %Basophils 0.2 % (0.0-1.0); %Eosinophils 0.5 % (0.0-10.0); %Lymphocytes 6.1 % (21.0-51.0); %Neutrophils 88.9 % (42.0-75.0); Hematocrit 34.8 % (36.0-47.0); Hemoglobin 12.2 g/dL (12.0-16.0); Mean Corpuscular HGB CONC 35.1 g/dL (32.0-36.0); Mean Corpuscular Hemoglobin 32.8 pg (27.0-31.0); Mean Corpuscular Volume 93.5 fl (78.0-98.0); Mean Platelet Volume 9.2 fL (7.4-10.4); Platelet Count 174 10x3/uL (130-400); RBC Distribution Width 12.4 % (11.5-14.5); Red Blood Cell (RBC) Count 3.72 mill/uL (4.20-5.40); White Blood Cell (WBC) Count 9.7 10x3/uL (4.8-10.8)
[2023-02-28 05:35] LABS: SARS-CoV-2 NAA Rapid Test Not Detected (NotDetected)
[2023-02-28 05:47] LABS: Troponin I Less than 0.010 ng/mL (< 0.028)
[2023-02-28 05:50] LABS: ALT (SGPT) 9 U/L (8-55); AST (SGOT) 27 U/L (5-34); Albumin 4.6 g/dL (3.4-4.8); Alkaline Phosphatase 70 U/L (40-110); Anion Gap 17 mmol/L (10-20); BUN (Urea Nitrogen) 11 mg/dL (9.8-20.1); CK (CPK) 275 U/L (29-168); Calc. Creatinine Clearance 0 mL/min (70-130); Calcium 9.7 mg/dL (7.8-10.44); Carbon Dioxide 25 mmol/L (23-31); Chloride 98 mmol/L (98-107); Estimated GFR 70; Globulin 3.3 g/dL (2.4-3.5); Glucose 128 mg/dL (83-110); Lipase 20 U/L (8-78); Potassium 4.7 mmol/L (3.5-5.1); Protein, Total 7.9 g/dL (5.8-8.1); Sodium 135 mmol/L (136-145)
[2023-02-28 05:56] LABS: Bilirubin Negative (Negative); Blood, Urine 1+ (Negative); Clarity Clear (Clear); Glucose, Urine (Dipstick) Normal (Negative); Ketone, Urine Negative (Negative); Leukocyte 500 Leu/uL (Negative); Nitrite Negative (Negative); Protein, Urine (Dipstick) 10 mg/dL (Neg-Trace); Specific Gravity, Urine 1.006 (1.002-1.036); Urobilinogen Normal mg/dL (Less than 2); pH, Urine 7.5 (5.0-9.0)
[2023-02-28 06:07] LABS: Bacteria/HPF 4+ HPF (None Seen)
[2023-02-28 06:08] LABS: CAUTI Indications for Culture Dysuria,urgency,freq; RBC/HPF 0-3 HPF (0-3); Squamous Epithelial 0-3 HPF (0-3)
[2023-02-28 06:09] LABS: Urine Culture Reflex Yes Yes
[2023-02-28] MEDS ORDERED: cefTRIAXone (ROCEPHIN) 1 GM VIAL ONE (06:16)
[2023-02-28] MEDS ORDERED: Sodium Chloride 0.9% 100 ML ONE (06:17)
[2023-02-28] MEDS ORDERED: Acetaminophen 500 MG TAB ONE (07:30)
== END 2023-02-28 08:11 | disposition home or self-care (01) ==
LOC: ERS 03:48
DX: S30.810A Abrasion of lower back and pelvis, initial encounter (principal); N39.0 Urinary tract infection, site not specified; W18.30XA Fall on same level, unspecified, initial encounter
CPT/HCPCS: 0240U; 51701; 71045; 72131; 80053; 81001; 82550; 83690; 84484; 85025; 87077; 87086; 87186; 93005; 96365; 96375; 99284; J0696; J2270; J2405; J3490

== ENCOUNTER 2023-03-10 13:23 | Emergency (ER) | payer MEDICARE ==
[2023-03-10] MEDS ORDERED: fentaNYL 50 mcg/mL 1 mL Vial ONE (13:47)
[2023-03-10 13:52] LABS: #Eosinphils 0.1 thou/uL (0.0-0.7); #Monocytes 0.6 thou/uL (0.11-0.59); #Neutrophils 5.9 thou/uL (1.40-6.50); %Basophils 0.5 % (0.0-1.0); %Eosinophils 0.6 % (0.0-10.0); %Lymphocytes 17.3 % (21.0-51.0); %Monocytes 7.4 % (0.0-10.0); %Neutrophils 73.9 % (42.0-75.0); Hematocrit 35.6 % (36.0-47.0); Hemoglobin 12.4 g/dL (12.0-16.0); Mean Corpuscular HGB CONC 34.8 g/dL (32.0-36.0); Mean Corpuscular Hemoglobin 32.5 pg (27.0-31.0); Mean Corpuscular Volume 93.4 fl (78.0-98.0); Platelet Count 274 10x3/uL (130-400); RBC Distribution Width 12.4 % (11.5-14.5); Red Blood Cell (RBC) Count 3.81 mill/uL (4.20-5.40)
[2023-03-10] MEDS ORDERED: Iopamidol-370 76% 500 ML MDV (1 ML CHARGE) ONE (13:53)
[2023-03-10 14:20] LABS: ALT (SGPT) 10 U/L (8-55); AST (SGOT) 19 U/L (5-34); Albumin 4.3 g/dL (3.4-4.8); Alkaline Phosphatase 72 U/L (40-110); Anion Gap 17 mmol/L (10-20); BUN (Urea Nitrogen) 15 mg/dL (9.8-20.1); Bilirubin, Total 0.9 mg/dL (0.2-1.2); Calc. Creatinine Clearance 0 mL/min (70-130); Calcium 9.7 mg/dL (7.8-10.44); Carbon Dioxide 21 mmol/L (23-31); Chloride 103 mmol/L (98-107); Estimated GFR 61; Globulin 3.2 g/dL (2.4-3.5); Glucose 125 mg/dL (83-110); Lipase 21 U/L (8-78); Potassium 4.1 mmol/L (3.5-5.1); Protein, Total 7.5 g/dL (5.8-8.1); Sodium 137 mmol/L (136-145)
[2023-03-10 14:25] LABS: Troponin I Less than 0.010 ng/mL (< 0.028)
[2023-03-10 15:16] LABS: Bacteria/HPF None Seen HPF (None Seen); Bilirubin Negative (Negative); Blood, Urine Negative (Negative); CAUTI Indications for Culture Dysuria,urgency,freq; Clarity Clear (Clear); Glucose, Urine (Dipstick) Normal (Negative); Ketone, Urine Negative (Negative); Leukocyte Negative Leu/uL (Negative); Nitrite Negative (Negative); Protein, Urine (Dipstick) 20 mg/dL (Neg-Trace); RBC/HPF 0-3 HPF (0-3); Specific Gravity, Urine 1.036 (1.002-1.036); Squamous Epithelial 0-3 HPF (0-3); Urobilinogen 3 mg/dL (Less than 2); WBC/HPF 0-3 HPF (0-3); pH, Urine 7.5 (5.0-9.0)
[2023-03-10 15:27] LABS: Amphetamine Not Detected (NotDetected); Barbiturates Screen Not Detected (NotDetected); Benzodiazepine Screen Not Detected (NotDetected); Cocaine Metabolite Screen Not Detected (NotDetected); Methadone Not Detected (NotDetected); Methamphetamine Not Detected (NotDetected); Opiate Screen Detected (NotDetected); Oxycodone Screen Not Detected (NotDetected); Phencyclidine (PCP) Not Detected (NotDetected); THC/Cannabinoid Screen Not Detected (NotDetected); Tricyclic Screen Not Detected (NotDetected); Urine Culture Reflex No No
== END 2023-03-10 16:53 | disposition home or self-care (01) ==
LOC: ERS 13:23
DX: R07.9 Chest pain, unspecified (principal); M54.50 Low back pain, unspecified; G89.29 Other chronic pain
CPT/HCPCS: 70450; 71045; 71275; 74174; 80053; 80306; 81001; 83690; 83880; 84484; 85025; 93005; 96374; 99285; J3010; Q9967

== ENCOUNTER 2023-03-31 14:13 | Emergency (ER) | payer MEDICARE ==
[2023-03-31] MEDS ORDERED: Acetaminophen 500 MG TAB ONE (15:45)
[2023-03-31 15:52] LABS: #Eosinphils 0.1 thou/uL (0.0-0.7); #Monocytes 0.8 thou/uL (0.11-0.59); %Basophils 0.5 % (0.0-1.0); %Eosinophils 1.6 % (0.0-10.0); %Lymphocytes 23.7 % (21.0-51.0); %Monocytes 9.7 % (0.0-10.0); %Neutrophils 64.2 % (42.0-75.0); Hematocrit 37.8 % (36.0-47.0); Hemoglobin 12.5 g/dL (12.0-16.0); Mean Corpuscular HGB CONC 33.1 g/dL (32.0-36.0); Mean Corpuscular Hemoglobin 31.8 pg (27.0-31.0); Mean Corpuscular Volume 96.2 fl (78.0-98.0); Platelet Count 204 10x3/uL (130-400); RBC Distribution Width 12.2 % (11.5-14.5); Red Blood Cell (RBC) Count 3.93 mill/uL (4.20-5.40); White Blood Cell (WBC) Count 7.7 10x3/uL (4.8-10.8)
[2023-03-31 16:15] LABS: Bacteria/HPF None Seen HPF (None Seen); Bilirubin Negative (Negative); Blood, Urine Negative (Negative); CAUTI Indications for Culture Alt mental st,lethar; Clarity Clear (Clear); Glucose, Urine (Dipstick) Normal (Negative); Ketone, Urine Negative (Negative); Leukocyte Negative Leu/uL (Negative); Nitrite Negative (Negative); Protein, Urine (Dipstick) Negative (Neg-Trace); RBC/HPF 0-3 HPF (0-3); Squamous Epithelial 0-3 HPF (0-3); Urobilinogen Normal mg/dL (Less than 2); WBC/HPF None Seen HPF (0-3)
[2023-03-31 16:17] LABS: Specific Gravity, Urine 1.005 (1.002-1.036); Urine Culture Reflex No No
[2023-03-31 16:17] LABS: ALT (SGPT) 15 U/L (8-55); AST (SGOT) 14 U/L (5-34); Albumin 4.1 g/dL (3.4-4.8); Alkaline Phosphatase 92 U/L (40-110); Anion Gap 14 mmol/L (10-20); BUN (Urea Nitrogen) 10 mg/dL (9.8-20.1); Bilirubin, Total 0.7 mg/dL (0.2-1.2); Calc. Creatinine Clearance 0 mL/min (70-130); Calcium 9.7 mg/dL (7.8-10.44); Carbon Dioxide 25 mmol/L (23-31); Chloride 102 mmol/L (98-107); Estimated GFR 68; Glucose 104 mg/dL (83-110); Potassium 3.9 mmol/L (3.5-5.1); Protein, Total 7.1 g/dL (5.8-8.1); Sodium 137 mmol/L (136-145)
== END 2023-03-31 17:41 | disposition home or self-care (01) ==
LOC: ERS 14:13
DX: F41.9 Anxiety disorder, unspecified (principal); M54.50 Low back pain, unspecified; G89.29 Other chronic pain
CPT/HCPCS: 36415; 51701; 80053; 81001; 85025; 93005

== ENCOUNTER 2023-04-18 11:41 | Emergency (ER) | payer MEDICARE ==
[2023-04-18 12:48] LABS: #Monocytes 1.6 thou/uL (0.11-0.59); %Basophils 0.2 % (0.0-1.0); %Eosinophils 0.3 % (0.0-10.0); %Lymphocytes 5.7 % (21.0-51.0); %Monocytes 13.7 % (0.0-10.0); %Neutrophils 79.7 % (42.0-75.0); Hematocrit 38.2 % (36.0-47.0); Hemoglobin 12.7 g/dL (12.0-16.0); Mean Corpuscular HGB CONC 33.2 g/dL (32.0-36.0); Mean Corpuscular Hemoglobin 31.5 pg (27.0-31.0); Mean Corpuscular Volume 94.8 fl (78.0-98.0); Mean Platelet Volume 8.5 fL (7.4-10.4); Platelet Count 150 10x3/uL (130-400); RBC Distribution Width 12.5 % (11.5-14.5); Red Blood Cell (RBC) Count 4.03 mill/uL (4.20-5.40); White Blood Cell (WBC) Count 11.3 10x3/uL (4.8-10.8)
[2023-04-18] MEDS ORDERED: Morphine 4 MG/ML VIAL ONE (12:51)
[2023-04-18 12:54] LABS: Prothrombin Time 13.2 sec (12.0-14.7)
[2023-04-18 12:55] LABS: PTT 26.2 sec (22.9-36.1)
[2023-04-18 12:59] LABS: ALT (SGPT) 10 U/L (8-55); AST (SGOT) 15 U/L (5-34); Albumin 4.1 g/dL (3.4-4.8); Alkaline Phosphatase 68 U/L (40-110); Anion Gap 15 mmol/L (10-20); BUN (Urea Nitrogen) 18 mg/dL (9.8-20.1); Bilirubin, Total 0.7 mg/dL (0.2-1.2); Calc. Creatinine Clearance 0 mL/min (70-130); Calcium 8.8 mg/dL (7.8-10.44); Carbon Dioxide 25 mmol/L (23-31); Chloride 101 mmol/L (98-107); Estimated GFR 74; Glucose 136 mg/dL (83-110); Lipase 28 U/L (8-78); Potassium 3.8 mmol/L (3.5-5.1); Protein, Total 7.1 g/dL (5.8-8.1); Sodium 137 mmol/L (136-145)
[2023-04-18 14:53] LABS: Bilirubin Negative (Negative); Blood, Urine Trace (Negative); CAUTI Indications for Culture Dysuria,urgency,freq; Clarity Clear (Clear); Glucose, Urine (Dipstick) Normal (Negative); Ketone, Urine Negative (Negative); Leukocyte Negative Leu/uL (Negative); Nitrite Negative (Negative); Protein, Urine (Dipstick) 70 mg/dL (Neg-Trace); RBC/HPF 0-3 HPF (0-3); Specific Gravity, Urine 1.034 (1.002-1.036); Squamous Epithelial 0-3 HPF (0-3); Urobilinogen Normal mg/dL (Less than 2)
[2023-04-18 14:58] LABS: Bacteria/HPF 1+ HPF (None Seen)
[2023-04-18 15:00] LABS: Urine Culture Reflex No No
== END 2023-04-18 16:45 | disposition home or self-care (01) ==
LOC: ERS 11:41
DX: T14.8XXA Other injury of unspecified body region, initial encounter (principal); M54.50 Low back pain, unspecified; M54.6 Pain in thoracic spine; M54.2 Cervicalgia; R10.9 Unspecified abdominal pain; E11.9 Type 2 diabetes mellitus without complications; I10 Essential (primary) hypertension; W19.XXXA Unspecified fall, initial encounter
CPT/HCPCS: 36415; 51701; 70450; 71260; 72125; 74177; 80053; 81001; 83605; 83690; 85025; 85610; 85730; 93005; 96374; J2270; Q9967

== ENCOUNTER 2023-04-19 15:35 | Emergency (ER) | payer MEDICARE ==
[2023-04-19 16:35] LABS: #Monocytes 1.3 thou/uL (0.11-0.59); #Neutrophils 8.3 thou/uL (1.40-6.50); %Basophils 0.2 % (0.0-1.0); %Eosinophils 0.2 % (0.0-10.0); %Lymphocytes 9.8 % (21.0-51.0); %Monocytes 12.3 % (0.0-10.0); %Neutrophils 77.1 % (42.0-75.0); Hematocrit 36.4 % (36.0-47.0); Hemoglobin 12.7 g/dL (12.0-16.0); Mean Corpuscular HGB CONC 34.9 g/dL (32.0-36.0); Mean Corpuscular Hemoglobin 32.7 pg (27.0-31.0); Mean Corpuscular Volume 93.8 fl (78.0-98.0); Mean Platelet Volume 8.8 fL (7.4-10.4); Platelet Count 164 10x3/uL (130-400); RBC Distribution Width 12.9 % (11.5-14.5); Red Blood Cell (RBC) Count 3.88 mill/uL (4.20-5.40); White Blood Cell (WBC) Count 10.8 10x3/uL (4.8-10.8)
[2023-04-19] MEDS ORDERED: HYDROcodone/Acetaminophen 10/325 mg Tablet ONE (16:39)
[2023-04-19 17:01] LABS: ALT (SGPT) 12 U/L (8-55); AST (SGOT) 16 U/L (5-34); Albumin 4.2 g/dL (3.4-4.8); Alkaline Phosphatase 70 U/L (40-110); Anion Gap 18 mmol/L (10-20); BUN (Urea Nitrogen) 19 mg/dL (9.8-20.1); Bilirubin, Total 1.2 mg/dL (0.2-1.2); Calc. Creatinine Clearance 0 mL/min (70-130); Carbon Dioxide 21 mmol/L (23-31); Chloride 99 mmol/L (98-107); Estimated GFR 63; Globulin 2.9 g/dL (2.4-3.5); Glucose 138 mg/dL (83-110); Potassium 4.5 mmol/L (3.5-5.1); Protein, Total 7.1 g/dL (5.8-8.1); Sodium 133 mmol/L (136-145)
[2023-04-19 17:03] LABS: Acetaminophen Less than 10 mcg/mL (10.0-30.0); Alcohol Less than 10.0 mg/dL (Less than 10); Lipase 32 U/L (8-78); Salicylate Less than 8.0 mg/dL (15.0-30.0)
[2023-04-19 17:05] LABS: Troponin I 0.013 ng/mL (< 0.028)
== END 2023-04-19 20:07 | disposition home or self-care (01) ==
LOC: ERS 15:35
DX: R07.9 Chest pain, unspecified (principal); G89.29 Other chronic pain; M54.9 Dorsalgia, unspecified; I10 Essential (primary) hypertension; E11.9 Type 2 diabetes mellitus without complications
CPT/HCPCS: 36415; 71045; 80053; 80307; 83690; 83880; 84484; 85025; 93005

== ENCOUNTER 2023-04-19 23:30 | Emergency (ER) | payer MEDICARE ==
[2023-04-20 00:54] LABS: #Monocytes 1.9 thou/uL (0.11-0.59); #Neutrophils 10.2 thou/uL (1.40-6.50); %Basophils 0.1 % (0.0-1.0); %Lymphocytes 4.5 % (21.0-51.0); %Monocytes 14.6 % (0.0-10.0); %Neutrophils 80.2 % (42.0-75.0); Hematocrit 36.3 % (36.0-47.0); Hemoglobin 12.5 g/dL (12.0-16.0); Mean Corpuscular HGB CONC 34.4 g/dL (32.0-36.0); Mean Corpuscular Hemoglobin 32.1 pg (27.0-31.0); Mean Corpuscular Volume 93.1 fl (78.0-98.0); Mean Platelet Volume 9.1 fL (7.4-10.4); Platelet Count 158 10x3/uL (130-400); RBC Distribution Width 13.1 % (11.5-14.5); White Blood Cell (WBC) Count 12.7 10x3/uL (4.8-10.8)
[2023-04-20 01:12] LABS: ALT (SGPT) 11 U/L (8-55); AST (SGOT) 16 U/L (5-34); Albumin 4.1 g/dL (3.4-4.8); Alkaline Phosphatase 70 U/L (40-110); Anion Gap 19 mmol/L (10-20); BUN (Urea Nitrogen) 25 mg/dL (9.8-20.1); Bilirubin, Total 1.6 mg/dL (0.2-1.2); CK (CPK) 110 U/L (29-168); Calc. Creatinine Clearance 0 mL/min (70-130); Calcium 9.1 mg/dL (7.8-10.44); Carbon Dioxide 21 mmol/L (23-31); Chloride 99 mmol/L (98-107); Estimated GFR 53; Globulin 3.1 g/dL (2.4-3.5); Glucose 170 mg/dL (83-110); Potassium 4.5 mmol/L (3.5-5.1); Protein, Total 7.2 g/dL (5.8-8.1); Sodium 134 mmol/L (136-145)
[2023-04-20 01:13] LABS: Troponin I 0.011 ng/mL (< 0.028)
[2023-04-20 09:28] LABS: Bacteria/HPF 1+ HPF (None Seen); Bilirubin Negative (Negative); Blood, Urine Negative (Negative); CAUTI Indications for Culture Alt mental st,lethar; Clarity Turbid (Clear); Glucose, Urine (Dipstick) Normal (Negative); Ketone, Urine Negative (Negative); Leukocyte 75 Leu/uL (Negative); Nitrite Negative (Negative); Protein, Urine (Dipstick) 20 mg/dL (Neg-Trace); RBC/HPF 0-3 HPF (0-3); Specific Gravity, Urine 1.011 (1.002-1.036); Squamous Epithelial 0-3 HPF (0-3); WBC/HPF 0-3 HPF (0-3)
[2023-04-20 09:29] LABS: Urine Culture Reflex No No
== END 2023-04-20 13:53 ==
LOC: ERS 23:30
DX: G89.29 Other chronic pain (principal); M54.50 Low back pain, unspecified; E11.9 Type 2 diabetes mellitus without complications; I10 Essential (primary) hypertension; K21.9 Gastro-esophageal reflux disease without esophagitis; Z79.899 Other long term (current) drug therapy; Z79.82 Long term (current) use of aspirin; Z79.84 Long term (current) use of oral hypoglycemic drugs; R07.9 Chest pain, unspecified; M54.9 Dorsalgia, unspecified
CPT/HCPCS: 36415; 51701; 70450; 71045; 72125; 80053; 80307; 81001; 82550; 83690; 83880; 84484; 85025; 87077; 87086; 87186; 93005

== ENCOUNTER 2023-05-14 20:50 | Emergency (ER) | payer MEDICARE ==
[2023-05-14] MEDS ORDERED: Acetaminophen 500 MG TAB ONE (21:32)
[2023-05-14 21:46] LABS: #Eosinphils 0.1 thou/uL (0.0-0.7); #Monocytes 0.9 thou/uL (0.11-0.59); #Neutrophils 3.7 thou/uL (1.40-6.50); %Basophils 0.2 % (0.0-1.0); %Eosinophils 1.1 % (0.0-10.0); %Lymphocytes 27.5 % (21.0-51.0); %Monocytes 13.4 % (0.0-10.0); %Neutrophils 57.5 % (42.0-75.0); Hematocrit 34.4 % (36.0-47.0); Hemoglobin 11.6 g/dL (12.0-16.0); Mean Corpuscular HGB CONC 33.7 g/dL (32.0-36.0); Mean Corpuscular Hemoglobin 32.1 pg (27.0-31.0); Mean Corpuscular Volume 95.3 fl (78.0-98.0); Mean Platelet Volume 9.4 fL (7.4-10.4); Platelet Count 184 10x3/uL (130-400); RBC Distribution Width 12.8 % (11.5-14.5); Red Blood Cell (RBC) Count 3.61 mill/uL (4.20-5.40); White Blood Cell (WBC) Count 6.5 10x3/uL (4.8-10.8)
[2023-05-14 22:16] LABS: ALT (SGPT) 14 U/L (8-55); AST (SGOT) 16 U/L (5-34); Albumin 3.8 g/dL (3.4-4.8); Alkaline Phosphatase 54 U/L (40-110); Anion Gap 14 mmol/L (10-20); BUN (Urea Nitrogen) 15 mg/dL (9.8-20.1); Bilirubin, Total 0.7 mg/dL (0.2-1.2); Calc. Creatinine Clearance 0 mL/min (70-130); Carbon Dioxide 19 mmol/L (23-31); Chloride 104 mmol/L (98-107); Estimated GFR 61; Globulin 2.8 g/dL (2.4-3.5); Glucose 131 mg/dL (83-110); Lipase 24 U/L (8-78); Potassium 3.6 mmol/L (3.5-5.1); Protein, Total 6.6 g/dL (5.8-8.1); Sodium 133 mmol/L (136-145)
[2023-05-15 00:18] LABS: Troponin I Less than 0.010 ng/mL (< 0.028)
== END 2023-05-15 02:04 ==
LOC: ERS 20:50
DX: R07.89 Other chest pain (principal); D64.9 Anemia, unspecified; I10 Essential (primary) hypertension; E11.9 Type 2 diabetes mellitus without complications; K21.9 Gastro-esophageal reflux disease without esophagitis; Z79.01 Long term (current) use of anticoagulants; Z79.82 Long term (current) use of aspirin; Z79.84 Long term (current) use of oral hypoglycemic drugs; Z79.899 Other long term (current) drug therapy
CPT/HCPCS: 36415; 71045; 80053; 83690; 83880; 84484; 85025; 93005; 94760

== ENCOUNTER 2023-05-18 12:42 | Emergency (ER) | payer MEDICARE ==
[2023-05-18] MEDS ORDERED: Morphine 4 MG/ML VIAL ONE (13:25)
== END 2023-05-18 14:56 | disposition home or self-care (01) ==
LOC: EDBD → ERS 12:42
DX: M54.9 Dorsalgia, unspecified (principal); E11.9 Type 2 diabetes mellitus without complications; K21.9 Gastro-esophageal reflux disease without esophagitis; I10 Essential (primary) hypertension; Z79.82 Long term (current) use of aspirin; Z79.01 Long term (current) use of anticoagulants; Z79.84 Long term (current) use of oral hypoglycemic drugs
CPT/HCPCS: 72131; 96372; J2270

== ENCOUNTER 2023-06-08 18:33 | Emergency (ER) | payer MEDICARE ==
[2023-06-08 19:00] LABS: #Monocytes 1.2 thou/uL (0.11-0.59); #Neutrophils 5.5 thou/uL (1.40-6.50); %Basophils 0.4 % (0.0-1.0); %Eosinophils 0.5 % (0.0-10.0); %Lymphocytes 16.8 % (21.0-51.0); %Monocytes 14.7 % (0.0-10.0); %Neutrophils 67.1 % (42.0-75.0); Hematocrit 31.2 % (36.0-47.0); Hemoglobin 11.2 g/dL (12.0-16.0); Mean Corpuscular HGB CONC 35.9 g/dL (32.0-36.0); Mean Corpuscular Hemoglobin 32.4 pg (27.0-31.0); Mean Corpuscular Volume 90.2 fl (78.0-98.0); Mean Platelet Volume 9.5 fL (7.4-10.4); Platelet Count 158 10x3/uL (130-400); RBC Distribution Width 12.9 % (11.5-14.5); Red Blood Cell (RBC) Count 3.46 mill/uL (4.20-5.40); White Blood Cell (WBC) Count 8.1 10x3/uL (4.8-10.8)
[2023-06-08 19:17] LABS: Prothrombin Time 13.2 sec (12.0-14.7)
[2023-06-08 19:29] LABS: CRP (Inflammatory) 6.03 mg/dL (= or < 0.5); Lipase 30 U/L (8-78); Magnesium 1.4 mg/dL (1.6-2.6)
[2023-06-08 19:30] LABS: ALT (SGPT) 17 U/L (8-55); AST (SGOT) 19 U/L (5-34); Albumin 3.8 g/dL (3.4-4.8); Alkaline Phosphatase 59 U/L (40-110); Anion Gap 15 mmol/L (10-20); BUN (Urea Nitrogen) 11 mg/dL (9.8-20.1); Bilirubin, Total 0.5 mg/dL (0.2-1.2); CK (CPK) 63 U/L (29-168); Calc. Creatinine Clearance 0 mL/min (70-130); Calcium 8.9 mg/dL (7.8-10.44); Carbon Dioxide 23 mmol/L (23-31); Chloride 98 mmol/L (98-107); Estimated GFR 77; Globulin 2.6 g/dL (2.4-3.5); Glucose 112 mg/dL (83-110); Potassium 3.5 mmol/L (3.5-5.1); Protein, Total 6.4 g/dL (5.8-8.1); Sodium 132 mmol/L (136-145)
[2023-06-08 19:32] LABS: Troponin I Less than 0.010 ng/mL (< 0.028)
[2023-06-08 19:42] LABS: Influenza A by NAA Not Detected (NotDetected); SARS-CoV-2 NAA Rapid Test Not Detected (NotDetected)
[2023-06-08] MEDS ORDERED: Acetaminophen 325 MG TAB ONE (20:17)
== END 2023-06-08 20:00 | disposition home or self-care (01) ==
LOC: ERS 18:33
DX: J11.1 Influenza due to unidentified influenza virus with other respiratory manifestations (principal); E11.9 Type 2 diabetes mellitus without complications; K21.9 Gastro-esophageal reflux disease without esophagitis; I10 Essential (primary) hypertension; E78.5 Hyperlipidemia, unspecified; Z79.84 Long term (current) use of oral hypoglycemic drugs; Z79.899 Other long term (current) drug therapy; R07.9 Chest pain, unspecified
CPT/HCPCS: 0240U; 71045; 80053; 82550; 83605; 83690; 83735; 84484; 85025; 85610; 85730; 86140; 93005; 94760; 99285; 36415

== ENCOUNTER 2023-09-06 09:14 | Inpatient (IN) | payer MEDICARE ==
[2023-09-06] MEDS ORDERED: Nitroglycerin 0.4 MG TAB 1 EACH ONE ×2 (09:45→09:46)
[2023-09-06] MEDS ORDERED: Morphine 2 MG/ML VIAL ONE (09:45)
[2023-09-06] MEDS ORDERED: Iopamidol-370 76% 500 ML MDV (1 ML CHARGE) ONE (09:53)
[2023-09-06] MEDS ORDERED: Haloperidol Lactate 5 MG/ML VIAL ONE (09:56)
[2023-09-06] MEDS ORDERED: Nitroglycerin 2% Ointment 1 INCH/1 GM Packet ONE (09:56)
[2023-09-06 10:04] LABS: #Basophils 0.04 10x3/uL (0.0-0.2); %Basophils 0.8 % (0.0-1.0); %Eosinophils 1.4 % (0.0-10.0); %Monocytes 9.1 % (0.0-10.0); %Neutrophils 64.3 % (42.0-75.0); Hematocrit 34.5 % (36.0-47.0); Hemoglobin 12.3 g/dL (12.0-16.0); Mean Corpuscular HGB CONC 35.7 g/dL (32.0-36.0); Mean Corpuscular Hemoglobin 34.2 pg (27.0-31.0); Mean Corpuscular Volume 95.8 fL (78.0-98.0); Mean Platelet Volume 8.8 fL (7.4-10.4); Platelet Count 224 10x3/uL (130-400); RBC Distribution Width 12.2 % (11.5-14.5)
[2023-09-06 10:20] LABS: ALT (SGPT) 21 U/L (8-55); AST (SGOT) 32 U/L (5-34); Albumin 3.7 g/dL (3.4-4.8); Alkaline Phosphatase 48 U/L (40-110); Anion Gap 18 mmol/L (10-20); BUN (Urea Nitrogen) 8 mg/dL (9.8-20.1); Bilirubin, Total 0.4 mg/dL (0.2-1.2); Calc. Creatinine Clearance 0 mL/min (70-130); Calcium 9.4 mg/dL (7.8-10.44); Carbon Dioxide 20 mmol/L (23-31); Chloride 103 mmol/L (98-107); Estimated GFR 75; Globulin 3.1 g/dL (2.4-3.5); Glucose 111 mg/dL (83-110); Lipase 19 U/L (8-78); Potassium 3.6 mmol/L (3.5-5.1); Protein, Total 6.8 g/dL (5.8-8.1); Sodium 137 mmol/L (136-145)
[2023-09-06 10:24] LABS: Troponin I 0.012 ng/mL (< 0.028)
[2023-09-06] MEDS ORDERED: Ondansetron PF 4 MG/2 ML Vial ONE (11:53)
[2023-09-06] MEDS ORDERED: HumaLOG 300 UNITS/3 ML VIAL SC PRN (12:42)
[2023-09-06] MEDS ORDERED: Glucagon 1 MG/ML KIT IM PRN (12:42)
[2023-09-06] MEDS ORDERED: Dextrose 50% Abboject 50 ML SYRINGE SLOW IVP PRN (12:42)
[2023-09-06] MEDS ORDERED: Dextrose 5% in Water 1,000 ML IV PRN (12:42)
[2023-09-06 13:33] LABS: Troponin I Less than 0.010 ng/mL (< 0.028)
[2023-09-06] MEDS: Acetaminophen 325 MG TAB PO PRN (14:01)
[2023-09-06] MEDS: Sodium Chloride 0.9% 1,000 ML IV SCH (14:04)
[2023-09-06 14:24] VITALS: BMI 27.9
[2023-09-06] MEDS: Ondansetron PF 4 MG/2 ML Vial IVP PRN (18:19)
[2023-09-06 20:22] LABS: Troponin I 0.015 ng/mL (< 0.028)
[2023-09-06] MEDS: hydrALAZINE 20 MG/ML VIAL SLOW IVP PRN (21:48)
[2023-09-07] MEDS: HYDROcodone/Acetaminophen 5/325 mg Tablet PO SCH (00:04)
[2023-09-07] MEDS: hydrOXYzine 10 MG TAB PO SCH (00:04)
[2023-09-07 04:59] LABS: ALT (SGPT) 19 U/L (8-55); AST (SGOT) 25 U/L (5-34); Albumin 3.6 g/dL (3.4-4.8); Alkaline Phosphatase 47 U/L (40-110); Anion Gap 15 mmol/L (10-20); BUN (Urea Nitrogen) 9 mg/dL (9.8-20.1); Bilirubin, Total 0.8 mg/dL (0.2-1.2); Calcium 9.5 mg/dL (7.8-10.44); Carbon Dioxide 25 mmol/L (23-31); Chloride 103 mmol/L (98-107); Globulin 2.9 g/dL (2.4-3.5); Glucose 98 mg/dL (83-110); Potassium 3.8 mmol/L (3.5-5.1); Protein, Total 6.5 g/dL (5.8-8.1); Sodium 139 mmol/L (136-145)
[2023-09-07 05:07] LABS: Calc. Creatinine Clearance 77 mL/min (70-130); Estimated GFR 74
[2023-09-07] MEDS: Enoxaparin 40 MG (0.4 mL) SYRINGE SC SCH (07:47)
[2023-09-07] MEDS ORDERED: Labetalol HCl 100 MG/20 ML VIAL SLOW IVP PRN (08:44)
[2023-09-07] MEDS ORDERED: Pantoprazole 40 MG VIAL IVP SCH (09:00)
[2023-09-07] MEDS: Metoclopramide HCl 10 MG (2 mL) VIAL IVP PRN (09:15)
[2023-09-07] MEDS: Morphine 2 MG/ML VIAL SLOW IVP PRN (09:15)
[2023-09-07] MEDS: Metoprolol Tartrate 25 MG TAB PO SCH (09:16)
[2023-09-07] MEDS: Amlodipine 5 MG TAB PO SCH (09:16)
[2023-09-07] MEDS: Pantoprazole 40 MG VIAL IVP SCH ×2 (09:17→21:10)
[2023-09-07] MEDS ORDERED: Nitroglycerin 0.4 MG TAB (25 Tab Bottle) SL PRN (12:57)
[2023-09-07 13:51] VITALS: BMI 27.9
[2023-09-07] MEDS: HYDROcodone/Acetaminophen 5/325 mg Tablet PO PRN (15:23)
[2023-09-07] MEDS: Gabapentin 300 MG CAP PO SCH (15:23)
[2023-09-07] MEDS: busPIRone HCl 5 MG TAB PO SCH (21:08)
[2023-09-07] MEDS: Isosorbide Mononitrate 30 MG ER.TAB PO SCH (21:09)
[2023-09-07] MEDS: Timolol 0.5% Ophth Soln 5 ml Bottle EA EYE SCH (21:09)
[2023-09-07] MEDS: Oxybutynin 5 MG TAB PO SCH (21:09)
[2023-09-07] MEDS: Atorvastatin Calcium 40 MG TAB PO SCH (21:10)
[2023-09-07] MEDS: DULoxetine 20 MG CAP PO SCH (21:10)
[2023-09-08] MEDS: Dorzolamide HCl 2% Ophth (10 mL) Bottle EA EYE SCH (09:00)
[2023-09-08] MEDS ORDERED: Pantoprazole 40 MG VIAL IVP SCH (09:00)
[2023-09-08] MEDS: Latanoprost 0.005% Ophth Soln 2.5 ml Bottle EA EYE SCH (09:00)
[2023-09-08] MEDS: Ascorbic Acid 500 mg Chewable Tablet PO SCH (09:04)
[2023-09-08] MEDS: metFORMIN 500 MG TAB PO SCH (09:05)
[2023-09-08] MEDS: Folic Acid 1 MG TAB PO SCH (09:05)
[2023-09-08] MEDS: Cholecalciferol 1,000 UNITS (25 MCG) TAB PO SCH (09:06)
[2023-09-08] MEDS: Ferrous Sulfate 325 MG TAB PO SCH (09:06)
[2023-09-08] MEDS: Aspirin 81 mg Enteric Coated Tablet PO SCH (09:06)
[2023-09-08] MEDS: Clopidogrel Bisulfate 75 MG TAB PO SCH (09:07)
[2023-09-08] MEDS: traZODone HCl 50 MG TAB PO SCH (09:11)
[2023-09-09] MEDS: HumaLOG 300 UNITS/3 ML VIAL SC PRN (12:12)
[2023-09-09 15:47] VITALS: BP 132/68; TEMP 98.4
== END 2023-09-09 19:29 | disposition hospice, home (50) | DRG 392 ==
LOC: ERS 09:14 → 2NO 12:04 → OBSVTOIN 09-07 13:05
PROVIDERS: ADMIT Internal Medicine; ATTEND Emergency Medicine
DX: A08.4 Viral intestinal infection, unspecified (principal); A05.9 Bacterial foodborne intoxication, unspecified; R07.89 Other chest pain; F41.9 Anxiety disorder, unspecified; G89.29 Other chronic pain; M54.50 Low back pain, unspecified; F32.A Depression, unspecified; I25.10 Atherosclerotic heart disease of native coronary artery without angina pectoris; I10 Essential (primary) hypertension; E11.9 Type 2 diabetes mellitus without complications; Z79.82 Long term (current) use of aspirin; Z79.899 Other long term (current) drug therapy; Z95.0 Presence of cardiac pacemaker; Z90.710 Acquired absence of both cervix and uterus; Z90.49 Acquired absence of other specified parts of digestive tract; Z88.8 Allergy status to other drugs, medicaments and biological substances; Z98.51 Tubal ligation status
CPT/HCPCS: 36415; 36416; 71045; 71275; 74174; 74177; 80053; 83605; 83690; 84484; 85025; 93005; 93306; 94760; 96372; 96374; 96375; 96376; C9113; G0378; J0360; J1630; J1650; J2272; J2405; J2765; J7050; Q9967

== ENCOUNTER 2023-09-11 07:29 | Emergency (ER) | payer MEDICARE ==
[2023-09-11] MEDS ORDERED: HYDROcodone/Acetaminophen 5/325 mg Tablet ONE (08:11)
[2023-09-11 08:43] LABS: #Basophils 0.04 10x3/uL (0.0-0.2); %Basophils 0.6 % (0.0-1.0); %Eosinophils 1.1 % (0.0-10.0); %Lymphocytes 16.5 % (21.0-51.0); %Neutrophils 69.7 % (42.0-75.0); Hematocrit 36.2 % (36.0-47.0); Hemoglobin 12.4 g/dL (12.0-16.0); Mean Corpuscular HGB CONC 34.3 g/dL (32.0-36.0); Mean Corpuscular Hemoglobin 33.3 pg (27.0-31.0); Mean Corpuscular Volume 97.3 fL (78.0-98.0); Mean Platelet Volume 8.9 fL (7.4-10.4); Platelet Count 199 10x3/uL (130-400); RBC Distribution Width 12.4 % (11.5-14.5); Red Blood Cell (RBC) Count 3.72 mill/uL (4.20-5.40)
[2023-09-11 09:01] LABS: ALT (SGPT) 11 U/L (8-55); AST (SGOT) 19 U/L (5-34); Albumin 3.8 g/dL (3.4-4.8); Alkaline Phosphatase 49 U/L (40-110); Anion Gap 14 mmol/L (10-20); BUN (Urea Nitrogen) 13 mg/dL (9.8-20.1); Bilirubin, Total 0.7 mg/dL (0.2-1.2); CK (CPK) 180 U/L (29-168); Calc. Creatinine Clearance 0 mL/min (70-130); Calcium 9.7 mg/dL (7.8-10.44); Carbon Dioxide 25 mmol/L (23-31); Chloride 101 mmol/L (98-107); Estimated GFR 76; Globulin 3.2 g/dL (2.4-3.5); Glucose 125 mg/dL (83-110); Lipase 14 U/L (8-78); Magnesium 1.4 mg/dL (1.6-2.6); Potassium 3.7 mmol/L (3.5-5.1); Sodium 136 mmol/L (136-145)
[2023-09-11 09:04] LABS: Troponin I Less than 0.010 ng/mL (< 0.028)
[2023-09-11] MEDS ORDERED: Magnesium Oxide 400 MG TAB PO SCH (09:45)
== END 2023-09-11 11:03 | disposition home or self-care (01) ==
LOC: ERS 07:29
DX: M48.061 Spinal stenosis, lumbar region without neurogenic claudication (principal); G93.89 Other specified disorders of brain; E11.9 Type 2 diabetes mellitus without complications; I10 Essential (primary) hypertension; E78.5 Hyperlipidemia, unspecified; K21.9 Gastro-esophageal reflux disease without esophagitis; Z79.84 Long term (current) use of oral hypoglycemic drugs; Z79.899 Other long term (current) drug therapy
CPT/HCPCS: 36415; 70450; 71045; 72125; 72128; 72131; 80053; 82550; 83690; 83735; 84484; 85025; 93005

== ENCOUNTER 2023-09-25 10:56 | Emergency (ER) | payer MEDICARE ==
[2023-09-25 11:38] LABS: #Basophils Less than 0.03 10x3/uL (0.0-0.2); %Basophils 0.3 % (0.0-1.0); %Eosinophils 2.1 % (0.0-10.0); %Lymphocytes 18.1 % (21.0-51.0); %Neutrophils 65.2 % (42.0-75.0); Hemoglobin 10.3 g/dL (12.0-16.0); Mean Corpuscular HGB CONC 34.3 g/dL (32.0-36.0); Mean Corpuscular Hemoglobin 33.9 pg (27.0-31.0); Mean Corpuscular Volume 98.7 fL (78.0-98.0); Mean Platelet Volume 9.1 fL (7.4-10.4); Platelet Count 198 10x3/uL (130-400); RBC Distribution Width 12.6 % (11.5-14.5); Red Blood Cell (RBC) Count 3.04 mill/uL (4.20-5.40)
[2023-09-25 11:51] LABS: ALT (SGPT) 16 U/L (8-55); AST (SGOT) 33 U/L (5-34); Albumin 3.4 g/dL (3.4-4.8); Alkaline Phosphatase 48 U/L (40-110); Anion Gap 13 mmol/L (10-20); BUN (Urea Nitrogen) 13 mg/dL (9.8-20.1); Bilirubin, Total 0.6 mg/dL (0.2-1.2); Calc. Creatinine Clearance 0 mL/min (70-130); Calcium 8.7 mg/dL (7.8-10.44); Carbon Dioxide 25 mmol/L (23-31); Chloride 99 mmol/L (98-107); Estimated GFR 53; Globulin 2.6 g/dL (2.4-3.5); Glucose 117 mg/dL (83-110); Potassium 3.3 mmol/L (3.5-5.1); Sodium 134 mmol/L (136-145)
[2023-09-25 11:57] LABS: Troponin I 0.011 ng/mL (< 0.028)
== END 2023-09-25 16:09 ==
LOC: ERS 10:56
DX: D64.9 Anemia, unspecified (principal); E11.9 Type 2 diabetes mellitus without complications; K21.9 Gastro-esophageal reflux disease without esophagitis; E78.5 Hyperlipidemia, unspecified; I25.10 Atherosclerotic heart disease of native coronary artery without angina pectoris; Z79.84 Long term (current) use of oral hypoglycemic drugs; Z79.899 Other long term (current) drug therapy
CPT/HCPCS: 36415; 70450; 80053; 82274; 84484; 85025; 93005; 94760

== ENCOUNTER 2023-09-26 16:02 | Emergency (ER) | payer MEDICARE ==
[2023-09-26 16:40] LABS: #Basophils Less than 0.03 10x3/uL (0.0-0.2); %Basophils 0.3 % (0.0-1.0); %Eosinophils 1.7 % (0.0-10.0); %Lymphocytes 15.7 % (21.0-51.0); %Monocytes 10.3 % (0.0-10.0); %Neutrophils 71.4 % (42.0-75.0); Hematocrit 30.9 % (36.0-47.0); Hemoglobin 10.5 g/dL (12.0-16.0); Mean Corpuscular Hemoglobin 32.9 pg (27.0-31.0); Mean Corpuscular Volume 96.9 fL (78.0-98.0); Mean Platelet Volume 9.3 fL (7.4-10.4); Platelet Count 200 10x3/uL (130-400); RBC Distribution Width 12.5 % (11.5-14.5); Red Blood Cell (RBC) Count 3.19 mill/uL (4.20-5.40)
[2023-09-26 16:57] LABS: ALT (SGPT) 16 U/L (8-55); AST (SGOT) 49 U/L (5-34); Acetaminophen Less than 10 mcg/mL (10.0-30.0); Albumin 3.4 g/dL (3.4-4.8); Alcohol Less than 10.0 mg/dL (Less than 10); Alkaline Phosphatase 51 U/L (40-110); Anion Gap 14 mmol/L (10-20); BUN (Urea Nitrogen) 16 mg/dL (9.8-20.1); Bilirubin, Total 0.4 mg/dL (0.2-1.2); CK (CPK) 929 U/L (29-168); Calc. Creatinine Clearance 0 mL/min (70-130); Calcium 9.4 mg/dL (7.8-10.44); Carbon Dioxide 25 mmol/L (23-31); Chloride 100 mmol/L (98-107); Estimated GFR 59; Globulin 2.9 g/dL (2.4-3.5); Glucose 140 mg/dL (83-110); Potassium 3.5 mmol/L (3.5-5.1); Protein, Total 6.3 g/dL (5.8-8.1); Salicylate Less than 8.0 mg/dL (15.0-30.0); Sodium 135 mmol/L (136-145)
[2023-09-26 18:26] LABS: Bacteria/HPF 2+ HPF (None Seen); Bilirubin Negative (Negative); Blood, Urine Negative (Negative); CAUTI Indications for Culture Alt mental st,lethar; Clarity Clear (Clear); Glucose, Urine (Dipstick) Normal (Negative); Ketone, Urine Negative (Negative); Leukocyte Negative Leu/uL (Negative); Nitrite Negative (Negative); Protein, Urine (Dipstick) Negative (Neg-Trace); RBC/HPF None Seen HPF (0-3); Specific Gravity, Urine 1.005 (1.002-1.036); Squamous Epithelial 0-3 HPF (0-3); Urobilinogen Normal mg/dL (Less than 2); WBC/HPF 0-3 HPF (0-3)
[2023-09-26 18:28] LABS: Urine Culture Reflex No No
[2023-09-26 18:33] LABS: Amphetamine Not Detected (NotDetected); Barbiturates Screen Not Detected (NotDetected); Benzodiazepine Screen Not Detected (NotDetected); Cocaine Metabolite Screen Not Detected (NotDetected); Methadone Not Detected (NotDetected); Methamphetamine Not Detected (NotDetected); Opiate Screen Detected (NotDetected); Oxycodone Screen Not Detected (NotDetected); Phencyclidine (PCP) Not Detected (NotDetected); THC/Cannabinoid Screen Not Detected (NotDetected); Tricyclic Screen Not Detected (NotDetected)
[2023-09-28] MEDS ORDERED: Magnesium 2 GM/50 ML BAG (IN WATER) ONE (15:22)
== END 2023-09-26 23:23 ==
LOC: ERS 16:02
DX: R44.3 Hallucinations, unspecified (principal); D64.9 Anemia, unspecified; E86.0 Dehydration; E11.9 Type 2 diabetes mellitus without complications; I10 Essential (primary) hypertension; I25.10 Atherosclerotic heart disease of native coronary artery without angina pectoris; Z79.84 Long term (current) use of oral hypoglycemic drugs; Z79.899 Other long term (current) drug therapy
CPT/HCPCS: 36415; 80053; 80306; 80307; 81001; 82550; 84443; 85025; 93005

== ENCOUNTER 2023-09-28 12:32 | Inpatient (IN) | payer MEDICARE ==
[2023-09-28 14:00] LABS: #Basophils 0.04 10x3/uL (0.0-0.2); #Eosinphils Less than 0.03 10x3/uL (0.0-0.7); %Basophils 0.4 % (0.0-1.0); %Eosinophils 0.2 % (0.0-10.0); %Lymphocytes 13.1 % (21.0-51.0); %Monocytes 8.6 % (0.0-10.0); %Neutrophils 77.4 % (42.0-75.0); Hematocrit 36.8 % (36.0-47.0); Mean Corpuscular HGB CONC 35.3 g/dL (32.0-36.0); Mean Corpuscular Hemoglobin 33.2 pg (27.0-31.0); Mean Corpuscular Volume 94.1 fL (78.0-98.0); Platelet Count 220 10x3/uL (130-400); RBC Distribution Width 12.5 % (11.5-14.5); Red Blood Cell (RBC) Count 3.91 mill/uL (4.20-5.40)
[2023-09-28 14:22] LABS: PTT 23.4 sec (22.9-36.1)
[2023-09-28 14:32] LABS: Troponin I 0.016 ng/mL (< 0.028)
[2023-09-28 14:38] LABS: Amphetamine Not Detected (NotDetected); Barbiturates Screen Not Detected (NotDetected); Benzodiazepine Screen Not Detected (NotDetected); Cocaine Metabolite Screen Not Detected (NotDetected); Methadone Not Detected (NotDetected); Methamphetamine Not Detected (NotDetected); Opiate Screen Not Detected (NotDetected); Oxycodone Screen Not Detected (NotDetected); Phencyclidine (PCP) Not Detected (NotDetected); THC/Cannabinoid Screen Not Detected (NotDetected); Tricyclic Screen Not Detected (NotDetected)
[2023-09-28 14:38] LABS: Acetaminophen Less than 10 mcg/mL (10.0-30.0); Alcohol Less than 10.0 mg/dL (Less than 10); Lipase 18 U/L (8-78); Magnesium 1.1 mg/dL (1.6-2.6); Salicylate Less than 8.0 mg/dL (15.0-30.0)
[2023-09-28 14:39] LABS: Bacteria/HPF 1+ HPF (None Seen); Bilirubin Negative (Negative); Blood, Urine Negative (Negative); CAUTI Indications for Culture Alt mental st,lethar; Clarity Turbid (Clear); Glucose, Urine (Dipstick) Normal (Negative); Ketone, Urine 10 mg/dL (Negative); Leukocyte Negative Leu/uL (Negative); Nitrite Negative (Negative); Protein, Urine (Dipstick) 30 mg/dL (Neg-Trace); RBC/HPF 0-3 HPF (0-3); Specific Gravity, Urine 1.016 (1.002-1.036); Squamous Epithelial 0-3 HPF (0-3)
[2023-09-28 14:39] LABS: ALT (SGPT) 18 U/L (8-55); AST (SGOT) 29 U/L (5-34); Albumin 3.7 g/dL (3.4-4.8); Alkaline Phosphatase 62 U/L (40-110); Anion Gap 16 mmol/L (10-20); BUN (Urea Nitrogen) 13 mg/dL (9.8-20.1); Bilirubin, Total 0.9 mg/dL (0.2-1.2); Calc. Creatinine Clearance 0 mL/min (70-130); Calcium 9.5 mg/dL (7.8-10.44); Carbon Dioxide 20 mmol/L (23-31); Chloride 103 mmol/L (98-107); Estimated GFR 77; Globulin 3.3 g/dL (2.4-3.5); Glucose 125 mg/dL (83-110); Potassium 3.4 mmol/L (3.5-5.1); Sodium 136 mmol/L (136-145)
[2023-09-28 14:40] LABS: Urine Culture Reflex No No
[2023-09-28] MEDS ORDERED: Acetaminophen 650 MG Suppository PR PRN (19:10)
[2023-09-28] MEDS ORDERED: Dextrose 50% Abboject 50 ML SYRINGE SLOW IVP PRN (19:16)
[2023-09-28] MEDS ORDERED: Glucagon 1 MG/ML KIT IM PRN (19:16)
[2023-09-28] MEDS ORDERED: Dextrose 5% in Water 1,000 ML IV PRN (19:16)
[2023-09-28 21:19] VITALS: BMI 25.9
[2023-09-28] MEDS: QUEtiapine 25 MG TAB PO SCH ×2 (21:41→21:42)
[2023-09-28] MEDS: DULoxetine 20 MG CAP PO SCH (21:42)
[2023-09-28] MEDS: busPIRone HCl 10 MG TAB PO SCH (21:42)
[2023-09-28] MEDS: Atorvastatin Calcium 40 MG TAB PO SCH (21:42)
[2023-09-28] MEDS: Metoprolol Tartrate 25 MG TAB PO SCH (21:43)
[2023-09-28] MEDS: Isosorbide Mononitrate 30 MG ER.TAB PO SCH (21:43)
[2023-09-28] MEDS: traMADol HCl 50 MG TAB PO PRN (21:44)
[2023-09-28] MEDS: Gabapentin 300 MG CAP PO SCH (21:45)
[2023-09-29 04:47] LABS: ALT (SGPT) 13 U/L (8-55); AST (SGOT) 20 U/L (5-34); Albumin 3.1 g/dL (3.4-4.8); Alkaline Phosphatase 46 U/L (40-110); Anion Gap 12 mmol/L (10-20); BUN (Urea Nitrogen) 13 mg/dL (9.8-20.1); Bilirubin, Total 0.8 mg/dL (0.2-1.2); Calc. Creatinine Clearance 78 mL/min (70-130); Calcium 8.8 mg/dL (7.8-10.44); Carbon Dioxide 25 mmol/L (23-31); Chloride 101 mmol/L (98-107); Estimated GFR 82; Globulin 2.6 g/dL (2.4-3.5); Glucose 109 mg/dL (83-110); Magnesium 1.6 mg/dL (1.6-2.6); Phosphorus 3.5 mg/dL (2.3-4.7); Protein, Total 5.7 g/dL (5.8-8.1); Sodium 135 mmol/L (136-145)
[2023-09-29] MEDS: Ferrous Sulfate 325 MG TAB PO SCH (08:13)
[2023-09-29] MEDS: Pantoprazole DR 40 MG TAB PO SCH (08:13)
[2023-09-29] MEDS: Folic Acid 1 MG TAB PO SCH (08:13)
[2023-09-29] MEDS: Aspirin 81 mg Enteric Coated Tablet PO SCH (08:14)
[2023-09-29] MEDS: Ascorbic Acid 500 mg Chewable Tablet PO SCH (08:14)
[2023-09-29] MEDS: Amlodipine 5 MG TAB PO SCH (08:14)
[2023-09-29] MEDS: Clopidogrel Bisulfate 75 MG TAB PO SCH (08:15)
[2023-09-29] MEDS: Cholecalciferol 1,000 UNITS (25 MCG) TAB PO SCH (08:15)
[2023-09-29] MEDS: Latanoprost 0.005% Ophth Soln 2.5 ml Bottle EA EYE SCH (08:16)
[2023-09-29] MEDS: Dorzolamide HCl 2% Ophth (10 mL) Bottle EA EYE SCH (08:16)
[2023-09-29] MEDS: Enoxaparin 40 MG (0.4 mL) SYRINGE SC SCH (08:17)
[2023-09-29] MEDS: Potassium Chloride 20 MEQ TAB PO SCH (10:30)
[2023-09-29] MEDS: Acetaminophen 325 MG TAB PO PRN (10:39)
[2023-09-29 11:03] LABS: Free T4 (Free Thyroxine) 1.1 ng/dL (0.70-1.48); Thyroid Stimulating Hormone 1.1546 uIU/mL (0.35-4.94)
[2023-09-29] MEDS: HumaLOG 300 UNITS/3 ML VIAL SC PRN (12:28)
[2023-09-30 04:20] LABS: #Basophils 0.03 10x3/uL (0.0-0.2); %Basophils 0.4 % (0.0-1.0); %Eosinophils 2.6 % (0.0-10.0); %Monocytes 12.2 % (0.0-10.0); %Neutrophils 60.5 % (42.0-75.0); Hematocrit 31.8 % (36.0-47.0); Hemoglobin 10.7 g/dL (12.0-16.0); Mean Corpuscular HGB CONC 33.6 g/dL (32.0-36.0); Mean Corpuscular Hemoglobin 32.2 pg (27.0-31.0); Mean Corpuscular Volume 95.8 fL (78.0-98.0); Mean Platelet Volume 9.2 fL (7.4-10.4); Platelet Count 186 10x3/uL (130-400); RBC Distribution Width 12.8 % (11.5-14.5); Red Blood Cell (RBC) Count 3.32 mill/uL (4.20-5.40)
[2023-09-30 04:41] LABS: Anion Gap 11 mmol/L (10-20); BUN (Urea Nitrogen) 15 mg/dL (9.8-20.1); Calc. Creatinine Clearance 77 mL/min (70-130); Calcium 9.1 mg/dL (7.8-10.44); Carbon Dioxide 24 mmol/L (23-31); Chloride 103 mmol/L (98-107); Estimated GFR 81; Glucose 127 mg/dL (83-110); Potassium 4.2 mmol/L (3.5-5.1); Sodium 134 mmol/L (136-145)
[2023-09-30] MEDS: metFORMIN 500 MG TAB PO SCH (08:19)
[2023-09-30] MEDS: HYDROcodone/Acetaminophen 5/325 mg Tablet PO PRN (12:14)
[2023-09-30] MEDS: Timolol 0.5% Ophth Soln 5 ml Bottle EA EYE SCH (20:21)
[2023-10-01 08:41] LABS: #Basophils Less than 0.03 10x3/uL (0.0-0.2); %Basophils 0.3 % (0.0-1.0); %Eosinophils 3.7 % (0.0-10.0); %Lymphocytes 23.1 % (21.0-51.0); %Monocytes 11.7 % (0.0-10.0); Hematocrit 34.2 % (36.0-47.0); Hemoglobin 11.6 g/dL (12.0-16.0); Mean Corpuscular HGB CONC 33.9 g/dL (32.0-36.0); Mean Corpuscular Hemoglobin 33.2 pg (27.0-31.0); Mean Platelet Volume 9.4 fL (7.4-10.4); Platelet Count 190 10x3/uL (130-400); RBC Distribution Width 12.5 % (11.5-14.5); Red Blood Cell (RBC) Count 3.49 mill/uL (4.20-5.40)
[2023-10-01 09:06] LABS: Anion Gap 14 mmol/L (10-20); BUN (Urea Nitrogen) 11 mg/dL (9.8-20.1); Calc. Creatinine Clearance 74 mL/min (70-130); Calcium 9.3 mg/dL (7.8-10.44); Carbon Dioxide 26 mmol/L (23-31); Chloride 104 mmol/L (98-107); Estimated GFR 77; Glucose 103 mg/dL (83-110); Potassium 4.2 mmol/L (3.5-5.1); Sodium 140 mmol/L (136-145)
[2023-10-01] MEDS: HYDROcodone/Acetaminophen 5/325 mg Tablet PO SCH (12:55)
[2023-10-02 01:17] VITALS: TEMP 97.5
[2023-10-02 05:44] LABS: #Basophils 0.04 10x3/uL (0.0-0.2); %Basophils 0.6 % (0.0-1.0); %Eosinophils 2.8 % (0.0-10.0); %Monocytes 12.1 % (0.0-10.0); %Neutrophils 59.2 % (42.0-75.0); Hematocrit 35.3 % (36.0-47.0); Mean Corpuscular Hemoglobin 32.6 pg (27.0-31.0); Mean Corpuscular Volume 95.9 fL (78.0-98.0); Mean Platelet Volume 9.4 fL (7.4-10.4); Platelet Count 193 10x3/uL (130-400); RBC Distribution Width 12.4 % (11.5-14.5); Red Blood Cell (RBC) Count 3.68 mill/uL (4.20-5.40)
[2023-10-02 06:11] LABS: Anion Gap 10 mmol/L (10-20); BUN (Urea Nitrogen) 16 mg/dL (9.8-20.1); Calc. Creatinine Clearance 73 mL/min (70-130); Calcium 9.4 mg/dL (7.8-10.44); Carbon Dioxide 28 mmol/L (23-31); Chloride 102 mmol/L (98-107); Estimated GFR 76; Glucose 123 mg/dL (83-110); Potassium 4.3 mmol/L (3.5-5.1); Sodium 136 mmol/L (136-145)
[2023-10-02] MEDS: HYDROcodone/Acetaminophen 5/325 mg Tablet PO PRN (13:27)
[2023-10-02 16:42] VITALS: BP 118/71
== END 2023-10-02 19:45 | DRG 884 ==
LOC: ERS 12:32 → SUATTDRO 12:32 → T4-A 19:15
PROVIDERS: ADMIT Family Medicine; ATTEND Internal Medicine
DX: F03.94 Unspecified dementia, unspecified severity, with anxiety (principal); G93.41 Metabolic encephalopathy; G91.2 (Idiopathic) normal pressure hydrocephalus; K21.9 Gastro-esophageal reflux disease without esophagitis; I25.10 Atherosclerotic heart disease of native coronary artery without angina pectoris; E78.5 Hyperlipidemia, unspecified; I10 Essential (primary) hypertension; E11.9 Type 2 diabetes mellitus without complications; Z96.643 Presence of artificial hip joint, bilateral; F32.A Depression, unspecified; D53.9 Nutritional anemia, unspecified; G89.29 Other chronic pain; M54.9 Dorsalgia, unspecified; G93.89 Other specified disorders of brain; R32 Unspecified urinary incontinence; Z90.710 Acquired absence of both cervix and uterus; Z98.51 Tubal ligation status
CPT/HCPCS: 36415; 36416; 51701; 70551; 71045; 80048; 80053; 80306; 80307; 81001; 82533; 83605; 83690; 83735; 83880; 84100; 84439; 84443; 84484; 85025; 85610; 85730; 93005; 96374; J1650; J1815

== ENCOUNTER 2024-05-17 14:06 | Emergency (ER) | payer MEDICARE, OTHER ==
[2024-05-17 15:43] LABS: INR-International Normal Ratio 1.1; PTT 29.1 sec (22.9-36.1)
[2024-05-17 15:45] LABS: Lipase 18 U/L (8-78); Magnesium 1.6 mg/dL (1.6-2.6)
[2024-05-17 15:49] LABS: Troponin I 0.011 ng/mL (< 0.028)
[2024-05-17 15:50] LABS: ALT (SGPT) 11 U/L (Less than 34); AST (SGOT) 26 U/L (11-34); Albumin 3.7 g/dL (3.1-4.5); Alkaline Phosphatase 69 U/L (40-110); Anion Gap 16 mmol/L (10-20); BUN (Urea Nitrogen) 14 mg/dL (9.8-20.1); Bilirubin, Total 0.5 mg/dL (0.3-1.2); Calc. Creatinine Clearance 0 mL/min (70-130); Calcium 9.5 mg/dL (7.8-10.44); Carbon Dioxide 21 mmol/L (23-31); Chloride 105 mmol/L (98-107); Estimated GFR 63; Globulin 3.3 g/dL (2.4-3.5); Glucose 106 mg/dL (83-110); Potassium 5.5 mmol/L (3.5-5.1); Sodium 136 mmol/L (136-145)
[2024-05-17] MEDS ORDERED: Morphine 4 MG/ML VIAL ONE (16:09)
[2024-05-17] MEDS ORDERED: Ondansetron PF 4 MG/2 ML Vial ONE (16:10)
[2024-05-17] MEDS ORDERED: diphenhydrAMINE 50 MG/ML VIAL ONE (16:22)
[2024-05-17] MEDS ORDERED: methylPREDNISolone Sod Succ/PF 125 MG/2 ML VIAL ONE (16:22)
[2024-05-17 17:43] LABS: #Basophils 0.03 10x3/uL (0.0-0.2); %Basophils 0.4 % (0.0-1.0); %Eosinophils 1.2 % (0.0-10.0); %Lymphocytes 22.6 % (21.0-51.0); %Monocytes 7.4 % (0.0-10.0); %Neutrophils 68.3 % (42.0-75.0); Hematocrit 34.7 % (36.0-47.0); Hemoglobin 11.6 g/dL (12.0-16.0); Mean Corpuscular HGB CONC 33.4 g/dL (32.0-36.0); Mean Corpuscular Volume 95.9 fL (78.0-98.0); Mean Platelet Volume 9.1 fL (7.4-10.4); Platelet Count 167 10x3/uL (130-400); RBC Distribution Width 12.6 % (11.5-14.5); Red Blood Cell (RBC) Count 3.62 mill/uL (4.20-5.40)
== END 2024-05-17 19:28 | disposition home or self-care (01) ==
LOC: ERS 14:06
DX: R10.13 Epigastric pain (principal); E11.42 Type 2 diabetes mellitus with diabetic polyneuropathy; I13.0 Hypertensive heart and chronic kidney disease with heart failure and stage 1 through stage 4 chronic kidney disease, or unspecified chronic kidney disease; E11.22 Type 2 diabetes mellitus with diabetic chronic kidney disease; N18.2 Chronic kidney disease, stage 2 (mild); I50.9 Heart failure, unspecified
CPT/HCPCS: 71045; 74177; 80053; 83690; 83735; 83880; 84484; 85025; 85610; 85730; 93005; J2270; J2405; 36415; 96374; 96375; J1200; J2919